=== PATIENT | female | born 1990 | race Caucasian/White ===

== ENCOUNTER 2017-06-15 06:41 | Day surgery (SDC) | payer OTHER ==
[2017-05-31 12:50] VITALS: BMI 36.0
--- NOTE | 2017-06-07 10:47 | HISTORY & PHYSICAL EXAMINATION ---
DATE OF ADMISSION: 06/15/2017 PREOPERATIVE HISTORY AND PHYSICAL SUBJECTIVE CHIEF COMPLAINT: Right knee pain. HISTORY OF PRESENT ILLNESS: The patient is a 26-year-old female who presented with right knee pain. She states that she had pain and instability in her right knee. She states that the symptoms have occurred in a chronic and traumatic nature. She says that her kneecap has fallen out of place several times. She describes the pain as aching and throbbing, and she rates her pain a 3/10. PAST MEDICAL HISTORY: The patient denies any type of past medical history. PAST SURGICAL HISTORY: Two C-sections and appendectomy. SOCIAL HISTORY: She denies alcohol use. She denies smoking or tobacco use. She denies IV or illegal drug use. She is currently unemployed. FAMILY HISTORY: Noncontributory. ALLERGIES: No known drug allergies. MEDICATIONS: She denies taking any over the counter supplements, herbals or prescribed medications. REVIEW OF SYSTEMS: She denies headaches, fevers, chills, double vision, blurry vision, sore throat, cough, chest pain, nausea, vomiting, diarrhea, constipation, numbness, tingling, tired urinary difficulties, thoughts to harm herself or harm others or depression. She is positive for some joint pain of her right knee. OBJECTIVE: GENERAL APPEARANCE: The patient is a 26-year-old female sitting in no acute distress. She is well-dressed, well-nourished. VITAL SIGNS: She is 5 feet tall, weight 180 pounds, blood pressure 106/70. HEENT: Normocephalic, atraumatic. Extraocular movements are intact. Mucosa was moist. No septal deviation. NECK: Supple with no lymphadenopathy, no JVD, no thyromegaly. HEART: Regular rate and rhythm. No murmurs or gallops. LUNGS: Clear to auscultation. No wheezing or rhonchi. ABDOMEN: Soft, nontender, nondistended. Normal bowel sounds, no hepatosplenomegaly. EXTREMITIES: Paying particular attention to the right knee, she does have some laxity with medial and lateral movement of her patella. She does have good strength of her quads and hamstrings. Does have some medial joint line tenderness. Ligaments are intact. NEUROLOGIC: Cranial nerves II-XII were intact. Pulses were compared bilaterally and were equal. IMAGING: MRI of her right knee demonstrated an MPFL tear. IMPRESSION: Right knee Medial patellofemoral ligament tear. PLAN: The patient is scheduled for a right knee MPFL reconstruction with hamstring autograft. Risks and benefits to surgery were discussed with the patient and included but not limited to blood loss, nerve damage, failure to relieve her pain, failure to relieve her symptoms, DVT, loss range of motion and anesthesia risks and were all discussed with her. She understands this risks and she wishes to proceed. All questions were answered to her satisfaction. No DVT prophylaxis is needed and she will be going home with outpatient physical therapy. LAN
[~2017-06-15] VITALS: Ht 152.4 cm; Wt 83.6 kg
[~2017-06-15 06:41] MED LIST: ACET-1256 PO; BUPIVACAINE 0.25% 30 ML VIAL ONE; BUPIVACAINE 0.5 % 5 MG/1 ML PF 10ML VIAL ONE; DEXAMETHASONE SOD INJ 4 MG/ML VIAL ONE; EpINEphrine INJ 1MG/ML AMP 1 MG/ML AMP ONE; IBUP-1050 PO; LACTATED RINGER'S 1000ML 1,000 ML IV SCH; ONDA8TAB6 PO
--- NOTE | 2017-06-15 07:03 | History & Physical Bridge Note ---
H&P Re-Evaluation Bridge Note: I have examined the patient, reviewed the History & Physical and in the interval since the performance of the History & Physical I have noted the following changes of clinical significance: No changes noted
[2017-06-15 07:25] VITALS: BP 120/82; PULSE 85; TEMP 36.5; O2SAT 97; Ht 152.4 cm; Wt 83.6 kg
[2017-06-15] MEDS ORDERED: FENTANYL CITRATE INJ 50 MCG/1 ML 2 ML VIAL ONE ×5 (07:31→11:17)
[2017-06-15] MEDS ORDERED: MIDAZOLAM HCL 1 MG/ML 2ML VIAL ONE (07:31)
[2017-06-15] MEDS ORDERED: BUPIVACAINE 0.5 % 5 MG/1 ML MPF 30ML VIAL ONE (07:46)
[2017-06-15] MEDS ORDERED: LIDOCAINE/EPINEPHRINE 1% 20 ML VIAL ONE (07:46)
[2017-06-15] MEDS ORDERED: EpINEphrine HCL INJ 1 MG/ML 1ML SYRINGE ONE (07:46)
[2017-06-15] MEDS ORDERED: CEFAZOLIN SOD 1 GM VIAL IV ONE (09:09)
[2017-06-15] MEDS ORDERED: ONDANSETRON INJ 2 MG/ML 2 ML VIAL ONE (09:42)
[2017-06-15] MEDS ORDERED: PROPOFOL IV EMULSION 10 MG/ML 20 ML VIAL IV ONE (09:42)
[2017-06-15] MEDS ORDERED: LIDOCAINE HCL 2% 2 ML VIAL (20MG/ML) ONE (09:42)
[2017-06-15] MEDS ORDERED: MoRPHine SULFATE 2 MG/ML CARP ONE ×2 (10:18→10:28)
--- NOTE | 2017-06-15 10:34 | [facility] Operative Report ---
Operative Report Operative Date Jun 15, 2017. Pre-Operative Diagnosis Right Knee Medial Patellofemoral Ligament Tear Post-Operative Diagnosis Right Knee Medial Patellofemoral Ligament Tear Procedure(s) Performed Right knee medial patellofemoral ligament reconstruction with autograft hamstring tendon Surgeon Laboratory Development Technician Surgeon(s) BYRON Amaya Estimated Blood Loss 10 Specimens None per surgeon Drains None Anesthesia Type General Regional Complication(s) none Disposition Recovery Room / PACU Indications The patient is a 26-year-old female with long-standing instability of the patella. She has failed conservative measures including physiotherapy and bracing. She wishes to proceed with medial patellofemoral ligament reconstruction. Description of Procedure The patient has failed conservative measures including anti-inflammatories, physical therapy and bracing. After failing conservative measures they wished to proceed with MPFL reconstruction. Risk, benefits and alternatives to surgery including, but not limited to, infection, DVT, pain, stiffness, need for revision surgery, failure to relieve all symptoms, recurrence of instability , damage to blood vessels, damage to nerves, risk of anesthesia were discussed with the patient and they wished to proceed. The patient was identified. Laterality was confirmed and marked. A preoperative antibiotic as well as an abductor canal block was given. The patient was transferred to the operating room and placed in a supine position and induced into general endotracheal anesthesia per anesthesia staff. A well- padded tourniquet was placed on the thigh and the limb was prepped and draped in the usual standard manner with ChloraPrep. The harvested the graft first. I made a longitudinal incision centered over the pes tendons. I sharply incised through the skin utilizing Bovie electrocautery to achieve hemostasis. I made an L-shaped incision through the sartorius fascia. I identified the gracilis tendon. The gracilis was rather small sore elected to harvest the semitendinosus tendon. I elevated this with a 90 hemostat. I whip stitched it with ultra braid and then harvested it with a tendon stripper. The graft was prepared on the back table with a #2 ultra braid on the contralateral side. I then made a standard anterolateral viewing portal made through a stab incision and bluntly entered the suprapatellar pouch. Then under spinal needle localization I establish an anteromedial portal. There was grade 0 cartilage of the patella. There was grade 0 cartilage of the trochlea. There was grade 0 cartilage of the medial femoral condyle. There was grade 0 cartilage of the medial tibial plateau. The medial meniscus was normal. The ACL and PCL were probed and were normal. There was grade 0 cartilage of the lateral femoral condyle. There was grade 0 cartilage of the lateral tibial plateau. I made a longitudinal incision on the medial aspect of the patella sharply incising through the skin, utilizing Bovie electrocautery to achieve hemostasis. I dissected through the first 2 layers on the medial side leaving the deep third layer intact. I developed this plane along the medial femoral condyle. And under fluoroscopic guidance I placed 2 guide pins, one in the superior pole and one in the midpole of the patella. Once I was satisfied with my positioning, I overreamed with the Endobutton reamer to a depth of about 25 mm. Both tunnels were then tapped. I then utilize fluoroscopic guidance to find appropriate positioning for my femoral tunnel utilizing the posterior cortex and Blumensaat line to find appropriate positioning. Once I was satisfied with the pin placement I then overreamed with a 6 mm reamer. I then passed a passing suture through the femur as well as another to the deep tissue of the medial retinaculum. I then utilized a Beath needle drilling through and through to the patella utilizing the eyelet to dock the sutures for the graft into both the superior tunnel as well as the mid pole tunnel. I then fixated the graft to the patella with two 4.75 mm HEALICOIL REGENESORB suture anchors. I then utilized and ULTRABRAID looped around the graft. This was then shuttled between layers 2 and 3 and then again shuttled and docked in the tunnel. The knee was held in about 30 of flexion. Tension was applied to the graft and then the graft was fixated in the femur with a 6 x 25 mm BOYD composite interference screw. We had good tensioning to the graft, good stability to the knee. The wounds were thoroughly irrigated. The upper mattaponi MPFL was imbricated utilizing the ultra braid sutures that were on the HEALICOIL and then the more superficial layer was closed with Vicryl. The sartorius fascia was closed with interrupted #1-0 Vicryl suture. The subcutaneous tissues were closed with interrupted 2-0 Vicryl suture and the skin with running 4-0 Monocryl. The portal sites were closed with nylon. A sterile dressing was applied and a brace was placed. All needle and sponge counts were correct at the end of the procedure. The patient was transferred to the PACU in stable condition without apparent complication. The PA-C was necessary for assistance with procedure for assistance in positioning, prepping, draping, retraction and closure. I attest to the content of the Intraoperative Record and any orders documented therein. Any exceptions are noted below.
[2017-06-15] MEDS ORDERED: SODIUM CHLORIDE 0.9% 1000ML 1,000 ML IV SCH (10:58)
[2017-06-15] MEDS ORDERED: ONDANSETRON INJ 2 MG/ML 2 ML VIAL IV PRN ×2 (11:00→11:15)
[2017-06-15] MEDS ORDERED: OXYCODONE/ACETAMINOPHEN 5-325 TAB PO PRN ×2 (11:00)
[2017-06-15] MEDS ORDERED: OXYC-57 PO (11:01)
--- NOTE | 2017-06-15 11:06 | Discharge Instructions ---
Discharge Instructions Date of Service Jun 15, 2017. Admission Reason for Admission: Other Instability Of Right Knee Discharge Discharge Diagnosis / Problem: S/P MPFL reconstruction with hamstring autograft Discharge Goals Goal(s): Decrease discomfort, Improve function Activity Recommendations Activity Limitations: per Instructions/Follow-up section . Instructions / Follow-Up Instructions / Follow-Up ACTIVITY RECOMMENDATIONS: * Begin physical therapy 2-3 days after surgery with MPFL protocol. If Physical therapy does not have this protocol, [place] [facility] [place]. * Non-weightbearing with right lower extremity. Keep the brace locked at 0 degrees at all times. Crutches will be provided for you at the hospital. SPECIAL CARE INSTRUCTIONS: * Apply ice to knee for 72 hours after surgery. * Knee immobilizer in extension at 0 degrees at all times. * You may remove the DIONICIO wrap 48 hours after the surgery and use dry dressing changes every 24 hours after the surgery. * Call office at if there are any problems such as excessive wound drainage or increased temperature above 100 degrees F. FOLLOW UP VISIT: If appointment is not already scheduled: Please call [facility] to make a follow-up appointment for 10 -14 days after your surgery at . Current Hospital Diet Patient's current hospital diet: Discharge Diet Recommended Diet: Regular Diet Procedures Procedures Performed: Right knee medial patellofemoral ligament reconstruction with autograft hamstring tendon Pending Studies Studies pending at discharge: no Medical Emergencies . Who to Call and When: Medical Emergencies: If at any time you feel your situation is an emergency, please call [phone] immediately. . Non-Emergent Contact Non-Emergency issues call your: Surgeon Call Non-Emergent contact if: temperature is above 101.5, your pain is worsening, wound has increased drainage, wound has increased redness . "Provider Documentation" section prepared by Felipe Ballard. . VTE Core Measure Inpt VTE Proph given/why not?: Treatment not indicated [place] Drug Monitoring Program Search Results: patient reviewed within database, no issues identified
[2017-06-15] MEDS ORDERED: FENTANYL CITRATE INJ 50 MCG/1 ML 2 ML VIAL IV PRN (11:15)
[2017-06-15] MEDS ORDERED: EpHEDrine SULFATE INJ 50 MG/ML AMP IV PRN (11:15)
[2017-06-15] MEDS ORDERED: ATROPINE SULFATE 0.1 MG/ML 5ML SYR IV PRN (11:15)
[2017-06-15] MEDS ORDERED: PROMETHAZINE HCL INJ 6.25 MG in SODIUM CHLORIDE 0.9% 50ML 50 ML IV PRN (11:15)
[2017-06-15] MEDS ORDERED: KETOROLAC TROMETHAMINE 30 MG/ML VIAL ONE (11:43)
[2017-06-15] MEDS ORDERED: KETOROLAC TROMETHAMINE 30 MG/ML VIAL IV STA (11:46)
[2017-06-15 12:00] VITALS: BP 132/71; PULSE 95; TEMP 36.7; O2SAT 95
--- NOTE | 2017-06-15 12:10 | Anesthesiology Progress Note ---
Anesthesia Post Op Note Date & Time Jun 15, 2017 at 12:10 Vital Signs Pain Intensity: 6 Vital Signs Past 12 Hours Date Time Temp Pulse Resp B/P (MAP) Pulse Ox O2 Delivery O2 Flow Rate FiO2 06/15/17 11:45 36.6 95 25 143/82 97 Room Air 06/15/17 11:35 94 12 130/86 93 Room Air 06/15/17 11:25 97 15 119/88 98 Oxymask 4 06/15/17 11:15 84 14 125/74 100 Oxymask 10 06/15/17 11:05 89 17 112/75 100 Oxymask 10 06/15/17 10:58 36.1 99 18 119/75 100 Oxymask 10 06/15/17 07:25 36.5 85 16 120/82 (95) 97 Room Air Notes Mental Status: alert / awake / arousable, participated in evaluation Pt Amnestic to Procedure: Yes Nausea / Vomiting: adequately controlled Pain: adequately controlled Airway Patency, RR, SpO2: stable & adequate BP & HR: stable & adequate Hydration State: stable & adequate Anesthetic Complications: no major complications apparent Block working well in pacu. Pt has some moderate posterior knee pain not covered by block but well controlled with supplemental medicines.
[2017-06-15 12:35] VITALS: BP 125/75; PULSE 91; O2SAT 98
[2017-06-15 13:05] VITALS: BP 117/63; PULSE 90; TEMP 36.5; O2SAT 97
== END 2017-06-15 13:25 | disposition home or self-care (01) ==
LOC: C.ACU 06:41
PROVIDERS: ATTEND Orthopaedic Surgery
DX: S83.8X1A Sprain of other specified parts of right knee, initial encounter (principal); X58.XXXA Exposure to other specified factors, initial encounter

== ENCOUNTER 2017-12-06 23:42 | Emergency (ER) | payer OTHER ==
[~2017-12-06 23:42] MED LIST changes: -BUPIVACAINE 0.25% 30 ML VIAL ONE; -BUPIVACAINE 0.5 % 5 MG/1 ML PF 10ML VIAL ONE; -DEXAMETHASONE SOD INJ 4 MG/ML VIAL ONE; -EpINEphrine INJ 1MG/ML AMP 1 MG/ML AMP ONE; -LACTATED RINGER'S 1000ML 1,000 ML IV SCH; +ONDA-170 PO; -ONDA8TAB6 PO; +OXYC-57 PO
[2017-12-06 23:49] VITALS: TEMP 36.6; Ht 152.4 cm
[2017-12-07] MEDS ORDERED: KETOROLAC TROMETHAMINE 30 MG/ML VIAL IV STA
[2017-12-07] MEDS ORDERED: SODIUM CHLORIDE 0.9% 1000ML 1,000 ML IV ONE
[2017-12-07] MEDS ORDERED: ONDANSETRON INJ 2 MG/ML 2 ML VIAL IV STA
[2017-12-07] MEDS ORDERED: ACETAMINOPHEN IV 1,000 MG in EMPTY BAG 0 ML IV ONE
[2017-12-07 00:31] LABS: BASO % 0.5 %; BASO ABS # 0.05 K/uL (0-0.2); EOS % 1.6 %; EOS ABS # 0.15 K/uL (0-0.5); HEMATOCRIT 39.6 % (37-47); HEMOGLOBIN 13.9 g/dL (12.0-16.0); IG# 0.02 K/uL (0.00-0.02); LYMPH % 20.1 %; LYMPH ABS # 1.92 K/uL (1.2-3.4); MEAN CELL VOLUME 81.8 fL (80-100); MEAN CORPUSCULAR HEMOGLOBIN 28.7 pg (25-34); MEAN CORPUSCULAR HGB CONC 35.1 g/dl (32-36); MEAN PLATELET VOLUME 10.6 fL (7.4-10.4); MONO ABS # 0.86 K/uL (0.11-0.59); NEUT % 68.6 %; NEUT ABS # 6.57 K/uL (1.4-6.5); PLATELET COUNT 393 K/uL (130-400); RED CELL DISTRIBUTION WIDTH CV 12.4 % (11.5-14.5); RED CELL DISTRIBUTION WIDTH SD 36.9 fL (36.4-46.3); WHITE BLOOD COUNT 9.57 K/uL (4.8-10.8)
[2017-12-07 00:59] LABS: ALBUMIN 4.4 gm/dl (3.4-5.0); ALKALINE PHOSPHATASE 83 U/L (45-117); ALT/SGPT 20 U/L (12-78); AST/SGOT 9 U/L (15-37); BLOOD UREA NITROGEN 14 mg/dl (7-18); CALCIUM 8.7 mg/dl (8.5-10.1); CARBON DIOXIDE 22 mmol/L (21-32); CREATININE 0.88 mg/dl (0.60-1.20); GLUCOSE 89 mg/dl (70-99); LIPASE 92 U/L (73-393); POTASSIUM 3.8 mmol/L (3.5-5.1); SODIUM 139 mmol/L (136-145)
[2017-12-07] MEDS ORDERED: PHEN-876 PO (02:10)
[2017-12-07] MEDS ORDERED: SULF800T23 PO (02:10)
[2017-12-07] MEDS ORDERED: SEPTRA DS HOME PACK 1 EA VIAL PO ONE (02:15)
[2017-12-07] MEDS ORDERED: PHENAZOPYRIDINE HOME PACK 200 MG VIAL PO ONE (02:15)
[2017-12-07 02:29] VITALS: BP 117/62; PULSE 77; O2SAT 98
--- NOTE | 2017-12-07 06:32 | EMERGENCY ROOM VISIT NOTE ---
History First contact with patient: 23:52 Chief Complaint: ABDOMINAL PAIN Stated Complaint: BACK, ABDOMINAL PAIN, NAUSEA, VOMITING Nursing Triage Summary: Patient reports lower back pain, abdominal pain, nausea, and vomiting that began approx 2030 this evening. History of Present Illness The patient is a 27 year old female who presents to the Emergency Room with complaints of lower abdominal pain that goes into her back. Patient states that she is also having some nausea with 2 episodes of emesis. Her symptoms began worsening about ago, but she states that she has had intermittent symptoms like this over the past 2 weeks. The patient has not taken anything [id number] for her symptoms. She rates her current discomfort a 6/10. Review of Systems More than 10 systems were reviewed and otherwise negative with the exception of history of present illness. Past Medical/Surgical History Medical Problems: (1) premature rupture of membranes (PPROM) with unknown onset of labor (2) uterine contractions in third trimester, antepartum Surgical Problems: (1) H/O section (2) History of appendectomy (3) Hx of section Family History Diabetes mellitus Social History Smoking Status: Never Smoker Alcohol Use: none Drug Use: none Marital Status: in relationship Housing Status: lives with family Occupation Status: employed Current/Historical Medications Scheduled Phenazopyridine HCl (Pyridium), 200 MG PO TID Sulfamethoxazole-Trimethoprim (Bactrim Ds 800MG/160MG), 1 TAB PO BID Scheduled PRN Acetaminophen (Tylenol), 1,000 MG PO BID PRN for Pain Physical Exam Vital Signs Date Time Temp Pulse Resp B/P (MAP) Pulse Ox O2 Delivery O2 Flow Rate FiO2 12/07/17 02:29 77 18 117/62 98 12/07/17 00:49 83 18 117/72 98 Room Air 12/06/17 23:49 36.6 95 18 132/74 98 Room Air Physical Exam VITALS: Vitals are noted on the nurse's note and reviewed by myself. Vital signs stable. GENERAL: Well-developed, well-nourished, white female, who is in no acute distress and resting comfortably. Patient is cooperative with the examination. HEAD: Normocephalic atraumatic. HEART: Regular rate and rhythm without murmurs gallops or rubs. LUNGS: Clear to auscultation bilaterally without wheezes, rales or rhonchi. No retractions or accessory muscle use. ABDOMEN: Positive normal bowel sounds x 4. Soft with mild suprapubic tenderness on palpation. No rebound or guarding MUSCULOSKELETAL: No muscle atrophy, erythema, or edema noted. Full range of motion in all extremities. Medical Decision & Procedures ER Provider Diagnostic Interpretation: Preliminary Findings Only See Final Report For Complete Findings CT ABDOMEN & PELVIS Without Contrast: COMPARISON: 05/30/15 FINDINGS: The lung bases are clear. The liver and spleen are normal in size and free of mass lesions. The gallbladder, bile ducts and pancreas are normal. The adrenal gland are unremarkable. The kidneys are normal in size and contour. No stones, lesions or hydronephrosis. The appendix is surgically absent. The colon is unremarkable. Small bowel is within normal limits. No inflammatory changes are demonstrated in the abdomen or pelvis. Aorta is normal caliber. No adenopathy or extraluminal air. The osseous structures are normal. Previously identified rectus collection on the prior study is no longer present IMPRESSION: Unremarkable CT abdomen and pelvis. Laboratory Results 12/07/17 00:15 Red Blood Count 4.84, Mean Corpuscular Volume 81.8, Mean Corpuscular Hemoglobin 28.7, Mean Corpuscular Hemoglobin Concent 35.1, Mean Platelet Volume 10.6, Neutrophils (%) (Auto) 68.6, Lymphocytes (%) (Auto) 20.1, Monocytes (%) (Auto) 9.0, Eosinophils (%) (Auto) 1.6, Basophils (%) (Auto) 0.5, Neutrophils # (Auto) 6.57, Lymphocytes # (Auto) 1.92, Monocytes # (Auto) 0.86, Eosinophils # (Auto) 0.15, Basophils # (Auto) 0.05 12/07/17 00:15 Test 12/07/17 00:10 12/07/17 00:15 Urine Color YELLOW Urine Appearance CLEAR (CLEAR) Urine pH 7.0 (4.5-7.5) Urine Specific [place] 1.014 (1.000-1.030) Urine Protein NEG (NEG) Urine Glucose (UA) NEG (NEG) Urine Ketones NEG (NEG) Urine Occult Blood NEG (NEG) Urine Nitrite NEG (NEG) Urine Bilirubin NEG (NEG) Urine Urobilinogen NEG (NEG) Urine Leukocyte Esterase NEG (NEG) Urine Test NEG (NEG) White Blood Count 9.57 K/uL (4.8-10.8) Red Blood Count 4.84 M/uL (4.2-5.4) Hemoglobin 13.9 g/dL (12.0-16.0) Hematocrit 39.6 % (37-47) Mean Corpuscular Volume 81.8 fL (80-100) Mean Corpuscular Hemoglobin 28.7 pg (25-34) Mean Corpuscular Hemoglobin Concent 35.1 g/dl (32-36) Platelet Count 393 K/uL (130-400) Mean Platelet Volume 10.6 fL (7.4-10.4) Neutrophils (%) (Auto) 68.6 % Lymphocytes (%) (Auto) 20.1 % Monocytes (%) (Auto) 9.0 % Eosinophils (%) (Auto) 1.6 % Basophils (%) (Auto) 0.5 % Neutrophils # (Auto) 6.57 K/uL (1.4-6.5) Lymphocytes # (Auto) 1.92 K/uL (1.2-3.4) Monocytes # (Auto) 0.86 K/uL (0.11-0.59) Eosinophils # (Auto) 0.15 K/uL (0-0.5) Basophils # (Auto) 0.05 K/uL (0-0.2) RDW Standard Deviation 36.9 fL (36.4-46.3) RDW Coefficient of Variation 12.4 % (11.5-14.5) Immature Granulocyte % (Auto) 0.2 % Immature Granulocyte # (Auto) 0.02 K/uL (0.00-0.02) Anion Gap 10.0 mmol/L (3-11) Estimated GFR () 102.9 Estimated GFR (Non- 88.8 BUN/Creatinine Ratio 16.4 (10-20) Calcium Level 8.7 mg/dl (8.5-10.1) Magnesium Level 2.1 mg/dl (1.8-2.4) Total Bilirubin 0.3 mg/dl (0.2-1) Aspartate Amino Transf (AST/SGOT) 9 U/L (15-37) Alanine Aminotransferase (ALT/SGPT) 20 U/L (12-78) Alkaline Phosphatase 83 U/L (45-117) Total Protein 8.0 gm/dl (6.4-8.2) Albumin 4.4 gm/dl (3.4-5.0) Globulin 3.6 gm/dl (2.5-4.0) Albumin/Globulin Ratio 1.2 (0.9-2) Lipase 92 U/L (73-393) Thyroid Stimulating Hormone (TSH) 5.250 uIu/ml (0.300-4.500) Medications Administered Medications (Trade) Dose Ordered Sig/Nirav Route Start Time Stop Time Status Last Admin Dose Admin Sodium Chloride 1,000 ml @ 999 mls/hr Q1H1M ONCE IV 12/07/17 00:00 12/07/17 01:00 DC 12/07/17 00:47 999 MLS/HR Ketorolac Tromethamine (Toradol Inj) 30 mg NOW STAT IV 12/07/17 00:00 12/07/17 00:01 DC 12/07/17 00:47 30 MG Ondansetron HCl (Zofran Inj) 4 mg NOW STAT IV 12/07/17 00:00 12/07/17 00:01 DC 12/07/17 00:46 4 MG Acetaminophen 1000 mg/Empty Bag 100 ml @ 400 mls/hr NOW ONCE IV 12/07/17 00:00 12/07/17 00:14 DC 12/07/17 00:48 400 MLS/HR ED Course Physical exam and history were performed. Nursing notes, EMR, and Medication List were personally reviewed. Patient appears to have vague abdominal discomfort is reportedly more in the right flank and lower abdomen. Patient does not appear toxic on examination. She does have some reproducible tenderness in the suprapubic area. IV access was established and labs were obtained. The patient was hydrated and medicated as above. Because of her symptoms I did elect to perform a CT scan of her abdomen. The patient's blood work is as above and was reviewed. She does not have a significantly elevated white blood cell count, gross anemia, bandemia, or significant electrolyte imbalance. Transaminases are nondiagnostic. The patient's urine is without evidence of , however is suggestive of infection. Patient CT scan is as above and does not appear to show obvious acute findings. On repeat examination the patient continues with some suprapubic tenderness. She does not appear to have an acute surgical abdomen. I discussed options of care with the patient who is comfortable with discharge home. I suspect her symptoms are related to the UTI. She will be given a course of Bactrim and Pyridium. The patient is to follow with her primary care physician in the next few days for recheck. She was otherwise invited back to the ER with any new, worsening, or concerning symptoms. The chart was completed utilizing [facility] Speech Voice Recognition Software. Grammatical errors, random word insertions, pronoun errors, and incomplete sentences are an occasional consequence of this system due to software limitations, ambient noise, and hardware issues. Any formal questions or concerns about the content, text, or information contained within the body of this dictation should be directly addressed to the provider for clarification. . Medical Decision Differential diagnosis: Etiologies such as appendicitis, diverticulitis, PUD, biliary pathology, UTI, pancreatitis, obstruction, mesenteric ischemia, aortic pathology, infections, inflammatory bowel disease, renal colic, as well as others were entertained. Impression Primary Impression: UTI (urinary tract infection) Departure Information Dispostion Home / Self-Care Condition GOOD Prescriptions Phenazopyridine HCl (Pyridium) 200 Mg Tab 200 MG PO TID for 3 Days, #9 TAB Prov: Fransisco Childress PA-C 12/07/17 Sulfamethoxazole-Trimethoprim (Bactrim Ds 800MG/160MG) 1 Tab Tab 1 TAB PO BID for 9 Days, #18 TAB Prov: Fransisco Childress PA-C 12/07/17 Forms HOME CARE DOCUMENTATION FORM, IMPORTANT VISIT INFORMATION Patient Instructions My [facility] Additional Instructions You were seen and evaluated today on an emergency basis only. This is not a substitute for, or an effort to provide, complete comprehensive medical care. It is not possible to recognize and treat all injuries or illnesses in a single emergency department visit. For this reason it is recommended that you followup with your primary care physician next week with any ongoing or persisting symptoms. Trimethoprim-Sulfamethoxazole(Bactrim DS): Take one pill twice daily for 10 days for your urine infection. All antibiotics can cause diarrhea. If this occurs and you feel worse or it does not resolve in 1-2 days follow up with your doctor or return to the Emergency Department as this could be signs of serious underlying problems. Any medication can cause an allergic reaction, stop the pills immediately and return to the ER for rash, hives, breathing difficulties, or swelling. Take Pyridium 3 times daily. This medication will change your urine orange. You are welcome to return to the emergency department anytime with new, worsening, or concerning symptoms.
--- NOTE | 2017-12-07 07:11 | DIAGNOSTIC IMAGING REPORT ---
ABDOMEN AND PELVIS CT WITHOUT CONTRAST CT DOSE: 705.56 mGy.cm HISTORY: Right flank pain. Low abd pain. No appdx. TECHNIQUE: Multiaxial CT images of the abdomen and pelvis were performed without contrast. A dose lowering technique was utilized adhering to the principles of ALARA. COMPARISON STUDY: Abdomen and pelvis CT 05/30/2015. FINDINGS: The lung bases are clear. The unenhanced liver, spleen, gallbladder, pancreas, kidneys, and adrenal glands are within normal limits. No bowel wall thickening or obstruction. The pelvic organs are unremarkable. No suspicious lytic or blastic osseous lesions. The appendix is surgically absent. IMPRESSION: No significant abnormality identified within the abdomen or pelvis. Electronically signed by: Дмитрий Carr M.D. 12/07/2017 7:10 AM Dictated Date/Time: 12/07/2017 7:05 AM
== END 2017-12-07 02:25 | disposition home or self-care (01) ==
LOC: C.EDB 23:43
DX: N39.0 Urinary tract infection, site not specified (principal); R11.2 Nausea with vomiting, unspecified

== ENCOUNTER 2018-09-12 19:38 | Observation (INO) ==
[2018-09-12] MEDS ORDERED: LACTATED RINGER'S 1,000 ML IV SCH (20:00)
[2018-09-12 20:28] LABS: Appearance Urine Clear (Clear); Bacteria Urine Automated 2+ (Negative); Blood Urine Negative (Negative); Color Urine Dark Yellow; Epithelial Cell Urine Auto >30 /lpf (0-5); Glucose Urine UA Negative (Negative); Leukocyte Esterase Urine Negative (Negative); Nitrite Urine Negative (Negative); Protein Urine 1+ (Negative); Specific Gravity Urine 1.042 (1.000-1.030); Urobilinogen Urine Negative (Negative)
[2018-09-12] MEDS ORDERED: ONDANSETRON INJ 2 MG/ML 2 ML VIAL ONE (20:35)
[2018-09-12 21:01] LABS: Bilirubin Urine Negative (Negative); Ictotest Urine Negative (Negative)
[2018-09-12 21:02] LABS: Ketones Urine 3+ (Negative)
[2018-09-12 21:04] LABS: Cast Urine Automated 0 /lpf (0-5)
[2018-09-12 21:05] LABS: Mucus Urine Present (None Prsent)
[2018-09-12] MEDS ORDERED: LACTATED RINGER'S 1,000 ML IV ONE (21:08)
[2018-09-12] MEDS: AMPICILLIN 2,000 MG in SODIUM CHLOR 0.9% AD-VAN 100 ML IV SCH (21:53)
[2018-09-12] MEDS ORDERED: PROMETHAZINE HCL 12.5 MG in SODIUM CHLORIDE 0.9% 50 ML IV STA (21:59)
[2018-09-12] MEDS: LACTATED RINGER'S 1,000 ML IV SCH (23:00)
[2018-09-12] MEDS ORDERED: METOCLOPRAMIDE HCL INJ 5 MG/ML 2 ML VIAL IV STA (23:09)
--- NOTE | 2018-09-12 23:09 | Obstetrical Progress Note ---
Date of Service September 12, 2018 Subjective Outpatient Note 27 F [id number] at 29.6 weeeks seen in L&D [facility] with several week history of nausea and vomiting and abdominal pain. She is not having any contractions or vaginal bleeding. she has not been able to keep food down for most of her . On admission to L&D she has continued vomiting with dry heaves. Cervical exam reveals cervix to be closed and thick/-3. FHT Cat 1. Hard impacted sttol noted. Will get UA and start IV bolus with ant-emetics. Results & Data Vital Signs (Past 12 Hours) Vital Signs Temp Pulse Resp BP 09/12/18 19:49 120 H 115/75 09/12/18 19:44 36.5 C 120 H 18 115/75 Laboratory Results Laboratory Results - last 24 hr 09/12/18 19:45 Urine Color Dark Yellow Urine Appearance Clear Urine pH 6.0 Ur Specific [place] 1.042 H Urine Protein 1+ H Urine Glucose (UA) Negative Urine Ketones 3+ H Urine Blood Negative Urine Nitrite Negative Urine Bilirubin Negative Urine Urobilinogen Negative Ur Leukocyte Esterase Negative Urine WBC (Auto) 5-10 H Urine RBC (Auto) 5-10 H U Hyaline Cast (Auto) 0 U Epithel Cells (Auto) >30 H Urine Bacteria (Auto) 2+ H Ur Renal Epithelial Cell Not Reportable Urine Crystals Calcium Oxalate A Urine Mucus Present A
[2018-09-13] MEDS ORDERED: Nursing to Pharmacy Communication ONE
[2018-09-13] MEDS: ONDANSETRON INJ 2 MG/ML 2 ML VIAL IV PRN ×2 (02:54→07:24)
[2018-09-13 03:00] VITALS: TEMP 97.7
[2018-09-13] MEDS: AMPICILLIN 2,000 MG in SODIUM CHLOR 0.9% AD-VAN 100 ML IV SCH ×2 (04:05→09:07)
[2018-09-13] MEDS: LACTATED RINGER'S 1,000 ML IV SCH (08:31)
[2018-09-13 08:32] VITALS: BP 107/58; PULSE 110
--- NOTE | 2018-09-13 09:00 | Obstetrical Progress Note ---
Date of Service September 13, 2018 Physical Exam Constitutional: WD/WN, vitals as above + well hydrated and comfortable no further nausea or vomiting will discharge home follow up in office next week Results & Data Vital Signs (Past 12 Hours) Vital Signs Temp Pulse Resp BP 09/13/18 08:31 110 H 20 107/58 L 09/13/18 07:05 92 H 106/64 09/13/18 06:12 83 97/54 L 09/13/18 02:24 36.5 C 95 H 16 99/50 L 09/12/18 23:46 36.4 C L 85 18 103/54 L
--- NOTE | 2018-09-21 11:55 | Discharge Summary ---
HOSPITAL COURSE AND CLINICAL HISTORY: The patient is a 27-year-old female with para 3-0-0-3 at 29 weeks and 6 days, seen in Labor and Delivery with several weeks history of nausea, vomiting, abdominal pain. No contractions or bleeding. Her exam was benign. Her cervix was closed. Category 1 heart tones noted on strip. The patient was given several liters of IV fluids with probably 3 liters doses. She was then subsequently stable after antiemetics and IV fluids. She was discharged home on 09/13/2018 in stable condition. Home going instructions were given. Condition on discharge is stable. The diet on discharge is regular as tolerated. Follow up will be in the office. DIAGNOSIS: Dehydration on .
== END 2018-09-13 10:00 | disposition home or self-care (01) ==
LOC: OPB 19:38 → 4S1 19:38

== ENCOUNTER 2018-11-06 22:02 | Inpatient (IN) ==
[2018-11-06] MEDS ORDERED: LACTATED RINGER'S 1,000 ML IV SCH ×2 (23:00→23:58)
[2018-11-06 23:25] LABS: Basophils # (auto) 0.01 K/uL (0-0.2); Basophils % (auto) 0.1 %; Eosinophils # (auto) 0.07 K/uL (0-0.5); Eosinophils % (auto) 0.8 %; Hematocrit (blood only) 34.4 % (37-47); Hemoglobin 11.5 g/dL (12.0-16.0); Immature Granulocytes # (auto) 0.02 K/uL (0.00-0.02); Immature Granulocytes % (auto) 0.2 %; Lymphocytes % (auto) 16.5 %; Mean Corpuscular Volume 80.4 fL (80-100); Mean Platelet Volume 11.1 fL (7.4-10.4); Monocytes # (auto) 0.53 K/uL (0.11-0.59); Monocytes % (auto) 6.3 %; Neutrophils # (auto) 6.43 K/uL (1.4-6.5); Neutrophils % (auto) 76.1 %; Platelet Count 262 K/uL (130-400); RDW Coefficient of Variation 13.6 % (11.5-14.5); RDW Standard Deviation 39.5 fL (36.4-46.3); Red Blood Count 4.28 M/uL (4.2-5.4); White Blood Count 8.46 K/uL (4.8-10.8)
[2018-11-06 23:36] LABS: Mean Corpuscular Hgb Conc 33.4 g/dL (32-36)
--- NOTE | 2018-11-06 23:42 | Anesthesiology Consultation ---
Date of Service November 06, 2018 @ 37.5 Neurofibromatosis Type 1 Obesity Assessment & Plan (1) Encounter for pre-operative examination: Chart Review Chart Review: Acceptable Risk for Surgery and Patient NOT seen in Pre Admission Testing Consults Requested none ASA [id number] Proposed Anesthesia Anesthesia Type: Spinal Risk / Benefits Reviewed With: PT / POA / Parent / Guardian, Accepts Plan and Informed Consent Obtained History Surgery Operation Date: 11/06/18 23:30 Proposed Procedures p Section in LD - Sharan Neal MD Height/Weight Height: 5 ft Weight: 92.6 kg Allergies Allergy/AdvReac Type Severity Reaction Status Date / Time bee venom protein (honey bee) Allergy Intermediate Headache, Verified 04/30/18 18:51 faint lactose Allergy Intermediate Gastrointestinal Verified 04/30/18 18:51 Upset Medications Home Medications Medication Instructions Recorded Confirmed Last Taken buspirone 10 mg PO QAM 11/06/18 11/06/18 11/06/18 buspirone 15 mg PO QPM 11/06/18 11/06/18 11/05/18 promethazine 25 mg PO Q6H PRN 11/06/18 11/06/18 Unknown sertraline [Zoloft] 25 mg PO QAM 11/06/18 11/06/18 11/06/18 Active Medications Generic Name Dose Route Start Last Admin Trade Name Freq PRN Reason Stop Dose Admin Lactated Ringer's 1,000 mls @ 999 mls/hr 11/06/18 23:00 11/06/18 23:31 Lr IV 11/07/18 00:00 999 mls/hr .Q1H1M KRISSY Administration NPO Date Last Intake of Fluids: 11/06/18 Time Last Intake of Fluids: 21:00 Date Last Intake of Solids: 11/06/18 Time Last Intake of Solids: 18:00 Past Medical History Medical History (Acute) Anxiety with depression Cystic fibrosis carrier Fibroid uterus History of abnormal cervical Pap smear 2012; had colposcopy and all wnl since Mitral valve prolapse diagnosed as a child Neurofibromatosis, 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 No history of diabetes mellitus 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 [place] teeth removed 2008 Exercise / Class Metabolic Activity II 4-5 Yardwork/Stairs/Walk up hill Past Family History Family History Other No significant family history Past Surgical History Surgical History History of appendectomy (Resolved) H/O section (Resolved) S/P reconstruction of ligament of knee right knee 2018 Past Anesthesia History No Hx of Anesthesia Complications and No Family Hx of Anesthesia Complications History of PONV No Hx of PONV and No Hx of Motion Sickness Social History Smoking Status: Never smoker Hx Alcohol Use: No Hx Substance Use: No substance use type: does not use Physical Exam Vital Signs Last Vital Signs Temp 36.6 C 11/06/18 22:28 Pulse 94 H 11/06/18 22:14 Resp 20 11/06/18 23:00 BP 121/80 11/06/18 22:14 ENMT Mouth: no dentition abnormality Thyromental Distance: > or= 3.5 Finger Breadths Mallampati Class: II Neck normal visual inspection Respiratory normal respiratory effort Auscultation: lungs clear to auscultation bilaterally Cardiovascular Rate/Rhythm: regular rate and regular rhythm Psychiatric Orientation: alert Testing Laboratory Results 11/06/18 23:06
[2018-11-06] MEDS ORDERED: cefOXitin 2,000 MG in DEXTROSE 5% 50 ML IV ONE (23:45)
[2018-11-06] MEDS ORDERED: CITRIC ACID/SODIUM CITRATE 15 ML UDC PO ONE (23:45)
[2018-11-06] MEDS ORDERED: ONDANSETRON INJ 2 MG/ML 2 ML VIAL ONE (23:51)
[2018-11-06] MEDS ORDERED: fentaNYL citrate 100 MCG/2 ML VIAL ONE (23:51)
[2018-11-06] MEDS ORDERED: MoRPHine SULFATE PF 1 MG/ML 10 ML AMP/VIAL ONE (23:51)
--- NOTE | 2018-11-06 23:54 | History and Physical Report ---
DATE OF ADMISSION: 11/06/2018 CHIEF COMPLAINT: Desire for permanent sterilization, two previous sections, active labor. HISTORY OF PRESENT ILLNESS: The patient is a 28-year-old 3, para 3. She had 1 set of twins at her first . This has been uncomplicated except for symptoms of hyperemesis early in her . Her due date 11/22/2018. Her obstetrical history is as follows: In 2011, she had a twin delivery at [facility] at 32 weeks, identical boys, one 4 pounds 2 ounces, the other 4 pounds 9 ounces via . Second in 2014 at 6 pounds 5 ounce girl at 36 weeks, went into active labor, repeat . The patient states she has been having contractions since 5:00 p.m. They have been getting progressively worse. When she arrived at [facility], she was checked and found to be 2+ cm dilated, cervix was about 80-90% effaced, she had a regular labor contractions, feeling her contractions, was diagnosed as being in active labor. She also requests permanent sterilization. She has been informed of the nature of the procedure of tubal ligation including the fact it is intended to result in permanent and irreversible sterility and that there can be a failure rate, and the patient can get despite having had her tubes tied, presently being scheduled for an urgent section with bilateral tubal ligation. PAST MEDICAL HISTORY: Three children in good health. ALLERGIES: No known drug allergies. PAST SURGICAL HISTORY: She had 2 C-sections. She has an appendectomy. She had wisdom teeth removed and she had right knee surgery. MEDICAL HISTORY: She is on medications for anxiety BuSpar 10 mg in the morning and 15 mg at night and Zoloft 25 mg in the morning. SOCIAL HISTORY: No smoking. 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 FAMILY HISTORY: Mom is 55, diabetic. Father 56, in good health. Two sisters in good health. REVIEW OF SYSTEMS: HEAD: No symptoms of frequent or severe headaches. EYES: No symptoms of blurred vision, double vision. EARS: No symptoms of frequent ear infections, difficulty hearing. NOSE: No symptoms of frequent nosebleeds, difficulty breathing through her nose. THROAT: No symptoms of frequent or severe sore throats, difficulty swallowing. RESPIRATORY SYSTEM: No history of asthma, chest pain, shortness of breath. PHYSICAL EXAMINATION: GENERAL: Well-developed, well-nourished 28-year-old white female, alert, oriented x3 and cooperative in no acute distress, appear her stated age, was in intermittent periods of distress due to contractions. HEART: Had regular rhythm. S1 and S2 are normal. LUNGS: Clear to auscultation and percussion. BREASTS: Normal. ABDOMEN: Consistent with a 37-week 5-day fetus. There was a well-healed Pfannenstiel scar. There was no CVA tenderness. MUSCULOSKELETAL: No calf tenderness. PELVIC: Reveals cervix to be 2 cm, 100% effaced, vertex presentation. IMPRESSIONS OF THIS CASE: Desire for permanent sterilization, history of 2 previous sections, history of identical twins and intrauterine 37 weeks 5 days, active labor.
[2018-11-07] MEDS ORDERED: OXYTOCIN 10 UNITS/ML VIAL ONE (00:56)
[2018-11-07] MEDS ORDERED: LIDOCAINE/EPINEPHRINE 2% 1:200,000 20 ML SDV ONE (00:56)
[2018-11-07] MEDS ORDERED: KETOROLAC 30 MG/ML VIAL ONE (00:56)
[2018-11-07] MEDS ORDERED: LIDOCAINE/EPINEPHRINE 2% 1:200,000 20 ML SDV INFIL SCH (01:30)
[2018-11-07] MEDS ORDERED: SUPERCREAM 0.870% 15 GM JAR EXT PRN (01:37)
[2018-11-07] MEDS ORDERED: HYDROCORTISONE ACETATE 25 MG SUPP PR PRN (01:37)
[2018-11-07] MEDS ORDERED: DIPHTHERIA/TETANUS/PERTUSSIS 0.5 ML SYR/VIAL IM ONE (01:37)
[2018-11-07] MEDS ORDERED: BENZOCAINE 20% AER SPR 82.5 GM CAN EXT PRN (01:37)
[2018-11-07] MEDS ORDERED: MAGNESIUM HYDROXIDE SUSP 30 ML UDC PO PRN (01:37)
[2018-11-07] MEDS ORDERED: LACTATED RINGER'S 1,000 ML IV SCH (01:45)
--- NOTE | 2018-11-07 01:47 | Post Operative Brief Note ---
Immediate Post Op Note v1 Date of Surgery November 07, 2018 Pre & Post Diagnosis Operation Date: 11/06/18 23:30 Pre-Op Diagnosis: Active labor, two previous cesearan sections, desire for permanent sterilization Post-Op Diagnosis: Normal tubes and ovaries Procedure Operation Date: 11/06/18 23:30 Actual Procedures p Section in LD - Sharan Neal MD bilateral tubal ligation Surgeon Sharan Neal MD [place] Man nurse Estimated Blood Loss 400 Findings Consistent with Post-Op Diagnosis Fluids 1200 ml Specimens placenta portion of both tubes Drains Medina Catheter Anesthesia Type MAC Spinal Regional Complications none Disposition Accompanied Patient To Recovery: No Disposition: Recovery Room
--- NOTE | 2018-11-07 01:48 | Post Operative Brief Note ---
Immediate Post Op Note v1 Date of Surgery November 07, 2018 Pre & Post Diagnosis Operation Date: 11/06/18 23:30 Pre-Op Diagnosis: Active labor, two previous cesearan sections, desire for permanent sterilization Post-Op Diagnosis: Normal tubes and ovaries Procedure Operation Date: 11/06/18 23:30 Actual Procedures p Section in LD - Sharan Neal MD Surgeon Sharan Neal MD Mailroom Coordinator nurse Estimated Blood Loss 400 Findings Consistent with Post-Op Diagnosis Specimens placenta portion of both tubes Drains Medina Catheter Anesthesia Type MAC Spinal Regional
[2018-11-07] MEDS ORDERED: NALOXONE HCL 1 MG in SODIUM CHLORIDE 0.9% 1000ML 1,000 ML IV PRN ×2 (02:00→02:05)
[2018-11-07] MEDS ORDERED: NALOXONE HCL 0.4 MG/1 ML VIAL/CARP IV PRN ×2 (02:00→02:05)
[2018-11-07] MEDS ORDERED: NALBUPHINE HCL INJ 10 MG/ML AMP IV PRN ×2 (02:00→02:05)
[2018-11-07] MEDS ORDERED: ONDANSETRON INJ 2 MG/ML 2 ML VIAL IV PRN ×3 (02:00→20:00)
[2018-11-07] MEDS ORDERED: DiphenhydrAMINE HCL 50 MG/ML VIAL IV PRN ×4 (02:00→20:00)
[2018-11-07] MEDS ORDERED: fentaNYL 2MCG/ML ROPIV 1.25MG/ML 100 ML BAG EPI PRN (02:00)
[2018-11-07] MEDS ORDERED: PROMETHAZINE HCL 6.25 MG in SODIUM CHLORIDE 0.9% 50 ML IV PRN ×2 (02:00→02:05)
[2018-11-07] MEDS ORDERED: ePHEDrine sulfate 50 MG/ML AMP IV PRN ×2 (02:00→02:05)
[2018-11-07] MEDS ORDERED: LACTATED RINGER'S 500 ML IV PRN (02:05)
[2018-11-07] MEDS ORDERED: HYDROmorphone INJ 0.5 MG/0.5 ML SYR IV PRN (02:05)
[2018-11-07] MEDS ORDERED: NALOXONE HCL 0.08 MG in SYRINGE 1.8 ML IV PRN (02:05)
[2018-11-07] MEDS ORDERED: MEPERIDINE HCL 25 MG/ML CARP IV PRN (02:05)
[2018-11-07] MEDS ORDERED: MoRPHine SULFATE PF 1 MG/ML 10 ML AMP/VIAL INT SPINAL ONE (02:05)
--- NOTE | 2018-11-07 02:12 | Operative Report ---
DATE OF OPERATION: 11/07/2018 PROCEDURE: Repeat low segment section, bilateral tubal ligation. INDICATIONS FOR SURGERY: Two previous sections, active labor, intrauterine 37 weeks 5 days, desire for permanent sterilization. POSTOPERATIVE DIAGNOSES: Two previous sections, active labor, intrauterine 37 weeks 5 days, desire for permanent sterilization, delivered live female infant. SURGEON: Sam Neal MD ESTIMATED BLOOD LOSS: 400 mL. ANESTHESIA: Spinal. OPERATIVE FINDINGS AND PROCEDURE: The patient was brought to the OR table, correctly identified by armband and conversation. Spinal anesthesia was administered. Compression stockings were placed. A Medina catheter was inserted aseptically in the bladder, connected to gravity drainage. Lower abdomen was painted with an alcohol based sterilizing solution, draped in the usual sterile fashion. Level of the anesthesia was tested and found to be adequate and a Pfannenstiel incision was made through a previous scar. Incision was carried down to the anterior fascia by sharp dissection. Hemostasis was secured by electrocauterization. Fascia was incised transversely from an underlying muscle by blunt and sharp dissection. The abdomen was entered between the 2 rectus muscles and then it was carried down to the dome of the bladder. Lower uterine segment was exposed. Incision was made above the vesicouterine fold. The bladder was undermined bluntly and pushed out of the operative field. Lower uterine segment was very thin, was entered with the scissors. Fluid was clear, extended laterally. Vectis retractor was applied to the head and then with fundal pressure, the infant was delivered. Infant was suctioned through the mouth and the nose. Body was delivered without difficulty. High Man was scrubbed and present at time of delivery. Cord was clamped and cut. Cord blood was taken. The placenta was removed manually. Uterus, tubes, and ovaries were brought out through the abdominal incision. Uterine cavity was wiped clean with a clean sponge. Ten units of Pitocin was injected right into the myometrium. The myometrium was then approximated with a continuous interlocking suture of heavy chromic, then a layer of heavy Vicryl was placed over this and a second layer of fascial tissue was covered the myometrial approximation. We then used about 4 interrupted [id number] sutures of Vicryl to complete hemostasis and prevent the edges of the defect from bleeding. Once hemostasis was achieved, the peritoneum was reapproximated with a running 3-0 chromic and this restored the integrity of the vesicouterine fold. Attention was turned to closing the tip of the tubes. Each tube was grasped with a [place] and ligated proximally and distally with a plain tie between the 2 ligations and was infiltrated with local with epinephrine. This was done for both the right and left side. Then, the 2 leaves of the broad ligament were . Tube was brought out through that cut and then the broad ligament was approximated front to back exteriorizing the distal portion of the tube and burying the proximal portion of the tube. Following this, hemostasis was excellent. The pelvis was cleansed of all blood clots and debris. Uterus, tubes, and ovaries were reinserted into the abdomen. Careful anatomical approximation of the anterior abdominal wall was performed. Peritoneum was closed with a mattress suture of chromic catgut. Recti muscles were approximated with interrupted [id number] suture of chromic catgut. The fascia was closed in a continuous interlocking suture of Vicryl on each side. Subcutaneous was approximated with a running plain. The skin edges were approximated with staple clips. I attest to the content of the Intraoperative Record and any orders documented therein. Any exception s are noted below.
[2018-11-07] MEDS ORDERED: DC INTRASPINAL MORPHINE SCH (02:15)
[2018-11-07] MEDS ORDERED: NO NARCOTICS OR SEDATIVES SCH (02:15)
[2018-11-07] MEDS ORDERED: SODIUM CHLORIDE 0.9% 1000ML 1,000 ML IV SCH (02:15)
[2018-11-07] MEDS ORDERED: OXYTOCIN 10 UNITS/ML VIAL IM ONE (02:23)
--- NOTE | 2018-11-07 02:41 | Anesthesiology Progress Note ---
Date of Service November 07, 2018 Anesthesia Post Procedure Vital Signs Vital Signs: Temp Pulse Resp BP Pulse Ox 11/07/18 02:37 73 100 11/07/18 02:36 73 117/74 11/07/18 02:32 75 100 11/07/18 02:27 70 100 11/07/18 02:26 68 16 129/77 11/07/18 02:22 69 100 11/07/18 02:17 74 99 11/07/18 02:16 73 16 124/71 11/07/18 02:12 72 100 11/07/18 02:07 78 100 11/07/18 02:06 71 18 117/62 11/07/18 02:02 71 100 11/07/18 01:58 73 90 11/07/18 01:57 73 93 11/07/18 01:56 36.8 C 76 18 115/62 11/07/18 01:52 81 100 11/07/18 01:47 82 100 11/07/18 01:46 85 106/58 L 11/06/18 23:00 20 11/06/18 22:30 20 11/06/18 22:28 36.6 C 20 11/06/18 22:14 94 H 121/80 11/06/18 22:08 36.6 C 20 Transfer of Care Handoff Completed per policy Notes Mental Status: alert / awake / arousable Patient Amnestic to Procedure: Yes Nausea / Vomiting: adequately controlled Pain: adequately controlled Airway Patency, RR, SpO2: stable & adequate BP & HR: stable & adequate Hydration State: stable & adequate Neuraxial Anesthesia: was administered and sensory block is resolving Anesthetic Complications: no major complications apparent and Pt Satisfied with anesthetic care
[2018-11-07] MEDS: OXYTOCIN 20 UNITS in LACTATED RINGER'S 1,000 ML IV SCH ×2 (03:57→12:10)
[2018-11-07] MEDS ORDERED: CITRIC ACID/SODIUM CITRATE 15 ML UDC PO SCH (06:00)
[2018-11-07] MEDS: KETOROLAC 30 MG/ML VIAL IV PRN ×2 (08:10→16:45)
[2018-11-07] MEDS: DOCUSATE SODIUM 100 MG CAP PO SCH ×2 (08:11→20:44)
[2018-11-07] MEDS: PRENATAL VITAMIN 1 TAB PO SCH (08:11)
[2018-11-07] MEDS: FERROUS SULFATE 325 MG TAB PO SCH (08:11)
[2018-11-07] MEDS: SIMETHICONE 80 MG CHEW PO SCH ×4 (08:11→20:44)
[2018-11-07] MEDS: MoRPHine SULFATE 2 MG/ML CARP IV PRN ×2 (12:11→14:04)
[2018-11-07] MEDS ORDERED: MoRPHine SULFATE 4 MG/ML 1 ML CARP\\VIAL ONE (17:54)
[2018-11-07] MEDS ORDERED: KETOROLAC 30 MG/ML VIAL IV PRN (20:00)
[2018-11-07] MEDS ORDERED: MEPERIDINE HCL 50 MG/ML CARP IV PRN (20:00)
[2018-11-07] MEDS ORDERED: PROMETHAZINE HCL 25 MG in SODIUM CHLORIDE 0.9% 50 ML IV PRN (20:00)
[2018-11-07] MEDS: OXYCODONE/ACETAMINOPHEN 5mg/325mg TAB PO PRN (23:37)
[2018-11-07] MEDS: IBUPROFEN 600 MG TAB PO PRN (23:37)
[2018-11-08] MEDS: IBUPROFEN 600 MG TAB PO PRN ×5 (03:41→21:39)
[2018-11-08] MEDS: OXYCODONE/ACETAMINOPHEN 5mg/325mg TAB PO PRN ×5 (03:42→21:40)
--- NOTE | 2018-11-08 07:18 | Anesthesiology Progress Note ---
Date of Service November 08, 2018 Anesthesia Post Procedure Vital Signs Vital Signs: Temp Pulse Resp BP Pulse Ox Pulse Ox 11/08/18 00:25 36.7 C 86 20 103/63 98 11/07/18 20:20 36.8 C 81 18 112/63 98 11/07/18 20:07 18 100 11/07/18 19:34 18 100 11/07/18 18:30 18 100 11/07/18 17:32 18 100 11/07/18 16:30 37.0 C 83 18 113/64 100 11/07/18 15:15 18 99 11/07/18 14:00 18 99 11/07/18 13:00 18 98 11/07/18 12:30 36.9 C 86 20 109/68 99 11/07/18 12:00 20 98 11/07/18 11:00 18 97 11/07/18 10:00 18 96 11/07/18 09:00 20 98 11/07/18 07:50 36.8 C 81 20 119/72 100 100 Pain Intensity Bilateral Lower Abdomen: Pain Intensity: 7 Transfer of Care Handoff Completed per policy Notes Mental Status: alert / awake / arousable Patient Amnestic to Procedure: Yes Nausea / Vomiting: adequately controlled Pain: adequately controlled Airway Patency, RR, SpO2: stable & adequate BP & HR: stable & adequate Hydration State: stable & adequate Neuraxial Anesthesia: was administered and sensory block resolved Anesthetic Complications: no major complications apparent and Pt Satisfied with anesthetic care
[2018-11-08 07:41] LABS: Basophils # (auto) 0.01 K/uL (0-0.2); Basophils % (auto) 0.2 %; Eosinophils % (auto) 1.6 %; Hemoglobin 10.3 g/dL (12.0-16.0); Lymphocytes % (auto) 15.9 %; Mean Corpuscular Hgb Conc 33.2 g/dL (32-36); Mean Corpuscular Volume 80.9 fL (80-100); Mean Platelet Volume 10.7 fL (7.4-10.4); Monocytes # (auto) 0.38 K/uL (0.11-0.59); Neutrophils % (auto) 76.3 %; Platelet Count 203 K/uL (130-400); RDW Coefficient of Variation 13.7 % (11.5-14.5); RDW Standard Deviation 40.1 fL (36.4-46.3); Red Blood Count 3.83 M/uL (4.2-5.4); White Blood Count 6.29 K/uL (4.8-10.8)
[2018-11-08] MEDS: SIMETHICONE 80 MG CHEW PO SCH ×3 (08:58→19:45)
[2018-11-08] MEDS: FERROUS SULFATE 325 MG TAB PO SCH (08:58)
[2018-11-08] MEDS: DOCUSATE SODIUM 100 MG CAP PO SCH ×2 (08:58→19:45)
[2018-11-08] MEDS: PRENATAL VITAMIN 1 TAB PO SCH (08:58)
--- NOTE | 2018-11-08 10:39 | Obstetrical Progress Note ---
Date of Service November 08, 2018 Assessment & Plan (1) delivery delivered: C/sec day #1 pt doing well c/o worsening abdominal pain with bending over Pain controlled with medication continue day #1 care Subjective Ambulation: ambulating normally Voiding: no voiding problems Passing Gas:: Yes Diet Tolerance:: clear liquids Lochia:: Small Feeding Type:: breast feeding Review of Systems All systems reviewed & are unremarkable except as noted in HPI & below Physical Exam Constitutional WD/WN, vitals as above well developed and well nourished Eyes PERRL, conjunctivae normal, anicteric sclerae ENMT external ear and nose normal, oropharynx normal Neck trachea midline, no thyromegaly Respiratory normal respiratory effort, lungs clear to auscultation Auscultation: no crackles, no rales and no wheezes Cardiovascular RRR, no murmur, no edema Chest (Breasts) normal inspection/palpation of breasts Gastrointestinal (Abdomen) normal bowel sounds, soft, nontender, no hepatosplenomegaly Uterus is below umbilicus Musculoskeletal no cyanosis or clubbing, extremities motor strength 5/5 Skin no rashes, warm and dry + incision (Clean,dry and intact) Neurologic patellar DTR's 2+ bilat, sensation intact Psychiatric A+Ox3, euthymic affect Genitourinary normal external appearance Lymphatic no cervical or axillary lymphadenopathy Results & Data Vital Signs (Past 12 Hours) Vital Signs Temp Pulse Resp BP Pulse Ox Pulse Ox 11/08/18 09:00 36.6 C 87 20 107/66 99 99 11/08/18 00:25 36.7 C 86 20 103/63 98
[2018-11-08] MEDS ORDERED: Nursing to Pharmacy Communication ONE (17:55)
[2018-11-08] MEDS ORDERED: BISACODYL 5 MG TABEC PO SCH (20:00)
[2018-11-09] MEDS ORDERED: BISACODYL 10 MG SUPP PR PRN (01:37)
[2018-11-09] MEDS: OXYCODONE/ACETAMINOPHEN 5mg/325mg TAB PO PRN ×3 (02:58→12:35)
[2018-11-09] MEDS: IBUPROFEN 600 MG TAB PO PRN ×3 (02:59→12:35)
[2018-11-09 06:31] LABS: Hematocrit (blood only) 28.6 % (37-47); Hemoglobin 9.5 g/dL (12.0-16.0)
[2018-11-09] MEDS: SIMETHICONE 80 MG CHEW PO SCH ×2 (08:21→12:35)
[2018-11-09] MEDS: FERROUS SULFATE 325 MG TAB PO SCH (08:21)
[2018-11-09] MEDS: DOCUSATE SODIUM 100 MG CAP PO SCH (08:22)
[2018-11-09] MEDS: PRENATAL VITAMIN 1 TAB PO SCH (08:22)
--- NOTE | 2018-11-09 09:40 | Surgery Progress Note ---
Date of Service November 09, 2018 Subjective doing well passing gas tolerating diet planning to go home Physical Exam Constitutional: WD/WN, vitals as above comfortable abdomen soft and non- tender incision clean dry and intact no edema neg Afsaneh's for discharge follow up in office in 1 week for incision check Results & Data Vital Signs (Past 12 Hours) Vital Signs Temp Pulse Resp BP Pulse Ox 11/08/18 23:00 36.6 C 80 16 124/68 98
--- NOTE | 2018-11-15 15:01 | Discharge Summary ---
CHIEF COMPLAINT AND HOSPITAL COURSE: The patient is a 28-year-old 3, para 3. She had a set of twins in her first . Her obstetrical history is as follows: In 2011, she delivered twins at [facility] in 32 weeks, identical boys via . Second in 2014, repeat , infant weighed 6 pounds 5 ounce girl at 36 weeks, went into early labor, required a repeat . The day of admission, she was having regular contractions throughout the day. They were getting progressively worse. She was told to come into maternity for monitoring. She was found to have regular labor pattern. She was feeling the contractions. Her cervix was at this time 100% effaced, about 3 cm dilated. She was diagnosed as being in active labor and should be noted that she requests permanent sterilization. She underwent repeat low segment section with a bilateral tubal ligation. Postoperatively, the patient did well. She remained afebrile. Her bowel sounds returned promptly. Her preoperative hemoglobin was 13.9. Postoperatively, hemoglobin stabilized at about 9.5. At the time of discharge, she was ambulating well, eating well, given usual medicines for pain control and told to return to the office for removal of nataliya.
== END 2018-11-09 13:15 | disposition home or self-care (01) | DRG 785 ==
LOC: OPB 22:02 → 4S1 22:03 → 4S2 11-07 04:35
PROC: M.PPTLD (2018-11-06 23:30)

== ENCOUNTER 2020-05-13 15:50 | Inpatient (IN) ==
[2020-05-13 15:57] VITALS: O2SAT 98
--- NOTE | 2020-05-13 16:06 | Emergency Department Note ---
Impression & Plan Depression with suicidal ideation ED Provider Note NAME: ANANYA ANDRES AGE: 29 SEX: F : 1990 ARRIVES VIA: Walk-In INFORMANT: Patient, ED PROVIDER(S): Emanuel Randall MD Chief Complaint: Anxiety and depression HPI: Patient does present with the above complaints that been ongoing for the last several days. The patient states that she has had decreased sleep and appetite. The patient has had low feelings of self-worth. Patient states that she has been compliant with her medications which she takes on a regular basis with no recent changes or missed doses. The patient only received therapy from her primary care physician and does have follow-up on Sunday with a therapist. The patient denies HI or AVH but has had thoughts of self-harm with plan to either walk into traffic or drive into traffic. Patient has no prior attempts of suicide. Patient denies any alcohol, tobacco or drug use. The patient does care for 4 children and has a good home situation. The patient feels safe at home and does not have any acute complaints about her current relationship with her or family. Patient denies fevers chills, chest pains, shortness of breath, nausea or vomiting. ROS: See HPI for pertinent positives and negatives. A total of 10 systems were reviewed and otherwise negative. Past medical history: See below Surgical history: See below Social history: See below Physical Exam: GENERAL: Tearful and anxious. NAD, non-toxic. EYE EXAM: Normal conjunctiva. PERRL, no anisocoria and EOM's grossly intact w/o pain. NECK: Supple, no nuchal rigidity, no adenopathy, non-tender. No signs of meningismus. LUNGS: Clear to auscultation. Normal chest wall mechanics. HEART: NSR, no MRG. ABDOMEN: Abdomen soft, non-tender, normo-active bowel sounds, no masses, no rebound or guarding. BACK: No CVA TTP. SKIN: No rashes and no bruising. UPPER EXTREMITIES: Upper extremities are grossly normal. LOWER EXTREMITIES: Grossly normal, no edema. NEURO EXAM: A&O x3, cranial nerves II-XII grossly intact, normal speech, moves all 4 extremities on command w/o issue. Psych: Positive SI with plan, negative HI or AVH. Differential diagnoses: Mood disorder, infection, hypoglycemia, electrolyte abnormalities, cardiac sources, intracerebral event, toxicologic, trauma, neurologic, as well as other pathologies. Course: Patient was seen and evaluated the bedside. Full history physical exam was performed. MDM: Patient was seen due to concern for SI with plan. The patient was requesting inpatient treatment. Blood work was obtained and the patient was deemed medically cleared. The patient was seen and evaluated by psych vocational case manager. A referral was made to [facility] Patient was accepted for voluntary 201 treatment to [facility]. 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 Surgical History H/O section History of appendectomy S/P reconstruction of ligament of knee right knee 2018 Jackson teeth removed 2008 Family History Other No significant family history Social History Smoking Status: Never smoker Hx Alcohol Use: No Hx Substance Use: No Preferred Language: Georgian Communication Ability: Effective Jump Roll Operator Required: No Beliefs That Will Affect Care: None marital status: Current Living Situation: Spouse Current Living Situation Comment: lives with and children Feels Safe at Home: Yes Assistive Devices: None Allergies Allergies Allergy/AdvReac Type Severity Reaction Status Date / Time bee venom protein (honey bee) Allergy Intermediate Headache, Verified 05/13/20 16:11 faint lactose Allergy Intermediate Gastrointestinal Verified 05/13/20 16:11 Upset Home Meds Home Medications Medication Instructions Recorded Confirmed buspirone 15 mg PO QID 11/06/18 05/13/20 hydroxyzine HCl 25 mg PO QID 05/01/19 05/13/20 fluoxetine 40 mg PO DAILY 11/15/19 05/13/20 melatonin 5 mg PO HS PRN 05/13/20 05/13/20 Results & Data (ED) Vital Signs Vital Signs - 24 hr 05/13/20 15:52 05/13/20 17:55 Temperature 37.2 C Temperature Source Skin Pulse Rate 112 H Pulse Rate [Left Finger] 88 Respiratory Rate 19 20 Blood Pressure 149/97 H Blood Pressure [Left Arm] 127/77 Blood Pressure Mean 114 Blood Pressure Mean [Left Arm] 93 Blood Pressure Position [Left Arm] Lying Pulse Oximetry 98 98 Sepsis Recent Fever Within 48 Hours No Sepsis New/Unexplained Change in Mental Status N/A Sepsis Action Taken by Nursing No Action Required Home Medications Current Medication List: was personally reviewed by me Laboratory Data Attestation: I reviewed the patient's lab results. Result diagrams: 05/13/20 17:19 05/13/20 17:19 Lab Results 05/13/20 05/13/20 05/13/20 Range/Units 16:05 16:05 16:05 WBC (4.8-10.8) K/uL RBC (4.2-5.4) M/uL Hgb (12.0-16.0) g/dL Hct (37-47) % MCV (80-100) fL MCH (25-34) pg MCHC (32-36) g/dL RDW Std Deviation (36.4-46.3) fL RDW Coeff of Corrie (11.5-14.5) % Plt Count (130-400) K/uL MPV (7.4-10.4) fL Immature Gran % (Auto) % Neut % (Auto) % Lymph % (Auto) % Kerr % (Auto) % Eos % (Auto) % Baso % (Auto) % Neut # (Auto) (1.4-6.5) K/uL Lymph # (Auto) (1.2-3.4) K/uL Kerr # (Auto) (0.11-0.59) K/uL Eos # (Auto) (0-0.5) K/uL Baso # (Auto) (0-0.2) K/uL Immature Gran # (Auto) (0.00-0.02) K/uL Sodium (136-145) mmol/L Potassium (3.5-5.1) mmol/L Chloride (98-107) mmol/L Carbon Dioxide (21-32) mmol/L Anion Gap (3-11) BUN (7-18) mg/dl Creatinine (0.6-1.2) mg/dl Est Cr Clr Drug Dosing ml/min Est GFR ( Amer) Est GFR (Non-Af Amer) BUN/Creatinine Ratio (10-20) Glucose (70-99) mg/dl Calcium (8.5-10.1) mg/dl Total Bilirubin (0.2-1) mg/dl AST (15-37) U/L ALT (12-78) U/L Alkaline Phosphatase (45-117) U/L Total Protein (6.4-8.2) gm/dl Albumin (3.4-5.0) gm/dl Globulin (2.5-4.0) gm/dl Albumin/Globulin Ratio (0.9-2) TSH (0.300-4.500) uIu/ml Urine Color Yellow Urine Appearance Clear (Clear) Urine pH 6.5 (4.5-7.5) Ur Specific [place] 1.014 (1.000-1.030) Urine Protein Negative (Negative) Urine Glucose (UA) Negative (Negative) Urine Ketones Trace H (Negative) Urine Blood Negative (Negative) Urine Nitrite Negative (Negative) Urine Bilirubin Negative (Negative) Urine Urobilinogen Negative (Negative) Ur Leukocyte Esterase Negative (Negative) Urine Test Negative (Negative) Salicylates (2.8-20) mg/dl Urine Opiates Screen Neg (Neg) Ur Methadone, Qual Neg (Neg) Acetaminophen (10-30) ug/ml Urine Barbiturates Neg (Neg) Ur Phencyclidine (PCP) Neg (Neg) U Amphetamin/Meth Scrn Neg (Neg) MDMA (Ecstasy) Screen Neg (Neg) U Benzodiazepines Scrn Neg (Neg) Ur Cocaine Metabolite Neg (Neg) U Marijuana (THC) Screen Neg (Neg) Ethyl Alcohol mg/dL (0-3) mg/dl 05/13/20 05/13/20 05/13/20 Range/Units 17:19 17:19 17:19 WBC 9.48 (4.8-10.8) K/uL RBC 5.21 (4.2-5.4) M/uL Hgb 14.1 (12.0-16.0) g/dL Hct 40.8 (37-47) % MCV 78.3 L (80-100) fL MCH 27.1 (25-34) pg MCHC 34.6 (32-36) g/dL RDW Std Deviation 38.3 (36.4-46.3) fL RDW Coeff of Corrie 13.5 (11.5-14.5) % Plt Count 396 (130-400) K/uL MPV 9.9 (7.4-10.4) fL Immature Gran % (Auto) 0.1 % Neut % (Auto) 73.4 % Lymph % (Auto) 19.1 % Kerr % (Auto) 6.0 % Eos % (Auto) 1.1 % Baso % (Auto) 0.3 % Neut # (Auto) 6.96 H (1.4-6.5) K/uL Lymph # (Auto) 1.81 (1.2-3.4) K/uL Kerr # (Auto) 0.57 (0.11-0.59) K/uL Eos # (Auto) 0.10 (0-0.5) K/uL Baso # (Auto) 0.03 (0-0.2) K/uL Immature Gran # (Auto) 0.01 (0.00-0.02) K/uL Sodium 136 (136-145) mmol/L Potassium 3.6 (3.5-5.1) mmol/L Chloride 104 (98-107) mmol/L Carbon Dioxide 23 (21-32) mmol/L Anion Gap 8.0 (3-11) BUN 15 (7-18) mg/dl Creatinine 0.73 (0.6-1.2) mg/dl Est Cr Clr Drug Dosing 119.9 ml/min Est GFR ( Amer) 127.2 Est GFR (Non-Af Amer) 109.7 BUN/Creatinine Ratio 20.6 H (10-20) Glucose 73 (70-99) mg/dl Calcium 9.6 (8.5-10.1) mg/dl Total Bilirubin 0.7 (0.2-1) mg/dl AST 11 L (15-37) U/L ALT 33 (12-78) U/L Alkaline Phosphatase 97 (45-117) U/L Total Protein 8.4 H (6.4-8.2) gm/dl Albumin 4.6 (3.4-5.0) gm/dl Globulin 3.8 (2.5-4.0) gm/dl Albumin/Globulin Ratio 1.2 (0.9-2) TSH 2.460 (0.300-4.500) uIu/ml Urine Color Urine Appearance (Clear) Urine pH (4.5-7.5) Ur Specific [place] (1.000-1.030) Urine Protein (Negative) Urine Glucose (UA) (Negative) Urine Ketones (Negative) Urine Blood (Negative) Urine Nitrite (Negative) Urine Bilirubin (Negative) Urine Urobilinogen (Negative) Ur Leukocyte Esterase (Negative) Urine Test (Negative) Salicylates 1.8 L (2.8-20) mg/dl Urine Opiates Screen (Neg) Ur Methadone, Qual (Neg) Acetaminophen < 2 L (10-30) ug/ml Urine Barbiturates (Neg) Ur Phencyclidine (PCP) (Neg) U Amphetamin/Meth Scrn (Neg) MDMA (Ecstasy) Screen (Neg) U Benzodiazepines Scrn (Neg) Ur Cocaine Metabolite (Neg) U Marijuana (THC) Screen (Neg) Ethyl Alcohol mg/dL (0-3) mg/dl 05/13/20 Range/Units 17:19 WBC (4.8-10.8) K/uL RBC (4.2-5.4) M/uL Hgb (12.0-16.0) g/dL Hct (37-47) % MCV (80-100) fL MCH (25-34) pg MCHC (32-36) g/dL RDW Std Deviation (36.4-46.3) fL RDW Coeff of Corrie (11.5-14.5) % Plt Count (130-400) K/uL MPV (7.4-10.4) fL Immature Gran % (Auto) % Neut % (Auto) % Lymph % (Auto) % Kerr % (Auto) % Eos % (Auto) % Baso % (Auto) % Neut # (Auto) (1.4-6.5) K/uL Lymph # (Auto) (1.2-3.4) K/uL Kerr # (Auto) (0.11-0.59) K/uL Eos # (Auto) (0-0.5) K/uL Baso # (Auto) (0-0.2) K/uL Immature Gran # (Auto) (0.00-0.02) K/uL Sodium (136-145) mmol/L Potassium (3.5-5.1) mmol/L Chloride (98-107) mmol/L Carbon Dioxide (21-32) mmol/L Anion Gap (3-11) BUN (7-18) mg/dl Creatinine (0.6-1.2) mg/dl Est Cr Clr Drug Dosing ml/min Est GFR ( Amer) Est GFR (Non-Af Amer) BUN/Creatinine Ratio (10-20) Glucose (70-99) mg/dl Calcium (8.5-10.1) mg/dl Total Bilirubin (0.2-1) mg/dl AST (15-37) U/L ALT (12-78) U/L Alkaline Phosphatase (45-117) U/L Total Protein (6.4-8.2) gm/dl Albumin (3.4-5.0) gm/dl Globulin (2.5-4.0) gm/dl Albumin/Globulin Ratio (0.9-2) TSH (0.300-4.500) uIu/ml Urine Color Urine Appearance (Clear) Urine pH (4.5-7.5) Ur Specific [place] (1.000-1.030) Urine Protein (Negative) Urine Glucose (UA) (Negative) Urine Ketones (Negative) Urine Blood (Negative) Urine Nitrite (Negative) Urine Bilirubin (Negative) Urine Urobilinogen (Negative) Ur Leukocyte Esterase (Negative) Urine Test (Negative) Salicylates (2.8-20) mg/dl Urine Opiates Screen (Neg) Ur Methadone, Qual (Neg) Acetaminophen (10-30) ug/ml Urine Barbiturates (Neg) Ur Phencyclidine (PCP) (Neg) U Amphetamin/Meth Scrn (Neg) MDMA (Ecstasy) Screen (Neg) U Benzodiazepines Scrn (Neg) Ur Cocaine Metabolite (Neg) U Marijuana (THC) Screen (Neg) Ethyl Alcohol mg/dL < 3.0 (0-3) mg/dl Administered Medications Discontinued Medications Lorazepam (Lorazepam 1 Mg Tab) 1 mg PO NOW STA Stop: 05/13/20 16:31 Last Admin: 05/13/20 16:35 Dose: 1 mg Documented by: [id number] Discharge Plan Visit Data Chief Complaint: Mental Health Evaluation Stated Complaint: mental health ED Provider: Emanuel Randall Discharge Problem: Depression with suicidal ideation
[2020-05-13 16:20] LABS: Appearance Urine Clear (Clear); Bilirubin Urine Negative (Negative); Blood Urine Negative (Negative); Color Urine Yellow; Glucose Urine UA Negative (Negative); Ketones Urine Trace (Negative); Leukocyte Esterase Urine Negative (Negative); Nitrite Urine Negative (Negative); Protein Urine Negative (Negative); Specific Gravity Urine 1.014 (1.000-1.030); Urobilinogen Urine Negative (Negative); pH Urine 6.5 (4.5-7.5)
[2020-05-13 16:22] LABS: Pregnancy Test, Urine Negative (Negative)
[2020-05-13] MEDS ORDERED: LORazepam 1 MG TAB PO STA (16:30)
[2020-05-13 16:39] LABS: Amphetamines+Metham, Urine Neg (Neg); Barbiturates, Urine Neg (Neg); Benzodiazepine, Urine Neg (Neg); Cocaine, Urine Neg (Neg); MDMA (Ecstacy), Urine Neg (Neg); Methadone, Urine Neg (Neg); Opiate, Urine Neg (Neg); Phencyclidine, Urine Neg (Neg)
[2020-05-13 17:36] LABS: Basophils # (auto) 0.03 K/uL (0-0.2); Basophils % (auto) 0.3 %; Eosinophils % (auto) 1.1 %; Hematocrit (blood only) 40.8 % (37-47); Hemoglobin 14.1 g/dL (12.0-16.0); Immature Granulocytes # (auto) 0.01 K/uL (0.00-0.02); Immature Granulocytes % (auto) 0.1 %; Lymphocytes # (auto) 1.81 K/uL (1.2-3.4); Lymphocytes % (auto) 19.1 %; Mean Corpuscular Hemoglobin 27.1 pg (25-34); Mean Corpuscular Hgb Conc 34.6 g/dL (32-36); Mean Corpuscular Volume 78.3 fL (80-100); Mean Platelet Volume 9.9 fL (7.4-10.4); Monocytes # (auto) 0.57 K/uL (0.11-0.59); Neutrophils # (auto) 6.96 K/uL (1.4-6.5); Neutrophils % (auto) 73.4 %; Platelet Count 396 K/uL (130-400); RDW Coefficient of Variation 13.5 % (11.5-14.5); RDW Standard Deviation 38.3 fL (36.4-46.3); Red Blood Count 5.21 M/uL (4.2-5.4); White Blood Count 9.48 K/uL (4.8-10.8)
[2020-05-13 17:52] LABS: Albumin Level 4.6 gm/dl (3.4-5.0); BUN Creatinine Ratio 20.6 (10-20); Calcium 9.6 mg/dl (8.5-10.1); Creatinine Clr Calc Pharmacy 119.9 ml/min; Est GFR (African American) 127.2; Est GFR (Non-African American) 109.7; Potassium 3.6 mmol/L (3.5-5.1)
[2020-05-13 18:03] LABS: Albumin Globulin Ratio 1.2 (0.9-2); Bilirubin,Total 0.7 mg/dl (0.2-1); Globulin 3.8 gm/dl (2.5-4.0); Thyroid Stimulating Hormone 2.46 uIu/ml (0.300-4.500); Total Protein 8.4 gm/dl (6.4-8.2)
[2020-05-13 18:06] LABS: Acetaminophen < 2 ug/ml (10-30)
[2020-05-13 18:07] LABS: Salicylate 1.8 mg/dl (2.8-20)
[2020-05-13] MEDS ORDERED: ALUMINUM/MAGNESIUM SUSP 30 ML UDC PO PRN (19:01)
[2020-05-13] MEDS ORDERED: MAGNESIUM HYDROXIDE SUSP 30 ML UDC PO PRN (19:01)
[2020-05-13] MEDS ORDERED: hydrOXYzine HCl 25 MG TAB PO PRN (19:01)
[2020-05-13] MEDS ORDERED: BISMUTH SUBSALICYLATE LIQD 236 ML PO PRN (19:01)
[2020-05-13] MEDS ORDERED: SODIUM CHLORIDE 0.65% NA SOLN 45 ML (OCEAN) PRN (19:01)
[2020-05-13] MEDS ORDERED: ACETAMINOPHEN 325 MG TAB PO PRN (19:01)
[2020-05-13] MEDS ORDERED: busPIRone 7.5 MG TAB PO SCH (21:00)
[2020-05-14] MEDS ORDERED: hydrOXYzine HCl 25 MG TAB PO PRN (09:35)
[2020-05-14] MEDS ORDERED: busPIRone 15 MG TAB PO SCH (09:45)
[2020-05-14] MEDS ORDERED: FLUoxetine HCL 20 MG CAP PO SCH (09:45)
[2020-05-14] MEDS ORDERED: MELATONIN 3 MG TAB PO PRN (09:45)
[2020-05-14] MEDS ORDERED: ARIPiprazole 5 MG TAB PO STA (11:35)
--- NOTE | 2020-05-14 12:01 | History & Physical ---
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 Total Protein Albumin Globulin Albumin/Globulin Ratio TSH Urine Color Urine Appearance Urine pH Ur Specific [place] Urine Protein Urine Glucose (UA) Urine Ketones Urine Blood Urine Nitrite Urine Bilirubin Urine Urobilinogen Ur Leukocyte Esterase Urine Test Salicylates Urine Opiates Screen Ur Methadone, Qual Acetaminophen Urine Barbiturates Ur Phencyclidine (PCP) U Amphetamin/Meth Scrn MDMA (Ecstasy) Screen U Benzodiazepines Scrn Ur Cocaine Metabolite U Marijuana (THC) Screen Ethyl Alcohol mg/dL < 3.0 SARS-CoV-2 Ag (Rapid) Negative Current Inpatient Medications Current Inpatient Medications: Current Inpatient Medications Acetaminophen (Acetaminophen 325 Mg Tab) 650 mg PO Q4H PRN PRN Reason: Headache or Minor Fever Stop: 06/12/20 19:00 Al Hydrox/Mg Hydrox/Simethicone (Aluminum/Magnesium Susp 30 Ml Udc) 30 ml PO Q4H PRN PRN Reason: GI Upset Stop: 06/12/20 19:00 Aripiprazole (Aripiprazole 5 Mg Tab) 5 mg PO QAM KRISSY Stop: 06/14/20 08:59 Aripiprazole (Aripiprazole 5 Mg Tab) 5 mg PO NOW STA Stop: 05/14/20 11:36 Bismuth Subsalicylate (Bismuth Subsalicylate Liqd 236 Ml) 15 ml PO PRN PRN PRN Reason: Loose Stool Stop: 06/12/20 19:00 Buspirone HCl (Buspirone 7.5 Mg Tab) 15 mg PO BID KRISSY Stop: 06/13/20 20:59 Fluoxetine HCl (Fluoxetine Hcl 20 Mg/5 Ml Udp) 60 mg PO QAM KRISSY Stop: 06/14/20 08:59 Hydroxyzine HCl (Hydroxyzine Hcl 25 Mg Tab) 50 mg PO HSZ PRN PRN Reason: Insomnia Stop: 06/12/20 19:00 Last Admin: 05/13/20 21:45 Dose: 50 mg Documented by: Hydroxyzine HCl (Hydroxyzine Hcl 25 Mg Tab) 25 mg PO Q4H PRN PRN Reason: Anxiety Stop: 06/12/20 19:00 Hydroxyzine HCl (Hydroxyzine Hcl 25 Mg Tab) 50 mg PO BID KRISSY Stop: 06/13/20 10:29 Magnesium Hydroxide (Magnesium Hydroxide Susp 30 Ml Udc) 30 ml PO DAILY PRN PRN Reason: Constipation Stop: 06/12/20 19:00 Melatonin (Melatonin 3 Mg Tab) 6 mg PO HSZ PRN; Protocol PRN Reason: Sleep Stop: 06/13/20 09:44 Sodium Chloride (Sodium Chloride 0.65% Na Soln 45 Ml ([place])) 1 - 2 sprays NA PRN PRN PRN Reason: Nasal Dryness/Congestion Stop: 06/12/20 19:00 Zolpidem Tartrate (Zolpidem Tartrate 10 Mg Tab) 10 mg PO HS PRN PRN Reason: Sleep Stop: 06/13/20 11:34
[2020-05-14] MEDS: hydrOXYzine HCl 25 MG TAB PO SCH ×2 (12:03→21:01)
[2020-05-14] MEDS: busPIRone 15 MG TAB PO SCH (21:01)
[2020-05-14] MEDS: ZOLPIDEM TARTRATE 10 MG TAB PO PRN (21:04)
--- NOTE | 2020-05-15 06:29 | Psychiatric Progress Note ---
Date of Service May 15, 2020 Impression / Recommendations Impression This 29-year-old woman was admitted to the inpatient behavioral health unit after she presented to the emergency room and reported chronic depression with worsening symptoms, progressive thoughts of suicide with a plan to either crash her car into a tree, run into traffic, or exsanguinate by self cutting. She has been diagnosed with depression and anxiety, fluoxetine increased and tapering off buspirone, Katt and Patty added. She is improving and has a family meeting with her today, and she has not yet worked a safety plan, but is now thinking about asking to leave as her daughter had a seizure this morning (has a seizure disorder) and thinks she might need to be hospitalized. (1) Depression with suicidal ideation: 05/14/20 -The patient has been admitted to the locked behavioral health unit at [facility]. She has been referred for individual, group, recreational, and family interventions. She is also being closely monitored on suicide precautions. The patient is able to reliably contract for safety on the unit. -The plan is to increase the patient's dose of fluoxetine from 40 mg a day to a dose of 60 mg a day to treat both anxiety and depression. We will also begin a trial of aripiprazole 5 mg daily as an adjunct for her fluoxetine and, also, as a possible antianxiety agent. An option may be to switch to olanzapine as required. 05/15 -Mood and SI improving, family meeting with today. Encourage patient to work on safety plan. (2) Anxiety disorder: 05/14/20 -The patient reports anxious distress that occurs even when she is not particularly depressed. There is also a history of infrequent panic episodes. She notes that she has not responded favorably buspirone at a dose of 30 mg twice a day, and given the patient's report that she feels fairly strongly that buspirone has never been helpful to her we will again tapering as tolerated, towards discontinuation. -Anxiolytics such as one of the benzodiazepines reportedly has never been tried in this case. Because of the risks associated with benzodiazepines we will hold off for now on prescribing them. However, this may become necessary, the patient does seem to indicate that the dose of lorazepam received last night in the emergency room may have been of some help to her in terms of managing her acute anxiety. -For now, the treatment emphasis will be on teaching the patient improved individual coping strategies, relaxation techniques, and increasing her dose of Prozac to a level that may be more likely to reduce her level of anxious distress, while improving her depression. We have also added aripiprazole 5 mg a day as an adjunct. Olanzapine may be an option if aripiprazole is not effective or is not tolerated. 05/15 - Anxiety improved but continues to feel on edge, worried. Discussed possibility of benzo, will avoid if possible due to also being started on Ambien, although may continue hydroxyzine prn. (3) Insomnia: 05/14/20 -The patient reports that past medications used for sleep of been ineffective, with the possible exception of melatonin which may be very partially effective. Past medication trials have included trazodone at doses of up to close to 300 mg at bedtime, mirtazapine ("higher doses," specifics unknown), hydroxyzine, diph enhydramine, and gabapentin have also all reportedly been ineffective or have resulted in worsened insomnia. -Patient has a positive impression of zolpidem ("Ambien") based on the response of one of her friends. She notes that she has never tried Ambien, and after reviewing material risks and anticipated benefits of Ambien with the patient she agreed to a trial of Ambien 10 mg at bedtime as needed for sleep. -It may be that once the patient began sleeping better her anxiety and depression (and anergia) may also improve. 05/15 - Again reviewed risks with Ambien, Inventory Assets Strengths: Motivated to treatment and recovery. Supportive family. Positive work history in the past. Other oriented. Needs: Improved individual coping strategies. Resolution of active suicidal thoughts. Reduction in anxiety and depression. Risk Factors Assessment Male: No : Yes Do You Have Access To A Gun?: No Health Problems: No Mental Health Diagnoses: Yes Substance Use Disorders: No Previous Attempt: No Family History of Suicide: No Previous Psychiatric Hospitalization: No Hopelessness: Yes Smoker: No Protective Factors Assessment Nondenominational Beliefs: Yes (The patient says that she remains a member of the [employer]) : No Responsible for Young Children: Yes Employed: No (Not outside the home. [id number] Mom, 4 children, one with special needs) Stable Relationships: Yes Supportive Family: Yes Good Rapport with Provider: Yes Absence of Any Risk Factors Above: No Interval History Chief Complaint "The anxiety's still there, but better". Review of Systems Sleep Information Total Hours of Sleep: 7.5 Sleep Comments: pt on q-15 minute checks Meal Information Percent Meal Consumed - Breakfast: 100 Percent Meal Consumed - Dinner: 100 Subjective Subjective Patient was seen & assessed and interval progress reviewed with nursing and social work. Staff report she is participating in treatment and reported good sleep with Ambien last night. On my assessment, she reports the Ambien helped as she slept through the night, and mood is much better. She reports mood is "much better, like a new person," and denies SI. She has a family meeting with her today and hopes to help him understand what anxiety and depression are like and how they're impacting her. She is working on her safety plan, identifying red flags that her symptoms are worsening, as she often doesn't notice them. She identifies poor self care as a red flag, notes she hasn't been brushing her teeth, showering or brushing her hair. She states she is doing ADLs here and appetite is "back to normal." She thinks she improved so quickly due to "having some time to myself" as she was "so burned out" with her responsibilities at home, "I hadn't taken time to myself for 8 years." Notes she felt "like a whole new person" even before her medications were changed, which she thinks was due to "having some calm, a little bit of time to myself." She would like to find a way to incorporate this into her schedule at home, noting she spends all day taking care of her kids, who have multiple weeknight activities/classes as well. She says she wants to "sign myself out, because I signed myself in," as her daughter had epilepsy and had a seizure this morning, and may have to be hospitalized. She isn't sure if she wants to leave or not, but worries about "being in here if she's in the hospital." Physical Exam Psychiatric Orientation: alert and cooperative Apperance: appropriately dressed and appeared stated age Obese, casual dress, glasses Eye Contact: good eye contact Motor Behavior: steady gait and station and no abnormal motor movements Slightly rapid Affect: euthymic affect, + anxious affect and mood congruent with affect Mood: + anxious mood but improved from admission Thought Process: goal directed thought process Thought Content: reality based without delusions Suicidal Thoughts: denies suicidal thoughts Homicidal Thoughts: denies homicidal thoughts Hallucinations: no auditory hallucinations Cognition: recent memory grossly intact, attention grossly intact and language grossly intact Estimated Intelligence: consistent with education level Insight: + fair insight Judgement: + fair judgement Vital Signs (Past 24 Hours) Last Vital Signs Temp 36.7 C 05/15/20 06:22 Pulse 105 H 05/15/20 06:22 Resp 17 05/15/20 06:22 BP 135/85 05/15/20 06:22 Pulse Ox 98 05/13/20 17:55 Results & Data ([facility]) Current Inpatient Medications Current Inpatient Medications: Current Inpatient Medications Acetaminophen (Acetaminophen 325 Mg Tab) 650 mg PO Q4H PRN PRN Reason: Headache or Minor Fever Stop: 06/12/20 19:00 Al Hydrox/Mg Hydrox/Simethicone (Aluminum/Magnesium Susp 30 Ml Udc) 30 ml PO Q4H PRN PRN Reason: GI Upset Stop: 06/12/20 19:00 Aripiprazole (Aripiprazole 5 Mg Tab) 5 mg PO QAM [facility] Stop: 06/14/20 08:59 Bismuth Subsalicylate (Bismuth Subsalicylate Liqd 236 Ml) 15 ml PO PRN PRN PRN Reason: Loose Stool Stop: 06/12/20 19:00 Buspirone HCl (Buspirone 15 Mg Tab) 15 mg PO BID [facility] Stop: 06/13/20 20:59 Last Admin: 05/14/20 21:01 Dose: 15 mg Documented by: Fluoxetine HCl (Fluoxetine Hcl 20 Mg Cap) 60 mg PO QAM [facility] Stop: 06/14/20 08:59 Hydroxyzine HCl (Hydroxyzine Hcl 25 Mg Tab) 50 mg PO HSZ PRN PRN Reason: Insomnia Stop: 06/12/20 19:00 Last Admin: 05/13/20 21:45 Dose: 50 mg Documented by: Hydroxyzine HCl (Hydroxyzine Hcl 25 Mg Tab) 25 mg PO Q4H PRN PRN Reason: Anxiety Stop: 06/12/20 19:00 Hydroxyzine HCl (Hydroxyzine Hcl 25 Mg Tab) 50 mg PO BID [facility] Stop: 06/13/20 10:29 Last Admin: 05/14/20 21:01 Dose: 50 mg Documented by: Magnesium Hydroxide (Magnesium Hydroxide Susp 30 Ml Udc) 30 ml PO DAILY PRN PRN Reason: Constipation Stop: 06/12/20 19:00 Melatonin (Melatonin 3 Mg Tab) 6 mg PO HSZ PRN; Protocol PRN Reason: Sleep Stop: 06/13/20 09:44 Sodium Chloride (Sodium Chloride 0.65% Na Soln 45 Ml ([place])) 1 - 2 sprays NA PRN PRN PRN Reason: Nasal Dryness/Congestion Stop: 06/12/20 19:00 Zolpidem Tartrate (Zolpidem Tartrate 10 Mg Tab) 10 mg PO HS PRN PRN Reason: Sleep Stop: 06/13/20 11:34 Last Admin: 05/14/20 21:04 Dose: 10 mg Documented by: Mental Health & Subst Abuse Tx Therapist Name of Therapist: [facility] Therapist's Date of Therapist Appointment: 05/20/20 Time of Therapist Appointment: 9:30 a.m. Therapy Appointment Comment: [address] [place] [id number] Post Discharge Appointments Primary Care Physician Name Of Family Doctor: Breann Del Rio Primary Care Provider Appointment Comment: [address] [place] [address] Contact Information Discharge Discharge Address: [address] [place] [id number]
[2020-05-15] MEDS: busPIRone 15 MG TAB PO SCH ×2 (09:03→20:32)
[2020-05-15] MEDS: ARIPiprazole 5 MG TAB PO SCH (09:03)
[2020-05-15] MEDS: hydrOXYzine HCl 25 MG TAB PO SCH ×2 (09:03→20:32)
[2020-05-15] MEDS: FLUoxetine HCL 20 MG CAP PO SCH (09:03)
[2020-05-15] MEDS: hydrOXYzine HCl 25 MG TAB PO PRN (14:53)
[2020-05-15] MEDS: ZOLPIDEM TARTRATE 10 MG TAB PO PRN (20:33)
[2020-05-16] MEDS: ARIPiprazole 5 MG TAB PO SCH (08:04)
[2020-05-16] MEDS: busPIRone 15 MG TAB PO SCH (08:05)
[2020-05-16] MEDS: FLUoxetine HCL 20 MG CAP PO SCH (08:06)
[2020-05-16] MEDS: hydrOXYzine HCl 25 MG TAB PO SCH ×2 (08:07→20:46)
--- NOTE | 2020-05-16 08:08 | Psychiatric Progress Note ---
Date of Service May 16, 2020 Impression / Recommendations Impression This 29-year-old woman was admitted to the inpatient behavioral health unit after she presented to the emergency room and reported chronic depression with worsening symptoms, progressive thoughts of suicide with a plan to either crash her car into a tree, run into traffic, or exsanguinate by self cutting. She has been diagnosed with depression and anxiety, fluoxetine increased and tapering off buspirone, Katt and Patty added. We are still adjusting medications, but in light of continued improvement, we are considering discharge as early as tomorrow, as the patient is anxious to return home. (1) Depression with suicidal ideation: 05/14/20 -The patient has been admitted to the locked behavioral health unit at [facility]. She has been referred for individual, group, recreational, and family interventions. She is also being closely monitored on suicide precautions. The patient is able to reliably contract for safety on the unit. -The plan is to increase the patient's dose of fluoxetine from 40 mg a day to a dose of 60 mg a day to treat both anxiety and depression. We will also begin a trial of aripiprazole 5 mg daily as an adjunct for her fluoxetine and, also, as a possible antianxiety agent. An option may be to switch to olanzapine as required. 05/15 -Mood and SI improving, family meeting with today. Encourage patient to work on safety plan. (2) Anxiety disorder: 05/14/20 -The patient reports anxious distress that occurs even when she is not particularly depressed. There is also a history of infrequent panic episodes. She notes that she has not responded favorably buspirone at a dose of 30 mg twice a day, and given the patient's report that she feels fairly strongly that buspirone has never been helpful to her we will again tapering as tolerated, towards discontinuation. -Anxiolytics such as one of the benzodiazepines reportedly has never been tried in this case. Because of the risks associated with benzodiazepines we will hold off for now on prescribing them. However, this may become necessary, the patient does seem to indicate that the dose of lorazepam received last night in the emergency room may have been of some help to her in terms of managing her acute anxiety. -For now, the treatment emphasis will be on teaching the patient improved individual coping strategies, relaxation techniques, and increasing her dose of Prozac to a level that may be more likely to reduce her level of anxious distress, while improving her depression. We have also added aripiprazole 5 mg a day as an adjunct. Olanzapine may be an option if aripiprazole is not effective or is not tolerated. 05/15 - Anxiety improved but continues to feel on edge, worried. Discussed possibility of benzo, will avoid if possible due to also being started on Ambien, although may continue hydroxyzine prn. 05/16 -Reduce buspirone to 7.5 mg twice daily, and continue taper off this medication. (3) Insomnia: 05/14/20 -The patient reports that past medications used for sleep of been ineffective, with the possible exception of melatonin which may be very partially effective. Past medication trials have included trazodone at doses of up to close to 300 mg at bedtime, mirtazapine ("higher doses," specifics unknown), hydroxyzine, diphenhydramine, and gabapentin have also all reportedly been ineffective or have resulted in worsened insomnia. -Patient has a positive impression of zolpidem ("Ambien") based on the response of one of her friends. She notes that she has never tried Ambien, and after reviewing material risks and anticipated benefits of Ambien with the patient she agreed to a trial of Ambien 10 mg at bedtime as needed for sleep. -It may be that once the patient began sleeping better her anxiety and depression (and anergia) may also improve. 05/15 - Again reviewed risks with Ambien, including cognitive impairment, tolerance, addiction, sleep behaviors, INTERIOR DESIGN DIRECTOR depression when mixed with other sedatives, and the risk of car accidents. She expressed understanding. Reviewed recommendations to take only for short-term treatment. Inventory Assets Strengths: Motivated to treatment and recovery. Supportive family. Positive work history in the past. Other oriented. Needs: Improved individual coping strategies. Resolution of active suicidal thoughts. Reduction in anxiety and depression. Risk Factors Assessment Male: No : Yes Do You Have Access To A Gun?: No Health Problems: No Mental Health Diagnoses: Yes Substance Use Disorders: No Previous Attempt: No Family History of Suicide: No Previous Psychiatric Hospitalization: No Hopelessness: Yes Smoker: No Protective Factors Assessment Religion Beliefs: Yes (The patient says that she remains a member of the [employer]) : No Responsible for Young Children: Yes Employed: No (Not outside the home. [id number] Mom, 4 children, one with special needs) Stable Relationships: Yes Supportive Family: Yes Good Rapport with Provider: Yes Absence of Any Risk Factors Above: No Interval History Chief Complaint "Pretty good". Review of Systems Sleep Information Total Hours of Sleep: 8 Sleep Comments: pt on q-15 minute checks Meal Information Percent Meal Consumed - Breakfast: 75 Percent Meal Consumed - Lunch: 60 Percent Meal Consumed - Dinner: 100 Subjective Subjective Patient was seen & assessed and interval progress reviewed with nursing and social work. Staff report she attending groups, slept well overnight, and worked on her safety plan. She was highly anxious after hearing that her daughter had a seizure and might need hospitalization, but reassured when she did not. She had a family meeting with her and the social insurance adviser; he was supportive and they reviewed her safety plan. He confirmed no guns in the home, and was willing to assist more with the childcare, which would require her to let go some of her control. She reports mood is "much better," and anxiety is improved but still present and constant. She has found that it is helpful for her to read, and plans to do that more at home. Physical Exam Psychiatric Orientation: alert and cooperative Apperance: appropriately dressed, appropriately groomed and appeared stated age obese Eye Contact: + fair eye contact Motor Behavior: steady gait and station and no abnormal motor movements Speech: normal rate/rhythm/volume of speech Affect: + anxious affect "a lot better" Thought Process: goal directed thought process and linear/logical thought process Thought Content: reality based without delusions Suicidal Thoughts: denies suicidal thoughts Homicidal Thoughts: denies homicidal thoughts Hallucinations: no auditory hallucinations and no visual hallucinations Cognition: recent memory grossly intact, attention grossly intact and language grossly intact Estimated Intelligence: consistent with education level Insight: + fair insight Judgement: + fair judgement Vital Signs (Past 24 Hours) Last Vital Signs Temp 36.7 C 05/16/20 06:38 Pulse 101 H 05/16/20 06:38 Resp 19 05/16/20 06:38 BP 114/81 05/16/20 06:38 Pulse Ox 98 05/13/20 17:55 Results & Data ([facility]) Current Inpatient Medications Current Inpatient Medications: Current Inpatient Medications Acetaminophen (Acetaminophen 325 Mg Tab) 650 mg PO Q4H PRN PRN Reason: Headache or Minor Fever Stop: 02/06/21 19:00 Al Hydrox/Mg Hydrox/Simethicone (Aluminum/Magnesium Susp 30 Ml Udc) 30 ml PO Q4H PRN PRN Reason: GI Upset Stop: 06/12/20 19:00 Aripiprazole (Aripiprazole 5 Mg Tab) [address] [facility] Stop: 06/14/20 08:59 Last Admin: 05/16/20 08:04 Dose: 5 mg Documented by: Bismuth Subsalicylate (Bismuth Subsalicylate Liqd 236 Ml) 15 ml PO PRN PRN PRN Reason: Loose Stool Stop: 06/12/20 19:00 Buspirone HCl (Buspirone 15 Mg Tab) [address] [facility] Stop: 06/13/20 20:59 Last Admin: 05/16/20 08:05 Dose: 15 mg Documented by: Fluoxetine HCl (Fluoxetine Hcl 20 Mg Cap) [address] [facility] Stop: 06/14/20 08:59 Last Admin: 05/16/20 08:06 Dose: 60 mg Documented by: Hydroxyzine HCl (Hydroxyzine Hcl 25 Mg Tab) 50 mg PO HSZ PRN PRN Reason: Insomnia Stop: 06/12/20 19:00 Last Admin: 05/13/20 21:45 Dose: 50 mg Documented by: Hydroxyzine HCl (Hydroxyzine Hcl 25 Mg Tab) 25 mg PO Q4H PRN PRN Reason: Anxiety Stop: 06/12/20 19:00 Last Admin: 05/15/20 14:53 Dose: 25 mg Documented by: Hydroxyzine HCl (Hydroxyzine Hcl 25 Mg Tab) [address] [facility] Stop: 06/13/20 10:29 Last Admin: 05/16/20 08:07 Dose: 50 mg Documented by: Magnesium Hydroxide (Magnesium Hydroxide Susp 30 Ml Udc) 30 ml PO DAILY PRN PRN Reason: Constipation Stop: 06/12/20 19:00 Melatonin (Melatonin 3 Mg Tab) 6 mg PO HSZ PRN; Protocol PRN Reason: Sleep Stop: 06/13/20 09:44 Sodium Chloride (Sodium Chloride 0.65% Na Soln 45 Ml ([place])) 1 - 2 sprays NA PRN PRN PRN Reason: Nasal Dryness/Congestion Stop: 06/12/20 19:00 Zolpidem Tartrate (Zolpidem Tartrate 10 Mg Tab) 10 mg PO HS PRN PRN Reason: Sleep Stop: 06/13/20 11:34 Last Admin: 05/15/20 20:33 Dose: 10 mg Documented by: Mental Health & Subst Abuse Tx Therapist Name of Therapist: [facility] Therapist's Date of Therapist Appointment: 05/20/20 Time of Therapist Appointment: 9:30 a.m. Therapy Appointment Comment: [address] [place] [id number] Post Discharge Appointments Primary Care Physician Name Of Family Doctor: Breann Del Rio Primary Care Provider Appointment Comment: [address] [place] [address] Contact Information Discharge Discharge Address: [address] [place] [id number]
[2020-05-16 08:42] LABS: Glucose Fasting 90 mg/dl (70-99)
[2020-05-16 08:48] LABS: Chol HDL Ratio 4; Cholesterol 158 mg/dl (0-200); HDL Cholesterol 37 mg/dl; LDL Cholesterol Calculated 92 mg/dl; Triglycerides 147 mg/dl (0-150); VLDL Cholesterol 29 mg/dl
[2020-05-16] MEDS: hydrOXYzine HCl 25 MG TAB PO PRN (12:30)
[2020-05-16] MEDS: busPIRone 7.5 MG TAB PO SCH (20:45)
[2020-05-16] MEDS: ZOLPIDEM TARTRATE 10 MG TAB PO PRN (20:46)
[2020-05-17 06:35] VITALS: BP 122/80; TEMP 98.4
[2020-05-17] MEDS: ARIPiprazole 5 MG TAB PO SCH (08:04)
[2020-05-17] MEDS: FLUoxetine HCL 20 MG CAP PO SCH (08:04)
[2020-05-17] MEDS: busPIRone 7.5 MG TAB PO SCH (08:04)
[2020-05-17] MEDS: hydrOXYzine HCl 25 MG TAB PO SCH (08:05)
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
[2020-05-17 10:11] VITALS: PULSE 97
== END 2020-05-17 10:45 | disposition home or self-care (01) | DRG 881 ==
LOC: ED 15:50 → 3S 19:02

== ENCOUNTER 2020-06-17 15:22 | Observation (INO) ==
[2020-06-17] MEDS ORDERED: SODIUM CHLORIDE 0.9% 1000ML 2,000 ML IV ONE (18:44)
--- NOTE | 2020-06-17 18:45 | Emergency Department Note ---
Impression & Plan Syncope, Abnormal EKG, Concussion ED Provider Note NAME: ANANYA ANDRES AGE: 29 SEX: F : 1990 ARRIVES VIA: Walk-In INFORMANT: Patient ED PROVIDER(S): Elpidio Almeida DO CHIEF COMPLAINT: Headache HPI: Patient is a 29-year-old female who presents to the ER for headache and syncope. She had a syncopal episode about 1 week ago and hit her head. At that time she had imaging. She has had a headache since then which has worsened slightly. Its constant sharp and stabbing in the frontal regions of her bilateral head. She denies any change in vision weakness or numbness in the arms or legs. No chest pain or shortness of breath. She admits to dizziness since this incident. She has passed out a total of 2 times and another 2 times almost passed out. She denies any symptoms when these events occur with the exception of feeling weak and dizzy. Symptoms occur with changing position but not always. She has been up walking around when it has occurred. Patient denies diabetes, hypertension, hyperlipidemia, CAD, history of sudden at a young age, and smoking. Patient denies swelling of calves, recent trips, history of immobilization or recent surgery, prior history of DVT, hemoptysis, and history of malignancy. These have been witnessed by the once and there is no seizure activity per her report. ROS: See above HPI for pertinent positives & negatives. A total of 10 systems reviewed and were otherwise negative. PAST MEDICAL HISTORY:See Below PAST SURGICAL HISTORY:See Below FAMILY HISTORY:See Below SOCIAL HISTORY:See Below HOME MEDICATIONS:See Below ALLERGIES:See Below VITALS:See Below PHYSICAL EXAMINATION: GENERAL: alert, sitting up in bed, tearful, mild distress HEAD: normal cephalic, atraumatic EYE EXAM: normal conjunctiva, PERRL and EOM's grossly intact OROPHARYNX: maskin place NECK: supple, no nuchal rigidity, no adenopathy, non-tender CHEST: stable to compression anteriorly and posteriorly LUNGS: clear to auscultation. Normal chest wall mechanics HEART: no murmurs, S1 normal and S2 normal ABDOMEN: abdomen soft, non-tender, normo-active bowel sounds, no masses, no rebound or guarding. PELVIS: stable to compression anteriorly and posteriorly BACK: Back is symmetrical on inspection and there is no deformity, no midline tenderness, no CVA tenderness. UPPER EXTREMITIES: full active and passive range of motion of all joints without tenderness to palpation LOWER EXTREMITIES: full active and passive range of motion of all joints without tenderness to palpation NEURO EXAM: Normal sensorium, cranial nerves II-XII intact, normal speech, no weakness of arms, no weakness of legs. GCS: 15. [id number] intact. Rapid alternating movements of her extremities intact. MEDICAL DECISION MAKING: Patient is a 29-year-old female who presents the ER for recurrent syncope. She initially notes that she has had about 4 episodes of this along with 2 episodes where she almost passed out. IV was established blood work was obtained. Labs show no significant leukocytosis or anemia. BMP with mild hypokalemia. D-dimer was not elevated and will not be pursued any further elevation patient. Bilirubin LFTs and lipase was unremarkable. Troponin was negative. Covid was negative. Patient was given IV fluids. She was given Toradol Benadryl and Zofran as well as Compazine. She had improvement of her headache. CT was negative. EKG showed new T wave inversion in V4-V5 which was new from previous prior to Jun 10. With the recurrent syncope did favor observation she has had multiple episodes with EKG changes. Discussed with the patient. Discussed with Dr. Sheffield for further evaluation. Triage Nursing notes reviewed. Limited review of prior medical records performed Vital Signs: reviewed and remarkable for tachy Differential diagnosis: Differential diagnosis includes etiologies such as vasovagal event, infection, hypoglycemia, electrolyte abnormalities, cardiac sources, intracerebral event, toxicologic, neurologic, as well as others were entertained. ER treatment provided: See below Diagnostics interpreted by me: ECG: Sinus rhythm rate of 69 Normal axis T wave inversion in the inferior leads as well as V3 through V5 QTC 458 T wave inversion new in V4 and V5 in comparison to previous prior to June 11 Cardiac Monitoring: An order was placed for continuous cardiac monitoring. The monitor shows a rate of 70 with sinus rhythm. Laboratory studies: As stated above and show below. Imaging studies: Chest x-ray [address] head shows no acute pathology Consultation(s): Discussed with Dr. 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 Surgical History H/O section History of appendectomy S/P reconstruction of ligament of knee right knee 2018 [place] teeth removed 2008 Family History Other No significant family history Social History Smoking Status: Never smoker Hx Alcohol Use: No Hx Substance Use: No Preferred Language: Mongolian Communication Ability: Effective Triage Licensed Practical Nurse Required: No Beliefs That Will Affect Care: None marital status: Current Living Situation: Spouse Current Living Situation Comment: lives with and children Other Information That Helps Us Care for You: No Feels Safe at Home: Yes Safety Concerns: Feels Safe At This Time Assistive Devices: Glasses Allergies Allergies Allergy/AdvReac Type Severity Reaction Status Date / Time bee venom protein (honey bee) Allergy Intermediate Headache, Verified 06/17/20 22:45 faint lactose Allergy Intermediate Gastrointestinal Verified 06/17/20 22:45 Upset Home Meds Home Medications Medication Instructions Recorded Confirmed aripiprazole 10 mg PO QAM 06/11/20 06/17/20 clonazepam 1 mg PO BID 06/11/20 06/17/20 clonidine HCl 0.1 mg PO BID 06/11/20 06/17/20 fluoxetine 20 mg PO QAM 06/11/20 06/17/20 zolpidem [Ambien] 10 mg PO HS 06/11/20 06/17/20 acetaminophen [Tylenol Extra 1,000 mg PO DIRECTED PRN 06/17/20 06/17/20 Strength] lamotrigine 100 mg PO QAM 06/17/20 06/17/20 Results & Data (ED) Vital Signs Vital Signs - 24 hr 06/17/20 15:27 06/17/20 19:07 06/17/20 19:24 Temperature 36.8 C Temperature Source Temporal Artery Scan Pulse Rate 100 H 100 H 68 Pulse Rate [Right Radial] Pulse Rate from SpO2 Sensor 71 Pulse Rhythm Regular Respiratory Rate 18 18 19 Respiratory Effort / Characteristics Non-Labored Respiratory Depth Normal Blood Pressure 128/84 112/74 Blood Pressure [Right Arm] Blood Pressure Mean 98 86 Blood Pressure Mean [Right Arm] Pulse Oximetry 98 98 100 Oxygen Delivery Method Room Air Sepsis Recent Fever Within 48 Hours No Sepsis New/Unexplained Change in Mental Status No Sepsis Action Taken by Nursing No Action Required 06/17/20 19:30 06/17/20 20:01 06/17/20 20:30 Temperature Temperature Source Pulse Rate 66 74 68 Pulse Rate [Right Radial] Pulse Rate from SpO2 Sensor 67 72 68 Pulse Rhythm Respiratory Rate 25 H 16 23 Respiratory Effort / Characteristics Respiratory Depth Blood Pressure 105/60 94/57 L 104/56 L Blood Pressure [Right Arm] Blood Pressure Mean 75 69 72 Blood Pressure Mean [Right Arm] Pulse Oximetry 100 100 100 Oxygen Delivery Method Sepsis Recent Fever Within 48 Hours Sepsis New/Unexplained Change in Mental Status Sepsis Action Taken by Nursing 06/17/20 21:50 06/17/20 22:00 06/17/20 22:15 Temperature 36.7 C Temperature Source Oral Pulse Rate 72 65 Pulse Rate [Right Radial] 70 Pulse Rate from SpO2 Sensor 78 64 Pulse Rhythm Respiratory Rate 24 25 H 18 Respiratory Effort / Characteristics Respiratory Depth Blood Pressure 116/72 116/79 Blood Pressure [Right Arm] 115/70 Blood Pressure Mean 86 91 Blood Pressure Mean [Right Arm] 85 Pulse Oximetry 100 100 98 Oxygen Delivery Method Sepsis Recent Fever Within 48 Hours Sepsis New/Unexplained Change in Mental Status Sepsis Action Taken by Nursing 06/17/20 22:31 06/17/20 23:00 Temperature Temperature Source Pulse Rate 61 58 L Pulse Rate [Right Radial] Pulse Rate from SpO2 Sensor 58 L Pulse Rhythm Respiratory Rate 24 24 Respiratory Effort / Characteristics Respiratory Depth Blood Pressure 119/66 114/89 Blood Pressure [Right Arm] Blood Pressure Mean 83 97 Blood Pressure Mean [Right Arm] Pulse Oximetry 100 98 Oxygen Delivery Method Sepsis Recent Fever Within 48 Hours Sepsis New/Unexplained Change in Mental Status Sepsis Action Taken by Nursing Laboratory Data Result diagrams: 06/17/20 19:20 06/17/20 19:20 Lab Results 06/17/20 06/17/20 06/17/20 Range/Units 19:20 19:20 19:20 WBC 7.35 (4.8-10.8) K/uL RBC 4.84 (4.2-5.4) M/uL Hgb 13.1 (12.0-16.0) g/dL Hct 38.6 (37-47) % MCV 79.8 L (80-100) fL MCH 27.1 (25-34) pg MCHC 33.9 (32-36) g/dL RDW Std Deviation 38.9 (36.4-46.3) fL RDW Coeff of Corrie 13.4 (11.5-14.5) % Plt Count 408 H (130-400) K/uL MPV 10.4 (7.4-10.4) fL Immature Gran % (Auto) 0.1 % Neut % (Auto) 63.0 % Lymph % (Auto) 26.1 % [place] % (Auto) 6.1 % Eos % (Auto) 3.7 % Baso % (Auto) 1.0 % Neut # (Auto) 4.63 (1.4-6.5) K/uL Lymph # (Auto) 1.92 (1.2-3.4) K/uL [place] # (Auto) 0.45 (0.11-0.59) K/uL Eos # (Auto) 0.27 (0-0.5) K/uL Baso # (Auto) 0.07 (0-0.2) K/uL Immature Gran # (Auto) 0.01 (0.00-0.02) K/uL D-Dimer 480 (0-500) ug/L FEU Sodium 140 (136-145) mmol/L Potassium 3.4 L (3.5-5.1) mmol/L Chloride 107 (98-107) mmol/L Carbon Dioxide 25 (21-32) mmol/L Anion Gap 8.0 (3-11) BUN 15 (7-18) mg/dl Creatinine 0.80 (0.6-1.2) mg/dl Est Cr Clr Drug Dosing 105.1 ml/min Est GFR ( Amer) 113.9 Est GFR (Non-Af Amer) 98.2 BUN/Creatinine Ratio 18.3 (10-20) Glucose 78 (70-99) mg/dl Calcium 9.4 (8.5-10.1) mg/dl Magnesium 2.4 (1.8-2.4) mg/dl Total Bilirubin 0.3 (0.2-1) mg/dl AST 8 L (15-37) U/L ALT 25 (12-78) U/L Alkaline Phosphatase 79 (45-117) U/L Troponin I < 0.015 (0-0.045) ng/ml NT-Pro-B Natriuret Pep 15 (0-450) pg/ml Total Protein 8.3 H (6.4-8.2) gm/dl Albumin 4.9 (3.4-5.0) gm/dl Globulin 3.4 (2.5-4.0) gm/dl Albumin/Globulin Ratio 1.4 (0.9-2) Lipase 79 (73-393) U/L COVID-19 Eval Order SARS-CoV-2, RNA, NAAT (NEGATIVE) 06/17/20 06/17/20 Range/Units 21:57 21:57 WBC (4.8-10.8) K/uL RBC (4.2-5.4) M/uL Hgb (12.0-16.0) g/dL Hct (37-47) % MCV (80-100) fL MCH (25-34) pg MCHC (32-36) g/dL RDW Std Deviation (36.4-46.3) fL RDW Coeff of Corrie (11.5-14.5) % Plt Count (130-400) K/uL MPV (7.4-10.4) fL Immature Gran % (Auto) % Neut % (Auto) % Lymph % (Auto) % [place] % (Auto) % Eos % (Auto) % Baso % (Auto) % Neut # (Auto) (1.4-6.5) K/uL Lymph # (Auto) (1.2-3.4) K/uL [place] # (Auto) (0.11-0.59) K/uL Eos # (Auto) (0-0.5) K/uL Baso # (Auto) (0-0.2) K/uL Immature Gran # (Auto) (0.00-0.02) K/uL D-Dimer (0-500) ug/L FEU Sodium (136-145) mmol/L Potassium (3.5-5.1) mmol/L Chloride (98-107) mmol/L Carbon Dioxide (21-32) mmol/L Anion Gap (3-11) BUN (7-18) mg/dl Creatinine (0.6-1.2) mg/dl Est Cr Clr Drug Dosing ml/min Est GFR ( Amer) Est GFR (Non-Af Amer) BUN/Creatinine Ratio (10-20) Glucose (70-99) mg/dl Calcium (8.5-10.1) mg/dl Magnesium (1.8-2.4) mg/dl Total Bilirubin (0.2-1) mg/dl AST (15-37) U/L ALT (12-78) U/L Alkaline Phosphatase (45-117) U/L Troponin I (0-0.045) ng/ml NT-Pro-B Natriuret Pep (0-450) pg/ml Total Protein (6.4-8.2) gm/dl Albumin (3.4-5.0) gm/dl Globulin (2.5-4.0) gm/dl Albumin/Globulin Ratio (0.9-2) Lipase (73-393) U/L COVID-19 Eval Order Covid19 [facility] SARS-CoV-2, RNA, NAAT NEGATIVE (NEGATIVE) Administered Medications Discontinued Medications Acetaminophen (Acetaminophen 1000 Mg/100 Ml Iv) 1,000 mg IV NOW STA Stop: 06/17/20 20:26 Last Admin: 06/17/20 21:53 Dose: 1,000 mg Documented by: [id number] Dexamethasone (Dexamethasone Sod Inj 10 Mg/Ml Vial) 6 mg IV NOW ONE Stop: 06/17/20 20:25 Last Admin: 06/17/20 21:53 Dose: 6 mg Documented by: [id number] Diphenhydramine HCl (Diphenhydramine 50 Mg/Ml Vial) 50 mg IV NOW STA Stop: 06/17/20 18:49 Last Admin: 06/17/20 19:39 Dose: 50 mg Documented by: [id number] Sodium Chloride (Nss 1000ml) 2,000 mls @ 999 mls/hr IV .Q2H1M ONE Stop: 06/17/20 20:44 Last Infusion: 06/17/20 22:35 Dose: 0 mls/hr Documented by: [id number] Admin: 06/17/20 19:22 Dose: 999 mls/hr Documented by: [id number] Prochlorperazine (Compazine) 1 mls @ 1 mls/min IV ONE ONE Stop: 06/17/20 18:49 Last Admin: 06/17/20 19:39 Dose: 1 mls/min Documented by: [id number] Ketorolac Tromethamine (Ketorolac Tromethamine 15 Mg/Ml Vial) 15 mg IV NOW ONE Stop: 06/17/20 18:49 Last Admin: 06/17/20 19:39 Dose: 15 mg Documented by: [id number] Potassium Chloride (Potassium Chloride Crtab 20 Meq Tabcr) 40 meq PO NOW STA Stop: 06/17/20 21:28 Last Admin: 06/17/20 21:55 Dose: 40 meq Documented by: [id number] Discharge Plan Visit Data Chief Complaint: Headache Stated Complaint: S/P CONCUSSION LAST WEEK - SEVERE HEADACHE,SYNCOPE ED Provider: Elpidio Almeida Discharge Problem: Syncope, Abnormal EKG, Concussion Discharge Instructions Interventions: ED Discharge Assessment Last Done: 06/17/20 23:17 Forms Stand Alone Forms: [facility] Labs Prescriptions Prescriptions: No Action clonidine HCl 0.1 mg tablet 0.1 mg PO BID RF: 0 clonazepam 1 mg tablet 1 mg PO BID RF: 0 fluoxetine 20 mg capsule 20 mg PO QAM RF: 0 aripiprazole 10 mg tablet 10 mg PO QAM RF: 0 zolpidem [Ambien] 10 mg tablet 10 mg PO HS RF: 0 lamotrigine 100 mg tablet 100 mg PO QAM RF: 0 acetaminophen [Tylenol Extra Strength] 500 mg Tablet 1,000 mg PO DIRECTED PRN (Reason: Pain) RF: 0 Referrals Referrals: Yun Del Rio MD [Primary Care Provider] - Discharge Problem: Syncope Qualifiers: Syncope type: unspecified Qualified Code(s): R55 - Syncope and collapse Concussion Qualifiers: Encounter type: subsequent encounter Loss of consciousness presence/duration: with LOC of unspecified duration Qualified Code(s): S06.0X9D - Concussion with loss of consciousness of unspecified duration, subsequent encounter
[2020-06-17] MEDS ORDERED: diphenhydrAMINE 50 MG/ML VIAL IV STA (18:48)
[2020-06-17] MEDS ORDERED: PROCHLORPERAZINE 1 ML IV ONE (18:48)
[2020-06-17] MEDS ORDERED: KETOROLAC TROMETHAMINE 15 MG/ML VIAL IV ONE (18:48)
[2020-06-17 19:51] LABS: Basophils # (auto) 0.07 K/uL (0-0.2); Eosinophils # (auto) 0.27 K/uL (0-0.5); Eosinophils % (auto) 3.7 %; Hematocrit (blood only) 38.6 % (37-47); Hemoglobin 13.1 g/dL (12.0-16.0); Immature Granulocytes # (auto) 0.01 K/uL (0.00-0.02); Immature Granulocytes % (auto) 0.1 %; Lymphocytes # (auto) 1.92 K/uL (1.2-3.4); Lymphocytes % (auto) 26.1 %; Mean Corpuscular Hemoglobin 27.1 pg (25-34); Mean Corpuscular Hgb Conc 33.9 g/dL (32-36); Mean Corpuscular Volume 79.8 fL (80-100); Mean Platelet Volume 10.4 fL (7.4-10.4); Monocytes # (auto) 0.45 K/uL (0.11-0.59); Monocytes % (auto) 6.1 %; Neutrophils # (auto) 4.63 K/uL (1.4-6.5); Platelet Count 408 K/uL (130-400); RDW Coefficient of Variation 13.4 % (11.5-14.5); RDW Standard Deviation 38.9 fL (36.4-46.3); Red Blood Count 4.84 M/uL (4.2-5.4); White Blood Count 7.35 K/uL (4.8-10.8)
[2020-06-17 20:07] LABS: Alanine Aminotransferase 25 U/L (12-78); Albumin Level 4.9 gm/dl (3.4-5.0); Aspartate Aminotransferase 8 U/L (15-37); BUN Creatinine Ratio 18.3 (10-20); Blood Urea Nitrogen 15 mg/dl (7-18); Calcium 9.4 mg/dl (8.5-10.1); Carbon Dioxide 25 mmol/L (21-32); Chloride 107 mmol/L (98-107); Creatinine Clr Calc Pharmacy 105.1 ml/min; Est GFR (African American) 113.9; Est GFR (Non-African American) 98.2; Glucose 78 mg/dl (70-99); Lipase 79 U/L (73-393); Potassium 3.4 mmol/L (3.5-5.1); Sodium 140 mmol/L (136-145)
[2020-06-17 20:11] LABS: Albumin Globulin Ratio 1.4 (0.9-2); Alkaline Phosphatase 79 U/L (45-117); Bilirubin,Total 0.3 mg/dl (0.2-1); Globulin 3.4 gm/dl (2.5-4.0); Total Protein 8.3 gm/dl (6.4-8.2); Troponin I < 0.015 ng/ml (0-0.045)
[2020-06-17 20:15] LABS: D Dimer 480 ug/L FEU (0-500)
[2020-06-17] MEDS ORDERED: DEXAMETHASONE SOD INJ 10 MG/ML VIAL IV ONE (20:24)
[2020-06-17] MEDS ORDERED: ACETAMINOPHEN 1000 MG/100 ML IV IV STA (20:25)
--- NOTE | 2020-06-17 20:50 | CT Scan Report ---
CT SCAN OF THE BRAIN WITHOUT IV CONTRAST CLINICAL HISTORY: Headache. Vomiting. COMPARISON STUDY: CT of the brain dated 06/11/2020. TECHNIQUE: Unenhanced axial CT scan of the brain is performed from the vertex to the skull base. A d ose lowering technique was utilized adhering to the principles of ALARA. CT DOSE: 638.56 mGycm FINDINGS: Brain parenchyma: The brain parenchyma is normal in appearance. There is no hemorrhage, mass effect, or evidence of acute territorial ischemia by CT criteria. Phan-white matter differentiation is preser roro. No extra-axial fluid collection is seen. Ventricles, sulci, cisterns: Normal in configuration. Intracranial vasculature: The visualized intracranial vasculature at the skull base is normal in appe arance. Calvarium: Unremarkable. Sinuses and mastoids: The visualized paranasal sinuses are clear. The mastoid air cells are well pneu matized. Orbits: The bony orbits are grossly intact. IMPRESSION: No acute intracranial abnormality. ACT 112: Negative or not required by law. Electronically signed by: Drake De Jesus M.D. 06/17/2020 8:49 PM
[2020-06-17] MEDS ORDERED: POTASSIUM CHLORIDE CRTAB 20 MEQ TABCR PO STA (21:27)
--- NOTE | 2020-06-17 21:32 | XRay Report ---
SINGLE VIEW CHEST CLINICAL HISTORY: Atypical chest pain. FINDINGS: An AP, portable, upright chest radiograph is compared to study dated 06/11/2020. The cardiome diastinal silhouette is unremarkable. The lungs and pleural spaces are clear. No pneumothorax is seen . The bony thorax is grossly intact. IMPRESSION: No acute cardiopulmonary abnormality. ACT 112: Negative or not required by law. Electronically signed by: Drake De Jesus M.D. 06/17/2020 9:30 PM
--- NOTE | 2020-06-17 21:55 | History & Physical Report ---
Date of Service June 17, 2020 Assessment & Plan (1) Cerebral concussion: Recurrent syncope Differentials include : orthostasis, arrhythmia, obstructive cardiac pathology (hx MVP as per records), seizures Chest pain likely musculoskeletal based on examination, rule out rib fracture hx migraine as per records, persistent postconcussion headache little different from usual migraine attack as per patient anxiety/mood disorder, at baseline Hypokalemia neurofibromatosis type I OBS Medical telemetry Neurochecks Neurology consult Re: Cerebral concussion Syncope work-up : Orthostatic vitals, TTE, EEG Rib series for chest pain Replace potassium, check magnesium from lab blood DVT prophylaxis. Lovenox 40 mg SQ daily Full code Text document was generated using [employer] voice recognition software. It may contain grammatical or spelling errors. Kindly contact undersigned for clarification of any documentation item in question. History of Present Illness Chief Complaint: Recurrent syncope, headache Primary Care Provider: Yun Del Rio MD History obtained from patient and records. Medical history significant fo migraine, anxiety/mood disorder, mitral valve prolapse as per records, PCOS, neurofibromatosis type I. Last confinement last month at the behavioral health unit under Psychiatry service for depression with suicidality. Last week, patient had an unwitnessed syncopal event outside her home resulting in head trauma. Episode preceded by lightheadedness/dizziness. No chest pain, no S OB. No tongue biting, incontinence, witnessed seizures. No prior episodes as per patient. Imaging done at the ER was negative. Persistent achy frontal headache symptoms somewhat different from migraine and recurrent syncopal events almost daily at home, usually while patient is standing up. Achy, transient left-sided and substernal pain noted at home today. Patient denies unusual stress at home or change in home medication regimen. 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 Allergies Allergy/AdvReac Type Severity Reaction Status Date / Time bee venom protein (honey bee) Allergy Intermediate Headache, Verified 06/17/20 22:45 faint lactose Allergy Intermediate Gastrointestinal Verified 06/17/20 22:45 Upset Home Medications Medication Instructions Recorded Confirmed Type aripiprazole 10 mg PO QAM 06/11/20 06/17/20 History clonazepam 1 mg PO BID 06/11/20 06/17/20 History clonidine HCl 0.1 mg PO BID 06/11/20 06/17/20 History fluoxetine 20 mg PO QAM 06/11/20 06/17/20 History zolpidem [Ambien] 10 mg PO HS 06/11/20 06/17/20 History acetaminophen [Tylenol Extra 1,000 mg PO DIRECTED PRN 06/17/20 06/17/20 History Strength] lamotrigine 100 mg PO QAM 06/17/20 06/17/20 History Past Med/Surg History Medical History (Updated 06/18/20 @ 00:05 by Tiffany Schofield) Anxiety with depression Cystic fibrosis carrier Fibroid uterus History of abnormal cervical Pap smear 2012; had colposcopy and all wnl since Mitral valve prolapse diagnosed as a child Neurofibromatosis, 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 No history of diabetes mellitus 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 Surgical History H/O section History of appendectomy S/P reconstruction of ligament of knee right knee 2018 [place] teeth removed 2009 Family History Other No significant family history Social History Smoking Status: Never smoker Hx Alcohol Use: No Hx Substance Use: No Preferred Language: Khmer Communication Ability: Effective Medical Grade Shoemaker Required: No Beliefs That Will Affect Care: None marital status: Current Living Situation: Spouse Current Living Situation Comment: lives with and children Other Information That Helps Us Care for You: No Feels Safe at Home: Yes Safety Concerns: Feels Safe At This Time Assistive Devices: Glasses Review of Systems Review of Systems: As per HPI, all 10 systems reviewed, all other ROS negative Physical Exam Physical Exam: GENERAL: Comfortable, slightly anxious, morbidly obese, no respiratory distress SKIN: Normal color, warm HEENT: Welty palpebral conjunctivae, no ptosis, dry buccal mucosa NECK : Supple, short neck, no tenderness CHEST : CTA, sternal, left-sided chest tenderness HEART : RRR, no obvious murmurs ABDOMEN: Some distention, nontender EXTREMITIES : Minimal LE swelling, no LE tenderness, no other conspicuous deformities noted NEUROLOGIC : Coherent, no facial asymmetry, no other gross focality Results & Data Results & Data ([facility]) Vital Signs (Past 12 Hours) Vital Signs Temp Pulse Resp BP Pulse Ox 06/17/20 19:24 68 19 112/74 100 06/17/20 19:07 100 H 18 98 06/17/20 15:27 36.8 C 100 H 18 128/84 98 Laboratory Results Laboratory Results WBC 7.35 K/uL (4.8-10.8) 06/17/20 19:20 RBC 4.84 M/uL (4.2-5.4) 06/17/20 19:20 Hgb 13.1 g/dL (12.0-16.0) 06/17/20 19:20 Hct 38.6 % (37-47) 06/17/20 19:20 MCV 79.8 fL (80-100) L 06/17/20 19:20 MCH 27.1 pg (25-34) 06/17/20 19:20 MCHC 33.9 g/dL (32-36) 06/17/20 19:20 RDW Std Deviation 38.9 fL (36.4-46.3) 06/17/20 19:20 RDW Coeff of Corrie 13.4 % (11.5-14.5) 06/17/20 19:20 Plt Count 408 K/uL (130-400) H 06/17/20 19:20 MPV 10.4 fL (7.4-10.4) 06/17/20 19:20 Immature Gran % (Auto) 0.1 % 06/17/20 19:20 Neut % (Auto) 63.0 % 06/17/20 19:20 Lymph % (Auto) 26.1 % 06/17/20 19:20 [place] % (Auto) 6.1 % 06/17/20 19:20 Eos % (Auto) 3.7 % 06/17/20 19:20 Baso % (Auto) 1.0 % 06/17/20 19:20 Neut # (Auto) 4.63 K/uL (1.4-6.5) 06/17/20 19:20 Lymph # (Auto) 1.92 K/uL (1.2-3.4) 06/17/20 19:20 [place] # (Auto) 0.45 K/uL (0.11-0.59) 06/17/20 19:20 Eos # (Auto) 0.27 K/uL (0-0.5) 06/17/20 19:20 Baso # (Auto) 0.07 K/uL (0-0.2) 06/17/20 19:20 Immature Gran # (Auto) 0.01 K/uL (0.00-0.02) 06/17/20 19:20 D-Dimer 480 ug/L FEU (0-500) 06/17/20 19:20 Sodium 140 mmol/L (136-145) 06/17/20 19:20 Potassium 3.4 mmol/L (3.5-5.1) L 06/17/20 19:20 Chloride 107 mmol/L (98-107) 06/17/20 19:20 Carbon Dioxide 25 mmol/L (21-32) 06/17/20 19:20 Anion Gap 8.0 (3-11) 06/17/20 19:20 BUN 15 mg/dl (7-18) 06/17/20 19:20 Creatinine 0.80 mg/dl (0.6-1.2) 06/17/20 19:20 Est Cr Clr Drug Dosing 105.1 ml/min 06/17/20 19:20 Est GFR ( Amer) 113.9 06/17/20 19:20 Est GFR (Non-Af Amer) 98.2 06/17/20 19:20 BUN/Creatinine Ratio 18.3 (10-20) 06/17/20 19:20 Glucose 78 mg/dl (70-99) 06/17/20 19:20 Calcium 9.4 mg/dl (8.5-10.1) 06/17/20 19:20 Total Bilirubin 0.3 mg/dl (0.2-1) 06/17/20 19:20 AST 8 U/L (15-37) L 06/17/20 19:20 ALT 25 U/L (12-78) 06/17/20 19:20 Alkaline Phosphatase 79 U/L (45-117) 06/17/20 19:20 Troponin I < 0.015 ng/ml (0-0.045) 06/17/20 19:20 Total Protein 8.3 gm/dl (6.4-8.2) H 06/17/20 19:20 Albumin 4.9 gm/dl (3.4-5.0) 06/17/20 19:20 Globulin 3.4 gm/dl (2.5-4.0) 06/17/20 19:20 Albumin/Globulin Ratio 1.4 (0.9-2) 06/17/20 19:20 Lipase 79 U/L (73-393) 06/17/20 19:[address] head: No acute intracranial abnormality. Chest x-ray : No acute cardiopulmonary abnormality. EKG as per my interpretation : Rate 70, NSR, normal axis, diffuse T wave abnormalities inferior and chest wall leads
[2020-06-17 22:40] LABS: Magnesium 2.4 mg/dl (1.8-2.4); NT Pro B Type Natriuretic Pept 15 pg/ml (0-450)
[2020-06-17] MEDS ORDERED: ACETAMINOPHEN 325 MG TAB PO PRN (23:53)
[2020-06-17] MEDS ORDERED: KETOROLAC TROMETHAMINE 15 MG/ML VIAL IV PRN (23:53)
[2020-06-17] MEDS ORDERED: IBUPROFEN 200 MG TAB PO PRN (23:53)
[2020-06-18] MEDS ORDERED: POTASSIUM CHLORIDE 40 MEQ in SODIUM CHLORIDE 0.9% 1000ML 1,000 ML IV ONE (00:30)
[2020-06-18 02:00] LABS: Pregnancy Test, Urine Negative (Negative)
[2020-06-18 02:01] LABS: Appearance Urine Clear (Clear); Bacteria Urine Automated Negative (Negative); Bilirubin Urine Negative (Negative); Blood Urine 3+ (Negative); Color Urine Yellow; Epithelial Cell Urine Auto >30 /lpf (0-5); Glucose Urine UA Negative (Negative); Ketones Urine Trace (Negative); Leukocyte Esterase Urine Negative (Negative); Nitrite Urine Negative (Negative); Protein Urine Negative (Negative); Specific Gravity Urine 1.021 (1.000-1.030); Urobilinogen Urine Negative (Negative); pH Urine 5.5 (4.5-7.5)
[2020-06-18 02:19] LABS: Amphetamines+Metham, Urine Neg (Neg); Barbiturates, Urine Neg (Neg); Benzodiazepine, Urine Neg (Neg); Cocaine, Urine Neg (Neg); MDMA (Ecstacy), Urine Neg (Neg); Methadone, Urine Neg (Neg); Opiate, Urine Neg (Neg); Phencyclidine, Urine Neg (Neg)
[2020-06-18 02:34] LABS: RBC Urine Automated 0-4 /hpf (0-4)
[2020-06-18 06:55] LABS: Basophils # (auto) 0.01 K/uL (0-0.2); Basophils % (auto) 0.1 %; Eosinophils # (auto) 0.01 K/uL (0-0.5); Eosinophils % (auto) 0.1 %; Hematocrit (blood only) 36.8 % (37-47); Hemoglobin 12.2 g/dL (12.0-16.0); Immature Granulocytes # (auto) 0.01 K/uL (0.00-0.02); Immature Granulocytes % (auto) 0.1 %; Lymphocytes # (auto) 0.87 K/uL (1.2-3.4); Lymphocytes % (auto) 10.9 %; Mean Corpuscular Hemoglobin 26.3 pg (25-34); Mean Corpuscular Hgb Conc 33.2 g/dL (32-36); Mean Corpuscular Volume 79.5 fL (80-100); Mean Platelet Volume 10.4 fL (7.4-10.4); Monocytes # (auto) 0.05 K/uL (0.11-0.59); Monocytes % (auto) 0.6 %; Neutrophils # (auto) 7.03 K/uL (1.4-6.5); Neutrophils % (auto) 88.2 %; Platelet Count 380 K/uL (130-400); RDW Coefficient of Variation 13.3 % (11.5-14.5); RDW Standard Deviation 38.5 fL (36.4-46.3); Red Blood Count 4.63 M/uL (4.2-5.4); White Blood Count 7.98 K/uL (4.8-10.8)
[2020-06-18 07:29] LABS: BUN Creatinine Ratio 19.7 (10-20); Calcium 8.5 mg/dl (8.5-10.1); Creatinine Clr Calc Pharmacy 134.3 ml/min; Est GFR (African American) 138.5; Est GFR (Non-African American) 119.5; Potassium 4.6 mmol/L (3.5-5.1)
--- NOTE | 2020-06-18 07:33 | XRay Report ---
XR ribs LT min 2V CLINICAL HISTORY: L chest pain, hx trauma COMPARISON: Chest radiograph June 11, 2020. Chest radiograph June 17, 2020. FINDINGS: No acute left rib fractures are identified. There is no left pneumothorax. IMPRESSION: No acute left rib fractures identified. ACT 112: Negative or not required by law. Electronically signed by: Jose Miguel Wills M.D. 06/18/2020 7:32 AM
[2020-06-18] MEDS: ENOXAPARIN INJ 40 MG/0.4 ML SYR SQ SCH (10:15)
[2020-06-18] MEDS: PROMETHAZINE HCL 12.5 MG in SODIUM CHLORIDE 0.9% 50 ML IV PRN (10:16)
[2020-06-18] MEDS: oxyCODONE HCL IR 5 MG TAB (IMMEDIATE RELEASE) PO PRN ×3 (10:53→23:56)
--- NOTE | 2020-06-18 12:15 | Electroencephalogram ---
EEG Procedure Note Date of Service June 18, 2020 Home Medication List Medication Instructions Recorded Confirmed Type aripiprazole 10 mg PO QAM 06/11/20 06/17/20 History clonazepam 1 mg PO BID 06/11/20 06/17/20 History clonidine HCl 0.1 mg PO BID 06/11/20 06/17/20 History fluoxetine 20 mg PO QAM 06/11/20 06/17/20 History zolpidem [Ambien] 10 mg PO HS 06/11/20 06/17/20 History acetaminophen [Tylenol Extra 1,000 mg PO DIRECTED PRN 06/17/20 06/17/20 History Strength] lamotrigine 100 mg PO QAM 06/17/20 06/17/20 History Inpatient Medication List Enoxaparin Sodium (Enoxaparin Inj 40 Mg/0.4 Ml Syr) 40 mg SQ QAM [facility] Stop: 07/18/20 08:59 Last Admin: 06/18/20 10:15 Dose: 40 mg Documented by: [id number] Potassium Chloride 40 meq/ (Sodium Chloride) 1,020 mls @ 75 mls/hr IV .[id number] ONE Stop: 06/18/20 14:05 Last Admin: 06/18/20 01:49 Dose: 75 mls/hr Documented by: [id number] Promethazine HCl 12.5 mg/ (Sodium Chloride) 50.5 mls @ 202 mls/hr IV Q6H PRN PRN Reason: Nausea And Vomiting Stop: 07/17/20 23:52 Last Infusion: 06/18/20 10:31 Dose: 0 mls/hr Documented by: [id number] Admin: 06/18/20 10:16 Dose: 202 mls/hr Documented by: [id number] Ketorolac Tromethamine (Ketorolac Tromethamine 15 Mg/Ml Vial) 15 mg IV Q6H PRN PRN Reason: Pain Stop: 06/22/20 23:52 Last Admin: 06/18/20 09:37 Dose: 15 mg Documented by: [id number] Oxycodone HCl (Oxycodone Hcl Ir 5 Mg Tab (Immediate Release)) 5 mg PO Q4H PRN PRN Reason: Pain Stop: 07/01/20 23:52 Last Admin: 06/18/20 10:53 Dose: 5 mg Documented by: [id number] Discontinued Medications Acetaminophen (Acetaminophen 1000 Mg/100 Ml Iv) 1,000 mg IV NOW STA Stop: 06/17/20 20:26 Last Admin: 06/17/20 21:53 Dose: 1,000 mg Documented by: [id number] Dexamethasone (Dexamethasone Sod Inj 10 Mg/Ml Vial) 6 mg IV NOW ONE Stop: 06/17/20 20:25 Last Admin: 06/17/20 21:53 Dose: 6 mg Documented by: [id number] Diphenhydramine HCl (Diphenhydramine 50 Mg/Ml Vial) 50 mg IV NOW STA Stop: 06/17/20 18:49 Last Admin: 06/17/20 19:39 Dose: 50 mg Documented by: [id number] Sodium Chloride (Nss 1000ml) 2,000 mls @ 999 mls/hr IV .Q2H1M ONE Stop: 06/17/20 20:44 Last Infusion: 06/17/20 22:35 Dose: 0 mls/hr Documented by: [id number] Admin: 06/17/20 19:22 Dose: 999 mls/hr Documented by: [id number] Prochlorperazine (Compazine) 1 mls @ 1 mls/min IV ONE ONE Stop: 06/17/20 18:49 Last Admin: 06/17/20 19:39 Dose: 1 mls/min Documented by: [id number] Ketorolac Tromethamine (Ketorolac Tromethamine 15 Mg/Ml Vial) 15 mg IV NOW ONE Stop: 06/17/20 18:49 Last Admin: 06/17/20 19:39 Dose: 15 mg Documented by: [id number] Potassium Chloride (Potassium Chloride Crtab 20 Meq Tabcr) 40 meq PO NOW STA Stop: 06/17/20 21:28 Last Admin: 06/17/20 21:55 Dose: 40 meq Documented by: [id number] Description This is a 21 electrode EEG with a single channel dedicated to limited EKG. The electrodes were placed in accordance with the International 10-20 system. REPORT:
--- NOTE | 2020-06-18 12:40 | Electroencephalogram ---
EEG Procedure Note Date of Service June 18, 2020 Start / End Times Start Time: 06:00 End Time: 06:[address] Ludwig Fong History A 29 year old woman with recurrent syncope. EEG performed for evaluation of epileptiform activity. Home Medication List Medication Instructions Recorded Confirmed Type aripiprazole 10 mg PO QAM 06/11/20 06/17/20 History clonazepam 1 mg PO BID 06/11/20 06/17/20 History clonidine HCl 0.1 mg PO BID 06/11/20 06/17/20 History fluoxetine 20 mg PO QAM 06/11/20 06/17/20 History zolpidem [Ambien] 10 mg PO HS 06/11/20 06/17/20 History acetaminophen [Tylenol Extra 1,000 mg PO DIRECTED PRN 06/17/20 06/17/20 History Strength] lamotrigine 100 mg PO QAM 06/17/20 06/17/20 History Inpatient Medication List Enoxaparin Sodium (Enoxaparin Inj 40 Mg/0.4 Ml Syr) 40 mg SQ QAM [facility] Stop: 07/18/20 08:59 Last Admin: 06/18/20 10:15 Dose: 40 mg Documented by: [id number] Potassium Chloride 40 meq/ (Sodium Chloride) 1,020 mls @ 75 mls/hr IV .[id number] ONE Stop: 06/18/20 14:05 Last Admin: 06/18/20 01:49 Dose: 75 mls/hr Documented by: [id number] Promethazine HCl 12.5 mg/ (Sodium Chloride) 50.5 mls @ 202 mls/hr IV Q6H PRN PRN Reason: Nausea And Vomiting Stop: 07/17/20 23:52 Last Infusion: 06/18/20 10:31 Dose: 0 mls/hr Documented by: [id number] Admin: 06/18/20 10:16 Dose: 202 mls/hr Documented by: [id number] Ketorolac Tromethamine (Ketorolac Tromethamine 15 Mg/Ml Vial) 15 mg IV Q6H PRN PRN Reason: Pain Stop: 06/22/20 23:52 Last Admin: 06/18/20 09:37 Dose: 15 mg Documented by: [id number] Oxycodone HCl (Oxycodone Hcl Ir 5 Mg Tab (Immediate Release)) 5 mg PO Q4H PRN PRN Reason: Pain Stop: 07/01/20 23:52 Last Admin: 06/18/20 10:53 Dose: 5 mg Documented by: [id number] Discontinued Medications Acetaminophen (Acetaminophen 1000 Mg/100 Ml Iv) 1,000 mg IV NOW STA Stop: 06/17/20 20:26 Last Admin: 06/17/20 21:53 Dose: 1,000 mg Documented by: [id number] Dexamethasone (Dexamethasone Sod Inj 10 Mg/Ml Vial) 6 mg IV NOW ONE Stop: 06/17/20 20:25 Last Admin: 06/17/20 21:53 Dose: 6 mg Documented by: [id number] Diphenhydramine HCl (Diphenhydramine 50 Mg/Ml Vial) 50 mg IV NOW STA Stop: 06/17/20 18:49 Last Admin: 06/17/20 19:39 Dose: 50 mg Documented by: [id number] Sodium Chloride (Nss 1000ml) 2,000 mls @ 999 mls/hr IV .Q2H1M ONE Stop: 06/17/20 20:44 Last Infusion: 06/17/20 22:35 Dose: 0 mls/hr Documented by: [id number] Admin: 06/17/20 19:22 Dose: 999 mls/hr Documented by: [id number] Prochlorperazine (Compazine) 1 mls @ 1 mls/min IV ONE ONE Stop: 06/17/20 18:49 Last Admin: 06/17/20 19:39 Dose: 1 mls/min Documented by: [id number] Ketorolac Tromethamine (Ketorolac Tromethamine 15 Mg/Ml Vial) 15 mg IV NOW ONE Stop: 06/17/20 18:49 Last Admin: 06/17/20 19:39 Dose: 15 mg Documented by: [id number] Potassium Chloride (Potassium Chloride Crtab 20 Meq Tabcr) 40 meq PO NOW STA Stop: 06/17/20 21:28 Last Admin: 06/17/20 21:55 Dose: 40 meq Documented by: [id number] Description This is a 21 electrode EEG with a single channel dedicated to limited EKG. The electrodes were placed in accordance with the International 10-20 system. REPORT: At the onset of the EEG, the patient is awake. The background activity consist of 11-12 Hz, persistent, posteriorly dominant, moderate amplitude, symmetric and rhythmic activity that is reactive to eye opening with intermixed 10-20 uV beta activity. Anteriorly, it consist of a mixture of low voltage indeterminate activity and 15-25 Hz, persistent, low amplitude, symmetric and rhythmic activity. Stepwise intermittent photic stimulation does not induce any abnormalities. Drowsiness is characterized by low amplitude mixed frequency activity, roving eye movements, and decreased eye blinking and muscle artifact. IMPRESSION: This is a normal awake and drowsy routine EEG. Excessive beta activity is a normal variant and can be seen as a medication effect, ie benzodiazepines. There is no evidence of epileptiform activity.
--- NOTE | 2020-06-18 14:06 | Neurology Consultation ---
Date of Consultation June 18, 2020 Assessment & Plan (1) Syncope: 1. recent start of Clonidine may be causing hypotensive episodes. 2. orthostatic should be checked q shift 3. consult psychiatry for recommendations Present on Admission?: Yes (2) Concussion: 1. history of migraine headaches - post concussive recurrence 2. start riboflavin 400 mg and mg++ ox 400 mg daily 3. steroid taper may be helpful with headaches 4. complain of concentration issues since concussions can take 6 months to 1 year to resolve- limit screen time, bright lights, good sleep hygiene 5. other options can be discussed at follow up with neurology in 4-6 weeks. Present on Admission?: Yes Supervising Physician Co-Signing Physician Notes I have seen and discussed above patient with Dr Ashely Zazueta, neuroogy. See dicat note. KAMRAN Soto History of Present Illness Reason for Consultation: concussion Requesting Physician: Jigna Thakur MD Attending Physician: Jigna Thakur MD History of Present Illness Delphine is a 29 year old female with a PMH NF 1, polycystic ovary disease recurrent depression, anxiety disorder, P migraine headaches, who presents to the ER for headache and syncope. She had a syncopal episode about 1 week ago and hit her head. She was coming out of the urgent care with her son and she felt ill and didn't make it to the care but feel and woke up on the road with her son yelling for help. She has had a headache since then which has worsened slightly. Its constant sharp and stabbing in the frontal regions of her bilateral head. She denies any change in vision weakness or numbness in the arms or legs. She admits to dizziness since this incident. She has passed out a total of 2 times and another 2 times almost passed out which she is weak and dizzy but didn't hit her head. Symptoms sometime occur with change of position but not always. She gets hot and sweaty with the episodes. The started after clonidine was added. +headache Allergies Allergy/AdvReac Type Severity Reaction Status Date / Time bee venom protein (honey bee) Allergy Intermediate Headache, Verified 06/17/20 22:45 faint lactose Allergy Intermediate Gastrointestinal Verified 06/17/20 22:45 Upset Home Medications Medication Instructions Recorded Confirmed Type aripiprazole 10 mg PO QAM 06/11/20 06/17/20 History clonazepam 1 mg PO BID 06/11/20 06/17/20 History clonidine HCl 0.1 mg PO BID 06/11/20 06/17/20 History fluoxetine 20 mg PO QAM 06/11/20 06/17/20 History zolpidem [Ambien] 10 mg PO HS 06/11/20 06/17/20 History acetaminophen [Tylenol Extra 1,000 mg PO DIRECTED PRN 06/17/20 06/17/20 History Strength] lamotrigine 100 mg PO QAM 06/17/20 06/17/20 History Patient History Medical History (Updated 06/18/20 @ 00:05 by Tiffany Schofield) Anxiety with depression Cystic fibrosis carrier Fibroid uterus History of abnormal cervical Pap smear 2012; had colposcopy and all wnl since Mitral valve prolapse diagnosed as a child Neurofibromatosis, 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 No history of diabetes mellitus 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 Surgical History H/O section History of appendectomy S/P reconstruction of ligament of knee right knee 2018 [place] teeth removed 2008 Family History Other No significant family history Social History Smoking Status: Never smoker Hx Alcohol Use: No Hx Substance Use: No Preferred Language: Burkinan Communication Ability: Effective Public Records Researcher Required: No Beliefs That Will Affect Care: None marital status: Current Living Situation: Spouse Current Living Situation Comment: lives with and children Other Information That Helps Us Care for You: No Feels Safe at Home: Yes Safety Concerns: Feels Safe At This Time Assistive Devices: Glasses Physical Exam Physical Exam: Physical Exam: Constitutional: appearance over nourished Ears, Nose, Mouth and Throat: mucous membranes moist, no injection and skin normal, eyes normal Cardiovascular: normal S-1 and S-2 and regular rate and rhythm Respiratory: clear to auscultation (CTA) and no rales, ronchi or wheeze Musculoskeletal: no peripheral edema and good distal pulses Skin: dark circles under eyes bilaterally Eyes: extraocular muscles intact (EOMI) and pupils equal, round and reactive to light (PERRL),miotic NEUROLOGIC EXAMINATION: Mental status: Alert and interactive Oriented to full date and location Oriented to person Speech fluent with no evidence of aphasia Cranial Nerves smile eye brow raise symmetric Reflexes: Deep tendon reflexes were symmetrical and graded 2/5. Sensory: no sensory deficits, light cool vibration Coordination: finger to nose Gait/Stance: Posture sitting in bed, able to walk from wheelchair to bed with no assistance Motor: Negative for pronator drift of out stretched arms with eyes closed. 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) Vital Signs (Past 12 Hours) Vital Signs Temp Pulse Resp BP BP Pulse Ox 06/18/20 11:08 36.6 C 68 18 116/76 97 06/18/20 07:53 36.4 C L 71 18 113/76 97 06/18/20 03:31 36.6 C 66 18 115/72 96 Laboratory Results Abnormal lab results 06/17/20 06/17/20 06/18/20 Range/Units 19:20 19:20 06:04 Hct 36.8 L (37-47) % MCV 79.8 L 79.5 L (80-100) fL Plt Count 408 H (130-400) K/uL Neut # (Auto) 7.03 H (1.4-6.5) K/uL Lymph # (Auto) 0.87 L (1.2-3.4) K/uL Chambers # (Auto) 0.05 L (0.11-0.59) K/uL Potassium 3.4 L (3.5-5.1) mmol/L Chloride (98-107) mmol/L Glucose (70-99) mg/dl AST 8 L (15-37) U/L Total Protein 8.3 H (6.4-8.2) gm/dl Urine Ketones (Negative) Urine Blood (Negative) U Epithel Cells (Auto) (0-5) /lpf 06/18/20 06/18/20 Range/Units 06:04 Unknown Hct (37-47) % MCV (80-100) fL Plt Count (130-400) K/uL Neut # (Auto) (1.4-6.5) K/uL Lymph # (Auto) (1.2-3.4) K/uL Chambers # (Auto) (0.11-0.59) K/uL Potassium (3.5-5.1) mmol/L Chloride 113 H (98-107) mmol/L Glucose 121 H (70-99) mg/dl AST (15-37) U/L Total Protein (6.4-8.2) gm/dl Urine Ketones Trace H (Negative) Urine Blood 3+ H (Negative) U Epithel Cells (Auto) >30 H (0-5) /lpf Diagnostic Findings This is a normal awake and drowsy routine EEG. Excessive beta activity is a normal variant and can be seen as a medication effect, ie benzodiazepines. There is no evidence of epileptiform activity. CT head-No acute intracranial abnormality. MRI brain- . Equivocal tiny right occipital DVA. Otherwise normal MRI of the brain. (1) Concussion Encounter type: subsequent encounter Loss of consciousness presence/duration: with LOC of unspecified duration Qualified Code(s): S06.0X9D - Concussion with loss of consciousness of unspecified duration, subsequent encounter (2) Syncope Syncope type: unspecified Qualified Code(s): R55 - Syncope and collapse
[2020-06-18] MEDS ORDERED: GADOBUTROL 65ML VIAL IV ONE (14:17)
--- NOTE | 2020-06-18 15:03 | Magnetic Resonance Report ---
MRI OF THE BRAIN WITHOUT AND WITH IV CONTRAST CLINICAL HISTORY: recurrent syncope, query seizure HEAD TRAUMA COMPARISON STUDY: CT scan dated 06/17/2020 TECHNIQUE: MRI of the brain was performed from the vertex to the skull base utilizing various T1 and T2 weighted sequences. Following the IV administration of 9.5 mL of Gadavist contrast, additional enh anced images were obtained. FINDINGS: Sagittal T1, axial diffusion, proton density and T2 weighted axial, coronal FLAIR, and pre and post a xial T1-weighted images were acquired. These were supplemented with post gadolinium coronal T1 weight ed images. No intra or extra-axial mass lesions are visualized. Axial diffusion-weighted images reveal no evidence of acute or subacute infarction. There is no evidence of ventricular dilatation. Proton density T2-weighted and FLAIR images reveal no significant intraparenchymal signal abnormaliti es. The hippocampal formations appear symmetric. There are no abnormal flow voids. There are no pathologically enhancing masses. There is an equivocal tiny right occipital developmenta l venous anomaly. IMPRESSION: 1. Equivocal tiny right occipital DVA. 2. Otherwise normal MRI of the brain. ACT 112: Negative or not required by law. Electronically signed by: Kushal Monteiro M.D. 06/18/2020 3:02 PM
--- NOTE | 2020-06-18 17:23 | Hospitalist Progress Note ---
Date of Service June 18, 2020 Assessment & Plan (1) Syncope: Present on admission with recurrent syncope episodes Possible related to orthostatic hypotension vs vasovagal Hypotension might be related to clonidine CT head showed no acute intracranial abnormality MRI head showed Equivocal tiny right occipital DVA. Otherwise normal MRI of the brain. ECHO showed normal LV wall abnormality. EF 60 to 65 % EEG showed no evidence of epileptiform activity. Neuro on board Recommended to decrease the Clonidine to daily Will do orthostatic Fall precaution Continue monitor (2) Concussion: History of migraine headaches - post concussive recurrence Continue to start on riboflavin 400 mg and mg++ ox 400 mg daily Steroid taper may be helpful with headaches Depression Anxiety Will Clonazepam BID, Fluoxetine, Ambien HS Will decrease clonidine and possible discontinue Will consult psych Neurofiromatosis Will need to follow with specialist in [place] DVT px on [facility] Admission and Anticipated Discharge Date Admission Date: June 17, 2020 Subjective Pt was seen and examined for follow up syncopal episode Sitting at the edge of the bed with no distress Pt said that she feels ok She said she is having more headache lately Pt was at the acute care recently and she passed out in the parking lot She said syncopal episodes can occur anytime Currently denies any chest pain, palpitation, dizziness and SOB Physical Exam Physical Exam: General- No acute distress Head- atraumatic Eyes- PERRL, EOMI, bruises around eyes ENT- oropharynx clear Neck- supple, no JVD Lungs- clear to auscultation Heart- regular rhythm; no murmur Abdomen- normal bowel sounds, soft, nontender Extremities- no calf tenderness Neuro- alert, oriented x 3; PERRL, EOMI; no facial palsy; no dysarthria Skin- warm & dry Results & Data Results & Data ([facility]) Vital Signs (Past 12 Hours) Vital Signs Temp Pulse Resp BP BP Pulse Ox 06/18/20 15:37 36.8 C 75 18 113/78 97 06/18/20 11:08 36.6 C 68 18 116/76 97 06/18/20 07:53 36.4 C L 71 18 113/76 97 (1) Concussion Encounter type: subsequent encounter Loss of consciousness presence/duration: with LOC of unspecified duration Qualified Code(s): S06.0X9D - Concussion with loss of consciousness of unspecified duration, subsequent encounter (2) Syncope Syncope type: unspecified Qualified Code(s): R55 - Syncope and collapse
--- NOTE | 2020-06-18 17:59 | Electrocardiogram Report ---
Test Reason : Blood Pressure : / mmHG Vent. Rate : 069 BPM Atrial Rate : 069 BPM P-R Int : 148 ms QRS Dur : 078 ms QT Int : 428 ms P-R-T Axes : -22 018 -22 degrees QTc Int : 458 ms Normal sinus rhythm Cannot rule out Anterior infarct (cited on or before 11-JUN-2020) Abnormal ECG When compared with ECG of 11-JUN-2020 19:02, No significant change was found Confirmed by Natanael Snow ([id number]) on 06/18/2020 5:58:49 PM Referred By: REFERRED SELF Confirmed By:Natanael Snow
[2020-06-18] MEDS ORDERED: ZOLPIDEM TARTRATE 10 MG TAB PO PRN (19:27)
[2020-06-18] MEDS: clonazePAM 1 MG TAB PO SCH (22:30)
--- NOTE | 2020-06-18 23:08 | Progress Notes ---
DATE: 06/18/2020 Please see Ashely Cortes's note. I have seen the patient in conjunction with Ashely. HISTORY OF PRESENT ILLNESS: This patient has had several episodes of syncope in the last two or so weeks. The patient indicates that she does not always sense that this is coming on, but the episodes have only occurred with standing. The episodes of loss of consciousness by report have been brief and not associated with any seizure activity. A week ago, the patient fell and struck her head on the ground and has had a throbbing headache since. She does have a history of migraines in the past, but they have been relatively infrequent. With many of these episodes, she appears pale, sweaty, and nauseated. There is no post-event confusion. She has no personal history of syncope or seizure. She has neurofibromatosis type 1, which was discovered when her daughter was found to have NF1 and the patient had genetic testing. She has always had [id number] spots. It sounds as if she does not have Lisch nodules. She is to be evaluated in a neurofibromatosis clinic with her daughter at one of the [facility]. Of note, the patient indicates that clonidine was started after discharge from a psychiatric admission in May. This is being used for anxiety and it has been helpful. PHYSICAL EXAMINATION: GENERAL: The patient is awake and alert with normal speech and language. Affect appropriate. NECK: No carotid bruits. HEART: No heart murmurs. Heart is regular rate and rhythm. NEUROLOGIC: Pupils are equal, round, reactive to light. Motility is normal without nystagmus. There is normal facial symmetry. Symmetric strength. Symmetric reflexes. [id number] and [id number] are normal. Provocative head maneuvers are negative. IMPRESSION AND PLAN: 1. Given that this patient has only had these episodes while standing, it speaks of an orthostatic-type hypotension and/or a vasovagal-type response to the same. I would recommend checking orthostatics I agree with decreasing the dose of clonidine to one a day. I have discussed that with Dr. Thakur. I would recommend that psychiatry see her to make further recommendations. 2. Developmental venous anomaly of no significance. 3. Follow up in neurofibromatosis clinic in [place].
[2020-06-19] MEDS: PROMETHAZINE HCL 12.5 MG in SODIUM CHLORIDE 0.9% 50 ML IV PRN (00:16)
[2020-06-19] MEDS ORDERED: DEXAMETHASONE SOD INJ 10 MG/ML VIAL IV ONE (01:32)
[2020-06-19] MEDS ORDERED: KETOROLAC TROMETHAMINE 15 MG/ML VIAL IV ONE (01:32)
[2020-06-19] MEDS ORDERED: diphenhydrAMINE 50 MG/ML VIAL IV STA (01:32)
[2020-06-19] MEDS ORDERED: DEXAMETHASONE SOD PHOSPHATE 10 MG in SYRINGE 0 ML IV ONE (01:45)
[2020-06-19] MEDS: clonazePAM 1 MG TAB PO SCH (08:58)
[2020-06-19] MEDS: ENOXAPARIN INJ 40 MG/0.4 ML SYR SQ SCH (08:58)
[2020-06-19] MEDS ORDERED: cloNIDine HCL 0.1 MG TAB PO SCH (09:00)
[2020-06-19] MEDS ORDERED: lamoTRIgine 100 MG TAB PO SCH (09:00)
[2020-06-19] MEDS ORDERED: ARIPiprazole 10 MG TAB PO SCH (09:00)
[2020-06-19] MEDS ORDERED: FLUoxetine HCL 20 MG CAP PO SCH (09:00)
--- NOTE | 2020-06-19 12:58 | Progress Notes ---
DATE: 06/19/2020 SUBJECTIVE: I am seeing the patient in followup of multiple syncopal episodes. She has generally felt well overnight. She has not had any syncope. Dr. Thakur has decreased her clonidine to once a day with a plan of tapering it and psychiatrist to see the patient. Her headache is better. She received a migraine cocktail yesterday with good results. The headache is returning somewhat today. OBJECTIVE: She is awake and alert, normal speech and language. Affect appropriate. There is normal extraocular motility, facial symmetry. There is symmetric strength. [id number] is normal. IMPRESSION: 1. Postconcussive headaches, consider giving a short course of prednisone 30 mg for three days, 20 mg for three days, 10 mg for three days and then off. The patient indicates she has previously taken and tolerated prednisone. She has never had any mood related issues with its use, but she will monitor for that. Ashely Cortes recommended riboflavin, magnesium and that is not unreasonable. 2. Asymptomatic developmental venous anomaly requiring no followup. 3. Recurrent syncope since being placed on clonidine. Recommend checking orthostatic blood pressure and pulse. I would recommend the patient not drive until she is seen in the office. It is reassuring that these spells only occur with standing making something like cardiac dysrhythmia unlikely. Defer to the hospitalist if she needs any further cardiac testing. She should see us in the office and if these episodes have resolved, we will make a determination about return to driving. Psychiatry should see the patient today. LAN
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
--- NOTE | 2020-06-19 15:18 | Hospitalist Progress Note ---
Date of Service June 19, 2020 Assessment & Plan (1) Syncope: Present on admission with recurrent syncope episodes Possible related to orthostatic hypotension vs vasovagal Hypotension might be related to clonidine CT head showed no acute intracranial abnormality MRI head showed Equivocal tiny right occipital DVA. Otherwise normal MRI of the brain. ECHO showed normal LV wall abnormality. EF 60 to 65 % EEG showed no evidence of epileptiform activity. Neuro on board Recommended to decrease the Clonidine to daily for a few days, then D/C it Pt was advised not to drive or operate any machine for now Fall precaution Continue monitor Follow up with neuro if continues to have syncope (2) Concussion: History of migraine headaches - post concussive recurrence Neuro recommended a short course of prednisone 30mg for three days, 20 mg for three days, 10 mg for three days and then off. Plan to start on riboflavin 400 mg and mg++ ox 400 mg daily Depression Anxiety Pt said that the syncope started after starting on Clonidine Continue Clonazepam BID, Fluoxetine, Ambien HS Continue clonidine to 0.1mg daily then, discontinue Psych consulted case discussed with psych Psych does not plan to start on any new med due to the syncopal episode until clonidine d/c and no further syncope Neurofibromatosis Will need to follow with specialist in [place] DVT px on Lovenox Disposition Follow up with your primary care provider on 06/22 @ 11:45 AM Admission and Anticipated Discharge Date Admission Date: June 17, 2020 Subjective Pt was seen and examined for follow up syncopal episode Sitting in bed with no distress Pt said that she feels much better She said that her headache improves after getting the cocktail She is very anxious to go home She said that that she had an appointment next week with Psych She said that she noticed that she is starting to have episodes of syncope after starting the clonidine Currently denies any chest pain, palpitation, dizziness and SOB Review of Systems Review of Systems: All systems reviewed & are unremarkable except as noted in Subjective Physical Exam Physical Exam: General- No acute distress Head- atraumatic Eyes- PERRL, EOMI, bruises around eyes ENT- oropharynx clear Neck- supple, no JVD Lungs- clear to auscultation Heart- regular rhythm; no murmur Abdomen- normal bowel sounds, soft, nontender Extremities- no calf tenderness Neuro- alert, oriented x 3; PERRL, EOMI; no facial palsy; no dysarthria Skin- warm & dry Results & Data Results & Data ([facility]) Vital Signs (Past 12 Hours) Vital Signs Temp Pulse Pulse Resp BP BP Pulse Ox 06/19/20 14:49 36.8 C 81 20 128/76 98 06/19/20 11:31 36.4 C L 65 18 107/72 97 06/19/20 07:39 36.4 C L 84 18 117/72 95 06/19/20 07:30 62 06/19/20 06:15 61 06/19/20 05:00 36.9 C 80 18 113/75 97 (1) Concussion Encounter type: subsequent encounter Loss of consciousness presence/duration: with LOC of unspecified duration Qualified Code(s): S06.0X9D - Concussion with loss of consciousness of unspecified duration, subsequent encounter (2) Syncope Syncope type: unspecified Qualified Code(s): R55 - Syncope and collapse
--- NOTE | 2020-06-21 09:25 | Discharge Summary ---
Date of Service June 19, 2020 Admission HPI Per Admitting Provider History obtained from patient and records. Medical history significant fo migraine, anxiety/mood disorder, mitral valve prolapse as per records, PCOS, neurofibromatosis type I. Last confinement last month at the behavioral health unit under Psychiatry service for depression with suicidality. Last week, patient had an unwitnessed syncopal event outside her home resulting in head trauma. Episode preceded by lightheadedness/dizziness. No chest pain, no S OB. No tongue biting, incontinence, witnessed seizures. No prior episodes as per patient. Imaging done at the ER was negative. Persistent achy frontal headache symptoms somewhat different from migraine and recurrent syncopal events almost daily at home, usually while patient is standing up. Achy, transient left-sided and substernal pain noted at home today. Patient denies unusual stress at home or change in home medication regimen. 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 Admission Exam Per Admitting Provider GENERAL: Comfortable, slightly anxious, morbidly obese, no respiratory distress SKIN: Normal color, warm HEENT: [place] palpebral conjunctivae, no ptosis, dry buccal mucosa NECK : Supple, short neck, no tenderness CHEST : CTA, sternal, left-sided chest tenderness HEART : RRR, no obvious murmurs ABDOMEN: Some distention, nontender EXTREMITIES : Minimal LE swelling, no LE tenderness, no other conspicuous deformities noted NEUROLOGIC : Coherent, no facial asymmetry, no other gross focality Principal Diagnosis Syncope: Concussion: Depression Anxiety Neurofibromatosis Discharge Exam General- No acute distress Head- atraumatic Eyes- PERRL, EOMI, bruises around eyes ENT- oropharynx clear Neck- supple, no JVD Lungs- clear to auscultation Heart- regular rhythm; no murmur Abdomen- normal bowel sounds, soft, nontender Extremities- no calf tenderness Neuro- alert, oriented x 3; PERRL, EOMI; no facial palsy; no dysarthria Skin- warm & dry Discharge Data Allergies Allergy/AdvReac Type Severity Reaction Status Date / Time bee venom protein (honey bee) Allergy Intermediate Headache, Verified 06/17/20 22:45 faint lactose Allergy Intermediate Gastrointestinal Verified 06/17/20 22:45 Upset Consultations 06/17/20 21:24 ED Decision to Admit Stat 06/17/20 23:53 Consult Neurology Routine 06/19/20 07:43 Consult Psychiatry Routine Ordered Studies 06/17/20 20:08 CT head/brain wo con Stat 06/18/20 08:09 MR brain seizure wo/w con Routine MRI OF THE BRAIN WITHOUT AND WITH IV CONTRAST CLINICAL HISTORY: recurrent syncope, query seizure HEAD TRAUMA COMPARISON STUDY: CT scan dated 06/17/2020 TECHNIQUE: MRI of the brain was performed from the vertex to the skull base utilizing various T1 and T2 weighted sequences. Following the IV administration of 9.5 mL of Gadavist contrast, additional enhanced images were obtained. FINDINGS: Sagittal T1, axial diffusion, proton density and T2 weighted axial, coronal FLAIR, and pre and post axial T1-weighted images were acquired. These were supplemented with post gadolinium coronal T1 weighted images. No intra or extra-axial mass lesions are visualized. Axial diffusion-weighted images reveal no evidence of acute or subacute infarction. There is no evidence of ventricular dilatation. Proton density T2-weighted and FLAIR images reveal no significant intraparenchymal signal abnormalities. The hippocampal formations appear symmetric. There are no abnormal flow voids. There are no pathologically enhancing masses. There is an equivocal tiny right occipital developmental venous anomaly. IMPRESSION: 1. Equivocal tiny right occipital DVA. 2. Otherwise normal MRI of the brain. ACT 112: Negative or not required by law. Electronically signed by: Kushal Monteiro M.D. 06/18/2020 3:02 PM Dictated: 06/18/20 1458Transcribed: 06/18/20 1458 XR ribs LT min 2V CLINICAL HISTORY: L chest pain, hx trauma COMPARISON: Chest radiograph June 11, 2020. Chest radiograph June 17, 2020. FINDINGS: No acute left rib fractures are identified. There is no left pneumothorax. IMPRESSION: No acute left rib fractures identified. ACT 112: Negative or not required by law. Electronically signed by: Jose Miguel Wills M.D. 06/18/2020 7:32 AM Dictated: 06/18/2030Transcribed: 06/18/[address] SCAN OF THE BRAIN WITHOUT IV CONTRAST CLINICAL HISTORY: Headache. Vomiting. COMPARISON STUDY: CT of the brain dated 06/11/2020. TECHNIQUE: Unenhanced axial CT scan of the brain is performed from the vertex to the skull base. A dose lowering technique was utilized adhering to the principles of ALARA. CT DOSE: 638.56 mGycm FINDINGS: Brain parenchyma: The brain parenchyma is normal in appearance. There is no hemorrhage, mass effect, or evidence of acute territorial ischemia by CT criteria. Phan-white matter differentiation is preserved. No extra-axial fluid collection is seen. Ventricles, sulci, cisterns: Normal in configuration. Intracranial vasculature: The visualized intracranial vasculature at the skull base is normal in appearance. Calvarium: Unremarkable. Sinuses and mastoids: The visualized paranasal sinuses are clear. The mastoid air cells are well pneumatized. Orbits: The bony orbits are grossly intact. IMPRESSION: No acute intracranial abnormality. ACT 112: Negative or not required by law. Electronically signed by: Drake De Jesus M.D. 06/17/2020 8:49 PM Dictated: 06/17/202046Transcribed: 06/17/202046 SINGLE VIEW CHEST CLINICAL HISTORY: Atypical chest pain. FINDINGS: An AP, portable, upright chest radiograph is compared to study dated 06/11/2020. The cardiomediastinal silhouette is unremarkable. The lungs and pleural spaces are clear. No pneumothorax is seen. The bony thorax is grossly intact. IMPRESSION: No acute cardiopulmonary abnormality. ACT 112: Negative or not required by law. Electronically signed by: Drake De Jesus M.D. 06/17/2020 9:30 PM Dictated: 06/17/202129Transcribed: 06/17/202129 Hospital Course (1) Syncope: Present on admission with recurrent syncope episodes Possible related to orthostatic hypotension vs vasovagal Hypotension might be related to clonidine CT head showed no acute intracranial abnormality MRI head showed Equivocal tiny right occipital DVA. Otherwise normal MRI of the brain. ECHO showed normal LV wall abnormality. EF 60 to 65 % EEG showed no evidence of epileptiform activity. Neuro on board Recommended to decrease the Clonidine to daily for a few days, then D/C it Pt was advised not to drive or operate any machine for now Fall precaution Continue monitor Follow up with neuro if continues to have syncope (2) Concussion: History of migraine headaches - post concussive recurrence Neuro recommended a short course of prednisone 30mg for three days, 20 mg for three days, 10 mg for three days and then off. Plan to start on riboflavin 400 mg and mg++ ox 400 mg daily Depression Anxiety Pt said that the syncope started after starting on Clonidine Continue Clonazepam BID, Fluoxetine, Ambien HS Continue clonidine to 0.1mg daily then, discontinue Psych consulted case discussed with psych Psych does not plan to start on any new med due to the syncopal episode until clonidine d/c and no further syncope Neurofibromatosis Will need to follow with specialist in [place] DVT px on Lovenox Disposition Follow up with your primary care provider on 06/22 @ 11:45 AM Total Time Total Time Spent Total Time Spent (In Minutes): 35 minutes Total Time Includes: Examination of the Patient, Discharge Planning, Medication Reconciliation, Communication With Other Providers and Other Discharge Plan Discharge Items Patient Disposition: Home - Self-Care Reason For Visit: SYNCOPE, CONCUSSION Discharge Diagnosis: Syncope: Concussion: Depression Anxiety Neurofibromatosis Activity: Resume your previous activity Non-emergency contact: Primary Care Provider, Neurologist and Psychiatrist Call non-emergency contact if: you have any medication questions and your symptoms worsen Follow-up/Referrals: Yun Del Rio MD [Primary Care Provider] - (Date & Time 06/22/2020 12:00 PM Provider Yun Del Rio MD Department Internal Medicine [facility] ) Diet: Regular Addtl Attending Provider Instructions: Follow up with your primary care provider Dr. Del Rio on 06/22/2020 At 12:00 PM Follow up with Psychiatry (Already schedule for next week) Follow up with neurology Dr. Zazueta or Sebastian HILLS if your symptoms continue in 3 to 4 weeks (Please call for the appointment) Do not drive or operate any machine for now until you clear by your provider Clonidine taper and will discontinue (clonidine decreased to 1 tab daily for another 5 days, then every other day 3 days, then stop ) Continue short course of prednisone Riboflavin and Magnesium oxide started for the headache. Fall precaution Pending Studies at Discharge: No Stand-Alone Forms: My Before the Call, Smoking Cessation Medications and DC Order Prescriptions: New riboflavin (vitamin B2) 400 mg tablet 400 mg PO DAILY Qty: 30 RF: 0 magnesium oxide 400 mg magnesium tablet 400 mg PO DAILY Qty: 30 RF: 0 prednisone 10 mg tablet 10 mg PO UD Qty: 18 RF: 0 Continued clonazepam 1 mg tablet 1 mg PO BID RF: 0 fluoxetine 20 mg capsule 20 mg PO QAM RF: 0 aripiprazole 10 mg tablet 10 mg PO QAM RF: 0 zolpidem [Ambien] 10 mg tablet 10 mg PO HS RF: 0 lamotrigine 100 mg tablet 100 mg PO QAM RF: 0 acetaminophen [Tylenol Extra Strength] 500 mg Tablet 1,000 mg PO DIRECTED PRN (Reason: Pain) RF: 0 Discontinued clonidine HCl 0.1 mg tablet 0.1 mg PO BID RF: 0 Discharge Orders: Discharge Order (Routine); Ordered 06/19/20 Ordered By: Jigna Thakur Admission Data Admit Date/Time: 06/17/20 22:45 Attending Provider: Jigna Thakur Admit Provider: Ludwig Fong Primary Care Provider: Yun Del Rio Other Providers: Ludwig Fong ; Ashely Cortes ; Pasquale Paez Kathleen ; Mario Meadows ; Pratima Thayer Other Interventions: Discharge Summary Assessment (RN) Last Done: 06/19/20 16:40
== END 2020-06-19 17:15 | disposition home or self-care (01) ==
LOC: 2W 15:22 → ED 15:22 → 2W 23:17

== ENCOUNTER 2021-11-14 16:07 | Observation (INO) ==
[2021-11-14] MEDS ORDERED: MoRPHine SULFATE 4 MG/ML 1 ML CARP\\VIAL IV STA (16:58)
[2021-11-14] MEDS ORDERED: ONDANSETRON INJ 2 MG/ML 2 ML VIAL IV STA (16:58)
[2021-11-14] MEDS ORDERED: SODIUM CHLORIDE 0.9% 1000ML 1,000 ML IV ONE (16:59)
--- NOTE | 2021-11-14 17:01 | Emergency Department Note ---
Impression & Plan Abdominal pain ADMIT ED Provider Note HPI: The patient is a 31-year-old female who presents emergency department chief complaint of right upper quadrant abdominal pain that has been relatively severe for about the past 15 hours. Patient states she has had some abdominal comfort for about the past week, she was actually evaluated here in the emergency department 4 days ago, told at that time she did have cholelithiasis but no evidence of cholecystitis, she was ultimately discharged home. Patient states that she had some mild baseline abdominal discomfort that became severe around 2:00 in the morning, she has had nausea and vomiting, on arrival here to the ED the patient is tachycardic, mild distress secondary to abdominal pain, blood pressure is stable, she is saturating well on room air, patient is afebrile on arrival ROS: -GI: Right upper quadrant pain *10 point review systems was conducted and is otherwise negative unless stated above *Outpatient medications and allergy history reviewed PE: General: Alert HEENT: Normocephalic, atraumatic Eyes: Extraocular eye movement is intact, no scleral erythema Pulmonary: Clear to auscultation bilaterally, no wheezing Cardio: Regular rate and rhythm GI: Abdomen is soft, there is tenderness in the right upper quadrant to palpation : No suprapubic tenderness MSK: No evidence of trauma or malformation of the extremities, no edema Skin: No evidence of rash Neuro: Alert, no focal deficits 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 Patient returns today with right upper quadrant abdominal pain, she does not have pain in the lower abdomen to palpation. Pain is very well localized to the right upper quadrant on my exam. IV was established, lab work obtained, lab work does not show any evidence of any transaminitis or elevated bilirubin, ultrasound imaging shows evidence of cholelithiasis without acute cholecystitis. CT angiography of the chest was obtained that does not show any evidence of subsegmental pulmonary embolism, troponin is negative, EKG shows sinus tachycardia, CT imaging of the abdomen and pelvis does not show any acute surgical pathology otherwise. Following multiple doses of pain medication here in the ED patient states she still has some right upper quadrant abdominal pain. Given cholelithiasis on ultrasound imaging, general surgery consultation was placed, patient was evaluated at the bedside by midlevel surgical provider, Preet FRIAS, given the patient's complaint of pain will admit to the surgical service for further diagnostic testing and management. Patient was in agreement to this plan and was admitted to the service of Dr. Jose Brewer for further management. Diagnosis: 1. Right upper quadrant abdominal pain, acute, intractable 2. 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 Charles History of appendectomy S/P reconstruction of ligament of knee right knee 2018 [place] teeth removed 2009 Family History Other No significant family history Social History Smoking Status: Never smoker Hx Alcohol Use: No Hx Substance Use: No Preferred Language: Tajik Communication Ability: Effective Medicine Aide Required: No marital status: Current Living Situation: Spouse Current Living Situation Comment: lives with and children Feels Safe at Home: Yes Assistive Devices: Glasses Allergies Allergies Allergy/AdvReac Type Severity Reaction Status Date / Time bee venom protein (honey bee) AdvReac Intermediate Headache, Verified 11/14/21 18:48 faint lactose AdvReac Intermediate Gastrointestinal Verified 11/14/21 18:48 Upset Home Meds Home Medications Medication Instructions Recorded Confirmed aripiprazole 10 mg tablet 10 mg PO QAM 06/11/20 11/14/21 fluoxetine 40 mg capsule 40 mg PO DAILY 02/01/21 11/14/21 lamotrigine 150 mg tablet 150 mg PO DAILY 02/01/21 11/14/21 lithium carbonate 300 mg capsule See Rx Instructions .ROUTE 07/04/21 11/14/21 .COMPLEX cap temazepam 30 mg capsule 30 mg PO HS 07/04/21 11/14/21 cyclobenzaprine 5 mg tablet 10 mg PO DAILY PRN 11/10/21 11/14/21 dextroamphetamine-amphetamine 10 10 mg PO QPM 11/10/21 11/14/21 mg tablet dextroamphetamine-amphetamine ER 20 mg PO QAM 11/10/21 11/14/21 20 mg 24hr capsule,extend release fluoxetine 10 mg capsule 10 mg PO DAILY 11/10/21 11/14/21 prazosin 1 mg capsule 1 mg PO HS 11/10/21 11/14/21 tramadol 50 mg tablet 50 mg PO Q4 PRN 11/10/21 11/14/21 Previous Rx's Medication Instructions Recorded doxycycline hyclate 100 mg tablet 100 mg PO BID 14 Days #28 tab 11/10/21 metronidazole 500 mg tablet 500 mg PO BID 14 Days #28 tab 11/10/21 ondansetron 4 mg disintegrating 4 mg PO Q6H PRN #12 tab 11/10/21 tablet oxycodone 5 mg tablet 5 mg PO Q6H PRN #10 tab 11/10/21 Results & Data (ED) Vital Signs Vital Signs - 24 hr 11/14/21 16:20 11/14/21 20:29 Temperature 37.1 C Temperature Source Temporal Artery Scan Pulse Rate 124 H Pulse Rate [Finger] 102 H Respiratory Rate 16 16 Respiratory Effort / Characteristics Non-Labored Spontaneous Non-Labored Spontaneous Respiratory Depth Normal Normal Respiratory Pattern Regular Regular Blood Pressure 133/87 Blood Pressure [Right Arm] 150/81 H Blood Pressure Mean 102 Blood Pressure Mean [Right Arm] 104 Blood Pressure Position Sitting Blood Pressure Position [Right Arm] Sitting Pulse Oximetry 99 99 Oxygen Delivery Method Room Air Room Air Sepsis Recent Fever Within 48 Hours No Sepsis New/Unexplained Change in Mental Status No Sepsis Action Taken by Nursing No Action Required Laboratory Data Result diagrams: 11/14/21 16:49 11/14/21 16:49 Lab Results 11/14/21 11/14/21 11/14/21 Range/Units 16:49 16:49 16:49 WBC 11.08 H (4.8-10.8) K/ul RBC 4.48 (3.93-5.22) M/uL Hgb 11.7 L (12.0-16.0) g/dl Hct 36.5 (34.1-44.9) % MCV 81.5 (80.0-100.0) fL MCH 26.1 (25.0-34.0) pg MCHC 32.1 (32.0-36.0) g/dL RDW Std Deviation 39.3 (36.4-46.3) fL RDW Coeff of Corrie 13.3 (11.5-14.5) % Plt Count 415 H (130-400) K/uL MPV 9.6 (9.4-12.3) fL Immature Gran % (Auto) 0.4 % Neut % (Auto) 79.8 % Lymph % (Auto) 12.7 % [place] % (Auto) 5.5 % Eos % (Auto) 1.2 % Baso % (Auto) 0.4 % Neut # (Auto) 8.85 H (1.4-6.5) K/uL Lymph # (Auto) 1.41 (1.2-3.4) K/uL [place] # (Auto) 0.61 (0.24-0.82) K/uL Eos # (Auto) 0.13 (0-0.50) K/uL Baso # (Auto) 0.04 (0-0.2) K/uL Immature Gran # (Auto) 0.04 H (0.00-0.02) K/uL Sodium 135 L (136-145) mmol/L Potassium 4.0 (3.5-5.1) mmol/L Chloride 104 (98-107) mmol/L Carbon Dioxide 22 (21-32) mmol/L Anion Gap 9 (3-11) BUN 10 (6-23) mg/dl Creatinine 0.65 (0.6-1.2) mg/dl Est Cr Clr Drug Dosing 131.3 ml/min Est GFR ( Amer) 135.2 ml/min Est GFR (Non-Af Amer) 116.7 ml/min BUN/Creatinine Ratio 15.4 (10-20) Glucose 89 (70-99(Fasting)) mg/dl Calcium 9.6 (8.5-10.1) mg/dl Total Bilirubin 0.6 (0.2-1.0) mg/dl AST 17 (13-39) U/L ALT 27 (7-52) U/L Alkaline Phosphatase 98 (34-104) U/L Troponin I High Sens (0-14) pg/ml Total Protein 7.4 (6.0-8.3) gm/dl Albumin 4.7 (3.4-5.0) gm/dl Globulin 2.7 (2.5-4.0) gm/dl Albumin/Globulin Ratio 1.7 (0.9-2) Lipase 10 L (11-82) U/L HCG, Qual Negative (Negative) Urine Color Urine Appearance (Clear) Urine pH (4.5-7.5) Ur Specific [place] (1.000-1.030) Urine Protein (Negative) Urine Glucose (UA) (Negative) Urine Ketones (Negative) Urine Blood (Negative) Urine Nitrite (Negative) Urine Bilirubin (Negative) Urine Urobilinogen (Negative) Ur Leukocyte Esterase (Negative) POC Ur Test (NEG) 11/14/21 11/14/21 11/14/21 Range/Units 16:55 16:55 19:57 WBC (4.8-10.8) K/ul RBC (3.93-5.22) M/uL Hgb (12.0-16.0) g/dl Hct (34.1-44.9) % MCV (80.0-100.0) fL MCH (25.0-34.0) pg MCHC (32.0-36.0) g/dL RDW Std Deviation (36.4-46.3) fL RDW Coeff of Corrie (11.5-14.5) % Plt Count (130-400) K/uL MPV (9.4-12.3) fL Immature Gran % (Auto) % Neut % (Auto) % Lymph % (Auto) % [place] % (Auto) % Eos % (Auto) % Baso % (Auto) % Neut # (Auto) (1.4-6.5) K/uL Lymph # (Auto) (1.2-3.4) K/uL [place] # (Auto) (0.24-0.82) K/uL Eos # (Auto) (0-0.50) K/uL Baso # (Auto) (0-0.2) K/uL Immature Gran # (Auto) (0.00-0.02) K/uL Sodium (136-145) mmol/L Potassium (3.5-5.1) mmol/L Chloride (98-107) mmol/L Carbon Dioxide (21-32) mmol/L Anion Gap (3-11) BUN (6-23) mg/dl Creatinine (0.6-1.2) mg/dl Est Cr Clr Drug Dosing ml/min Est GFR ( Amer) ml/min Est GFR (Non-Af Amer) ml/min BUN/Creatinine Ratio (10-20) Glucose (70-99(Fasting)) mg/dl Calcium (8.5-10.1) mg/dl Total Bilirubin (0.2-1.0) mg/dl AST (13-39) U/L ALT (7-52) U/L Alkaline Phosphatase (34-104) U/L Troponin I High Sens < 2.3 (0-14) pg/ml Total Protein (6.0-8.3) gm/dl Albumin (3.4-5.0) gm/dl Globulin (2.5-4.0) gm/dl Albumin/Globulin Ratio (0.9-2) Lipase (11-82) U/L HCG, Qual (Negative) Urine Color Yellow Urine Appearance Clear (Clear) Urine pH 7.5 (4.5-7.5) Ur Specific [place] 1.011 (1.000-1.030) Urine Protein Negative (Negative) Urine Glucose (UA) Negative (Negative) Urine Ketones Negative (Negative) Urine Blood Negative (Negative) Urine Nitrite Negative (Negative) Urine Bilirubin Negative (Negative) Urine Urobilinogen Negative (Negative) Ur Leukocyte Esterase Negative (Negative) POC Ur Test NEG (NEG) Administered Medications Metronidazole (Flagyl) 500 mg in 100 mls @ 100 mls/hr IV Q8H KRISSY Stop: 11/24/21 20:59 Last Admin: 11/14/21 23:49 Dose: 100 mls/hr Documented by: [id number] Lactated Ringer's (Lr) 1,000 mls @ 100 mls/hr IV .Q10H KRISSY Stop: 12/14/21 20:44 Last Admin: 11/14/21 21:30 Dose: 100 mls/hr Documented by: [id number] Acetaminophen (Ofirmev) 1,000 mg in 100 mls @ 400 mls/hr IV Q8H PRN PRN Reason: mild pain (1,2,3) Stop: 11/17/21 20:40 Last Infusion: 11/14/21 23:45 Dose: 0 mls/hr Documented by: [id number] Admin: 11/14/21 23:22 Dose: 400 mls/hr Documented by: [id number] [place] Carbonate ([place] Carbonate Slow Rel 300 Mg Tab) 600 mg PO [facility] Stop: 12/14/21 23:12 Last Admin: 11/14/21 23:47 Dose: 600 mg Documented by: [id number] Morphine Sulfate (Morphine Sulfate 4 Mg/Ml 1 Ml Carp\Vial) 3 mg IV Q3H PRN PRN Reason: mod-severe pain(4,5,6,7,8,9,10 Stop: 11/28/21 20:40 Last Admin: 11/14/21 21:30 Dose: 3 mg Documented by: [id number] Ondansetron HCl (Ondansetron Inj 2 Mg/Ml 2 Ml Vial) 4 mg IV Q6H PRN PRN Reason: Nausea And Vomiting Stop: 12/14/21 20:40 Last Admin: 11/14/21 21:29 Dose: 4 mg Documented by: [id number] Prazosin HCl (Prazosin Hcl 1 Mg Cap) 1 mg PO [facility] Stop: 12/14/21 23:12 Last Admin: 11/14/21 23:47 Dose: 1 mg Documented by: [id number] Temazepam (Temazepam 15 Mg Capsule) 30 mg PO [facility] Stop: 12/14/21 23:12 Last Admin: 11/14/21 23:46 Dose: 30 mg Documented by: [id number] Discontinued Medications Sodium Chloride (Nss 1000ml) 1,000 mls @ 999 mls/hr IV .Q1H1M ONE Stop: 11/14/21 17:59 Last Infusion: 11/14/21 19:16 Dose: 0 mls/hr Documented by: [id number] Admin: 11/14/21 17:04 Dose: 999 mls/hr Documented by: [id number] Ioversol (Optiray 320 125ml) 120 ml IV ONCE ONE Stop: 11/14/21 18:50 Last Admin: 11/14/21 18:49 Dose: 120 ml Documented by: [id number] Morphine Sulfate (Morphine Sulfate 4 Mg/Ml 1 Ml Carp\Vial) 4 mg IV NOW STA Stop: 11/14/21 16:59 Last Admin: 11/14/21 17:04 Dose: 4 mg Documented by: [id number] Ondansetron HCl (Ondansetron Inj 2 Mg/Ml 2 Ml Vial) 4 mg IV NOW STA Stop: 11/14/21 16:59 Last Admin: 11/14/21 17:04 Dose: 4 mg Documented by: [id number] Imaging Data Radiologist's Impression: Gallbladder Ultrasound 11/14/21 16:58 ULTRASOUND RIGHT UPPER QUADRANT ABDOMEN CLINICAL HISTORY: Right upper quadrant abdominal pain. COMPARISON STUDY: Abdominal ultrasound and abdominal CT dated 11/10/2021 TECHNIQUE: Real-time, grayscale, and color flow sonography of the right upper quadrant of the abdomen was performed. Images are reviewed in the transverse and longitudinal planes. FINDINGS: Liver: The liver is normal in size and echotexture. There is no intrahepatic biliary ductal dilatation. The main portal vein is patent. Gallbladder: There are shadowing calcified gallstones. The gallbladder is mildly distended but otherwise normal in appearance. There is no gallbladder wall thickening or pericholecystic fluid. A sonographic Rivera's sign is reportedly absent. The common bile duct measures up to 0.5 cm in diameter. Pancreas: Visualized portions of the pancreatic head and body are normal in appearance. The splenic vein is patent. Right kidney: Survey images of the right kidney demonstrate normal size and echotexture. There is no hydronephrosis. Ascites: None. IMPRESSION: Cholelithiasis without sonographic evidence of acute cholecystitis. ACT 112: Negative or not required by law. Electronically signed by: Drake De Jesus M.D. 11/14/2021 6:20 PM Abdomen/Pelvis CT 11/14/21 18:24 CT ANGIOGRAM OF THE CHEST; CT SCAN OF THE ABDOMEN AND PELVIS WITH IV CONTRAST CLINICAL HISTORY: Atypical chest pain. Right-sided abdominal pain. COMPARISON STUDY: Chest CT dated 09/18/2013. Abdominal CT dated 11/10/2021. TECHNIQUE: Following the IV administration of 120 of Optiray 320, CT angiogram of the chest is performed from the upper abdomen to the thoracic inlet utilizing the pulmonary embolus protocol. Images are reviewed in the axial, sagittal, coronal planes. 3-D MIPS images are created and assessed. Subsequently, CT scan of the abdomen and pelvis was performed from the lung bases to the proximal femora. Images are reviewed in the axial, sagittal, and coronal planes. IV contrast was administered without complication. A dose lowering technique was utilized adhering to the principles of ALARA. CT DOSE: 2247.91 mGy.cm FINDINGS: CHEST: Thyroid: Mildly enlarged and heterogeneous. Thoracic aorta: The thoracic aorta is normal in caliber and demonstrates standa rd 3-vessel arch anatomy. No dissection is seen. Pulmonary vasculature: The pulmonary trunk is normal in caliber. There are no filling defects identified in the main, lobar, or segmental pulmonary arteries to indicate pulmonary embolus. Heart: The heart is normal in size and without pericardial effusion. Lungs and pleural spaces: There is a punctate calcified granuloma at the left lung base. The lungs and pleural spaces are otherwise clear. The trachea and central airways are patent. Mediastinum: There is no mediastinal lymphadenopathy. Charito: Clear. Axillae: There is no axillary lymphadenopathy. Bony thorax: No lytic or blastic lesions are identified. ABDOMEN AND PELVIS: Liver: The contrast-enhanced liver is normal in size, contour, and attenuation. There is no intrahepatic or ductal dilatation. The hepatic veins and portal veins are patent. Gallbladder: Mildly distended but otherwise normal in appearance. Spleen: Normal in size and attenuation. Pancreas: Unremarkable. Adrenal glands: Unremarkable. Kidneys: The contrast enhanced kidneys are normal in size and without hydronephrosis. The kidneys enhance symmetrically. Abdominal vasculature: The abdominal aorta is normal in course and caliber. Bowel: There is no bowel obstruction. Mild fecal retention is seen throughout the colon. The appendix is not identified and reported surgically absent. Peritoneum: There is no intraperitoneal free air or abdominal ascites. There is a fat-containing umbilical hernia. Lymphadenopathy: None. Pelvic viscera: The bladder and uterus are normal as visualized. 2 simple cystic lesions in the left adnexa are similar to 11/10/2021 and measures up to 3.2 cm. These likely represent dominant follicles. Skeletal structures: No lytic or blastic lesions are seen. Sclerotic change is noted in the sacroiliac joints. IMPRESSION: 1. There is no evidence of pulmonary embolus in the main, lobar, or segmental pulmonary arteries. 2. The lungs are clear. 3. There are no acute infectious or inflammatory findings in the abdomen or pelvis. 4. Dominant follicles in the left ovary are similar appearance to the 11/10/2021 examination. 5. Additional findings as above. ACT 112: Negative or not required by law. Electronically signed by: Drake De Jesus M.D. 11/14/2021 7:18 PM Chest CTA 11/14/21 18:24 CT ANGIOGRAM OF THE CHEST; CT SCAN OF THE ABDOMEN AND PELVIS WITH IV CONTRAST CLINICAL HISTORY: Atypical chest pain. Right-sided abdominal pain. COMPARISON STUDY: Chest CT dated 09/18/2013. Abdominal CT dated 11/10/2021. TECHNIQUE: Following the IV administration of 120 of Optiray 320, CT angiogram of the chest is performed from the upper abdomen to the thoracic inlet utilizing the pulmonary embolus protocol. Images are reviewed in the axial, sagittal, c oronal planes. 3-D MIPS images are created and assessed. Subsequently, CT scan of the abdomen and pelvis was performed from the lung bases to the proximal femora. Images are reviewed in the axial, sagittal, and coronal planes. IV contrast was administered without complication. A dose lowering technique was utilized adhering to the principles of ALARA. CT DOSE: 2247.91 mGy.cm FINDINGS: CHEST: Thyroid: Mildly enlarged and heterogeneous. Thoracic aorta: The thoracic aorta is normal in caliber and demonstrates standard 3-vessel arch anatomy. No dissection is seen. Pulmonary vasculature: The pulmonary trunk is normal in caliber. There are no filling defects identified in the main, lobar, or segmental pulmonary arteries to indicate pulmonary embolus. Heart: The heart is normal in size and without pericardial effusion. Lungs and pleural spaces: There is a punctate calcified granuloma at the left lung base. The lungs and pleural spaces are otherwise clear. The trachea and central airways are patent. Mediastinum: There is no mediastinal lymphadenopathy. Charito: Clear. Axillae: There is no axillary lymphadenopathy. Bony thorax: No lytic or blastic lesions are identified. ABDOMEN AND PELVIS: Liver: The contrast-enhanced liver is normal in size, contour, and attenuation. There is no intrahepatic or ductal dilatation. The hepatic veins and portal veins are patent. Gallbladder: Mildly distended but otherwise normal in appearance. Spleen: Normal in size and attenuation. Pancreas: Unremarkable. Adrenal glands: Unremarkable. Kidneys: The contrast enhanced kidneys are normal in size and without hydronephrosis. The kidneys enhance symmetrically. Abdominal vasculature: The abdominal aorta is normal in course and caliber. Bowel: There is no bowel obstruction. Mild fecal retention is seen throughout the colon. The appendix is not identified and reported surgically absent. Peritoneum: There is no intraperitoneal free air or abdominal ascites. There is a fat-containing umbilical hernia. Lymphadenopathy: None. Pelvic viscera: The bladder and uterus are normal as visualized. 2 simple cystic lesions in the left adnexa are similar to 11/10/2021 and measures up to 3.2 cm. These likely represent dominant follicles. Skeletal structures: No lytic or blastic lesions are seen. Sclerotic change is noted in the sacroiliac joints. IMPRESSION: 1. There is no evidence of pulmonary embolus in the main, lobar, or segmental pulmonary arteries. 2. The lungs are clear. 3. There are no acute infectious or inflammatory findings in the abdomen or pelvis. 4. Dominant follicles in the left ovary are similar appearance to the 11/10/2021 examination. 5. Additional findings as above. ACT 112: Negative or not required by law. Electronically signed by: Drake De Jesus M.D. 11/14/2021 7:18 PM Discharge Plan Visit Data Chief Complaint: Abdominal Pain Stated Complaint: ABDOMINAL PAIN ED Provider: Yvan Vincent Discharge Problem: Abdominal pain Patient Disposition: Admitted As Inpatient Discharge Instructions Interventions: ED Discharge Assessment Last Done: 11/14/21 22:38 Discharge Problem: Abdominal pain Qualifiers: Abdominal location: right upper quadrant Qualified Code(s): R10.11 - Right upper quadrant pain
[2021-11-14 17:16] LABS: Basophils # (auto) 0.04 K/uL (0-0.2); Basophils % (auto) 0.4 %; Eosinophils # (auto) 0.13 K/uL (0-0.50); Eosinophils % (auto) 1.2 %; Hematocrit (blood only) 36.5 % (34.1-44.9); Hemoglobin 11.7 g/dl (12.0-16.0); Immature Granulocytes # (auto) 0.04 K/uL (0.00-0.02); Immature Granulocytes % (auto) 0.4 %; Lymphocytes # (auto) 1.41 K/uL (1.2-3.4); Lymphocytes % (auto) 12.7 %; Mean Corpuscular Hemoglobin 26.1 pg (25.0-34.0); Mean Corpuscular Hgb Conc 32.1 g/dL (32.0-36.0); Mean Corpuscular Volume 81.5 fL (80.0-100.0); Mean Platelet Volume 9.6 fL (9.4-12.3); Monocytes # (auto) 0.61 K/uL (0.24-0.82); Monocytes % (auto) 5.5 %; Neutrophils # (auto) 8.85 K/uL (1.4-6.5); Neutrophils % (auto) 79.8 %; Platelet Count 415 K/uL (130-400); RDW Coefficient of Variation 13.3 % (11.5-14.5); RDW Standard Deviation 39.3 fL (36.4-46.3); Red Blood Count 4.48 M/uL (3.93-5.22); White Blood Count 11.08 K/ul (4.8-10.8)
[2021-11-14 17:17] LABS: Appearance Urine Clear (Clear); Bilirubin Urine Negative (Negative); Blood Urine Negative (Negative); Color Urine Yellow; Glucose Urine UA Negative (Negative); Ketones Urine Negative (Negative); Leukocyte Esterase Urine Negative (Negative); Nitrite Urine Negative (Negative); Protein Urine Negative (Negative); Specific Gravity Urine 1.011 (1.000-1.030); Urobilinogen Urine Negative (Negative); pH Urine 7.5 (4.5-7.5)
[2021-11-14 17:37] LABS: Pregnancy Test, Serum Negative (Negative)
[2021-11-14 17:43] LABS: Albumin Globulin Ratio 1.7 (0.9-2); Albumin Level 4.7 gm/dl (3.4-5.0); BUN Creatinine Ratio 15.4 (10-20); Bilirubin,Total 0.6 mg/dl (0.2-1.0); Calcium 9.6 mg/dl (8.5-10.1); Creatinine Clr Calc Pharmacy 131.3 ml/min; Est GFR (African American) 135.2 ml/min; Est GFR (Non-African American) 116.7 ml/min; Globulin 2.7 gm/dl (2.5-4.0); Total Protein 7.4 gm/dl (6.0-8.3)
--- NOTE | 2021-11-14 18:22 | Ultrasound Report ---
ULTRASOUND RIGHT UPPER QUADRANT ABDOMEN CLINICAL HISTORY: Right upper quadrant abdominal pain. COMPARISON STUDY: Abdominal ultrasound and abdominal CT dated 11/10/2021 TECHNIQUE: Real-time, grayscale, and color flow sonography of the right upper quadrant of the abdomen was performed. Images are reviewed in the transverse and longitudinal planes. FINDINGS: Liver: The liver is normal in size and echotexture. There is no intrahepatic biliary ductal dilatatio n. The main portal vein is patent. Gallbladder: There are shadowing calcified gallstones. The gallbladder is mildly distended but otherw ise normal in appearance. There is no gallbladder wall thickening or pericholecystic fluid. A sonogra phic Rivera's sign is reportedly absent. The common bile duct measures up to 0.5 cm in diameter. Pancreas: Visualized portions of the pancreatic head and body are normal in appearance. The splenic v ein is patent. Right kidney: Survey images of the right kidney demonstrate normal size and echotexture. There is no hydronephrosis. Ascites: None. IMPRESSION: Cholelithiasis without sonographic evidence of acute cholecystitis. ACT 112: Negative or not required by law. Electronically signed by: Drake De Jesus M.D. 11/14/2021 6:20 PM
[2021-11-14] MEDS ORDERED: OPTIRAY 320 125ml IV ONE (18:49)
--- NOTE | 2021-11-14 19:21 | CT Scan Report ---
CT ANGIOGRAM OF THE CHEST; CT SCAN OF THE ABDOMEN AND PELVIS WITH IV CONTRAST CLINICAL HISTORY: Atypical chest pain. Right-sided abdominal pain. COMPARISON STUDY: Chest CT dated 09/18/2013. Abdominal CT dated 11/10/2021. TECHNIQUE: Following the IV administration of 120 of Optiray 320, CT angiogram of the chest is perfor med from the upper abdomen to the thoracic inlet utilizing the pulmonary embolus protocol. Images are reviewed in the axial, sagittal, coronal planes. 3-D MIPS images are created and assessed. Subsequen tly, CT scan of the abdomen and pelvis was performed from the lung bases to the proximal femora. Imag es are reviewed in the axial, sagittal, and coronal planes. IV contrast was administered without comp lication. A dose lowering technique was utilized adhering to the principles of ALARA. CT DOSE: 2247.91 mGy.cm FINDINGS: CHEST: Thyroid: Mildly enlarged and heterogeneous. Thoracic aorta: The thoracic aorta is normal in caliber and demonstrates standard 3-vessel arch anato my. No dissection is seen. Pulmonary vasculature: The pulmonary trunk is normal in caliber. There are no filling defects identif ied in the main, lobar, or segmental pulmonary arteries to indicate pulmonary embolus. Heart: The heart is normal in size and without pericardial effusion. Lungs and pleural spaces: There is a punctate calcified granuloma at the left lung base. The lungs an d pleural spaces are otherwise clear. The trachea and central airways are patent. Mediastinum: There is no mediastinal lymphadenopathy. Charito: Clear. Axillae: There is no axillary lymphadenopathy. Bony thorax: No lytic or blastic lesions are identified. ABDOMEN AND PELVIS: Liver: The contrast-enhanced liver is normal in size, contour, and attenuation. There is no intrahepa tic or ductal dilatation. The hepatic veins and portal veins are patent. Gallbladder: Mildly distended but otherwise normal in appearance. Spleen: Normal in size and attenuation. Pancreas: Unremarkable. Adrenal glands: Unremarkable. Kidneys: The contrast enhanced kidneys are normal in size and without hydronephrosis. The kidneys enh ance symmetrically. Abdominal vasculature: The abdominal aorta is normal in course and caliber. Bowel: There is no bowel obstruction. Mild fecal retention is seen throughout the colon. The appendix is not identified and reported surgically absent. Peritoneum: There is no intraperitoneal free air or abdominal ascites. There is a fat-containing umbi lical hernia. Lymphadenopathy: None. Pelvic viscera: The bladder and uterus are normal as visualized. 2 simple cystic lesions in the left adnexa are similar to 11/10/2021 and measures up to 3.2 cm. These likely represent dominant follicles. Skeletal structures: No lytic or blastic lesions are seen. Sclerotic change is noted in the sacroilia c joints. IMPRESSION: 1. There is no evidence of pulmonary embolus in the main, lobar, or segmental pulmonary arteries. 2. The lungs are clear. 3. There are no acute infectious or inflammatory findings in the abdomen or pelvis. 4. Dominant follicles in the left ovary are similar appearance to the 11/10/2021 examination. 5. Additional findings as above. ACT 112: Negative or not required by law. Electronically signed by: Drake De Jesus M.D. 11/14/2021 7:18 PM
--- NOTE | 2021-11-14 20:34 | History & Physical Report ---
Date of Service November 14, 2021 Assessment & Plan (1) Cholelithiasis: Plan: Although it is unclear if patient's gallstones are the etiology of her abdominal pain, due to her clinical presentation we will place her in the hospital for observation proceeding as follows: Analgesics we provided Antiemetics be provided We will hydrate her with IV fluids We will follow serial labs We will allow clear liquids this evening but make n.p.o. after midnight in the event that cholecystectomy needs to be performed tomorrow We will place her on antibiotics. As the patient was being treated empirically for PID we will place her on Rocephin and Flagyl. I discussed with the patient that she may potentially undergo cholecystectomy tomorrow by Dr. Brewer. We will reassess her symptoms and laboratories tomorrow. Tomorrow we may consider performing a HIDA scan if there is any uncertainty of whether or not her gallbladder is the etiology of her pain. Patient expressed her understanding with the above plan and is in agreement. Will use SCDs for DVT prevention, no chemical means in the event that any surgery is planned for tomorrow To be a level 1 full code History of Present Illness Chief Complaint: Abdominal pain Primary Care Provider: Yun Del Rio MD This is a 31-year-old female who presents to [facility] emergency department secondary to abdominal pain. The patient presented to [facility] on 11/10/2021 secondary abdominal pain. At that time the patient reported nausea and vomiting as well as abdominal abdominal pain across the lower portion of her abdomen. During this visit she had a CBC where her white blood cell count was 13.0. Her hemoglobin and hematocrit were noted to be normal and her platelet count was 408,000. Chemistry profile at that time showed a normal potassium with a sodium of 135. Her BUN and creatinine were noted to be normal. She did not have any elevation of her LFTs or lipase. A test was performed and was negative. Urinalysis did not reveal evidence of urinary tract infection. Imaging at this visit showed she had a gallbladder ultrasound that revealed gallstones with no evidence of cholecystitis. She also had a pelvic ultrasound that showed a 3.6 cm complex/hemorrhagic cyst in the left ovary. The patient was seen in consultation by CAR AUDIO INSTALLER. The patient was noted to have some cervical motion tenderness on pelvic exam and the patient was treated empirically for PID. She received Rocephin in the emergency department and it is noteworthy mention that she was discharged home on doxycycline as well as metronidazole. Gynecologic cultures from this visit were reviewed and a trichomonas preparation did not reveal any evidence of trichomonas. He also had a cervical culture that showed many gram-positive bacilli, but no clue cells, no white blood cells, and many epithelial cells. Light normal kya was noted. Patient presented back to [facility] this evening as she had abdominal pain that woke her up at approximately 2:30 AM this morning. She said she had a stabbing pain that was located predominantly in the right upper quadrant of her abdomen. She denies any fevers but did report nausea and vomiting along with diarrhea. The patient does report that she has been having postprandial pain usually about 15 minutes after eating for "years." She does not report any palliative or provocative factors to her pain other than the fact that she notes that the pain seems to get much worse after she eats. She notes that the pain does not really radiate. She does report previous surgeries on her abdomen as she has had 3 C-sections as well as an appendectomy. Today in the emergency department the patient had labs and imaging which I independently reviewed. She did have a CT scan of the chest and abdomen and pelvis. This did not show any evidence of pulmonary emboli. There are no infectious or inflammatory findings noted in the abdomen or pelvis. The gallbladder was mildly distended on this CAT scan. A gallbladder ultrasound was performed that showed cholelithiasis but no evidence of cholecystitis was noted. There is no biliary ductal dilatation. Labs today include a CBC her white blood cell count was 11.0. Her hemoglobin is 11.7. Hematocrit is noted to be normal and platelet count is 4-15,000. Chemistry profile shows a sodium of 135 with a normal potassium, BUN, and creatinine. There is no elevation of patient's bilirubin, transaminases, or alkaline phosphatase. Lipase is not elevated. test is negative. Urinalysis is not indicative of infection. The patient does report leading an active lifestyle she has 4 children that keep her quite busy. With her activities of daily living she denies any chest pain or shortness of breath. At the time of my interview she was resting comfortably in bed and she was in no distress. Allergies Allergy/AdvReac Type Severity Reaction Status Date / Time bee venom protein (honey bee) AdvReac Intermediate Headache, Verified 11/14/21 18:48 faint lactose AdvReac Intermediate Gastrointestinal Verified 11/14/21 18:48 Upset Home Medications Medication Instructions Recorded Confirmed Type aripiprazole 10 mg tablet 10 mg PO QAM 06/11/20 11/14/21 History fluoxetine 40 mg capsule 40 mg PO DAILY 02/01/21 11/14/21 History lamotrigine 150 mg tablet 150 mg PO DAILY 02/01/21 11/14/21 History lithium carbonate 300 mg capsule See Rx Instructions .ROUTE 07/04/21 11/14/21 History .COMPLEX cap temazepam 30 mg capsule 30 mg PO HS 07/04/21 11/14/21 History cyclobenzaprine 5 mg tablet 10 mg PO DAILY PRN 11/10/21 11/14/21 History dextroamphetamine-amphetamine 10 10 mg PO QPM 11/10/21 11/14/21 History mg tablet dextroamphetamine-amphetamine ER 20 mg PO QAM 11/10/21 11/14/21 History 20 mg 24hr capsule,extend release doxycycline hyclate 100 mg tablet 100 mg PO BID 14 Days #28 tab 11/10/21 11/14/21 Rx fluoxetine 10 mg capsule 10 mg PO DAILY 11/10/21 11/14/21 History metronidazole 500 mg tablet 500 mg PO BID 14 Days #28 tab 11/10/21 11/14/21 Rx ondansetron 4 mg disintegrating 4 mg PO Q6H PRN #12 tab 11/10/21 11/14/21 Rx tablet oxycodone 5 mg tablet 5 mg PO Q6H PRN #10 tab 11/10/21 11/14/21 Rx prazosin 1 mg capsule 1 mg PO HS 11/10/21 11/14/21 History tramadol 50 mg tablet 50 mg PO Q4 PRN 11/10/21 11/14/21 History Past Med/Surg History Medical History Abnormal EKG Anxiety with depression Concussion Cystic fibrosis carrier Fibroid uterus History of abnormal cervical Pap smear 2012; had colposcopy and all wnl since Mitral valve prolapse diagnosed as a child Neurofibromatosis, 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 Charles History of appendectomy S/P reconstruction of ligament of knee right knee 2018 [place] teeth removed 2009 Family History Other No significant family history Social History Smoking Status: Never smoker Hx Alcohol Use: No Hx Substance Use: No Preferred Language: Yoruba Communication Ability: Effective Sound Effects Manager Required: No Beliefs That Will Affect Care: None marital status: Current Living Situation: Spouse Current Living Situation Comment: lives with and children Feels Safe at Home: Yes Safety Concerns: Feels Safe At This Time Assistive Devices: Glasses Review of Systems Constitutional: no fever and no chills Eyes: no eye pain Ear, Nose, Mouth, Throat: no ear pain Respiratory: no cough and no dyspnea Cardiovascular: no chest pain Gastrointestinal: as per Subjective / HPI, + abdominal pain, + nausea and + vomiting Genitourinary: no dysuria Musculoskeletal: no back pain Integumentary: no rash Neurologic: no localized weakness Physical Exam Constitutional: well developed, well nourished and + obese; no acute distress Eyes: + anicteric sclerae ENMT: Ears: no hearing impairment and no external ear abnormality Sublingual jaundice is absent. Neck: trachea midline Respiratory: normal respiratory effort; no respiratory distress and no labored breathing Slight decrease of breath sounds noted at bases Gastrointestinal (Abdomen): Abdomen is rotund but soft, nonrigid, and nondistended. There is no rebound tenderness or guarding. There is pain noted with palpation in the right upper quadrant with a positive Rivera sign. There is also pain to a lesser degree in the right lower quadrant. Musculoskeletal: No calf tenderness Skin: no rashes Neurologic: moves all extremities Psychiatric: Orientation: alert and oriented x 3 Affect: + anxious affect Results & Data Results & Data ([facility]) Vital Signs (Past 12 Hours) Vital Signs Temp Pulse Pulse Resp BP BP Pulse Ox 11/14/21 20:29 102 H 16 150/81 H 99 11/14/21 16:20 37.1 C 124 H 16 133/87 99 Supervising Physician Co-Signing Physician Notes I personally saw and evaluated the patient with Mario Salmeron PA-C and agree with the assessment and plan. 31-year-old female with biliary colic versus acute cholecystitis CT and ultrasound images and results personally viewed by me, no convincing signs of acute cholecystitis on imaging or laboratory studies Will admit the patient overnight, repeat labs in the morning Will obtain HIDA scan in the morning to rule out acute cholecystitis If HIDA is positive we will plan on laparoscopic cholecystectomy, if negative will feed the patient and see how she tolerates PG Care Time/CCT Total # of Minutes Spent Total Time Spent with Patient: Total time spent is greater than 50% in coordination of care (as documented) at patient's floor/unit and/or counseling patient: Coding Level of Care Code INT OBSERVATION CARE 70M LVL 3 Diagnoses Cholelithiasis K80.20
[2021-11-14] MEDS ORDERED: ONDANSETRON INJ 2 MG/ML 2 ML VIAL IV PRN (20:41)
[2021-11-14] MEDS ORDERED: ACETAMINOPHEN 1,000 MG/100 ML VIAL IV PRN (20:41)
[2021-11-14] MEDS: MoRPHine SULFATE 4 MG/ML 1 ML CARP\\VIAL IV PRN (21:30)
[2021-11-14] MEDS: LACTATED RINGER'S 1,000 ML IV SCH (21:30)
[2021-11-14] MEDS ORDERED: cefTRIAXone SODIUM 2,000 MG in DEXTROSE 5% 50 ML IV SCH (22:00)
[2021-11-14] MEDS ORDERED: CYCLOBENZAPRINE HCL 10 MG TAB PO PRN (23:13)
[2021-11-14] MEDS ORDERED: PRAZOSIN HCL 1 MG CAP PO SCH (23:13)
[2021-11-14] MEDS ORDERED: TEMAZEPAM 15 MG CAPSULE PO SCH (23:13)
[2021-11-14] MEDS ORDERED: LITHIUM CARBONATE SLOW REL 300 MG TAB PO SCH (23:13)
[2021-11-14] MEDS: metroNIDAZOLE 500 MG/100 ML BAG IV SCH (23:49)
[2021-11-15] MEDS: MoRPHine SULFATE 4 MG/ML 1 ML CARP\\VIAL IV PRN ×3 (00:40→10:41)
[2021-11-15] MEDS: metroNIDAZOLE 500 MG/100 ML BAG IV SCH (05:45)
[2021-11-15] MEDS: LACTATED RINGER'S 1,000 ML IV SCH (06:25)
[2021-11-15 06:51] LABS: Albumin Globulin Ratio 1.7 (0.9-2); Albumin Level 3.8 gm/dl (3.4-5.0); BUN Creatinine Ratio 16.4 (10-20); Bilirubin,Total 0.5 mg/dl (0.2-1.0); Calcium 8.5 mg/dl (8.5-10.1); Creatinine Clr Calc Pharmacy 144.3 ml/min; Est GFR (African American) 138.1 ml/min; Est GFR (Non-African American) 119.1 ml/min; Globulin 2.2 gm/dl (2.5-4.0)
[2021-11-15 07:00] LABS: Basophils # (auto) 0.04 K/uL (0-0.2); Basophils % (auto) 0.6 %; Eosinophils # (auto) 0.21 K/uL (0-0.50); Eosinophils % (auto) 3.4 %; Hematocrit (blood only) 32.2 % (34.1-44.9); Hemoglobin 10.2 g/dl (12.0-16.0); Immature Granulocytes # (auto) 0.03 K/uL (0.00-0.02); Immature Granulocytes % (auto) 0.5 %; Lymphocytes # (auto) 1.19 K/uL (1.2-3.4); Lymphocytes % (auto) 19.2 %; Mean Corpuscular Hemoglobin 26.2 pg (25.0-34.0); Mean Corpuscular Hgb Conc 31.7 g/dL (32.0-36.0); Mean Corpuscular Volume 82.6 fL (80.0-100.0); Mean Platelet Volume 9.5 fL (9.4-12.3); Monocytes # (auto) 0.47 K/uL (0.24-0.82); Monocytes % (auto) 7.6 %; Neutrophils # (auto) 4.25 K/uL (1.4-6.5); Neutrophils % (auto) 68.7 %; Platelet Count 306 K/uL (130-400); RDW Coefficient of Variation 13.2 % (11.5-14.5); RDW Standard Deviation 39.8 fL (36.4-46.3); White Blood Count 6.19 K/ul (4.8-10.8)
--- NOTE | 2021-11-15 08:40 | Surgery Progress Note ---
Date of Service November 15, 2021 Assessment & Plan (1) Cholelithiasis: Plan: HIDA today, will f/u after scan Admission and Anticipated Discharge Date Admission Date: November 14, 2021 Supervising Physician Co-Signing Physician Notes I personally saw and evaluated the patient with Roberto Moore PA-C and agree with the assessment and plan. 31-year-old female with biliary colic versus acute cholecystitis Labs this a.m. reviewed, no leukocytosis or elevated LFTs Will obtain HIDA scan today to rule out acute cholecystitis If HIDA is positive we will plan on laparoscopic cholecystectomy, if negative will feed the patient and see how she tolerates Subjective still having some RUQ pain Physical Exam Gastrointestinal (Abdomen): Inspection/Auscultation: abdomen not distended Percussion/Palpation: + abdomen tender (RUQ) and abdomen soft Results & Data ([facility]) Vital Signs (Past 12 Hours) Vital Signs Temp Pulse Resp BP Pulse Ox 11/15/21 07:17 36.9 C 95 H 20 142/72 H 92 11/14/21 23:15 36.7 C 104 H 18 118/80 97 11/14/21 22:48 94 H 18 131/83 99 PG Care Time/CCT Total # of Minutes Spent Total Time Spent with Patient: Total time spent is greater than 50% in coordination of care (as documented) at patient's floor/unit and/or counseling patient: Coding Level of Care Code 87073 Subseq Hosp Care Lvl 1 Diagnoses Cholelithiasis K80.20
[2021-11-15] MEDS ORDERED: LITHIUM CARBONATE SLOW REL 300 MG TAB PO SCH (09:00)
[2021-11-15] MEDS ORDERED: NON-FORMULARY MEDICATION (Lamotrigine 150 mg tablet) PO SCH (09:00)
[2021-11-15] MEDS ORDERED: FLUoxetine HCL 10 MG CAP PO SCH (09:00)
[2021-11-15] MEDS ORDERED: lamoTRIgine 25 MG TAB PO SCH (09:00)
[2021-11-15] MEDS ORDERED: lamoTRIgine 100 MG TAB PO SCH (09:00)
[2021-11-15] MEDS ORDERED: ARIPiprazole 10 MG TAB PO SCH (09:00)
[2021-11-15] MEDS ORDERED: FLUoxetine HCL 20 MG CAP PO SCH (09:00)
[2021-11-15] MEDS ORDERED: AMPHETAMINE ASP/SULF/DEXTRAMPH ER 20 MG CAP PO SCH (09:00)
--- NOTE | 2021-11-15 09:57 | Nuclear Medicine Report ---
NUCLEAR HEPATOBILIARY SCAN CLINICAL HISTORY: Right upper quadrant abdominal pain. COMPARISON STUDY: Abdominal ultrasound and CT dated 11/14/2021. TECHNIQUE: Dynamic images of the liver and anterior abdomen were obtained every 5 minutes for a total of 40 minutes following the IV administration of 5.3 mCi of technetium 99m Mebrofenin FINDINGS: The hepatobiliary scan shows prompt and homogeneous hepatic uptake. There is visualized act ivity within the intra and extrahepatic biliary tree at 10 minutes, and within the gallbladder at 15 minutes. There is normal biliary to bowel transit, with small bowel visualized by 20 minutes. IMPRESSION: Normal nuclear hepatobiliary scan . ACT 112: Negative or not required by law. Electronically signed by: Drake De Jesus M.D. 11/15/2021 9:56 AM
--- NOTE | 2021-11-15 12:05 | Electrocardiogram Report ---
Test Reason : Blood Pressure : / mmHG Vent. Rate : 104 BPM Atrial Rate : 104 BPM P-R Int : 164 ms QRS Dur : 080 ms QT Int : 360 ms P-R-T Axes : 023 023 009 degrees QTc Int : 473 ms Sinus tachycardia Poor R wave progression, consider anterior VT vs. lead placement vs. LVH Abnormal ECG When compared with ECG of 19-OCT-2020 15:14, No significant change was found Confirmed by Elie Moreira ([id number]) on 11/15/2021 12:04:24 PM Referred By: REFERRED SELF Confirmed By:Marvin Moreira
[2021-11-15] MEDS ORDERED: AMPHETAMINE ASP/SULF/DEXTRAMPH 10 MG TAB PO SCH (16:30)
== END 2021-11-15 11:30 | disposition home or self-care (01) ==
LOC: ED 16:07 → 3N 16:07

== ENCOUNTER 2022-11-16 21:34 | Inpatient (IN) ==
[2022-11-16] MEDS ORDERED: SODIUM CHLORIDE 0.9% 1000ML 1,000 ML IV SCH (22:30)
--- NOTE | 2022-11-16 23:36 | Emergency Department Note ---
Impression & Plan Dyspnea, Hypoxia, Multifocal pneumonia ED Provider Note ED Provider Note NAME: ANANYA TINEO AGE:32 SEX: Female : 1990 ARRIVES VIA: Private vehicle INFORMANT: Patient ED PROVIDER(s): Amy Horowitz DO CHIEF COMPLAINT: Shortness of breath HPI: This is a 32-year-old female presents emergency department due to worsening shortness of breath. Patient states she noted that she was mildly more short of breath compared to normal with going up and down steps last 2 days however today she felt markedly more short of breath even at rest. She states she has some slightly central left-sided chest discomfort with it, no overt pain. This discomfort is otherwise nonradiating. She denies fevers, chills, or URI symptoms. Patient states 1 week ago she had surgery to her left foot. She states no history of asthma, COPD, or tobacco abuse. No history of heart problems. No accompanying palpitations. Patient states she checked her pulse ox at home and found anywhere from 77-88. She does not wear home oxygen. PAST MEDICAL HISTORY:See Below PAST SURGICAL HISTORY:See Below FAMILY HISTORY:See Below SOCIAL HISTORY:See Below HOME MEDICATIONS:See Below ALLERGIES:See Below VITALS:See Below PHYSICAL EXAMINATION: GENERAL: alert, uncomfortable appearing, well nourished, no distress, non-toxic EYE EXAM: normal conjunctiva, PERRL and EOM's grossly intact OROPHARYNX: no exudate, no erythema, lips, buccal mucosa, and tongue normal and mucous membranes are moist NECK: supple, no nuchal rigidity, no adenopathy, non-tender LUNGS: Clear but decreased to auscultation. Normal chest wall mechanics, no w/r/r, tachypnea noted HEART: no murmurs, S1 normal and S2 normal ABDOMEN: abdomen soft, non-tender, normo-active bowel sounds, no masses, no rebound or guarding. BACK: Back is symmetrical on inspection and there is no deformity, no midline tenderness, no CVA tenderness. SKIN: no rashes, petechiae, orbruising UPPER EXTREMITIES: upper extremities are grossly normal. FROM, nml pulses b/l. LOWER EXTREMITIES: No pitting edema. FROM RLE, nml pulses b/l. LLE immobilized from recent surgery, nml cap refill NEURO EXAM: Normal sensorium, cranial nerves II-XII grossly intact, normal speech, no facial droop,nogross weakness of arms, no gross weakness of legs. Gross sensation intact. No ataxia. Vital Signs: reviewed and remarkable Differential Diagnosis: pneumonia, bronchitis, COPD/Asthma exacerbation, pneumothorax, pulmonary embolism, congestive heart failure, acute coronary syndrome, pleural effusion, pericardial effusion, pericarditis/myocarditis, as well as others were MEDICAL DECISION MAKING: This is a 32 yo female who presents with increased SOB and hypoxia noted at home. Patient with recent surgery. She was afebrile but noted to be tachypneic with increased WOB and hypoxia. She was place on NC with improvement of oxygenation however still c/o SOB. Labs drawn and sent, IV established, EKG and CXR performed and interpreted at bedside, and patient placed on telemetry. After discussion at bedside, my concern for CXR and recent surgery, and delay in labs for unknown reason per staff who alexis them at bedside, patient sent for urgent CTA. No PE noted, however multifocal PNA seen. Cultures and procal added and patient started on cefepime. She and family were updated on bedside on the results and plan. Case discussed with the hospitalist. Consultation(s): [] ER Treatment Provided: See below Diagnostics Interpreted By Me: -ECG: NSR at 70, nml axis, nml intervals, no acute ST/T wave changes, low voltage -Cardiac Monitoring: An order was placed for continuous cardiac monitoring. The monitor shows a rate of 78 with normal sinus rhythm. -Laboratory studies: As stated above and show below. -Imaging studies: cxr: poor insp effort, appearance of pulm edema b/l, no CM, no wide mediastinum Triage Nursing Note Reviewed Prior/Outside Records Reviewed Procedures: [] Critical Care: [] Past Med/Surg History Medical History ADHD Anxiety with depression Bipolar disorder Chronic anemia Fluctuating hgbs with baseline 11-13 range per chart review Concussion ~ 6 concussions total over the last 30 years Last concussion 06/2021 r/t wooden shelf fell from above patient's bed Cystic fibrosis carrier History of COVID-19 Fall 2019 > loss of taste and smell, cough fever, muscle pain and fatigue, wheezing, SOB Residual altered taste/smell Hyponatremia Mitral valve prolapse Dx as child Normal MV with trace MR, no MV stenosis per 06/2020 echo Morbid obesity Neurofibromatosis, type 1 Diagnosed 2019 found after daughter was having medical issues that led to patient having genetic testing which resulted in the diagnosis, "no issues" per patient PCOS (polycystic ovarian syndrome) Surgical History H/O section 2011, 2014, 2019 History of ankle surgery Left 09/[address] Charles History of ankle surgery left ankle ligament reconstruction and left ankle fusion at [facility] (08/2021) History of appendectomy History of bilateral tubal ligation with History of esophagogastroduodenoscopy (EGD) at age 6 (dxd of lactose intolerance) Hx laparoscopic cholecystectomy Laparoscopic Cholecystectomy (11/22/21): Grade 1 view, Thomas#2, ETT 7.0 at [facility] S/P reconstruction of ligament of knee right knee 2018 [place] teeth removed 2009 Family History Mother Diabetes Other No family history of adverse response to anesthesia No significant family history Social History Smoking Status: Never smoker Second Hand Exposure: No; Do You Dip or Chew Tobacco: No; Tobacco Cessation Education Requested by Patient: No Hx Alcohol Use: No Hx Substance Use: No Preferred Language: Turkish Communication Ability: Effective Visual Impairment: No Limitations Hearing Ability: Normal Cloth Edge Singer Required: No Beliefs That Will Affect Care: None marital status: Current Living Situation: Spouse and Family Current Living Situation Comment: Lives with and x4 children current occupational status: unemployed How many Children do You have: 4 Other Information That Helps Us Care for You: No Feels Safe at Home: Yes Safety Concerns: Feels Safe At This Time during the past year weight has: remained stable Assistive Devices: None Allergies Allergies Allergy/AdvReac Type Severity Reaction Status Date / Time cortisone Allergy Hives over Verified 11/16/22 23:57 whole body, and swelling at injection site nicotine AdvReac Severe nasal Verified 11/16/22 23:57 congestion, sob, coughing bee venom protein (honey bee) AdvReac Intermediate Headache, Verified 11/16/22 23:57 faint lactose AdvReac Intermediate Gastrointestinal Verified 11/16/22 23:57 Upset Home Meds Home Medications Medication Instructions Recorded Confirmed aripiprazole 10 mg tablet 10 mg PO QAM 06/11/20 11/16/22 lamotrigine 150 mg tablet 150 mg PO QAM 02/01/21 11/17/22 lithium carbonate 300 mg capsule 300 - 600 mg PO UD 07/04/21 11/17/22 dextroamphetamine-amphetamine 10 10 mg PO QPM 11/10/21 11/16/22 mg tablet dextroamphetamine-amphetamine ER 20 mg PO QAM 11/10/21 11/16/22 20 mg 24hr capsule,extend release prazosin 1 mg capsule 1 mg PO HS 11/30/21 11/17/22 clonazepam 1 mg tablet 1 mg PO TID PRN Anxiety 05/15/22 11/16/22 fluoxetine 40 mg capsule 80 mg PO QAM 05/15/22 11/16/22 temazepam 30 mg capsule 30 mg PO HS 05/15/22 11/17/22 Previous Rx's Medication Instructions Recorded oxycodone 5 mg tablet 5 - 10 mg PO Q6H PRN pain #5 tabs 09/14/22 Results & Data (ED) Vital Signs Vital Signs - 24 hr 11/16/22 21:38 11/16/22 21:38 11/16/22 21:38 Temperature 37.6 C H Temperature Source Oral Pulse Rate 63 Respiratory Rate 35 H Respiratory Effort / Characteristics Labored Short of Breath Respiratory Depth Deep Deep Blood Pressure 146/88 H Blood Pressure Mean 107 Pulse Oximetry 90 Oxygen Delivery Method Nasal Cannula Nasal Cannula Nasal Cannula Oxygen Flow Rate 4 4 4 Sepsis Recent Fever Within 48 Hours No Sepsis New/Unexplained Change in Mental Status No Sepsis Action Taken by Nursing No Action Required 11/16/22 21:55 Temperature Temperature Source Pulse Rate 66 Respiratory Rate Respiratory Effort / Characteristics Respiratory Depth Blood Pressure Blood Pressure Mean Pulse Oximetry Oxygen Delivery Method Oxygen Flow Rate Sepsis Recent Fever Within 48 Hours Sepsis New/Unexplained Change in Mental Status Sepsis Action Taken by Nursing Laboratory Data 11/18/22 10:07 11/18/22 10:07 Lab Results 11/16/22 11/16/22 11/16/22 Range/Units 23:48 23:48 23:48 WBC 11.78 H (4.8-10.8) K/ul RBC 4.24 (4.20-5.40) M/uL Hgb 10.9 L (12.0-16.0) g/dl POC Hgb (12.0-16.0) g/dl Hct 35.6 L (37.0-47.0) % POC Hct (37-47) % MCV 84.0 (80.0-100.0) fL MCH 25.7 (25.0-34.0) pg MCHC 30.6 L (32.0-36.0) g/dL RDW Std Deviation 48.1 H (36.4-46.3) fL RDW Coeff of Corrie 16.2 H (11.5-14.5) % Plt Count 555 H (130-400) K/uL MPV 9.4 (9.4-12.4) fL Immature Gran % (Auto) 0.8 % Neut % (Auto) 61.7 % Lymph % (Auto) 15.4 % [place] % (Auto) 5.3 % Eos % (Auto) 15.7 % Baso % (Auto) 1.1 % Neut # (Auto) 7.27 H (1.40-6.50) K/uL Lymph # (Auto) 1.81 (1.2-3.4) K/uL [place] # (Auto) 0.62 H (0.11-0.59) K/uL Eos # (Auto) 1.85 H (0-0.50) K/uL Baso # (Auto) 0.13 (0-0.2) K/uL Immature Gran # (Auto) 0.10 (0.01-0.20) K/uL D-Dimer 1150 H* (0-500) ug/L FEU POC Sodium (135-144) mmol/L Sodium 136 (136-145) mmol/L POC Potassium (3.3-5.0) mmol/L Potassium 5.0 (3.5-5.1) mmol/L POC Chloride (101-112) mmol/L Chloride 107 (98-107) mmol/L Carbon Dioxide 21 (21-32) mmol/L POC Total CO2 (24-31) mmol/L Anion Gap 8 (3-11) POC Anion Gap (16-25) mmol/L POC BUN (7-18) mg/dl BUN 11 (6-23) mg/dl Creatinine 0.79 (0.6-1.2) mg/dl POC Creatinine (0.6-1.3) mg/dl Est Cr Clr Drug Dosing 115.5 ml/min Est GFR ( Amer) 113.2 ml/min Est GFR (Non-Af Amer) 97.7 ml/min BUN/Creatinine Ratio 13.9 (10-20) Glucose 93 (70-99(Fasting)) mg/dl POC Glucose (other) (70-99) mg/dl Calcium 9.4 (8.6-10.3) mg/dl POC Ioniz Calcium Sarah (1.12-1.32) mmol/l Magnesium 2.1 (1.7-2.4) mg/dl Total Bilirubin 1.5 H (0.2-1.0) mg/dl AST 160 H (13-39) U/L ALT 201 H (7-52) U/L Alkaline Phosphatase 119 H (34-104) U/L Troponin I High Sens 3.4 (0-14) pg/ml Total Protein 7.5 (6.0-8.3) gm/dl Albumin 4.2 (3.4-5.0) gm/dl Globulin 3.3 (2.5-4.0) gm/dl Albumin/Globulin Ratio 1.3 (0.9-2) Procalcitonin (0-0.5) ng/ml TSH (0.300-4.500) uIu/ml Free T4 (0.61-1.60) ng/dl HCG, Qual (Negative) Adenovirus (PCR) (NotDetected) B. pertussis DNA (PCR) (NotDetected) B.parapertussis DNA PCR (NotDetected) C. pneumoniae DNA (PCR) (NotDetected) Coronavirus OC43 (PCR) (NotDetected) Coronavirus HKU1 (PCR) (NotDetected) Coronavirus 229E (PCR) (NotDetected) SARS-CoV-2 (PCR) (NotDetected) Coronavirus NL63 (PCR) (NotDetected) Human Metapneumovir PCR (NotDetected) Influenza Type A (PCR) (NotDetected) Influenza Type B (PCR) (NotDetected) M. pneumoniae (PCR) (NotDetected) Parainfluenza 1 (PCR) (NotDetected) Parainfluenza 2 (PCR) (NotDetected) Parainfluenza 3 (PCR) (NotDetected) Parainfluenza 4 (PCR) (NotDetected) RSV (PCR) (NotDetected) Entero/Rhino (PCR) (NotDetected) 11/16/22 11/16/22 11/16/22 Range/Units 23:48 23:48 23:48 WBC (4.8-10.8) K/ul RBC (4.20-5.40) M/uL Hgb (12.0-16.0) g/dl POC Hgb (12.0-16.0) g/dl Hct (37.0-47.0) % POC Hct (37-47) % MCV (80.0-100.0) fL MCH (25.0-34.0) pg MCHC (32.0-36.0) g/dL RDW Std Deviation (36.4-46.3) fL RDW Coeff of Corrie (11.5-14.5) % Plt Count (130-400) K/uL MPV (9.4-12.4) fL Immature Gran % (Auto) % Neut % (Auto) % Lymph % (Auto) % [place] % (Auto) % Eos % (Auto) % Baso % (Auto) % Neut # (Auto) (1.40-6.50) K/uL Lymph # (Auto) (1.2-3.4) K/uL [place] # (Auto) (0.11-0.59) K/uL Eos # (Auto) (0-0.50) K/uL Baso # (Auto) (0-0.2) K/uL Immature Gran # (Auto) (0.01-0.20) K/uL D-Dimer (0-500) ug/L FEU POC Sodium (135-144) mmol/L Sodium (136-145) mmol/L POC Potassium (3.3-5.0) mmol/L Potassium (3.5-5.1) mmol/L POC Chloride (101-112) mmol/L Chloride (98-107) mmol/L Carbon Dioxide (21-32) mmol/L POC Total CO2 (24-31) mmol/L Anion Gap (3-11) POC Anion Gap (16-25) mmol/L POC BUN (7-18) mg/dl BUN (6-23) mg/dl Creatinine (0.6-1.2) mg/dl POC Creatinine (0.6-1.3) mg/dl Est Cr Clr Drug Dosing ml/min Est GFR ( Amer) ml/min Est GFR (Non-Af Amer) ml/min BUN/Creatinine Ratio (10-20) Glucose (70-99(Fasting)) mg/dl POC Glucose (other) (70-99) mg/dl Calcium (8.6-10.3) mg/dl POC Ioniz Calcium Sarah (1.12-1.32) mmol/l Magnesium (1.7-2.4) mg/dl Total Bilirubin (0.2-1.0) mg/dl AST (13-39) U/L ALT (7-52) U/L Alkaline Phosphatase (34-104) U/L Troponin I High Sens (0-14) pg/ml Total Protein (6.0-8.3) gm/dl Albumin (3.4-5.0) gm/dl Globulin (2.5-4.0) gm/dl Albumin/Globulin Ratio (0.9-2) Procalcitonin 0.15 (0-0.5) ng/ml TSH 14.513 H (0.300-4.500) uIu/ml Free T4 1.02 (0.61-1.60) ng/dl HCG, Qual Negative (Negative) Adenovirus (PCR) (NotDetected) B. pertussis DNA (PCR) (NotDetected) B.parapertussis DNA PCR (NotDetected) C. pneumoniae DNA (PCR) (NotDetected) Coronavirus OC43 (PCR) (NotDetected) Coronavirus HKU1 (PCR) (NotDetected) Coronavirus 229E (PCR) (NotDetected) SARS-CoV-2 (PCR) (NotDetected) Coronavirus NL63 (PCR) (NotDetected) Human Metapneumovir PCR (NotDetected) Influenza Type A (PCR) (NotDetected) Influenza Type B (PCR) (NotDetected) M. pneumoniae (PCR) (NotDetected) Parainfluenza 1 (PCR) (NotDetected) Parainfluenza 2 (PCR) (NotDetected) Parainfluenza 3 (PCR) (NotDetected) Parainfluenza 4 (PCR) (NotDetected) RSV (PCR) (NotDetected) Entero/Rhino (PCR) (NotDetected) 11/16/22 11/17/22 Range/Units 23:52 00:50 WBC (4.8-10.8) K/ul RBC (4.20-5.40) M/uL Hgb (12.0-16.0) g/dl POC Hgb 12.2 (12.0-16.0) g/dl Hct (37.0-47.0) % POC Hct 36 L (37-47) % MCV (80.0-100.0) fL MCH (25.0-34.0) pg MCHC (32.0-36.0) g/dL RDW Std Deviation (36.4-46.3) fL RDW Coeff of Corrie (11.5-14.5) % Plt Count (130-400) K/uL MPV (9.4-12.4) fL Immature Gran % (Auto) % Neut % (Auto) % Lymph % (Auto) % [place] % (Auto) % Eos % (Auto) % Baso % (Auto) % Neut # (Auto) (1.40-6.50) K/uL Lymph # (Auto) (1.2-3.4) K/uL [place] # (Auto) (0.11-0.59) K/uL Eos # (Auto) (0-0.50) K/uL Baso # (Auto) (0-0.2) K/uL Immature Gran # (Auto) (0.01-0.20) K/uL D-Dimer (0-500) ug/L FEU POC Sodium 137 (135-144) mmol/L Sodium (136-145) mmol/L POC Potassium 5.0 (3.3-5.0) mmol/L Potassium (3.5-5.1) mmol/L POC Chloride 108 (101-112) mmol/L Chloride (98-107) mmol/L Carbon Dioxide (21-32) mmol/L POC Total CO2 22 L (24-31) mmol/L Anion Gap (3-11) POC Anion Gap 14.0 L (16-25) mmol/L POC BUN 10 (7-18) mg/dl BUN (6-23) mg/dl Creatinine (0.6-1.2) mg/dl POC Creatinine 0.7 (0.6-1.3) mg/dl Est Cr Clr Drug Dosing ml/min Est GFR ( Amer) ml/min Est GFR (Non-Af Amer) ml/min BUN/Creatinine Ratio (10-20) Glucose (70-99(Fasting)) mg/dl POC Glucose (other) 96 (70-99) mg/dl Calcium (8.6-10.3) mg/dl POC Ioniz Calcium Sarah 1.15 (1.12-1.32) mmol/l Magnesium (1.7-2.4) mg/dl Total Bilirubin (0.2-1.0) mg/dl AST (13-39) U/L ALT (7-52) U/L Alkaline Phosphatase (34-104) U/L Troponin I High Sens (0-14) pg/ml Total Protein (6.0-8.3) gm/dl Albumin (3.4-5.0) gm/dl Globulin (2.5-4.0) gm/dl Albumin/Globulin Ratio (0.9-2) Procalcitonin (0-0.5) ng/ml TSH (0.300-4.500) uIu/ml Free T4 (0.61-1.60) ng/dl HCG, Qual (Negative) Adenovirus (PCR) Not Detected (NotDetected) B. pertussis DNA (PCR) Not Detected (NotDetected) B.parapertussis DNA PCR Not Detected (NotDetected) C. pneumoniae DNA (PCR) Not Detected (NotDetected) Coronavirus OC43 (PCR) Not Detected (NotDetected) Coronavirus HKU1 (PCR) Not Detected (NotDetected) Coronavirus 229E (PCR) Not Detected (NotDetected) SARS-CoV-2 (PCR) Not Detected (NotDetected) Coronavirus NL63 (PCR) Not Detected (NotDetected) Human Metapneumovir PCR Not Detected (NotDetected) Influenza Type A (PCR) Not Detected (NotDetected) Influenza Type B (PCR) Not Detected (NotDetected) M. pneumoniae (PCR) Not Detected (NotDetected) Parainfluenza 1 (PCR) Not Detected (NotDetected) Parainfluenza 2 (PCR) Not Detected (NotDetected) Parainfluenza 3 (PCR) Not Detected (NotDetected) Parainfluenza 4 (PCR) Not Detected (NotDetected) RSV (PCR) Not Detected (NotDetected) Entero/Rhino (PCR) Not Detected (NotDetected) Administered Medications Acetaminophen (Acetaminophen 500 Mg Tab) 1,000 mg PO Q8H PRN PRN Reason: Pain or Fever Stop: 12/17/22 12:58 Last Admin: 11/17/22 20:18 Dose: 1,000 mg Documented By: SILAS Amphetamine/Dextroamphetamine (Amphetamine Asp/Sulf/Dextramph 10 Mg Tab) 10 mg PO DAILY@1400 [facility] Stop: 12/01/22 13:59 Last Admin: 11/18/22 13:35 Dose: 10 mg Documented By: [facility] Admin: 11/17/22 13:26 Dose: 10 mg Documented By: ANGELA Amphetamine/Dextroamphetamine (Amphetamine Asp/Sulf/Dextramph Er 20 Mg Cap) [facility] Stop: 12/01/22 08:59 Last Admin: 11/18/22 08:24 Dose: 20 mg Documented By: Admin: 11/17/22 09:00 Dose: 20 mg Documented By: ANGELA Aripiprazole (Aripiprazole 10 Mg Tab) 10 mg PO [facility] Stop: 12/17/22 08:59 Last Admin: 11/18/22 08:24 Dose: 10 mg Documented By: [facility] Admin: 11/17/22 08:54 Dose: 10 mg Documented By: ANGELA Clonazepam (Clonazepam 1 Mg Tab) 1 mg PO TID PRN PRN Reason: Anxiety Stop: 12/17/22 04:21 Last Admin: 11/18/22 08:24 Dose: 1 mg Documented By: Admin: 11/17/22 20:18 Dose: 1 mg Documented By: Admin: 11/17/22 12:19 Dose: 1 mg Documented By: ANGELA Doxycycline Hyclate (Doxycycline Hyclate 100 Mg Cap) 100 mg PO BID [facility] Stop: 11/24/22 20:59 Last Admin: 11/18/22 08:25 Dose: 100 mg Documented By: [facility] Admin: 11/17/22 20:09 Dose: 100 mg Documented By: SILAS Enoxaparin Sodium (Enoxaparin Inj 40 Mg/0.4 Ml Syr) 40 [facility] Stop: 12/17/22 08:59 Last Admin: 11/18/22 08:25 Dose: 40 mg Documented By: [facility] Admin: 11/17/22 08:53 Dose: 40 mg Documented By: [facility] Fluoxetine HCl (Fluoxetine Hcl 20 Mg Cap) 80 mg PO [facility] Stop: 12/17/22 08:59 Last Admin: 11/18/22 08:24 Dose: 80 mg Documented By: [facility] Admin: 11/17/22 08:54 Dose: 80 mg Documented By: [facility] Ketorolac Tromethamine (Ketorolac Tromethamine 15 Mg/Ml Vial) 15 mg IV Q6H PRN PRN Reason: moderate pain Stop: 11/22/22 12:59 Last Admin: 11/18/22 02:27 Dose: 15 mg Documented By: Admin: 11/17/22 13:25 Dose: 15 mg Documented By: [facility] Lamotrigine (Lamotrigine 100 Mg Tab) 100 mg PO [facility] Stop: 12/17/22 08:59 Last Admin: 11/18/22 08:24 Dose: 100 mg Documented By: [facility] Admin: 11/17/22 08:55 Dose: 100 mg Documented By: [facility] Lamotrigine (Lamotrigine 25 Mg Tab) 50 mg PO [facility] Stop: 12/17/22 08:59 Last Admin: 11/18/22 08:24 Dose: 50 mg Documented By: [facility] Admin: 11/17/22 08:54 Dose: 50 mg Documented By: [facility] Levothyroxine Sodium (Levothyroxine Sodium 50 Mcg Tablet) 50 mcg PO DAILYBB [facility] Stop: 12/17/22 06:29 Last Admin: 11/18/22 04:48 Dose: 50 mcg Documented By: Admin: 11/17/22 05:47 Dose: 50 mcg Documented By: Oxycodone HCl (Oxycodone Hcl Ir 5 Mg Tab (Immediate Release)) 5 - 10 mg PO QID PRN PRN Reason: Severe Pain (Scale 7, 8, 9,10) Stop: 12/01/22 01:56 Last Admin: 11/18/22 12:06 Dose: 5 mg Documented By: Admin: 11/18/22 04:47 Dose: 10 mg Documented By: Admin: 11/17/22 22:44 Dose: 10 mg Documented By: Admin: 11/17/22 16:41 Dose: 10 mg Documented By: ANGELA Prazosin HCl (Prazosin Hcl 1 Mg Cap) 1 mg PO HS KRISSY Stop: 12/17/22 20:59 Last Admin: 11/17/22 20:09 Dose: 1 mg Documented By: SILAS Temazepam (Temazepam 15 Mg Capsule) 30 mg PO [facility] Stop: 12/17/22 20:59 Last Admin: 11/17/22 20:18 Dose: 30 mg Documented By: SILAS Discontinued Medications Albuterol (Albut/Ipratrop 3mg/0.5mg Neb 3 Ml Vial) 3 ml NEB NOW STA; Protocol Stop: 11/17/22 03:24 Last Admin: 11/17/22 07:22 Dose: Not Given Documented By: ISHAAN Furosemide (Furosemide Inj 20 Mg/2 Ml Vial) 20 mg IV ONE ONE Stop: 11/17/22 03:22 Last Admin: 11/17/22 05:38 Dose: 20 mg Documented By: ISHAAN Sodium Chloride (Nss 1000ml) 1,000 mls @ 125 mls/hr IV .Q8H KRISSY Stop: 12/16/22 22:29 Last Infusion: 11/17/22 02:59 Dose: 0 mls/hr Documented By: Infusion: 11/17/22 02:27 Dose: 0 mls/hr Documented By: Admin: 11/17/22 00:16 Dose: 125 mls/hr Documented By: SANDEE Cefepime HCl (Maxipime) 2,000 mg in 20 mls @ 5 mls/min IV NOW STA; Protocol Stop: 11/17/22 00:45 Last Admin: 11/17/22 00:51 Dose: 5 mls/min Documented By: SANDEE Doxycycline Hyclate 100 mg/ (Dextrose) 110 mls @ 50 mls/hr IV NOW STA Stop: 11/17/22 04:01 Last Infusion: 11/17/22 05:49 Dose: 0 mls/hr Documented By: Admin: 11/17/22 02:29 Dose: 50 mls/hr Documented By: SANDEE Sodium Chloride (Nss 1000ml) 1,000 mls @ 100 mls/hr IV .Q10H ONE Stop: 11/17/22 11:56 Last Infusion: 11/17/22 04:38 Dose: 0 mls/hr Documented By: Admin: 11/17/22 02:27 Dose: 100 mls/hr Documented By: SANDEE Ioversol (Optiray 320 125ml) 125 ml IV ONCE ONE Stop: 11/17/22 00:08 Last Admin: 11/17/22 00:07 Dose: 117 ml Documented By: GISELE Lidocaine (Lidocaine 5% 1 Patch) 1 patch TD NOW STA Stop: 11/17/22 13:05 Last Admin: 11/17/22 14:13 Dose: 1 patch Documented By: ANGELA Calvary Carbonate (Calvary Carbonate 300 Mg Tab) 300 mg PO NOW STA Stop: 11/17/22 22:01 Last Admin: 11/17/22 22:44 Dose: 300 mg Documented By: SILAS Miscellaneous (Remove Lidoderm Patch) 1 each N/A DAILY@2100 KRISSY Stop: 11/18/22 02:01 Last Admin: 11/18/22 02:29 Dose: 1 each Documented By: SILAS Oxycodone HCl (Oxycodone Hcl Ir 5 Mg Tab (Immediate Release)) 5 mg PO NOW STA Stop: 11/17/22 01:52 Last Admin: 11/17/22 02:20 Dose: 5 mg Documented By: SANDEE Oxycodone HCl (Oxycodone Hcl Ir 5 Mg Tab (Immediate Release)) 5 - 10 mg PO QID PRN PRN Reason: Pain Stop: 12/01/22 01:56 Last Admin: 11/17/22 08:51 Dose: 10 mg Documented By: ANGELA Discharge Plan Visit Data Chief Complaint: Shortness of Breath/Dyspnea Stated Complaint: SHORTNESS OF BREATH ED Provider: Amy Horowitz Discharge Problem: Dyspnea, Hypoxia, Multifocal pneumonia Patient Disposition: Admitted As Inpatient Discharge Instructions Interventions: ED Discharge Assessment Last Done: 11/17/22 03:50
[2022-11-16 23:59] LABS: Basophils # (auto) 0.13 K/uL (0-0.2); Basophils % (auto) 1.1 %; Eosinophils # (auto) 1.85 K/uL (0-0.50); Eosinophils % (auto) 15.7 %; Hematocrit (blood only) 35.6 % (37.0-47.0); Hemoglobin 10.9 g/dl (12.0-16.0); Immature Granulocytes % (auto) 0.8 %; Lymphocytes # (auto) 1.81 K/uL (1.2-3.4); Lymphocytes % (auto) 15.4 %; Mean Corpuscular Hemoglobin 25.7 pg (25.0-34.0); Mean Corpuscular Hgb Conc 30.6 g/dL (32.0-36.0); Mean Platelet Volume 9.4 fL (9.4-12.4); Monocytes # (auto) 0.62 K/uL (0.11-0.59); Monocytes % (auto) 5.3 %; Neutrophils # (auto) 7.27 K/uL (1.40-6.50); Neutrophils % (auto) 61.7 %; Platelet Count 555 K/uL (130-400); RDW Coefficient of Variation 16.2 % (11.5-14.5); RDW Standard Deviation 48.1 fL (36.4-46.3); Red Blood Count 4.24 M/uL (4.20-5.40); White Blood Count 11.78 K/ul (4.8-10.8)
[2022-11-17] MEDS ORDERED: OPTIRAY 320 125ml IV ONE (00:07)
[2022-11-17 00:08] LABS: iSTAT Creatinine 0.7 mg/dl (0.6-1.3); iSTAT Hemoglobin 12.2 g/dl (12.0-16.0); iSTAT Ionized Calcium 1.15 mmol/l (1.12-1.32)
[2022-11-17 00:15] LABS: Albumin Globulin Ratio 1.3 (0.9-2); Albumin Level 4.2 gm/dl (3.4-5.0); BUN Creatinine Ratio 13.9 (10-20); Bilirubin,Total 1.5 mg/dl (0.2-1.0); Calcium 9.4 mg/dl (8.6-10.3); Creatinine Clr Calc Pharmacy 115.5 ml/min; Est GFR (African American) 113.2 ml/min; Est GFR (Non-African American) 97.7 ml/min; Globulin 3.3 gm/dl (2.5-4.0); Magnesium 2.1 mg/dl (1.7-2.4); Total Protein 7.5 gm/dl (6.0-8.3)
[2022-11-17 00:18] LABS: Pregnancy Test, Serum Negative (Negative)
[2022-11-17 00:22] LABS: Troponin I High Sensitivity 3.4 pg/ml (0-14)
--- NOTE | 2022-11-17 00:41 | CT Scan Report ---
Exam(s): CTA CHEST IV Amt: 117 ML OPTIRAY 320 EXAM: CT Angiography Chest With Intravenous Contrast CLINICAL HISTORY: Reason for exam: PE. TECHNIQUE: Axial computed tomographic angiography images of the chest with intravenous contrast. CTDI is 28.14 mGy and DLP is 800.88 mGy-cm. Automated exposure control was utilized for the study. A dose lowering technique was utilized adhering to the principles of ALARA. MIP reconstructed images were created and reviewed. COMPARISON: No relevant prior studies available. FINDINGS: Pulmonary arteries: Unremarkable. No acute pulmonary embolism. Aorta: No acute findings. No thoracic aortic aneurysm. Lungs: Patchy bilateral airspace consolidations, concerning for multifocal pneumonia. Small bilateral pleural effusions. Pleural space: See above. Heart: Mild cardiomegaly. No significant pericardial effusion. No evidence of RV dysfunction. Bones/joints: No acute fracture. No dislocation. Soft tissues: Unremarkable. Lymph nodes: Unremarkable. No enlarged lymph nodes. Gallbladder and bile ducts: Cholecystectomy clips. IMPRESSION: 1. No acute pulmonary embolism. 2. Patchy bilateral airspace consolidations, concerning for multifocal pneumonia. Small bilateral pleural effusions. Electronically signed by: Otis Casillas MD 11/17/22 00:40 AM
[2022-11-17] MEDS ORDERED: CEFEPIME 2,000 MG/20 ML VIAL IV STA (00:42)
[2022-11-17 00:47] LABS: D Dimer 1150 ug/L FEU (0-500); Thyroid Stimulating Hormone 14.513 uIu/ml (0.300-4.500)
[2022-11-17 01:24] LABS: T4 Free Thyroxine 1.02 ng/dl (0.61-1.60)
[2022-11-17] MEDS ORDERED: DOXYCYCLINE HYCLATE 100 MG in DEXTROSE 5% 100 ML IV STA (01:50)
[2022-11-17] MEDS ORDERED: oxyCODONE HCL IR 5 MG TAB (IMMEDIATE RELEASE) PO STA (01:51)
--- NOTE | 2022-11-17 01:52 | History & Physical Report ---
Date of Service November 17, 2022 Assessment & Plan (1) Acute respiratory failure with hypoxia: Plan: Multifactorial Secondary to atypical pneumonia given absence/lack of prominent cough symptoms Possible pulmonary congestion given abnormal BNP rule out CHF history of mitral valve prolapse as per records Transaminitis ? Possibly from passive congestion patient without abdominal pain complaints Anemia possible new baseline Noted on preop hemoglobin ago. Supratherapeutic lithium levels Subclinical hypothyroidism possibly secondary to lithium Rx, mild TSH elevations noted on review of past outpatient blood work Recent left ankle surgery ADD/anxiety/mood disorder, at baseline neurofibromatosis type I Medical telemetry Supplemental O2 baseline ABG CS, Doxycycline Lasix 1 dose TTE Re: Possible CHF Further management pending work-up results Initiate levothyroxine and recheck TSH next month Appropriate to hold lithium Rx for now given supratherapeutic level, resume Rx once level within normal limits Follow LFTs, liver ultrasound if with progression DVT prophylaxis. Lovenox 40 mg SQ daily Full code Total critical care time was 40 minutes. Text document was generated using [employer] voice recognition software. It may contain grammatical or spelling errors. Kindly contact undersigned for clarification of any documentation item in question. History of Present Illness Chief Complaint: Low oxygen, shortness of breath Primary Care Provider: Yun Del Rio MD History obtained from patient and records. Medical history significant fo migraine, ADD/anxiety/mood disorder, mitral valve prolapse as per records, PCOS, neurofibromatosis type I. Last confinement June 2020 for syncope/concussion. Patient underwent left ankle surgery by local cold work operator at same-day surgery last week. No postop issues as per patient. 2 days ago, patient noted increased shortness of breath on exertion. Dry cough symptoms but not a lot. Denies aspiration. Not sure about sick COVID-19 contacts. Patient has received COVID-19 vaccination. Pleuritic chest pain, patient unsure about weight gain. O2 sats 70s to 80s on pulse ox at home. Cefepime administered at the ER for sepsis. 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 Allergies Allergy/AdvReac Type Severity Reaction Status Date / Time cortisone Allergy Hives over Verified 11/16/22 23:57 whole body, and swelling at injection site nicotine AdvReac Severe nasal Verified 11/16/22 23:57 congestion, sob, coughing bee venom protein (honey bee) AdvReac Intermediate Headache, Verified 11/16/22 23:57 faint lactose AdvReac Intermediate Gastrointestinal Verified 11/16/22 23:57 Upset Home Medications Medication Instructions Recorded Confirmed Type aripiprazole 10 mg tablet 10 mg PO QAM 06/11/20 11/16/22 History lamotrigine 150 mg tablet 150 mg PO QAM 02/01/21 11/17/22 History lithium carbonate 300 mg capsule 300 - 600 mg PO UD 07/04/21 11/17/22 History dextroamphetamine-amphetamine 10 10 mg PO QPM 11/10/21 11/16/22 History mg tablet dextroamphetamine-amphetamine ER 20 mg PO QAM 11/10/21 11/16/22 History 20 mg 24hr capsule,extend release prazosin 1 mg capsule 1 mg PO HS 11/30/21 11/17/22 History clonazepam 1 mg tablet 1 mg PO TID PRN Anxiety 05/15/22 11/16/22 History fluoxetine 40 mg capsule 80 mg PO QAM 05/15/22 11/16/22 History temazepam 30 mg capsule 30 mg PO HS 05/15/22 11/17/22 History oxycodone 5 mg tablet 5 - 10 mg PO Q6H PRN pain #5 tabs 09/14/22 11/17/22 Rx Past Med/Surg History Medical History ADHD Anxiety with depression Bipolar disorder Chronic anemia Fluctuating hgbs with baseline 11-13 range per chart review Concussion ~ 6 concussions total over the last 30 years Last concussion 06/2021 r/t wooden shelf fell from above patient's bed Cystic fibrosis carrier History of COVID-19 Fall 2019 > loss of taste and smell, cough fever, muscle pain and fatigue, wheezing, SOB Residual altered taste/smell Hyponatremia Mitral valve prolapse Dx as child Normal MV with trace MR, no MV stenosis per 06/2020 echo Morbid obesity Neurofibromatosis, type 1 Diagnosed 2019 found after daughter was having medical issues that led to patient having genetic testing which resulted in the diagnosis, "no issues" per patient PCOS (polycystic ovarian syndrome) Surgical History H/O section 2011, 2014, 2019 History of ankle surgery Left 09/[address] Cahrles History of ankle surgery left ankle ligament reconstruction and left ankle fusion at [facility] [place] (08/2021) History of appendectomy History of bilateral tubal ligation with History of esophagogastroduodenoscopy (EGD) at age 6 (dxd of lactose intolerance) Hx laparoscopic cholecystectomy Laparoscopic Cholecystectomy (11/22/21): Grade 1 view, Thomas#2, ETT 7.0 at [facility] S/P reconstruction of ligament of knee right knee 2018 [place] teeth removed 2009 Family History Mother Diabetes Other No family history of adverse response to anesthesia No significant family history Social History Smoking Status: Never smoker Second Hand Exposure: No; Do You Dip or Chew Tobacco: No; Hx Alcohol Use: No Hx Substance Use: No Preferred Language: Kinyarwanda Communication Ability: Effective Visual Impairment: No Limitations Hearing Ability: Normal Echo Technologist Required: No Beliefs That Will Affect Care: None marital status: Current Living Situation: Spouse and Family Current Living Situation Comment: lives with and children current occupational status: unemployed How many Children do You have: 4 Feels Safe at Home: Yes during the past year weight has: remained stable Assistive Devices: Crutches, Glasses and Walker Review of Systems Review of Systems: As per HPI, all other systems reviewed and negative Physical Exam Physical Exam: GENERAL: uncomfortable, slightly anxious, morbidly obese, minimal respiratory distress SKIN: Pallor, warm HEENT: Bespectacled, pale palpebral conjunctivae, no ptosis, dry buccal mucosa, nasal cannula in place NECK : Supple, short neck, no tenderness CHEST : Decreased breath sounds, minimal chest wall tenderness HEART : Bradycardic, no obvious murmurs ABDOMEN: Some distention, nontender EXTREMITIES : Minimal RLE swelling, no RLE tenderness, LLE prosthetic in place, no other conspicuous deformities noted NEUROLOGIC : Coherent, no facial asymmetry, no other gross focality Results & Data Results & Data Vital Signs (Past 12 Hours) Vital Signs Temp Pulse Resp BP Pulse Ox O2 Del Method O2 Flow Rate 11/17/22 00:10 53 L 21 144/86 H 94 Nasal Cannula 4 11/16/22 23:35 71 26 H 93 Nasal Cannula 4 11/16/22 23:00 55 L 28 H 92 Nasal Cannula 4 11/16/22 22:30 57 L 22 94 Nasal Cannula 4 11/16/22 22:00 63 27 H 94 Nasal Cannula 4 11/16/22 21:44 67 39 H 90 11/16/22 21:55 66 11/16/22 21:38 Nasal Cannula 4 11/16/22 21:38 37.6 C H 63 35 H 146/88 H 90 Nasal Cannula 4 11/16/22 21:38 Nasal Cannula 4 Laboratory Results Laboratory Results WBC 11.78 K/ul (4.8-10.8) H 11/16/22 23:48 RBC 4.24 M/uL (4.20-5.40) 11/16/22 23:48 Hgb 10.9 g/dl (12.0-16.0) L 11/16/22 23:48 POC Hgb 12.2 g/dl (12.0-16.0) 11/16/22 23:52 Hct 35.6 % (37.0-47.0) L 11/16/22 23:48 POC Hct 36 % (37-47) L 11/16/22 23:52 MCV 84.0 fL (80.0-100.0) 11/16/22 23:48 MCH 25.7 pg (25.0-34.0) 11/16/22 23:48 MCHC 30.6 g/dL (32.0-36.0) L 11/16/22 23:48 RDW Std Deviation 48.1 fL (36.4-46.3) H 11/16/22 23:48 RDW Coeff of Corrie 16.2 % (11.5-14.5) H 11/16/22 23:48 Plt Count 555 K/uL (130-400) H 11/16/22 23:48 MPV 9.4 fL (9.4-12.4) 11/16/22 23:48 Immature Gran % (Auto) 0.8 % 11/16/22 23:48 Neut % (Auto) 61.7 % 11/16/22 23:48 Lymph % (Auto) 15.4 % 11/16/22 23:48 [place] % (Auto) 5.3 % 11/16/22 23:48 Eos % (Auto) 15.7 % 11/16/22 23:48 Baso % (Auto) 1.1 % 11/16/22 23:48 Neut # (Auto) 7.27 K/uL (1.40-6.50) H 11/16/22 23:48 Lymph # (Auto) 1.81 K/uL (1.2-3.4) 11/16/22 23:48 [place] # (Auto) 0.62 K/uL (0.11-0.59) H 11/16/22 23:48 Eos # (Auto) 1.85 K/uL (0-0.50) H 11/16/22 23:48 Baso # (Auto) 0.13 K/uL (0-0.2) 11/16/22 23:48 Immature Gran # (Auto) 0.10 K/uL (0.01-0.20) 11/16/22 23:48 D-Dimer 1150 ug/L FEU (0-500) H* 11/16/22 23:48 POC Sodium 137 mmol/L (135-144) 11/16/22 23:52 Sodium 136 mmol/L (136-145) 11/16/22 23:48 POC Potassium 5.0 mmol/L (3.3-5.0) 11/16/22 23:52 Potassium 5.0 mmol/L (3.5-5.1) 11/16/22 23:48 POC Chloride 108 mmol/L (101-112) 11/16/22 23:52 Chloride 107 mmol/L (98-107) 11/16/22 23:48 Carbon Dioxide 21 mmol/L (21-32) 11/16/22 23:48 POC Total CO2 22 mmol/L (24-31) L 11/16/22 23:52 Anion Gap 8 (3-11) 11/16/22 23:48 POC Anion Gap 14.0 mmol/L (16-25) L 11/16/22 23:52 POC BUN 10 mg/dl (7-18) 11/16/22 23:52 BUN 11 mg/dl (6-23) 11/16/22 23:48 Creatinine 0.79 mg/dl (0.6-1.2) 11/16/22 23:48 POC Creatinine 0.7 mg/dl (0.6-1.3) 11/16/22 23:52 Est Cr Clr Drug Dosing 115.5 ml/min 11/16/22 23:48 Est GFR ( Amer) 113.2 ml/min 11/16/22 23:48 Est GFR (Non-Af Amer) 97.7 ml/min 11/16/22 23:48 BUN/Creatinine Ratio 13.9 (10-20) 11/16/22 23:48 Glucose 93 mg/dl (70-99(Fasting)) 11/16/22 23:48 POC Glucose (other) 96 mg/dl (70-99) 11/16/22 23:52 Calcium 9.4 mg/dl (8.6-10.3) 11/16/22 23:48 POC Ioniz Calcium Sarah 1.15 mmol/l (1.12-1.32) 11/16/22 23:52 Magnesium 2.1 mg/dl (1.7-2.4) 11/16/22 23:48 Total Bilirubin 1.5 mg/dl (0.2-1.0) H 11/16/22 23:48 AST 160 U/L (13-39) H 11/16/22 23:48 ALT 201 U/L (7-52) H 11/16/22 23:48 Alkaline Phosphatase 119 U/L (34-104) H 11/16/22 23:48 Troponin I High Sens 3.4 pg/ml (0-14) 11/16/22 23:48 Total Protein 7.5 gm/dl (6.0-8.3) 11/16/22 23:48 Albumin 4.2 gm/dl (3.4-5.0) 11/16/22 23:48 Globulin 3.3 gm/dl (2.5-4.0) 11/16/22 23:48 Albumin/Globulin Ratio 1.3 (0.9-2) 11/16/22 23:48 Procalcitonin 0.15 ng/ml (0-0.5) 11/16/22 23:48 TSH 14.513 uIu/ml (0.300-4.500) H 11/16/22 23:48 Free T4 1.02 ng/dl (0.61-1.60) 11/16/22 23:48 HCG, Qual Negative (Negative) 11/16/22 23:48 Impressions Chest CTA 11/16/22 23:42 Exam(s): CTA CHEST IV Amt: 117 ML OPTIRAY 320 EXAM: CT Angiography Chest With Intravenous Contrast CLINICAL HISTORY: Reason for exam: PE. TECHNIQUE: Axial computed tomographic angiography images of the chest with intravenous contrast. CTDI is 28.14 mGy and DLP is 800.88 mGy-cm. Automated exposure control was utilized for the study. A dose lowering technique was utilized adhering to the principles of ALARA. MIP reconstructed images were created and reviewed. COMPARISON: No relevant prior studies available. FINDINGS: Pulmonary arteries: Unremarkable. No acute pulmonary embolism. Aorta: No acute findings. No thoracic aortic aneurysm. Lungs: Patchy bilateral airspace consolidations, concerning for multifocal pneumonia. Small bilateral pleural effusions. Pleural space: See above. Heart: Mild cardiomegaly. No significant pericardial effusion. No evidence of RV dysfunction. Bones/joints: No acute fracture. No dislocation. Soft tissues: Unremarkable. Lymph nodes: Unremarkable. No enlarged lymph nodes. Gallbladder and bile ducts: Cholecystectomy clips. IMPRESSION: 1. No acute pulmonary embolism. 2. Patchy bilateral airspace consolidations, concerning for multifocal pneumonia. Small bilateral pleural effusions. Electronically signed by: Otis Casillas MD 11/17/22 00:40 AM Diagnostic Findings Chest x-ray as per my interpretation: Congestion, atelectasis EKG as per my interpretation : Rate 70, NSR, normal axis, T wave abnormalities inferior and septal leads
[2022-11-17 01:57] LABS: Adenovirus PCR Not Detected (NotDetected); Bordetella parapertussis PCR Not Detected (NotDetected); Bordetella pertussis PCR Not Detected (NotDetected); Chlamydia pneumoniae PCR Not Detected (NotDetected); Coronavirus 229E PCR Not Detected (NotDetected); Coronavirus CoV-2 (COVID19)PCR Not Detected (NotDetected); Coronavirus HKU1 PCR Not Detected (NotDetected); Coronavirus NL63 PCR Not Detected (NotDetected); Coronavirus OC43PCR Not Detected (NotDetected); Human Metapneumovirus PCR Not Detected (NotDetected); Influenza A PCR Not Detected (NotDetected); Influenza B PCR Not Detected (NotDetected); Mycoplasma pneumoniae PCR Not Detected (NotDetected); Parainfluenza Virus 1 PCR Not Detected (NotDetected); Parainfluenza Virus 2 PCR Not Detected (NotDetected); Parainfluenza Virus 3 PCR Not Detected (NotDetected); Parainfluenza Virus 4 PCR Not Detected (NotDetected); Respiratory Syncytial VirusPCR Not Detected (NotDetected); Rhinovirus/Enterovirus PCR Not Detected (NotDetected)
[2022-11-17] MEDS ORDERED: oxyCODONE HCL IR 5 MG TAB (IMMEDIATE RELEASE) PO PRN (01:57)
[2022-11-17] MEDS ORDERED: ACETAMINOPHEN 325 MG TAB PO PRN (01:57)
[2022-11-17] MEDS ORDERED: PROMETHAZINE HCL 12.5 MG in SODIUM CHLORIDE 0.9% 50 ML IV PRN (01:57)
[2022-11-17] MEDS ORDERED: SODIUM CHLORIDE 0.9% 1000ML 1,000 ML IV ONE (01:58)
[2022-11-17 02:21] LABS: Base Excess ABG -3.4 mEq/L (-9-1.8); HCO3 ABG 20 mmol/L (19-24); Oxygen Saturation ABG 94.9 % (90-95); PCO2 ABG 32 mmHg (35-46); PO2 ABG 66 mmHg (80-95); pH ABG 7.41 (7.35-7.45)
[2022-11-17 02:28] LABS: Allen Test Pos (Pos)
[2022-11-17] MEDS ORDERED: FUROSEMIDE INJ 20 MG/2 ML VIAL IV ONE (03:21)
[2022-11-17] MEDS ORDERED: ALBUT/IPRATROP 3MG/0.5MG NEB 3 ML VIAL NEB STA (03:23)
[2022-11-17] MEDS: LEVOTHYROXINE SODIUM 50 MCG TABLET PO SCH (05:47)
[2022-11-17 07:30] LABS: Basophils # (auto) 0.12 K/uL (0-0.2); Basophils % (auto) 0.9 %; Eosinophils # (auto) 1.91 K/uL (0-0.50); Hematocrit (blood only) 33.7 % (37.0-47.0); Hemoglobin 10.3 g/dl (12.0-16.0); Immature Granulocytes % (auto) 0.7 %; Lymphocytes % (auto) 11.7 %; Mean Corpuscular Hemoglobin 25.6 pg (25.0-34.0); Mean Corpuscular Hgb Conc 30.6 g/dL (32.0-36.0); Mean Corpuscular Volume 83.6 fL (80.0-100.0); Mean Platelet Volume 9.4 fL (9.4-12.4); Monocytes # (auto) 0.92 K/uL (0.11-0.59); Monocytes % (auto) 6.8 %; Neutrophils # (auto) 8.97 K/uL (1.40-6.50); Neutrophils % (auto) 65.9 %; Platelet Count 558 K/uL (130-400); RDW Coefficient of Variation 16.1 % (11.5-14.5); RDW Standard Deviation 48.1 fL (36.4-46.3); Red Blood Count 4.03 M/uL (4.20-5.40); White Blood Count 13.62 K/ul (4.8-10.8)
[2022-11-17 07:47] LABS: Albumin Globulin Ratio 1.3 (0.9-2); Albumin Level 4.2 gm/dl (3.4-5.0); BUN Creatinine Ratio 13.2 (10-20); Bilirubin,Total 1.7 mg/dl (0.2-1.0); Calcium 9.8 mg/dl (8.6-10.3); Creatinine Clr Calc Pharmacy 117.9 ml/min; Est GFR (African American) 118.6 ml/min; Est GFR (Non-African American) 102.3 ml/min; Globulin 3.3 gm/dl (2.5-4.0); Potassium 4.7 mmol/L (3.5-5.1); Total Protein 7.5 gm/dl (6.0-8.3)
--- NOTE | 2022-11-17 07:48 | Communication Note ---
Date of Service: November 17, 2022 Seen this AM, was complaining of chest pain, 8/10. RRR on exam, chest wall tender to palpation. Stat EKG unremarkable, stat troponin not elevated. Echo previously ordered with no concerning changes. Pain control optimized- tylenol 1000mg q8h for mild pain, IV toradol 15mg q6h for mod-severe pain, oxycodone for severe pain. Of note pt also has ordered home meds of temazepam, klonipin and adderall. Will monitor for sedation/polypharmacy with obtaining optimal pain control.
--- NOTE | 2022-11-17 08:10 | XRay Report ---
XR chest 1V portable HISTORY: Shortness of breath. COMPARISON: Chest 11/10/2021. FINDINGS: There are low lung volumes with elevation the right hemidiaphragm. The heart is mildly enla rged. There are trace bilateral pleural effusions. No pneumothorax. Perihilar interstitial/vascular t hickening consistent with pulmonary edema. There are hazy bilateral airspace opacities. This is likel y due to the pulmonary edema. A superimposed pneumonia could also have a similar appearance. IMPRESSION: 1. Moderate pulmonary edema with small bilateral pleural effusions. 2. Bilateral hazy airspace opacities are nonspecific but likely due to the pulmonary edema. A superim posed pneumonia could also have a similar appearance. 3. Low lung volume with elevation of the right hemidiaphragm. ACT 112: Negative or not required by law. Electronically signed by: Дмитрий Carr M.D. 11/17/2022 8:08 AM
[2022-11-17] MEDS: ENOXAPARIN INJ 40 MG/0.4 ML SYR SQ SCH (08:53)
[2022-11-17] MEDS: lamoTRIgine 25 MG TAB PO SCH (08:54)
[2022-11-17] MEDS: ARIPiprazole 10 MG TAB PO SCH (08:54)
[2022-11-17] MEDS: FLUoxetine HCL 20 MG CAP PO SCH (08:54)
[2022-11-17] MEDS: lamoTRIgine 100 MG TAB PO SCH (08:55)
[2022-11-17] MEDS: AMPHETAMINE ASP/SULF/DEXTRAMPH ER 20 MG CAP PO SCH (09:00)
--- NOTE | 2022-11-17 12:12 | Electrocardiogram Report ---
Test Reason : Blood Pressure : / mmHG Vent. Rate : 070 BPM Atrial Rate : 070 BPM P-R Int : 162 ms QRS Dur : 072 ms QT Int : 404 ms P-R-T Axes : 050 056 032 degrees QTc Int : 436 ms Normal sinus rhythm Low voltage QRS Borderline ECG When compared with ECG of 03-NOV-2022 10:37, Sinus rhythm has replaced Ectopic atrial rhythm Nonspecific T wave abnormality no longer evident in Lateral leads Confirmed by Elie Moreira ([id number]) on 11/17/2022 12:11:53 PM Referred By: REFERRED SELF Confirmed By:Marvin Moreira
[2022-11-17] MEDS: clonazePAM 1 MG TAB PO PRN ×2 (12:19→20:18)
[2022-11-17] MEDS ORDERED: KETOROLAC TROMETHAMINE 15 MG/ML VIAL IV PRN (13:00)
[2022-11-17] MEDS ORDERED: LIDOCAINE 5% 1 PATCH TD STA (13:04)
[2022-11-17] MEDS: KETOROLAC TROMETHAMINE 15 MG/ML VIAL IV PRN (13:25)
[2022-11-17] MEDS: AMPHETAMINE ASP/SULF/DEXTRAMPH 10 MG TAB PO SCH (13:26)
[2022-11-17] MEDS: oxyCODONE HCL IR 5 MG TAB (IMMEDIATE RELEASE) PO PRN ×2 (16:41→22:44)
--- NOTE | 2022-11-17 17:48 | Electrocardiogram Report ---
Test Reason : Blood Pressure : / mmHG Vent. Rate : 071 BPM Atrial Rate : 071 BPM P-R Int : 166 ms QRS Dur : 076 ms QT Int : 450 ms P-R-T Axes : 011 066 028 degrees QTc Int : 489 ms Normal sinus rhythm Prolonged QT Nonspecific ST abnormality Abnormal ECG When compared with ECG of 16-NOV-2022 21:40, (unconfirmed) QT has lengthened Confirmed by Elie Moreira ([id number]) on 11/17/2022 5:47:33 PM Referred By: REFERRED SELF Confirmed By:Marvin Moreira
[2022-11-17] MEDS: DOXYCYCLINE HYCLATE 100 MG CAP PO SCH (20:09)
[2022-11-17] MEDS: PRAZOSIN HCL 1 MG CAP PO SCH (20:09)
[2022-11-17] MEDS: ACETAMINOPHEN 500 MG TAB PO PRN (20:18)
[2022-11-17] MEDS: TEMAZEPAM 15 MG CAPSULE PO SCH (20:18)
[2022-11-17] MEDS ORDERED: LITHIUM CARBONATE 300 MG TAB PO STA (22:00)
[2022-11-18] MEDS: KETOROLAC TROMETHAMINE 15 MG/ML VIAL IV PRN ×3 (02:27→23:07)
[2022-11-18] MEDS: oxyCODONE HCL IR 5 MG TAB (IMMEDIATE RELEASE) PO PRN ×3 (04:47→20:10)
[2022-11-18] MEDS: LEVOTHYROXINE SODIUM 50 MCG TABLET PO SCH (04:48)
[2022-11-18] MEDS: AMPHETAMINE ASP/SULF/DEXTRAMPH ER 20 MG CAP PO SCH (08:24)
[2022-11-18] MEDS: lamoTRIgine 25 MG TAB PO SCH (08:24)
[2022-11-18] MEDS: FLUoxetine HCL 20 MG CAP PO SCH (08:24)
[2022-11-18] MEDS: clonazePAM 1 MG TAB PO PRN ×2 (08:24→20:10)
[2022-11-18] MEDS: ARIPiprazole 10 MG TAB PO SCH (08:24)
[2022-11-18] MEDS: lamoTRIgine 100 MG TAB PO SCH (08:24)
[2022-11-18] MEDS: DOXYCYCLINE HYCLATE 100 MG CAP PO SCH ×2 (08:25→20:09)
[2022-11-18] MEDS: ENOXAPARIN INJ 40 MG/0.4 ML SYR SQ SCH (08:25)
[2022-11-18 10:26] LABS: Basophils # (auto) 0.06 K/uL (0-0.2); Basophils % (auto) 0.9 %; Eosinophils # (auto) 1.44 K/uL (0-0.50); Eosinophils % (auto) 20.7 %; Hematocrit (blood only) 30.9 % (37.0-47.0); Hemoglobin 9.5 g/dl (12.0-16.0); Immature Granulocytes # (auto) 0.04 K/uL (0.01-0.20); Immature Granulocytes % (auto) 0.6 %; Lymphocytes # (auto) 1.36 K/uL (1.2-3.4); Lymphocytes % (auto) 19.6 %; Mean Corpuscular Hemoglobin 25.8 pg (25.0-34.0); Mean Corpuscular Hgb Conc 30.7 g/dL (32.0-36.0); Mean Platelet Volume 9.2 fL (9.4-12.4); Monocytes # (auto) 0.57 K/uL (0.11-0.59); Monocytes % (auto) 8.2 %; Neutrophils # (auto) 3.48 K/uL (1.40-6.50); Platelet Count 365 K/uL (130-400); RDW Coefficient of Variation 15.6 % (11.5-14.5); RDW Standard Deviation 47.2 fL (36.4-46.3); Red Blood Count 3.68 M/uL (4.20-5.40); White Blood Count 6.95 K/ul (4.8-10.8)
[2022-11-18 10:40] LABS: Albumin Globulin Ratio 1.4 (0.9-2); Albumin Level 3.9 gm/dl (3.4-5.0); BUN Creatinine Ratio 19.2 (10-20); Bilirubin,Total 1.8 mg/dl (0.2-1.0); Calcium 9.2 mg/dl (8.6-10.3); Creatinine Clr Calc Pharmacy 121.1 ml/min; Est GFR (African American) 124.5 ml/min; Est GFR (Non-African American) 107.5 ml/min; Globulin 2.8 gm/dl (2.5-4.0); Total Protein 6.7 gm/dl (6.0-8.3)
[2022-11-18] MEDS: AMPHETAMINE ASP/SULF/DEXTRAMPH 10 MG TAB PO SCH (13:35)
--- NOTE | 2022-11-18 13:35 | XRay Report ---
XR chest 1V portable HISTORY: Shortness of breath. Tachycardia. COMPARISON: Chest CTA 11/16/2022. FINDINGS: Interval improvement in the mild interstitial pulmonary edema and small bilateral pleural e ffusions. The heart remains mildly enlarged. Bibasilar linear densities have also improved. There is persistent elevation the right hemidiaphragm. IMPRESSION: 1. Interval improvement in the pulmonary edema, small bilateral pleural effusions, and bibasilar dens ities. 2. Elevated right hemidiaphragm, unchanged. ACT 112: Negative or not required by law. Electronically signed by: Дмитрий Carr M.D. 11/18/2022 1:34 PM
[2022-11-18] MEDS ORDERED: OPTIRAY 320 100ml IV ONE (15:03)
--- NOTE | 2022-11-18 16:57 | Hospitalist Progress Note ---
Date of Service November 18, 2022 Assessment & Plan (1) Acute respiratory failure with hypoxia: Plan: Multifactorial Secondary to atypical pneumonia given absence/lack of prominent cough symptoms Possible pulmonary congestion given abnormal BNP rule out CHF history of mitral valve prolapse as per records Transaminitis ? Possibly from passive congestion patient without abdominal pain complaints Anemia possible new baseline Noted on preop hemoglobin ago. Supratherapeutic lithium levels Subclinical hypothyroidism possibly secondary to lithium Rx, mild TSH elevations noted on review of past outpatient blood work Recent left ankle surgery ADD/anxiety/mood disorder, at baseline neurofibromatosis type I Medical telemetry Supplemental O2 baseline ABG CS, Doxycycline Lasix 1 dose TTE Re: Possible CHF Further management pending work-up results Initiate levothyroxine and recheck TSH next month Appropriate to hold lithium Rx for now given supratherapeutic level, resume Rx once level within normal limits Follow LFTs, liver ultrasound if with progression DVT prophylaxis. Lovenox 40 mg SQ daily Full code Plan Pt is a 32yoF admitted with a pneumonia and persistent chest pain. Acute Respiratory failure/Pneumonia/Chest pain Pt with persistent chest pain radiating to her back Troponin wnl, repeat EKGs stable Chest xray, CTA chest-noted pleural effusions currently improving. Multifocal pneumonia noted. Was on doxycycline only, given persistence of chest pain added Zosyn Pain control with ordered daily docusate and prn miralax for noted stool burden on ct abd/pelvis. Transaminitis CT abd/pelvis with no apparent cause Did note constipation As above, ordered daily docusate and prn miralax for noted stool burden Continue to trend Mood Continue home medications Full code DVT prophylaxis: on Lovenox SQ Diet: Dispo: Med Surg tele Admission and Anticipated Discharge Date Admission Date: November 17, 2022 Subjective Seen this AM. States still having the chest pain. Getting dizzy when moving and going to the bathroom. Review of Systems Review of Systems: All systems reviewed & are unremarkable except as noted in Subjective Physical Exam Physical Exam: General: Alert, oriented. No acute distress Skin: No noted rashes or bruises Psych: Appropriate mood and affect Neuro: No gross deficits HEENT: NC/AT CV: RRR, Normal s1, s2. No murmurs appreciated Resp: Breath sounds decreased bilaterally, no increased effort of breathing. Abdomen: Soft, nontender, nondistended. No guarding. No organomegaly appreciated. Extremities: No edema in lower extremities bilaterally. Results & Data Results & Data Vital Signs (Past 12 Hours) Vital Signs Temp Pulse Pulse Resp BP BP Pulse Ox 11/18/22 16:17 36.7 C 84 18 126/72 96 11/18/22 07:15 67 11/18/22 11:20 36.7 C 101 H 18 139/77 96 11/18/22 07:36 11/18/22 07:33 36.5 C 72 18 128/74 95 O2 Del Method O2 Flow Rate 11/18/22 16:17 Nasal Cannula 1 11/18/22 07:15 11/18/22 11:20 Nasal Cannula 3 11/18/22 07:36 Nasal Cannula 4 11/18/22 07:33 Nasal Cannula 4
[2022-11-18] MEDS: PRAZOSIN HCL 1 MG CAP PO SCH (20:09)
[2022-11-18] MEDS: TEMAZEPAM 15 MG CAPSULE PO SCH (20:10)
--- NOTE | 2022-11-18 21:25 | CT Scan Report ---
ABDOMEN AND PELVIS CT WITH IV CONTRAST CT DOSE: 1556.80 mGy.cm HISTORY: cp rad to back, epigastric pain, transaminitis TECHNIQUE: Multiaxial CT images of the abdomen and pelvis were performed following the use of intrave nous contrast. A dose lowering technique was utilized adhering to the principles of ALARA. COMPARISON STUDY: Chest CTA 11/16/2012. Abdomen and pelvis CT 01/30/2022. FINDINGS: Trace bilateral pleural effusions are again noted. Consolidative densities within the base the right lower lobe persist. There is elevation the right hemidiaphragm, unchanged. Patchy groundgla ss densities within the lung bases most pronounced on the left are again noted. No pneumoperitoneum. No pneumatosis. No acute fractures identified. The tiny fat-containing umbilical hernia. Small foci o f subcutaneous gas within the right lower quadrant abdominal wall is likely due to prior medication i njection. Cholecystectomy. The unenhanced liver, pancreas, spleen, adrenal glands, and kidneys are un remarkable. No hydronephrosis. No retroperitoneal lymphadenopathy. Normal caliber abdominal aorta. No pelvic free fluid or pelvic lymphadenopathy. The bladder, uterus, bilateral adnexa are unremarkable. No bowel wall thickening or obstruction. Prior appendectomy. Moderate fecal retention. IMPRESSION: 1. No bowel wall thickening or obstruction. 2. No hydronephrosis. 3. Cholecystectomy and appendectomy. 4. Bilateral airspace opacities and trace bilateral pleural effusions persist. This favors a multifoc al pneumonia. ACT 112: Negative or not required by law. Electronically signed by: Дмитрий Carr M.D. 11/18/2022 9:23 PM
[2022-11-18] MEDS ORDERED: POLYETHYLENE (MIRALAX) 17 GM PACK PO PRN (21:38)
[2022-11-18] MEDS ORDERED: DOCUSATE SODIUM 100 MG CAP PO STA (21:48)
[2022-11-18] MEDS ORDERED: PIPERACILLIN/TAZOBACTAM 4.5 GM in DEXTROSE 5% 100 ML IV ONE (22:00)
[2022-11-19] MEDS: oxyCODONE HCL IR 5 MG TAB (IMMEDIATE RELEASE) PO PRN ×4 (03:25→21:51)
[2022-11-19] MEDS: LEVOTHYROXINE SODIUM 50 MCG TABLET PO SCH (03:26)
[2022-11-19] MEDS: PIPERACILLIN/TAZOBACTAM 4.5 GM in DEXTROSE 5% 100 ML IV SCH ×3 (03:27→19:54)
[2022-11-19] MEDS: KETOROLAC TROMETHAMINE 15 MG/ML VIAL IV PRN ×3 (05:21→18:22)
[2022-11-19 07:52] LABS: Basophils # (auto) 0.11 K/uL (0-0.2); Basophils % (auto) 1.5 %; Eosinophils # (auto) 1.52 K/uL (0-0.50); Eosinophils % (auto) 20.4 %; Hematocrit (blood only) 33.2 % (37.0-47.0); Hemoglobin 10.2 g/dl (12.0-16.0); Immature Granulocytes # (auto) 0.03 K/uL (0.01-0.20); Immature Granulocytes % (auto) 0.4 %; Lymphocytes # (auto) 1.46 K/uL (1.2-3.4); Lymphocytes % (auto) 19.6 %; Mean Corpuscular Hemoglobin 25.7 pg (25.0-34.0); Mean Corpuscular Hgb Conc 30.7 g/dL (32.0-36.0); Mean Corpuscular Volume 83.6 fL (80.0-100.0); Mean Platelet Volume 9.3 fL (9.4-12.4); Monocytes # (auto) 0.71 K/uL (0.11-0.59); Monocytes % (auto) 9.5 %; Neutrophils # (auto) 3.62 K/uL (1.40-6.50); Neutrophils % (auto) 48.6 %; Platelet Count 432 K/uL (130-400); RDW Coefficient of Variation 15.5 % (11.5-14.5); RDW Standard Deviation 47.1 fL (36.4-46.3); Red Blood Count 3.97 M/uL (4.20-5.40); White Blood Count 7.45 K/ul (4.8-10.8)
[2022-11-19] MEDS: ARIPiprazole 10 MG TAB PO SCH (07:56)
[2022-11-19] MEDS: FLUoxetine HCL 20 MG CAP PO SCH (07:56)
[2022-11-19] MEDS: lamoTRIgine 25 MG TAB PO SCH (07:56)
[2022-11-19] MEDS: AMPHETAMINE ASP/SULF/DEXTRAMPH ER 20 MG CAP PO SCH (07:56)
[2022-11-19] MEDS: DOXYCYCLINE HYCLATE 100 MG CAP PO SCH ×2 (07:56→19:54)
[2022-11-19] MEDS: lamoTRIgine 100 MG TAB PO SCH (07:56)
[2022-11-19] MEDS: ENOXAPARIN INJ 40 MG/0.4 ML SYR SQ SCH (07:56)
[2022-11-19] MEDS: DOCUSATE SODIUM 100 MG CAP PO SCH ×2 (07:56→19:54)
[2022-11-19 08:02] LABS: Albumin Globulin Ratio 1.5 (0.9-2); Albumin Level 4.2 gm/dl (3.4-5.0); BUN Creatinine Ratio 20.3 (10-20); Calcium 9.5 mg/dl (8.6-10.3); Creatinine Clr Calc Pharmacy 136.8 ml/min; Est GFR (African American) 134.9 ml/min; Est GFR (Non-African American) 116.4 ml/min; Globulin 2.8 gm/dl (2.5-4.0); Potassium 4.1 mmol/L (3.5-5.1)
--- NOTE | 2022-11-19 08:56 | Hospitalist Progress Note ---
Date of Service November 19, 2022 Assessment & Plan (1) Acute respiratory failure with hypoxia: Plan Pt is a 32yoF admitted with a pneumonia and persistent chest pain. Acute Respiratory failure/Pneumonia/Chest pain Pt with persistent chest pain radiating to her back Troponin wnl, repeat EKGs stable Chest xray, CTA chest-noted pleural effusions currently improving. Multifocal pneumonia noted. Was on doxycycline only, given persistence of chest pain added Zosyn Pain control with ordered daily docusate and prn miralax for noted stool burden on ct abd/pelvis. Added GI cocktail Transaminitis CT abd/pelvis with no apparent cause, pending US Continue to trend liver enzymes Constipation CT noted moderate stool burden On daily docusate with prn miralax Mood Continue home medications Full code DVT prophylaxis: on Lovenox SQ Diet: HH Dispo: Med Surg tele Admission and Anticipated Discharge Date Admission Date: November 17, 2022 Subjective Seen this AM Still noting chest pain today. Otherwise no acute concerns. Review of Systems Review of Systems: All systems reviewed & are unremarkable except as noted in Subjective Physical Exam Physical Exam: General: Alert, oriented. No acute distress Skin: No noted rashes or bruises Psych: Appropriate mood and affect Neuro: No gross deficits HEENT: NC/AT CV: RRR, Normal s1, s2. No murmurs appreciated Resp: Breath sounds decreased bilaterally, no increased effort of breathing. Abdomen: Soft, nontender, nondistended. No guarding. No organomegaly appreciated. Extremities: Boot on LLE Results & Data Results & Data Vital Signs (Past 12 Hours) Vital Signs Temp Pulse Pulse Resp BP Pulse Ox O2 Del Method 11/19/22 07:36 36.7 C 110 H 18 110/68 95 Room Air 11/19/22 03:59 92 Room Air 11/19/22 03:07 36.8 C 107 H 18 121/82 97 Nasal Cannula 11/18/22 22:00 91 H 11/18/22 23:00 36.4 C L 113 H 18 127/71 97 Nasal Cannula O2 Flow Rate 11/19/22 07:36 11/19/22 03:59 11/19/22 03:07 1 11/18/22 22:00 11/18/22 23:00 1
--- NOTE | 2022-11-19 11:46 | Electrocardiogram Report ---
Test Reason : Blood Pressure : / mmHG Vent. Rate : 082 BPM Atrial Rate : 082 BPM P-R Int : 166 ms QRS Dur : 078 ms QT Int : 408 ms P-R-T Axes : 010 065 014 degrees QTc Int : 476 ms Normal sinus rhythm Low voltage QRS Borderline ECG When compared with ECG of 17-NOV-2022 08:42, No significant change was found Confirmed by Natanael Snow ([id number]) on 11/19/2022 11:46:23 AM Referred By: REFERRED SELF Confirmed By:Natanael Snow
[2022-11-19] MEDS: AMPHETAMINE ASP/SULF/DEXTRAMPH 10 MG TAB PO SCH (14:15)
[2022-11-19] MEDS: ACETAMINOPHEN 500 MG TAB PO PRN (17:31)
[2022-11-19] MEDS: clonazePAM 1 MG TAB PO PRN (19:54)
[2022-11-19] MEDS: PRAZOSIN HCL 1 MG CAP PO SCH (19:54)
[2022-11-19] MEDS: TEMAZEPAM 15 MG CAPSULE PO SCH (20:00)
[2022-11-19] MEDS ORDERED: ALUMINUM/MAGNESIUM SUSP 30 ML UDC PO PRN (21:11)
--- NOTE | 2022-11-19 23:01 | Ultrasound Report ---
US abdomen limited CLINICAL HISTORY: transaminitis TECHNIQUE: Multiple real-time sonographic images of the right upper quadrant were obtained. Comparison: Comparison is made to CT abdomen pelvis 11/18/2022 FINDINGS: The liver is diffusely echogenic in appearance with poor ultrasound penetration, with normal contour, which is consistent with fatty infiltration. No focal mass lesions are seen. No intrahepatic duct al dilatation is seen. Patient is status post cholecystectomy. The common duct measures 0.4 cm in di ameter at the level of the hepatic artery. The visualized portions of the pancreas appear normal. The right kidney shows normal echogenicity, cortical thickness and renal contour. The right kidney sh ows no evidence of hydronephrosis or mass. No ascites or free fluid is seen in Thopmson's pouch. IMPRESSION: Hepatic steatosis. Otherwise no acute abnormality. ACT 112: Negative or not required by law. Electronically signed by: Dean Christopher M.D. 11/19/2022 11:00 PM
[2022-11-20] MEDS: PIPERACILLIN/TAZOBACTAM 4.5 GM in DEXTROSE 5% 100 ML IV SCH ×2 (05:04→13:21)
[2022-11-20] MEDS: LEVOTHYROXINE SODIUM 50 MCG TABLET PO SCH (05:04)
[2022-11-20 07:01] LABS: Basophils % (auto) 1.4 %; Eosinophils # (auto) 1.77 K/uL (0-0.50); Eosinophils % (auto) 25.1 %; Hematocrit (blood only) 35.2 % (37.0-47.0); Hemoglobin 10.7 g/dl (12.0-16.0); Immature Granulocytes # (auto) 0.03 K/uL (0.01-0.20); Immature Granulocytes % (auto) 0.4 %; Lymphocytes # (auto) 1.55 K/uL (1.2-3.4); Mean Corpuscular Hemoglobin 25.5 pg (25.0-34.0); Mean Corpuscular Hgb Conc 30.4 g/dL (32.0-36.0); Mean Platelet Volume 9.4 fL (9.4-12.4); Monocytes # (auto) 0.68 K/uL (0.11-0.59); Monocytes % (auto) 9.7 %; Neutrophils # (auto) 2.91 K/uL (1.40-6.50); Neutrophils % (auto) 41.4 %; Platelet Count 412 K/uL (130-400); RDW Coefficient of Variation 15.6 % (11.5-14.5); RDW Standard Deviation 46.8 fL (36.4-46.3); Red Blood Count 4.19 M/uL (4.20-5.40); White Blood Count 7.04 K/ul (4.8-10.8)
[2022-11-20 07:18] LABS: Albumin Globulin Ratio 1.5 (0.9-2); Albumin Level 4.5 gm/dl (3.4-5.0); Bilirubin,Total 2.1 mg/dl (0.2-1.0); Calcium 9.8 mg/dl (8.6-10.3); Creatinine Clr Calc Pharmacy 116.8 ml/min; Est GFR (African American) 120.5 ml/min; Potassium 4.2 mmol/L (3.5-5.1); Total Protein 7.5 gm/dl (6.0-8.3)
[2022-11-20] MEDS: oxyCODONE HCL IR 5 MG TAB (IMMEDIATE RELEASE) PO PRN ×3 (07:44→20:56)
[2022-11-20] MEDS: DOXYCYCLINE HYCLATE 100 MG CAP PO SCH ×2 (07:46→19:31)
[2022-11-20] MEDS: lamoTRIgine 100 MG TAB PO SCH (07:46)
[2022-11-20] MEDS: ENOXAPARIN INJ 40 MG/0.4 ML SYR SQ SCH (07:46)
[2022-11-20] MEDS: DOCUSATE SODIUM 100 MG CAP PO SCH ×2 (07:46→19:30)
[2022-11-20] MEDS: FLUoxetine HCL 20 MG CAP PO SCH (07:46)
[2022-11-20] MEDS: lamoTRIgine 25 MG TAB PO SCH (07:47)
[2022-11-20] MEDS: ARIPiprazole 10 MG TAB PO SCH (07:47)
[2022-11-20] MEDS: AMPHETAMINE ASP/SULF/DEXTRAMPH ER 20 MG CAP PO SCH (07:53)
[2022-11-20] MEDS: KETOROLAC TROMETHAMINE 15 MG/ML VIAL IV PRN (09:40)
[2022-11-20] MEDS: ACETAMINOPHEN 500 MG TAB PO PRN (11:25)
[2022-11-20] MEDS ORDERED: IBUPROFEN 800 MG TAB PO STA (15:14)
--- NOTE | 2022-11-20 15:16 | Hospitalist Progress Note ---
Date of Service November 20, 2022 Assessment & Plan (1) Acute respiratory failure with hypoxia: (2) Multifocal pneumonia: (3) Anxiety with depression: (4) Bipolar disorder: (5) Morbid obesity: Plan Pt is a 32yoF admitted with a pneumonia and persistent chest pain. Acute Respiratory failure/Pneumonia/Chest pain Pt with persistent chest pain radiating to her back likely 2/2 pleurisy. Consider reimaging to ensure no complications of pneumonia but will consult pulmonology to guide further workup at this point. No PE on chest CTA, echo WNL, troponin NL and no evidence of ACS. 11/17 given cefepime/doxy, then 11/18 started zosyn which she has been on last two days Cont Motrin 800mg PO TID scheduled, hold toradol Cont oxycodone PRN doesn't seem to be GI related given she is eating without issue. Appreciate pulm recommendations. Transaminitis elevated but not rising. She is acutely ill with hepatic steatosis on us which may be the cause no evidence of biliary obstruction medications/abx may also be contributing, trend in am, appears to be trending down. Mood tearful and frustrated from not feeling improved and having pain. Cont current medical therapy but will stop amphetamine which she is in agreement with. Morbid Obesity: wt loss recommended. Full code DVT prophylaxis: on Lovenox SQ Dispo: to home when pain and oxygen needs have improved. Nhung Rodriguez DO [facility] Hospitalist Admission and Anticipated Discharge Date Admission Date: November 17, 2022 Subjective 32 yo F presents with acute shortness of breath and severe substernal chest pain that is worse with deep inspiration pleurisy present and is the same without improvement on abx she denies fevers or chills taking toradol and oxycodon 10mg 27/11 with minimal improvement in the pain. reports cough and breathing are better now. ok with stopping adderall--we discussed possible withdrawal side effects. added huidity to her oxygen supplementation today she has been up and walking but requires the oxygen still. Only with pneumonia one other time in her life. Tearful and wants to go home/feel better Review of Systems Review of Systems: All systems reviewed negative except as indicated above Physical Exam Physical Exam: CONSTITUTIONAL: obese, vitals as above, generally well-appearing, NAD EYES: normal conjunctivae, no scleral icterus ENT: external ear and nose normal, MMM NECK: trachea midline RESPIRATORY: clear to auscultation bilaterally, no crackles, rales or wheezes, normal respiratory effort but painful inspiration limiting her diaphragmatic excursion CARDIOVASCULAR: regular rate and rhythm, S1 and 2 heard without murmurs, gallops or rubs, no JVD, no peripheral edema CHEST: inspection of chest was normal GASTROINTESTINAL: soft, nontender,ND, no guarding MUSCULOSKELETAL: strength 5/5 throughout, head is normocephalic and atraumatic, some chest wall TTP anteriorly SKIN: warm and dry NEUROLOGIC: CN 2-12 grossly intact, no sensory deficit, normal cognition, normal speech, no tremor PSYCHIATRIC: alert cooperative and oriented to person, place and time. Euthymic mood, makes good eye contact, language grossly intact, recent and remote memory grossly intact. Results & Data Results & Data Vital Signs (Past 12 Hours) Vital Signs Temp Pulse Pulse Resp BP Pulse Ox O2 Del Method 11/20/22 11:04 36.4 C L 106 H 18 103/68 96 Nasal Cannula 11/20/22 09:00 Nasal Cannula 11/20/22 07:36 36.5 C 106 H 18 102/48 L 97 Nasal Cannula 11/20/22 07:00 106 H 11/20/22 03:28 36.6 C 108 H 16 109/72 96 Room Air O2 Flow Rate 11/20/22 11:04 2 11/20/22 09:00 4 11/20/22 07:36 2 11/20/22 07:00 11/20/22 03:28 Laboratory Results Short CBC 11/20/22 Range/Units 06:25 WBC 7.04 (4.8-10.8) K/ul Hgb 10.7 L (12.0-16.0) g/dl Hct 35.2 L (37.0-47.0) % Plt Count 412 H (130-400) K/uL BMP 11/20/22 06:25 Sodium 137 Potassium 4.2 Chloride 104 Carbon Dioxide 23 BUN 9 Creatinine 0.75 Glucose 102 H Calcium 9.8 Liver Function 11/20/22 Range/Units 06:25 Total Bilirubin 2.1 H (0.2-1.0) mg/dl AST 147 H (13-39) U/L ALT 183 H (7-52) U/L Alkaline Phosphatase 108 H (34-104) U/L Albumin 4.5 (3.4-5.0) gm/dl Medications Administered Current Inpatient Medications Acetaminophen (Acetaminophen 500 Mg Tab) 1,000 mg PO Q8H PRN PRN Reason: Pain or Fever Stop: 12/17/22 12:58 Last Admin: 11/20/22 11:25 Dose: 1,000 mg Al Hydrox/Mg Hydrox/Simethicone (Aluminum/Magnesium Susp 30 Ml Udc) 15 ml PO Q6H PRN PRN Reason: Chest Pain Stop: 12/19/22 21:10 Amphetamine/Dextroamphetamine (Amphetamine Asp/Sulf/Dextramph 10 Mg Tab) 10 mg PO DAILY@1400 [facility] Stop: 12/01/22 13:59 Last Admin: 11/19/22 14:15 Dose: 10 mg Amphetamine/Dextroamphetamine (Amphetamine Asp/Sulf/Dextramph Er 20 Mg Cap) 20 mg PO QAM [facility] Stop: 12/01/22 08:59 Last Admin: 11/20/22 07:53 Dose: 20 mg Aripiprazole (A[facility]ip[facility]ole 10 Mg Tab) [facility] Stop: 12/17/22 08:59 Last Admin: 11/20/22 07:47 Dose: 10 mg Clonazepam (Clonazepam 1 Mg Tab) 1 mg PO TID PRN PRN Reason: Anxiety Stop: 12/17/22 04:21 Last Admin: 11/19/22 19:54 Dose: 1 mg Docusate Sodium (Docusate Sodium 100 Mg Cap) 100 mg PO BID [facility] Stop: 12/19/22 08:59 Last Admin: 11/20/22 07:46 Dose: 100 mg Doxycycline Hyclate (Doxycycline Hyclate 100 Mg Cap) 100 mg PO BID [facility] Stop: 11/24/22 20:59 Last Admin: 11/20/22 07:46 Dose: 100 mg Enoxaparin Sodium (Enoxaparin Inj 40 Mg/0.4 Ml Syr) 40 mg SQ QAM [facility] Stop: 12/17/22 08:59 Last Admin: 11/20/22 07:46 Dose: 40 mg Fluoxetine HCl (Fluoxetine Hcl 20 Mg Cap) 80 mg PO QAM [facility] Stop: 12/17/22 08:59 Last Admin: 11/20/22 07:46 Dose: 80 mg Promethazine HCl 12.5 mg/ (Sodium Chloride) 50.5 mls @ 202 mls/hr IV Q6H PRN PRN Reason: Nausea And Vomiting Stop: 12/17/22 01:56 Piperacillin Sod/Tazobactam (Sod 4.5 gm/ Dextrose) 120 mls @ 30 mls/hr IV Q8H [facility]; Protocol Stop: 11/26/22 03:59 Last Admin: 11/20/22 13:21 Dose: 30 mls/hr Ibuprofen (Ibuprofen 800 Mg Tab) 800 mg PO NOW STA Stop: 11/20/22 15:15 Ibuprofen (Ibuprofen 800 Mg Tab) 800 mg PO TID [facility] Stop: 12/20/22 20:59 Lamotrigine (Lamotrigine 100 Mg Tab) 100 mg PO QAM [facility] Stop: 12/17/22 08:59 Last Admin: 11/20/22 07:46 Dose: 100 mg Lamotrigine (Lamotrigine 25 Mg Tab) 50 mg PO QAM [facility] Stop: 12/17/22 08:59 Last Admin: 11/20/22 07:47 Dose: 50 mg Levothyroxine Sodium (Levothyroxine Sodium 50 Mcg Tablet) 50 mcg PO DAILYBB [facility] Stop: 12/17/22 06:29 Last Admin: 11/20/22 05:04 Dose: 50 mcg Oxycodone HCl (Oxycodone Hcl Ir 5 Mg Tab (Immediate Release)) 5 - 10 mg PO QID PRN PRN Reason: Severe Pain (Scale 7, 8, 9,10) Stop: 12/01/22 01:56 Last Admin: 11/20/22 14:06 Dose: 10 mg Polyethylene Glycol (Polyethylene (Miralax) 17 Gm Pack) 17 gm PO DAILY PRN PRN Reason: Constipation Stop: 12/18/22 21:37 Prazosin HCl (Prazosin Hcl 1 Mg Cap) 1 mg PO HS [facility] Stop: 12/17/22 20:59 Last Admin: 11/19/22 19:54 Dose: 1 mg Temazepam (Temazepam 15 Mg Capsule) 30 mg PO HS [facility] Stop: 12/17/22 20:59 Last Admin: 11/19/22 20:00 Dose: 30 mg
--- NOTE | 2022-11-20 16:55 | Pulmonary Consultation ---
Date of Consultation November 20, 2022 Assessment & Plan (1) Acute respiratory failure with hypoxia: (2) Dyspnea: (3) Chest pain: (4) Diaphragm paralysis: Plan Impression: 32-year-old female with multiple medical comorbidities but no prior pulmonary history presents for evaluation of shortness of breath which is subacute in onset. Her CT scan showed no evidence of PE but did show some patchy parenchymal infiltrates with bilateral pleural effusions. Echocardiogram was unrevealing. She does have elevation of diaphragm dysfunction with what appears to be an elevated right hemidiaphragm which was new compared to x-rays from 2021. She has been treated with antibiotics without significant improvement. I am not suspicious of an infectious etiology. Recommendations: 1. Elevation hemidiaphragm: Recommend the patient undergo sniff test. If abnormal, this would confirm the diagnosis of diaphragmatic dysfunction. Typically unilateral diaphragm dysfunction is well-tolerated and does not require any intervention. Outpatient polysomnography to see whether the patient would require CPAP may be appropriate. 2. Shortness of breath: Suspect related to #1. Body habitus could also be contributing. Outpatient PFTs recommended. 3. Hypoxemia: Patient did have some mild pulmonary infiltrates on presentation which have resolved. I do not see an indication for broad-spectrum antipseudomonal antibiotics at this point in time so would recommend de- escalating down to doxycycline or azithromycin and completing a 5-day course. No indication for steroids or additional interventions. 4. Incentive spirometry and out of bed to chair as much as tolerated recommended. 5. Chest discomfort: Unclear etiology. Do not see a pulmonary correlate for this. Additional evaluation per the primary service. We will follow-up with the sniff study in the morning. If the patient's oxygen requirement remains resolved, she can likely be dismissed from the hospital. History of Present Illness Attending Physician: Nhung Rodriguez, History of Present Illness Asked by hospitalist to assist in evaluation management this patient admitted with chest pain shortness of breath and hypoxemic respiratory failure. History is obtained from discussion with the patient as well as review the electronic medical record. The patient is a 32-year-old female lifelong non-smoker without significant pulmonary disease. She presented to the hospital 11/17/2022 with complaints of shortness of breath. EMS reported that her oxygen saturations were quite low. The patient is recovering from an ankle fusion performed last week. She has had a dry nonproductive cough. She is a lifelong non-smoker and has not had any significant inhalational exposures. She does have some substernal chest discomfort as well. She was admitted to the hospital with a presumptive diagnosis of multifocal pneumonia despite the fact that her procalcitonin was normal. She has been on broad-spectrum antibiotics which have been expanded to Zosyn and doxycycline despite the fact that she has not had fevers or elevation in her white blood cell count. Pulmonary was consulted for additional management. The patient relates no prior history of asthma. She does not use inhalers at home. She is never been prescribed supplemental oxygen. She is never undergone PFTs. She is unaware of a diagnosis of diaphragmatic paralysis. She does not use CPAP. She is never had a sleep study performed. Allergies Allergy/AdvReac Type Severity Reaction Status Date / Time cortisone Allergy Hives over Verified 11/16/22 23:57 whole body, and swelling at injection site nicotine AdvReac Severe nasal Verified 11/16/22 23:57 congestion, sob, coughing bee venom protein (honey bee) AdvReac Intermediate Headache, Verified 11/16/22 23:57 faint lactose AdvReac Intermediate Gastrointestinal Verified 11/16/22 23:57 Upset Home Medications Medication Instructions Recorded Confirmed Type aripiprazole 10 mg tablet 10 mg PO QAM 06/11/20 11/16/22 History lamotrigine 150 mg tablet 150 mg PO QAM 02/01/21 11/17/22 History lithium carbonate 300 mg capsule 300 - 600 mg PO UD 07/04/21 11/17/22 History dextroamphetamine-amphetamine 10 10 mg PO QPM 11/10/21 11/16/22 History mg tablet dextroamphetamine-amphetamine ER 20 mg PO QAM 11/10/21 11/16/22 History 20 mg 24hr capsule,extend release prazosin 1 mg capsule 1 mg PO HS 11/30/21 11/17/22 History clonazepam 1 mg tablet 1 mg PO TID PRN Anxiety 05/15/22 11/16/22 History fluoxetine 40 mg capsule 80 mg PO QAM 05/15/22 11/16/22 History temazepam 30 mg capsule 30 mg PO HS 05/15/22 11/17/22 History oxycodone 5 mg tablet 5 - 10 mg PO Q6H PRN pain #5 tabs 09/14/22 11/17/22 Rx Patient History Medical History ADHD Anxiety with depression Bipolar disorder Chronic anemia Fluctuating hgbs with baseline 11-13 range per chart review Concussion ~ 6 concussions total over the last 30 years Last concussion 06/2021 r/t wooden shelf fell from above patient's bed Cystic fibrosis carrier History of COVID-19 Fall 2019 > loss of taste and smell, cough fever, muscle pain and fatigue, wheezing, SOB Residual altered taste/smell Hyponatremia Mitral valve prolapse Dx as child Normal MV with trace MR, no MV stenosis per 06/2020 echo Morbid obesity Neurofibromatosis, type 1 Diagnosed 2018 found after daughter was having medical issues that led to patient having genetic testing which resulted in the diagnosis, "no issues" per patient PCOS (polycystic ovarian syndrome) Surgical History H/O section 2011, 2014, 2018 History of ankle surgery Left 09/[address] Charles History of ankle surgery left ankle ligament reconstruction and left ankle fusion at [facility] (08/2021) History of appendectomy History of bilateral tubal ligation with History of esophagogastroduodenoscopy (EGD) at age 6 (dxd of lactose intolerance) Hx laparoscopic cholecystectomy Laparoscopic Cholecystectomy (11/22/21): Grade 1 view, Thomas#2, ETT 7.0 at [facility] S/P reconstruction of ligament of knee right knee 2018 [place] teeth removed 2008 Family History Mother Diabetes Other No family history of adverse response to anesthesia No significant family history Social History Smoking Status: Never smoker Second Hand Exposure: No; Do You Dip or Chew Tobacco: No; Tobacco Cessation Education Requested by Patient: No Hx Alcohol Use: No Hx Substance Use: No Preferred Language: Malay Communication Ability: Effective Visual Impairment: No Limitations Hearing Ability: Normal [employer] Required: No Beliefs That Will Affect Care: None marital status: Current Living Situation: Spouse and Family Current Living Situation Comment: Lives with and x4 children current occupational status: unemployed How many Children do You have: 4 Other Information That Helps Us Care for You: No Feels Safe at Home: Yes Safety Concerns: Feels Safe At This Time during the past year weight has: remained stable Assistive Devices: None Review of Systems Review of Systems: Please refer to hospitalist notes. No additions or deletions Physical Exam Constitutional: WD/WN, vitals as above Neck: trachea midline, no thyromegaly Respiratory: no respiratory distress, no labored breathing, no cough and not tachypneic Auscultation: + diminished lung sounds Decreased breath sounds with dullness to percussion the right lung base Cardiovascular: RRR, no murmur, no edema Gastrointestinal (Abdomen): normal bowel sounds, soft, nontender, no hepatosplenomegaly Musculoskeletal: Extremities: extremities normal to inspection Skin: no rashes, warm and dry Neurologic: Nonfocal exam Lymphatic: no cervical lymphadenopathy Results & Data Results & Data Vital Signs (Past 12 Hours) Vital Signs Temp Pulse Pulse Resp BP Pulse Ox O2 Del Method 11/20/22 15:00 94 H 11/20/22 15:22 36.4 C L 92 H 18 120/82 96 Room Air 11/20/22 11:04 36.4 C L 106 H 18 103/68 96 Nasal Cannula 11/20/22 09:00 Nasal Cannula 11/20/22 07:36 36.5 C 106 H 18 102/48 L 97 Nasal Cannula 11/20/22 07:00 106 H O2 Flow Rate 11/20/22 15:00 11/20/22 15:22 11/20/22 11:04 2 11/20/22 09:00 4 11/20/22 07:36 2 11/20/22 07:00 Critical Care Results & Data Vital Signs (Past 12 Hours) Vital Signs Temp Pulse Pulse Resp BP Pulse Ox O2 Del Method 11/20/22 15:00 94 H 11/20/22 15:22 36.4 C L 92 H 18 120/82 96 Room Air 11/20/22 11:04 36.4 C L 106 H 18 103/68 96 Nasal Cannula 11/20/22 09:00 Nasal Cannula 11/20/22 07:36 36.5 C 106 H 18 102/48 L 97 Nasal Cannula 11/20/22 07:00 106 H O2 Flow Rate 11/20/22 15:00 11/20/22 15:22 11/20/22 11:04 2 11/20/22 09:00 4 11/20/22 07:36 2 11/20/22 07:00 Lab & Micro Results (Past 24 Hours) RBC 4.19 M/uL (4.20-5.40) L 11/20/22 WBC 7.04 K/ul (4.8-10.8) 11/20/22 Hgb 10.7 g/dl (12.0-16.0) L 11/20/22 Hct 35.2 % (37.0-47.0) L 11/20/22 MCV 84.0 fL (80.0-100.0) 11/20/22 MCH 25.5 pg (25.0-34.0) 11/20/22 MCHC 30.4 g/dL (32.0-36.0) L 11/20/22 RDW Standard Deviation 46.8 fL (36.4-46.3) H 11/20/22 RDW Coefficient of Variation 15.6 % (11.5-14.5) H 11/20/22 Plt Count 412 K/uL (130-400) H 11/20/22 MPV 9.4 fL (9.4-12.4) 11/20/22 Neutrophils (%) (Auto) 41.4 % 11/20/22 Lymphocytes (%) (Auto) 22.0 % 11/20/22 Monocytes # (Auto) 0.68 K/uL (0.11-0.59) H 11/20/22 Eosinophils # (Auto) 1.77 K/uL (0-0.50) H 11/20/22 Immature Granulocyte % (Auto) 0.4 % 11/20/22 Neutrophils # (Auto) 2.91 K/uL (1.40-6.50) 11/20/22 Lymphocytes # (Auto) 1.55 K/uL (1.2-3.4) 11/20/22 Monocytes # (Auto) 0.68 K/uL (0.11-0.59) H 11/20/22 Eosinophils # (Auto) 1.77 K/uL (0-0.50) H 11/20/22 Basophils # (Auto) 0.10 K/uL (0-0.2) 11/20/22 Immature Granulocyte # (Auto) 0.03 K/uL (0.01-0.20) 3 Na 137 mmol/L (136-145) 11/20/22 K 4.2 mmol/L (3.5-5.1) 11/20/22 Cl 104 mmol/L (98-107) 11/20/22 CO2 23 mmol/L (21-32) 11/20/22 Anion Gap 10 (3-11) 11/20/22 BUN 9 mg/dl (6-23) 11/20/22 Creatinine 0.75 mg/dl (0.6-1.2) 11/20/22 Estimated GFR ( Amer) 120.5 ml/min 11/20/22 Estimated GFR (Non-Af Amer) 104.0 ml/min 11/20/22 BUN/Creatinine Ratio 12.0 (10-20) 11/20/22 Glu 102 mg/dl (70-99(Fasting)) H 11/20/22 Ca 9.8 mg/dl (8.6-10.3) 11/20/22 Total Bilirubin 2.1 mg/dl (0.2-1.0) H 11/20/22 AST 147 U/L (13-39) H 11/20/22 ALT 183 U/L (7-52) H 11/20/22 Alkaline Phosphatase 108 U/L (34-104) H 11/20/22 TP 7.5 gm/dl (6.0-8.3) 11/20/22 Albumin 4.5 gm/dl (3.4-5.0) 11/20/22 Globulin 3.0 gm/dl (2.5-4.0) 11/20/22 Albumin/Globulin Ratio 1.5 (0.9-2) 11/20/22 Calcium Level 9.8 mg/dl (8.6-10.3) 11/20/22 06:25 Diagnostic Findings (Past 24 Hours) Abdomen Ultrasound 11/19/22 14:22 US abdomen limited CLINICAL HISTORY: transaminitis TECHNIQUE: Multiple real-time sonographic images of the right upper quadrant were obtained. Comparison: Comparison is made to CT abdomen pelvis 11/18/2022 FINDINGS: The liver is diffusely echogenic in appearance with poor ultrasound penetration, with normal contour, which is consistent with fatty infiltration. No focal mass lesions are seen. No intrahepatic ductal dilatation is seen. Patient is status post cholecystectomy. The common duct measures 0.4 cm in diameter at the level of the hepatic artery. The visualized portions of the pancreas appear normal. The right kidney shows normal echogenicity, cortical thickness and renal contour. The right kidney shows no evidence of hydronephrosis or mass. No ascites or free fluid is seen in Thompson's pouch. IMPRESSION: Hepatic steatosis. Otherwise no acute abnormality. ACT 112: Negative or not required by law. Electronically signed by: Dean Christopher M.D. 11/19/2022 11:00 PM I & O Totals 24 Hours 11/19/22 11/20/22 11/21/22 06:59 06:59 06:59 Intake Total 860 / 860 1350 / 1350 600 / 600 Balance 860 / 860 1350 / 1350 600 / 600 Cumulative 11/16/22 21:23 thru 11/20/22 14:00 Intake Total 4228.333 Balance 4228.333 RT Ventilator Mngmt (Last Documented) Ventilator Ordered Settings Respiratory Rate 18 11/20/22 15:22 Ventilator - PT Measurements Respiratory Rate 18 PG Care Time/CCT Total # of Minutes Spent Total Time Spent with Patient: Total time spent is greater than 50% in coordination of care (as documented) at patient's floor/unit and/or counseling patient: Coding Level of Care Code 31908 IN/OBS CONSULT LVL 4,60M Diagnoses Acute respiratory failure with hypoxia J96.01 Dyspnea R06.00 Chest pain R07.9 Diaphragm paralysis J98.6
--- NOTE | 2022-11-20 17:19 | XRay Report ---
XR chest 1V portable HISTORY: Atypical chest pain COMPARISON: Chest 11/18/2022. FINDINGS: There are low lung volumes with chronic elevation of the right hemidiaphragm. No pneumothor ax. Trace bilateral pleural effusions have improved. The cardiac silhouette remains mildly enlarged. The pulmonary vascular congestion has improved/resolved. Right basilar linear densities persist. This favors subsegmental atelectasis. No new focal lung consolidations identified. No acute fractures. IMPRESSION: 1. No change in the elevated right hemidiaphragm and right basilar linear densities. 2. Interval improvement/resolution of the pulmonary vascular congestion and trace pleural effusions. ACT 112: Negative or not required by law. Electronically signed by: Дмитрий Carr M.D. 11/20/2022 5:17 PM
[2022-11-20] MEDS: IBUPROFEN 800 MG TAB PO SCH (19:29)
[2022-11-20] MEDS: PRAZOSIN HCL 1 MG CAP PO SCH (19:31)
[2022-11-20] MEDS: clonazePAM 1 MG TAB PO PRN (19:34)
[2022-11-20] MEDS: TEMAZEPAM 15 MG CAPSULE PO SCH (19:35)
[2022-11-21] MEDS: LEVOTHYROXINE SODIUM 50 MCG TABLET PO SCH (05:32)
[2022-11-21] MEDS: oxyCODONE HCL IR 5 MG TAB (IMMEDIATE RELEASE) PO PRN ×3 (07:51→23:12)
[2022-11-21] MEDS: clonazePAM 1 MG TAB PO PRN ×2 (07:51→20:55)
[2022-11-21] MEDS: DOXYCYCLINE HYCLATE 100 MG CAP PO SCH ×2 (07:52→20:54)
[2022-11-21] MEDS: DOCUSATE SODIUM 100 MG CAP PO SCH ×2 (07:52→20:53)
[2022-11-21] MEDS: ARIPiprazole 10 MG TAB PO SCH (07:52)
[2022-11-21] MEDS: ENOXAPARIN INJ 40 MG/0.4 ML SYR SQ SCH (07:52)
[2022-11-21] MEDS: lamoTRIgine 100 MG TAB PO SCH (07:53)
[2022-11-21] MEDS: FLUoxetine HCL 20 MG CAP PO SCH (07:53)
[2022-11-21] MEDS: lamoTRIgine 25 MG TAB PO SCH (07:53)
[2022-11-21] MEDS: IBUPROFEN 800 MG TAB PO SCH ×3 (07:53→20:53)
[2022-11-21 08:05] LABS: Basophils # (auto) 0.09 K/uL (0-0.2); Basophils % (auto) 1.5 %; Eosinophils % (auto) 26.4 %; Hematocrit (blood only) 35.1 % (37.0-47.0); Hemoglobin 10.7 g/dl (12.0-16.0); Immature Granulocytes # (auto) 0.02 K/uL (0.01-0.20); Immature Granulocytes % (auto) 0.3 %; Lymphocytes # (auto) 1.39 K/uL (1.2-3.4); Mean Corpuscular Hemoglobin 25.9 pg (25.0-34.0); Mean Corpuscular Hgb Conc 30.5 g/dL (32.0-36.0); Mean Platelet Volume 9.4 fL (9.4-12.4); Monocytes # (auto) 0.55 K/uL (0.11-0.59); Monocytes % (auto) 9.1 %; Neutrophils % (auto) 39.7 %; Platelet Count 383 K/uL (130-400); RDW Coefficient of Variation 15.4 % (11.5-14.5); RDW Standard Deviation 46.6 fL (36.4-46.3); Red Blood Count 4.13 M/uL (4.20-5.40); White Blood Count 6.05 K/ul (4.8-10.8)
[2022-11-21 08:23] LABS: Albumin Globulin Ratio 1.5 (0.9-2); Albumin Level 4.2 gm/dl (3.4-5.0); BUN Creatinine Ratio 13.8 (10-20); Bilirubin,Total 1.8 mg/dl (0.2-1.0); Calcium 9.5 mg/dl (8.6-10.3); Creatinine Clr Calc Pharmacy 149.9 ml/min; Est GFR (African American) 139.4 ml/min; Est GFR (Non-African American) 120.3 ml/min; Globulin 2.8 gm/dl (2.5-4.0); Potassium 3.8 mmol/L (3.5-5.1)
--- NOTE | 2022-11-21 09:04 | Pulmonology Progress Note ---
Date of Service November 21, 2022 Assessment & Plan (1) Acute respiratory failure with hypoxia: (2) Dyspnea: (3) Chest pain: (4) Diaphragm paralysis: Plan Impression: 32-year-old female with multiple medical comorbidities but no prior pulmonary history presents for evaluation of shortness of breath which is subacute in onset. Her CT scan showed no evidence of PE but did show some patchy parenchymal infiltrates with bilateral pleural effusions. Echocardiogram was unrevealing. She does have elevation of diaphragm dysfunction with what appears to be an elevated right hemidiaphragm which was new compared to x-rays from 2021. She has been treated with antibiotics without significant improvement. I am not suspicious of an infectious etiology. Recommendations: 1. Elevation hemidiaphragm: We will follow-up on the sniff test which is scheduled to be performed later this morning. We will follow-up on that study. 2. Shortness of breath: Suspect related to #1. Body habitus could also be contributing. Pain in the LEFT lower extremity after surgical intervention is also likely contributing per my conversation with the patient. Outpatient PFTs recommended. 3. Hypoxemia: Patient did have some mild pulmonary infiltrates on presentation which have resolved. Continue completion of Doxycycline. No indication for steroids or additional interventions. 4. Incentive spirometry and out of bed to chair as much as tolerated recommended. 5. Chest discomfort: Unclear etiology. Do not see a pulmonary correlate for this. Additional evaluation per the primary service. 6. Daytime drowsiness: Patient complains of waking in the night with gasping occasionally. She has excessive daytime drowsiness. She reports that she does not drive as she has nearly fell asleep at the wheel. Patient warrants outpatient polysomnography. I did discuss this with her and she understands the utility of this study. Thank you for allowing us to participate in the care of this patient. Admission and Anticipated Discharge Date Admission Date: November 17, 2022 Subjective Patient was seen and evaluated bedside. She reports some persistent pain to the LEFT leg from prior surgery. She states that her breathing is seem to improve overall. She has not been out of bed to this point. She has a sniff test pending for later today. Review of Systems Review of Systems: Unchanged from prior Physical Exam Physical Exam: VITAL SIGNS - Vital signs and nursing notes were reviewed. GENERAL - 32-year-old female appearing her stated age who is in no acute distress. Communicates well with provider and answers questions appropriately. LUNGS - Auscultation reveals clear breath sounds without wheezes, rales, or rhonchi. CARDIAC - RRR with S1/S2. No murmur, rubs, or gallops appreciated. EXTREMITIES - Casting/dressing in place to the LEFT lower extremity. No pretibial edema present. PSYCH - A&Ox3 and cooperates fully with examiner. Pt is very pleasant and interacts well with examiner. Results & Data Results & Data Vital Signs (Past 12 Hours) Vital Signs Temp Pulse Pulse Resp BP Pulse Ox O2 Del Method 11/21/22 08:03 36.6 C 103 H 18 126/80 96 Room Air 11/21/22 07:34 93 H 11/21/22 03:06 36.6 C 89 18 123/65 97 Nasal Cannula 11/20/22 22:11 81 11/20/22 23:07 36.6 C 79 18 112/74 97 Room Air O2 Flow Rate 11/21/22 08:03 11/21/22 07:34 11/21/22 03:06 2 11/20/22 22:11 11/20/22 23:07 PG Care Time/CCT Total # of Minutes Spent Total Time Spent with Patient: Total time spent is greater than 50% in coordination of care (as documented) at patient's floor/unit and/or counseling patient: Coding Level of Care Code 44190 SUB INP/OBS CARE 2/35MIN Diagnoses Acute respiratory failure with hypoxia J96.01 Dyspnea R06.00 Chest pain R07.9 Diaphragm paralysis J98.6
--- NOTE | 2022-11-21 11:44 | Fluoroscopy Report ---
[place] sniff test CLINICAL HISTORY: Questionable right diaphragm paralysis COMPARISON STUDY: Chest CT November 16, 2022. FLUOROSCOPY TIME: 26 seconds Ka,r: 3.57 mGy FINDINGS: Moderate elevation of the right hemidiaphragm is noted. There is normal excursion of the le ft hemidiaphragm. There is diminished motion of the right hemidiaphragm with suspected paradoxical mo tion. 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 IMPRESSION: Elevated right hemidiaphragm with suspected paradoxical motion. 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 ACT 112: Negative or not required by law. Electronically signed by: Jose Miguel Wills M.D. 11/21/2022 11:43 AM
[2022-11-21] MEDS: HYDROmorphone INJ 0.5 MG/0.5 ML SYR IV PRN ×2 (12:18→20:56)
--- NOTE | 2022-11-21 12:43 | Hospitalist Progress Note ---
Date of Service November 21, 2022 Assessment & Plan (1) Acute respiratory failure with hypoxia: (2) Multifocal pneumonia: (3) Anxiety with depression: (4) Bipolar disorder: (5) Morbid obesity: Plan Pt is a 32yoF admitted with a pneumonia and persistent chest pain. Acute Respiratory failure/Pneumonia/Chest pain Pt with persistent chest pain radiating to her back likely 2/2 pleurisy. Consider reimaging to ensure no complications of pneumonia, but will hold off for now with some improvement today and no persistent respiratory symptoms or fever. No PE on chest CTA, echo WNL, troponin NL and no evidence of ACS. 11/17 given cefepime/doxy, then 11/18 started zosyn, de-escalated to doxycycline on 11/20 Sniff test positive indicating possible injury to phrenic nerve. Pulm following results with patient who is two weeks post op. Cont Motrin. oxycodone, dilaudid IV Pain management consult. Would need a 2 step prior to discharge home, possibly tomorrow if she is feeling better with respect to pain. Transaminitis Declining. She is acutely ill with hepatic steatosis on us which may be the cause no evidence of biliary obstruction medications/abx may also be contributing, Repeat hepatic panel as outpatient in 2-4 weeks to ensure complete resolution. Mood chronic, stable. Adderall stopped this admission and would discontinue at discharge. Morbid Obesity: wt loss recommended. Full code DVT prophylaxis: on Lovenox SQ Dispo: to home when pain and oxygen needs have improved. Nhung Rodriguez DO [facility] Hospitalist Admission and Anticipated Discharge Date Admission Date: November 17, 2022 Subjective 32 yo F presents with acute shortness of breath and severe substernal chest pain that is worse with deep inspiration pleurisy present and is the same with some improvement she is requiring dilaudid IV to get some relief but was able to sleep and appears better. SNIFF test this am with paralyzed right hemidiaphragm she is two weeks postop Adderall has been stopped. Review of Systems Review of Systems: All systems reviewed negative except as indicated above Physical Exam Physical Exam: CONSTITUTIONAL: obese, vitals as above, generally well-appearing, NAD EYES: normal conjunctivae, no scleral icterus ENT: external ear and nose normal, MMM NECK: trachea midline RESPIRATORY: clear to auscultation bilaterally, no crackles, rales or wheezes, normal respiratory effort but painful inspiration limiting her diaphragmatic excursion-this is improved today CARDIOVASCULAR: regular rate and rhythm, S1 and 2 heard without murmurs, gallops or rubs, no JVD, no peripheral edema CHEST: inspection of chest was normal GASTROINTESTINAL: soft, nontender,ND, no guarding MUSCULOSKELETAL: strength 5/5 throughout, head is normocephalic and atraumatic, some chest wall TTP anteriorly SKIN: warm and dry NEUROLOGIC: CN 2-12 grossly intact, no sensory deficit, normal cognition, normal speech, no tremor PSYCHIATRIC: alert cooperative and oriented to person, place and time. Euthymic mood, makes good eye contact, language grossly intact, recent and remote memory grossly intact. Results & Data Results & Data Vital Signs (Past 12 Hours) Vital Signs Temp Pulse Pulse Resp BP Pulse Ox O2 Del Method 11/21/22 11:28 36.7 C 121 H 18 135/84 97 Nasal Cannula 11/21/22 08:00 Nasal Cannula 11/21/22 08:03 36.6 C 103 H 18 126/80 96 Room Air 11/21/22 07:34 93 H 11/21/22 03:06 36.6 C 89 18 123/65 97 Nasal Cannula O2 Flow Rate 11/21/22 11:28 2 11/21/22 08:00 2 11/21/22 08:03 11/21/22 07:34 11/21/22 03:06 2 Laboratory Results Short CBC 11/21/22 Range/Units 07:29 WBC 6.05 (4.8-10.8) K/ul Hgb 10.7 L (12.0-16.0) g/dl Hct 35.1 L (37.0-47.0) % Plt Count 383 (130-400) K/uL BMP 11/21/22 07:29 Sodium 137 Potassium 3.8 Chloride 106 Carbon Dioxide 20 L BUN 8 Creatinine 0.58 L Glucose 111 H Calcium 9.5 Liver Function 11/21/22 Range/Units 07:29 Total Bilirubin 1.8 H (0.2-1.0) mg/dl AST 95 H (13-39) U/L ALT 139 H (7-52) U/L Alkaline Phosphatase 94 (34-104) U/L Albumin 4.2 (3.4-5.0) gm/dl Diagnostic Findings Chest Fluoroscopy 11/21/22 11:00 [place] sniff test CLINICAL HISTORY: Questionable right diaphragm paralysis COMPARISON STUDY: Chest CT November 16, 2022. FLUOROSCOPY TIME: 26 seconds Ka,r: 3.57 mGy FINDINGS: Moderate elevation of the right hemidiaphragm is noted. There is normal excursion of the left hemidiaphragm. There is diminished motion of the right hemidiaphragm with suspected paradoxical motion. 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 IMPRESSION: Elevated right hemidiaphragm with suspected paradoxical motion. 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 ACT 112: Negative or not required by law. Electronically signed by: Jose Miguel Wills M.D. 11/21/2022 11:43 AM Medications Administered Current Inpatient Medications Acetaminophen (Acetaminophen 500 Mg Tab) 1,000 mg PO Q8H PRN PRN Reason: Pain or Fever Stop: 12/17/22 12:58 Last Admin: 11/20/22 11:25 Dose: 1,000 mg Al Hydrox/Mg Hydrox/Simethicone (Aluminum/Magnesium Susp 30 Ml Udc) 15 ml PO Q6H PRN PRN Reason: Chest Pain Stop: 12/19/22 21:10 Aripiprazole (Aripiprazole 10 Mg Tab) 10 mg PO QAM [facility] Stop: 12/17/22 08:59 Last Admin: 11/21/22 07:52 Dose: 10 mg Clonazepam (Clonazepam 1 Mg Tab) 1 mg PO TID PRN PRN Reason: Anxiety Stop: 12/17/22 04:21 Last Admin: 11/21/22 07:51 Dose: 1 mg Docusate Sodium (Docusate Sodium 100 Mg Cap) 100 mg PO BID [facility]IS[facility] Stop: 12/19/22 08:59 Last Admin: 11/21/22 07:52 Dose: 100 mg Doxycycline Hyclate (Doxycycline Hyclate 100 Mg Cap) 100 mg PO BID [facility] Stop: 11/24/22 20:59 Last Admin: 11/21/22 07:52 Dose: 100 mg Enoxaparin Sodium (Enoxaparin Inj 40 Mg/0.4 Ml Syr) 40 mg SQ QAM [facility]ISSY Stop: 12/17/22 08:59 Last Admin: 11/21/22 07:52 Dose: 40 mg Fluoxetine HCl (Fluoxetine Hcl 20 Mg Cap) 80 mg PO QAM [facility] Stop: 12/17/22 08:59 Last Admin: 11/21/22 07:53 Dose: 80 mg Hydromorphone HCl (Hydromorphone Inj 0.5 Mg/0.5 Ml Syr) 0.5 mg IV Q6H PRN PRN Reason: Pain Stop: 12/05/22 11:56 Last Admin: 11/21/22 12:18 Dose: 0.5 mg Promethazine HCl 12.5 mg/ (Sodium Chloride) 50.5 mls @ 202 mls/hr IV Q6H PRN PRN Reason: Nausea And Vomiting Stop: 12/17/22 01:56 Ibuprofen (Ibuprofen 800 Mg Tab) 800 mg PO TID [facility] Stop: 12/20/22 20:59 Last Admin: 11/21/22 07:53 Dose: 800 mg [facility]otrigine (Lamotrigine 100 Mg Tab) [facility] Stop: 12/17/22 08:59 Last Admin: 11/21/22 07:53 Dose: 100 mg Lamotrigine (Lamotrigine 25 Mg Tab) 50 mg PO [facility] Stop: 12/17/22 08:59 Last Admin: 11/21/22 07:53 Dose: 50 mg Levothyroxine Sodium (Levothyroxine Sodium 50 Mcg Tablet) [facility] Stop: 12/17/22 06:29 Last Admin: 11/21/22 05:32 Dose: 50 mcg Oxycodone HCl (Oxycodone Hcl Ir 5 Mg Tab (Immediate Release)) 5 - 10 mg PO QID PRN PRN Reason: Severe Pain (Scale 7, 8, 9,10) Stop: 12/01/22 01:56 Last Admin: 11/21/22 07:51 Dose: 10 mg Polyethylene Glycol (Polyethylene (Miralax) 17 Gm Pack) 17 gm PO DAILY PRN PRN Reason: Constipation Stop: 12/18/22 21:37 Prazosin HCl (Prazosin Hcl 1 Mg Cap) 1 mg PO [facility] Stop: 12/17/22 20:59 Last Admin: 11/20/22 19:31 Dose: 1 mg Temazepam (Temazepam 15 Mg Capsule) 30 mg PO [facility] Stop: 12/17/22 20:59 Last Admin: 11/20/22 19:35 Dose: 30 mg
[2022-11-21] MEDS: PRAZOSIN HCL 1 MG CAP PO SCH (20:55)
[2022-11-21] MEDS ORDERED: LITHIUM CARBONATE 300 MG TAB PO SCH (21:00)
[2022-11-21] MEDS: TEMAZEPAM 15 MG CAPSULE PO SCH (21:03)
[2022-11-21] MEDS ORDERED: NITROGLYCERIN SL 0.4 MG/TAB TAB SL STA (22:48)
[2022-11-21] MEDS ORDERED: NITROGLYCERIN SL 0.4 MG/TAB TAB ONE (22:54)
[2022-11-21 23:57] LABS: Partial Thromboplastin Time 28.8 Seconds (21.0-31.0)
[2022-11-22] MEDS: LEVOTHYROXINE SODIUM 50 MCG TABLET PO SCH (05:32)
[2022-11-22] MEDS: lamoTRIgine 100 MG TAB PO SCH (08:34)
[2022-11-22] MEDS: lamoTRIgine 25 MG TAB PO SCH (08:34)
[2022-11-22] MEDS: FLUoxetine HCL 20 MG CAP PO SCH (08:34)
[2022-11-22] MEDS: ARIPiprazole 10 MG TAB PO SCH (08:34)
[2022-11-22] MEDS: DOCUSATE SODIUM 100 MG CAP PO SCH (08:35)
[2022-11-22] MEDS: oxyCODONE HCL IR 5 MG TAB (IMMEDIATE RELEASE) PO PRN (08:35)
[2022-11-22] MEDS: IBUPROFEN 800 MG TAB PO SCH (08:35)
[2022-11-22] MEDS: DOXYCYCLINE HYCLATE 100 MG CAP PO SCH (08:35)
[2022-11-22] MEDS: clonazePAM 1 MG TAB PO PRN (08:39)
[2022-11-22] MEDS: ENOXAPARIN INJ 40 MG/0.4 ML SYR SQ SCH (08:39)
[2022-11-22] MEDS ORDERED: LITHIUM CARBONATE 300 MG TAB PO SCH (09:00)
--- NOTE | 2022-11-22 09:04 | Pain Management Consultation ---
Date of Consultation November 22, 2022 Assessment & Plan (1) Morbid obesity: (2) Chest pain: Plan 1. Recommend the following for patient's diffuse chest wall pain: * Order CT scan of the chest to rule out rib fractures that could have occurred during transfers for the patient's surgery, especially considering patient's body habitus, which could contribute to difficulty during transfers. * Continue oxycodone IR 5 mg Q4-6H PRN pain * Patient stated that she was taking 100 mg of gabapentin once daily, so would increase this to a prescription for 300 mg TID * Consider inhaled corticosteroid breathing treatment vs. oral steroid taper * Consider switching ibuprofen to diclofenac 75 mg delayed release BID * Continue incentive spirometry as outpatient Thank you for this consultation. Pain management service will sign off at this time. History of Present Illness Reason for Consultation: chest pain Attending Physician: Nelda Cha MD History of Present Illness Patient is a 32-year-old female who presented to the [facility] emergency department on 11/16/2022 due to worsening shortness of breath. At that time, she was approximately 7 days status post left ankle surgery for removal of hardware and arthrodesis. Patient stated she noted that she was mildly more short of breath compared to normal with going up and down steps for the couple of days prior to presenting to the ED. However, on the day of her going to the hospital, she felt markedly more short of breath, even at rest. She stated she had some slightly central left-sided chest discomfort with it, but no overt pain. This discomfort was/is otherwise nonradiating. Patient denied history of asthma, COPD, and tobacco abuse. No history of heart problems.Patient states she checked her pulse ox at home and found anywhere from 77-88. She does not wear home supplemental oxygen. Case discussed with Dr. Dorene Vazquez. Allergies Allergy/AdvReac Type Severity Reaction Status Date / Time cortisone Allergy Hives over Verified 11/16/22 23:57 whole body, and swelling at injection site nicotine AdvReac Severe nasal Verified 11/16/22 23:57 congestion, sob, coughing bee venom protein (honey bee) AdvReac Intermediate Headache, Verified 11/16/22 23:57 faint lactose AdvReac Intermediate Gastrointestinal Verified 11/16/22 23:57 Upset Home Medications Medication Instructions Recorded Confirmed Type aripiprazole 10 mg tablet 10 mg PO QAM 06/11/20 11/16/22 History lamotrigine 150 mg tablet 150 mg PO QAM 02/01/21 11/17/22 History lithium carbonate 300 mg capsule 300 - 600 mg PO UD 07/04/21 11/17/22 History prazosin 1 mg capsule 1 mg PO HS 11/30/21 11/17/22 History clonazepam 1 mg tablet 1 mg PO TID PRN Anxiety 05/15/22 11/16/22 History fluoxetine 40 mg capsule 80 mg PO QAM 05/15/22 11/16/22 History temazepam 30 mg capsule 30 mg PO HS 05/15/22 11/17/22 History diclofenac sodium 75 mg 75 mg PO BID #60 tabs 11/22/22 Rx tablet,delayed release gabapentin 300 mg capsule 300 mg PO TID #90 caps 11/22/22 Rx levothyroxine 50 mcg tablet 50 mcg PO DAILYBB #30 tabs 11/22/22 Rx (Synthroid) Pain History Previous Imaging and Results Imaging: Chest X-Ray 11/16/22 22:25 XR chest 1V portable HISTORY: Shortness of breath. COMPARISON: Chest 11/10/2021. FINDINGS: There are low lung volumes with elevation the right hemidiaphragm. The heart is mildly enlarged. There are trace bilateral pleural effusions. No pneumothorax. Perihilar interstitial/vascular thickening consistent with pulmonary edema. There are hazy bilateral airspace opacities. This is likely due to the pulmonary edema. A superimposed pneumonia could also have a similar appearance. IMPRESSION: 1. Moderate pulmonary edema with small bilateral pleural effusions. 2. Bilateral hazy airspace opacities are nonspecific but likely due to the pulmonary edema. A superimposed pneumonia could also have a similar appearance. 3. Low lung volume with elevation of the right hemidiaphragm. ACT 112: Negative or not required by law. Electronically signed by: Дмитрий Carr M.D. 11/17/2022 8:08 AM Chest CTA 11/16/22 23:42 Exam(s): CTA CHEST IV Amt: 117 ML OPTIRAY 320 EXAM: CT Angiography Chest With Intravenous Contrast CLINICAL HISTORY: Reason for exam: PE. TECHNIQUE: Axial computed tomographic angiography images of the chest with intravenous contrast. CTDI is 28.14 mGy and DLP is 800.88 mGy-cm. Automated exposure control was utilized for the study. A dose lowering technique was utilized adhering to the principles of ALARA. MIP reconstructed images were created and reviewed. COMPARISON: No relevant prior studies available. FINDINGS: Pulmonary arteries: Unremarkable. No acute pulmonary embolism. Aorta: No acute findings. No thoracic aortic aneurysm. Lungs: Patchy bilateral airspace consolidations, concerning for multifocal pneumonia. Small bilateral pleural effusions. Pleural space: See above. Heart: Mild cardiomegaly. No significant pericardial effusion. No evidence of RV dysfunction. Bones/joints: No acute fracture. No dislocation. Soft tissues: Unremarkable. Lymph nodes: Unremarkable. No enlarged lymph nodes. Gallbladder and bile ducts: Cholecystectomy clips. IMPRESSION: 1. No acute pulmonary embolism. 2. Patchy bilateral airspace consolidations, concerning for multifocal pneumonia. Small bilateral pleural effusions. Electronically signed by: Otis Casillas MD 11/17/22 00:40 AM Chest X-Ray 11/18/22 13:03 XR chest 1V portable HISTORY: Shortness of breath. Tachycardia. COMPARISON: Chest CTA 11/16/2022. FINDINGS: Interval improvement in the mild interstitial pulmonary edema and small bilateral pleural effusions. The heart remains mildly enlarged. Bibasilar linear densities have also improved. There is persistent elevation the right hemidiaphragm. IMPRESSION: 1. Interval improvement in the pulmonary edema, small bilateral pleural effusions, and bibasilar densities. 2. Elevated right hemidiaphragm, unchanged. ACT 112: Negative or not required by law. Electronically signed by: Дмитрий Carr M.D. 11/18/2022 1:34 PM Abdomen/Pelvis CT 11/18/22 14:[address] WITH IV CONTRAST CT DOSE: 1556.80 mGy.cm HISTORY: cp rad to back, epigastric pain, transaminitis TECHNIQUE: Multiaxial CT images of the abdomen and pelvis were performed following the use of intravenous contrast. A dose lowering technique was utilized adhering to the principles of ALARA. COMPARISON STUDY: Chest CTA 11/16/2012. Abdomen and pelvis CT 01/30/2022. FINDINGS: Trace bilateral pleural effusions are again noted. Consolidative densities within the base the right lower lobe persist. There is elevation the right hemidiaphragm, unchanged. Patchy groundglass densities within the lung bases most pronounced on the left are again noted. No pneumoperitoneum. No pneumatosis. No acute fractures identified. The tiny fat-containing umbilical hernia. Small foci of subcutaneous gas within the right lower quadrant abdominal wall is likely due to prior medication injection. Cholecystectomy. The unenhanced liver, pancreas, spleen, adrenal glands, and kidneys are unremarkable. No hydronephrosis. No retroperitoneal lymphadenopathy. Normal caliber abdominal aorta. No pelvic free fluid or pelvic lymphadenopathy. The bladder, uterus, bilateral adnexa are unremarkable. No bowel wall thickening or obstruction. Prior appendectomy. Moderate fecal retention. IMPRESSION: 1. No bowel wall thickening or obstruction. 2. No hydronephrosis. 3. Cholecystectomy and appendectomy. 4. Bilateral airspace opacities and trace bilateral pleural effusions persist. This favors a multifocal pneumonia. ACT 112: Negative or not required by law. Electronically signed by: Дмитрий Carr M.D. 11/18/2022 9:23 PM Abdomen Ultrasound 11/19/22 14:22 US abdomen limited CLINICAL HISTORY: transaminitis TECHNIQUE: Multiple real-time sonographic images of the right upper quadrant were obtained. Comparison: Comparison is made to CT abdomen pelvis 11/18/2022 FINDINGS: The liver is diffusely echogenic in appearance with poor ultrasound penetration, with normal contour, which is consistent with fatty infiltration. No focal mass lesions are seen. No intrahepatic ductal dilatation is seen. Patient is status post cholecystectomy. The common duct measures 0.4 cm in diameter at the level of the hepatic artery. The visualized portions of the pancreas appear normal. The right kidney shows normal echogenicity, cortical thickness and renal contour. The right kidney shows no evidence of hydronephrosis or mass. No ascites or free fluid is seen in Thompson's pouch. IMPRESSION: Hepatic steatosis. Otherwise no acute abnormality. ACT 112: Negative or not required by law. Electronically signed by: Dean Christopher M.D. 11/19/2022 11:00 PM Chest X-Ray 11/20/22 15:30 XR chest 1V portable HISTORY: Atypical chest pain COMPARISON: Chest 11/18/2022. FINDINGS: There are low lung volumes with chronic elevation of the right hemidiaphragm. No pneumothorax. Trace bilateral pleural effusions have improved. The cardiac silhouette remains mildly enlarged. The pulmonary vascular congestion has improved/resolved. Right basilar linear densities persist. This favors subsegmental atelectasis. No new focal lung consolidations identified. No acute fractures. IMPRESSION: 1. No change in the elevated right hemidiaphragm and right basilar linear densities. 2. Interval improvement/resolution of the pulmonary vascular congestion and trace pleural effusions. ACT 112: Negative or not required by law. Electronically signed by: Дмитрий Carr M.D. 11/20/2022 5:17 PM Chest Fluoroscopy 11/21/22 11:00 [place] sniff test CLINICAL HISTORY: Questionable right diaphragm paralysis COMPARISON STUDY: Chest CT November 16, 2022. FLUOROSCOPY TIME: 26 seconds Ka,r: 3.57 mGy FINDINGS: Moderate elevation of the right hemidiaphragm is noted. There is normal excursion of the left hemidiaphragm. There is diminished motion of the right hemidiaphragm with suspected paradoxical motion. 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 IMPRESSION: Elevated right hemidiaphragm with suspected paradoxical motion. 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 ACT 112: Negative or not required by law. Electronically signed by: Jose Miguel Wills M.D. 11/21/2022 11:43 AM Patient History Medical History (Updated 11/20/22 @ 16:57 by Nhung Rodriguez DO) ADHD Anxiety with depression Bipolar disorder Chronic anemia Fluctuating hgbs with baseline 11-13 range per chart review Concussion ~ 6 concussions total over the last 30 years Last concussion 06/2021 r/t wooden shelf fell from above patient's bed Cystic fibrosis carrier History of COVID-19 Fall 2019 > loss of taste and smell, cough fever, muscle pain and fatigue, wheezing, SOB Residual altered taste/smell Hyponatremia Mitral valve prolapse Dx as child Normal MV with trace MR, no MV stenosis per 06/2020 echo Morbid obesity Neurofibromatosis, type 1 Diagnosed 2019 found after daughter was having medical issues that led to patient having genetic testing which resulted in the diagnosis, "no issues" per patient PCOS (polycystic ovarian syndrome) Surgical History H/O section 2011, 2015, 2019 History of ankle surgery Left 09/[address] Charles History of ankle surgery left ankle ligament reconstruction and left ankle fusion at [facility] (08/2021) History of appendectomy History of bilateral tubal ligation with History of esophagogastroduodenoscopy (EGD) at age 6 (dxd of lactose intolerance) Hx laparoscopic cholecystectomy Laparoscopic Cholecystectomy (11/22/21): Grade 1 view, Thomas#2, ETT 7.0 at [facility] S/P reconstruction of ligament of knee right knee 2018 [place] teeth removed 2008 Family History Mother Diabetes Other No family history of adverse response to anesthesia No significant family history Social History Smoking Status: Never smoker Second Hand Exposure: No; Do You Dip or Chew Tobacco: No; Hx Alcohol Use: No Hx Substance Use: No Preferred Language: Algerian Communication Ability: Effective Visual Impairment: No Limitations Hearing Ability: Normal Spouting Installer Required: No Beliefs That Will Affect Care: None marital status: Current Living Situation: Spouse and Family Current Living Situation Comment: Lives with and x4 children current occupational status: unemployed How many Children do You have: 4 Feels Safe at Home: Yes during the past year weight has: remained stable Assistive Devices: None Physical Exam Physical Exam: GENERAL: WN, obese, AA&Ox3, NAD. HEAD/FACE: Normocephalic and atraumatic. EYES: No drainage or conjunctival injection. ENT: Nose without bleeding or discharge. Oral mucosa moist. NECK: No swelling or masses noted. No JVD. RESPIRATORY: Patient with unlabored breathing. No signs of respiratory distress. CHEST/AXILLA: + tender diffusely, worst at left approx. 2nd-3rd intercostal space, midclavicular line. + tender posterior chest wall. CARDIOVASCULAR: Patients heart rate is regular. No edema noted. BACK: Moves without difficulty. [No evidence of erythema, drainage, or infection to the injection site]. SKIN: [place], warm and dry. No rash noted. MS/EXTREMITY: No swelling, no deformities. Moving extremities appropriately. NEURO: Alert and appears oriented. Speech is fluent. Cranial Nerves are grossly intact. PSYCH: Alert, pleasant, affect is calm.
--- NOTE | 2022-11-22 10:17 | Pulmonology Progress Note ---
Date of Service November 22, 2022 Assessment & Plan (1) Acute respiratory failure with hypoxia: (2) Dyspnea: (3) Chest pain: (4) Diaphragm paralysis: Plan Impression: 32-year-old female with multiple medical comorbidities but no prior pulmonary history presents for evaluation of shortness of breath which is subacute in onset. Her CT scan showed no evidence of PE but did show some patchy parenchymal infiltrates with bilateral pleural effusions. She does demonstrate diaphragm weakness/paralysis on the right of unclear etiology. Recommendations: 1. Paretic hemidiaphragm: Unclear etiology. No significant mediastinal adenopathy or thoracic pathology along the course of the phrenic nerve. Etiologies would include idiopathic, postviral, or related to neuropathy. Typically unilateral diaphragm paralysis is well-tolerated and does not require additional intervention. She was advised that weight loss and maintenance of an optimal weight will likely improve diaphragmatic function. 2. Shortness of breath: Suspect related to #1. Body habitus could also be contributing. Outpatient PFTs recommended. Suspect she will be restricted based on body habitus and her diaphragmatic dysfunction 3. Hypoxemia: Resolved. 4. Consider outpatient follow-up CT scan in 6 to 8 weeks to document resolution of the multifocal airspace opacities. Query aspiration. Would complete 5-day course of doxycycline. 5. Chest discomfort: Per primary service. This does not appear to be pulmonary in etiology 6. Daytime drowsiness: Outpatient sleep study recommended Patient appears significantly improved at this point in time. Her hypoxemia is resolved. No additional inpatient pulmonary evaluation or work-up is required. Pulmonary will sign off. Feel free to contact us with questions or concerns Admission and Anticipated Discharge Date Admission Date: November 17, 2022 Subjective Patient seen and examined. EMR reviewed. The patient is now weaned off oxygen. She is doing somewhat better clinically. She is coughing but not really expectorating phlegm. Her pain continues to be problematic but this is a chronic issue for her. She denied any fevers chills or night sweats. She did complete her sniff test demonstrating paradoxical motion of the right hemidiaphragm consistent with diaphragmatic weakness/paralysis Review of Systems Review of Systems: All systems reviewed & are unremarkable except as noted in Subjective Physical Exam Constitutional: WD/WN, vitals as above Neck: trachea midline, no thyromegaly Respiratory: no respiratory distress, no labored breathing, no cough and not tachypneic Auscultation: + diminished lung sounds Cardiovascular: RRR, no murmur, no edema Gastrointestinal (Abdomen): normal bowel sounds, soft, nontender, no hepatosplenomegaly Musculoskeletal: Extremities: extremities normal to inspection Skin: no rashes, warm and dry Lymphatic: no cervical lymphadenopathy Results & Data Results & Data Vital Signs (Past 12 Hours) Vital Signs Temp Pulse Pulse Pulse Pulse Resp Resp 11/22/22 09:46 11/22/22 09:30 36.8 C 102 H 18 11/22/22 07:35 145 H 141 H 117 H 22 11/22/22 07:28 36.8 C 102 H 18 11/22/22 03:26 36.6 C 86 18 11/21/22 23:02 11/21/22 22:28 79 18 11/21/22 23:20 Resp Resp BP BP Pulse Ox Pulse Ox Pulse Ox 11/22/22 09:46 11/22/22 09:30 127/85 117/58 L 97 11/22/22 07:35 20 16 98 99 11/22/22 07:28 127/85 97 11/22/22 03:26 117/58 L 98 11/21/22 23:02 104/68 11/21/22 22:28 119/75 97 11/21/22 23:20 Pulse Ox O2 Del Method O2 Flow Rate 11/22/22 09:46 Room Air 11/22/22 09:30 11/22/22 07:35 96 11/22/22 07:28 Nasal Cannula 2 11/22/22 03:26 Nasal Cannula 2 11/21/22 23:02 11/21/22 22:28 Nasal Cannula 2 11/21/22 23:20 Nasal Cannula 2 PG Care Time/CCT Total # of Minutes Spent Total Time Spent with Patient: Total time spent is greater than 50% in coordination of care (as documented) at patient's floor/unit and/or counseling patient: Coding Level of Care Code 84138 SUB INP/OBS CARE 2/35MIN Diagnoses Acute respiratory failure with hypoxia J96.01 Dyspnea R06.00 Chest pain R07.9 Diaphragm paralysis J98.6
--- NOTE | 2022-11-22 11:07 | Discharge Summary ---
Date of Service November 22, 2022 Admission HPI Per Admitting Provider History obtained from patient and records. Medical history significant fo migraine, ADD/anxiety/mood disorder, mitral valve prolapse as per records, PCOS, neurofibromatosis type I. Last confinement June 2020 for syncope/concussion. Patient underwent left ankle surgery by local chief operator hydroformer at same-day surgery last week. No postop issues as per patient. 2 days ago, patient noted increased shortness of breath on exertion. Dry cough symptoms but not a lot. Denies aspiration. Not sure about sick COVID-19 contacts. Patient has received COVID-19 vaccination. Pleuritic chest pain, patient unsure about weight gain. O2 sats 70s to 80s on pulse ox at home. Cefepime administered at the ER for sepsis. 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 Admission Exam Per Admitting Provider GENERAL: uncomfortable, slightly anxious, morbidly obese, minimal respiratory distress SKIN: Pallor, warm HEENT: Bespectacled, pale palpebral conjunctivae, no ptosis, dry buccal mucosa, nasal cannula in place NECK : Supple, short neck, no tenderness CHEST : Decreased breath sounds, minimal chest wall tenderness HEART : Bradycardic, no obvious murmurs ABDOMEN: Some distention, nontender EXTREMITIES : Minimal RLE swelling, no RLE tenderness, LLE prosthetic in place, no other conspicuous deformities noted NEUROLOGIC : Coherent, no facial asymmetry, no other gross focality Principal Diagnosis Pneumonia Discharge Exam General: Alert, oriented. No acute distress Skin: No noted rashes or bruises Psych: Appropriate mood and affect Neuro: No gross deficits HEENT: NC/AT CV: RRR, Normal s1, s2. No murmurs appreciated Resp: Breath sounds decreased bilaterally, no increased effort of breathing. Abdomen: Soft, nontender, nondistended. No guarding. No organomegaly appreciated. Extremities: Boot on LLE Discharge Data Allergies Allergy/AdvReac Type Severity Reaction Status Date / Time cortisone Allergy Hives over Verified 11/16/22 23:57 whole body, and swelling at injection site nicotine AdvReac Severe nasal Verified 07/13/23 23:57 congestion, sob, coughing bee venom protein (honey bee) AdvReac Intermediate Headache, Verified 11/16/22 23:57 faint lactose AdvReac Intermediate Gastrointestinal Verified 11/16/22 23:57 Upset Consultations 11/17/22 01:12 ED Decision to Admit Stat 11/20/22 15:14 Consult Pulmonology Routine 11/21/22 11:58 Consult Pain Management Routine Ordered Studies 11/16/22 23:42 CT angio chest PE protocol Stat 11/18/22 14:16 CT abd pelvis IV con only Urgent 11/19/22 14:22 US abdomen limited Routine 11/21/22 11:00 FL sniff test Routine Hospital Course (1) Acute respiratory failure with hypoxia: (2) Multifocal pneumonia: (3) Anxiety with depression: (4) Bipolar disorder: (5) Morbid obesity: Plan Pt is a 32yoF admitted with persistent chest pain and SOB in the setting of a paretic hemidiaphragm and multifocal pneumonia. Acute Respiratory failure/Pneumonia Chest CTA :"Patchy bilateral airspace consolidations, concerning for multifocal pneumonia. Small bilateral pleural effusions." No PE noted. 11/17 given cefepime/doxy, then 11/18 started zosyn, de-escalated to doxycycline on 11/20. Completed 5 days of doxycycline treatment. No oxygen on 2 step, but noted that pt's HR increased with ambulation. Expected as pt had recent lower extremity sugery with boot in place and states it is p ainful with ambulation. CTA chest in 6-8 weeks recommended for continued monitoring/documenting resolution of multifocal pneumonia- to be ordered by pcp. Persistent Chest pain Pt with persistent chest pain radiating to her back likely to combination of factor EKGs unremarkable, No PE on chest CTA, echo WNL, troponin NL and no evidence of ACS. Cont Motrin. oxycodone, dilaudid IV Pain Medicine was consulted, recommended continuing with narcotic, increasing gabapentin to 300mg TID along with diclofenac 75mg extended release BID. PCP follow up. Paretic hemidiaphragm Chest XRAY noted: low lung volumes with chronic elevation of the right hemidiaphragm Sniff test positive indicating possible injury to phrenic nerve. Pulmonology consulted and recommended the following: weight loss and maintenance of an optimal weight will likely improve diaphragmatic function. Outpatient PFTs recommended. Transaminitis Declining. Hepatic steatosis on US which may be the cause no evidence of biliary obstruction medications/abx may also be contributing, Repeat hepatic panel as outpatient in 2-4 weeks to ensure complete resolution. S/P ankle surgery Pt with anesthesia a week before presentation, possibly aspiration contributing to pneumonia. Podiatry followup for LLE as scheduled Mood chronic, stable. Adderall stopped this admission and discontinued at discharge. [place] re-started after supratherapeutic lithium levels. PCP follow up. Morbid Obesity: wt loss recommended. Total Time Total Time Spent Total Time Spent (In Minutes): >30 minutes Discharge Plan Discharge Items Patient Disposition: Home - Self-Care Reason For Visit: SEPSIS, RESP FAILURE Discharge Diagnosis: Pneumonia Activity: Per Instructions section Non-emergency contact: Primary Care Provider Call non-emergency contact if: your symptoms worsen Follow-up/Referrals: Yun Del Rio MD [Primary Care Provider] - (Date & Time 11/28/2022 11:00 AM Provider Yun Del Rio MD Department [facility] ) Diet: Regular Addtl Attending Provider Instructions: You were admitted with shortness of breath that we believe has many factors contributing. You appeared to have a pneumonia and you were also noted to have a diaphragm that was "paralyzed". We treated you with a five day course of the antibiotic doxycycline and we are recommending a CT scan in 6-8 weeks to follow up on your pneumonia. This can be done by your primary care provider. The vessel operator is also recommending that weight loss and maintenance of an optimal weight will likely improve your diaphragmatic function.. You had persistent chest pain that we determine was not related to your heart but seemed to be associated with your muscles there. Your heart rate seemed to increase when you were up and moving likely due to the pain you felt with ambulation and the associated shortness of breath we discussed above. We noted that you were recently prescribed hydrocodone on 11/15. Continue to take that as needed at home for severe pain. We also discharged you with the increased dose of gabapentin 300mg three times a day and diclofenac 75mg twice a day. We ask that you keep close follow up with your primary care provider about all of these symptoms, especially if they seem to be worsening or not getting better. Also, contact your primary care provider for any refills of your medications. Concerning your mood, we restarted your home lithium and discontinued the Adderall as previously discussed. Please follow up with your psychiatrist. We also started you on thyroid medication and are recommending that you follow up with your primary care provider for continued monitoring and dose changes as needed. Pending Studies at Discharge: No Stand-Alone Forms: My [facility], Smoking Cessation Medications and DC Order Prescriptions: New levothyroxine [Synthroid] 50 mcg Tablet 50 mcg PO DAILYBB Qty: 30 0RF gabapentin 300 mg capsule 300 mg PO TID Qty: 90 0RF diclofenac sodium 75 mg tablet,delayed release (DR/EC) 75 mg PO BID Qty: 60 0RF Continued lithium carbonate 300 mg capsule 300 - 600 mg PO UD Rx Instructions: take 1 cap in the morning, 1 capsule in the afternoon and 2 capules at bedtime aripiprazole 10 mg tablet 10 mg PO QAM lamotrigine 150 mg tablet 150 mg PO QAM prazosin 1 mg capsule 1 mg PO HS clonazepam 1 mg tablet 1 mg PO TID PRN (Reason: Anxiety) temazepam 30 mg capsule 30 mg PO HS fluoxetine 40 mg capsule 80 mg PO QAM Discontinued dextroamphetamine-amphetamine 10 mg tablet 10 mg PO QPM Rx Instructions: TAKE IN THE AFTERNOON dextroamphetamine-amphetamine 20 mg capsule,extended release 24hr 20 mg PO QAM oxycodone 5 mg tablet 5 - 10 mg PO Q6H PRN (Reason: pain) Qty: 5 0RF Rx Instructions: INITIAL THERAPY Discharge Orders: Discharge Order (Routine); Ordered 11/22/22 Ordered By: Nelda Cha Admission Data Admit Date/Time: 11/17/22 01:56 Attending Provider: Nelda Cha Admit Provider: Ludwig Fong Primary Care Provider: Yun Del Rio Other Providers: Ludwig Fong ; Oleksandr Aiken Jennifer L ; Nhung Rodriguez Other Interventions: Discharge Summary Assessment (RN) Last Done: 11/22/22 09:30
--- NOTE | 2022-11-22 14:55 | Electrocardiogram Report ---
Test Reason : Blood Pressure : / mmHG Vent. Rate : 080 BPM Atrial Rate : 080 BPM P-R Int : 168 ms QRS Dur : 076 ms QT Int : 348 ms P-R-T Axes : 026 011 002 degrees QTc Int : 401 ms Normal sinus rhythm Poor R wave progression, consider anterior NM vs. lead placement vs. LVH Nonspecific T wave abnormality Abnormal ECG When compared with ECG of 18-NOV-2022 13:39, Nonspecific T wave abnormality now evident in Anterolateral leads QT has shortened Confirmed by Natanael Snow ([id number]) on 11/22/2022 2:54:41 PM Referred By: REFERRED SELF Confirmed By:Natanael Snow
== END 2022-11-22 11:55 | disposition home or self-care (01) | DRG 193 ==
LOC: ED 21:34 → 2N 11-17 01:56 → SUATTDRO 11-17 01:56 → 2N 11-17 03:50

== ENCOUNTER 2023-04-22 00:02 | Inpatient (IN) ==
[2023-04-22] MEDS ORDERED: SODIUM CHLORIDE 0.9% 1,000 ML IV ONE ×2 (00:19→02:24)
[2023-04-22] MEDS ORDERED: ACETAMINOPHEN 1,000 MG/100 ML VIAL IV STA ×2 (00:19→20:04)
[2023-04-22] MEDS ORDERED: FAMOTIDINE 20MG IV PUSH 20 MG/5 ML SYR IV STA (00:19)
[2023-04-22] MEDS: fentaNYL citrate PF 100 MCG/2 ML VIAL IV PRN ×5 (00:38→11:41)
--- NOTE | 2023-04-22 01:17 | Emergency Department Note ---
Impression & Plan Abdominal pain, Nausea & vomiting, Diarrhea ED Provider Note ED Provider Note NAME: ANANYA ANDRES AGE:32 SEX: Female : 1990 ARRIVES VIA: Private vehicle INFORMANT: Patient ED PROVIDER(s): Amy Horowitz DO CHIEF COMPLAINT: Abdominal pain, nausea and vomiting HPI: This is a 32-year-old female presents emergency department due to concern for 1 week of abdominal pain, nausea, vomiting, and diarrhea. Patient states symptoms first began last weekend and she thought perhaps she had a "stomach flu". She states she had chills, abdominal pain, and had nausea vomiting. She states she did have mild intermittent diarrhea. She denies any blood in the emesis or stools over the course of this past week. She states her symptoms have persisted and she has had difficulty staying hydrated or eating anything. She states she did go to the [place] emergency room on evening and had blood work drawn and was given Phenergan for her nausea. No imaging or other testing was performed. She states her symptoms have persisted and so she presented here for evaluation. Patient has had prior cholecystectomy, appendectomy, and C-sections x 3. No other history of GI or intestinal problems in her or immediate family members. No recent travel, no known sick contacts, no other recent change in diet or medications. PAST MEDICAL HISTORY:See Below PAST SURGICAL HISTORY:See Below FAMILY HISTORY:See Below SOCIAL HISTORY:See Below HOME MEDICATIONS:See Below ALLERGIES:See Below VITALS:See Below PHYSICAL EXAMINATION: GENERAL: alert, unwell appearing, well nourished, mild distress, non-toxic, BMI 44 EYE EXAM: normal conjunctiva, PERRL and EOM's grossly intact OROPHARYNX: no exudate, no erythema, lips, buccal mucosa, and tongue normal and mucous membranes are moist NECK: supple, no nuchal rigidity, no adenopathy, non-tender LUNGS: Clear to auscultation. Normal chest wall mechanics, no w/r/r HEART: no murmurs, S1 normal and S2 normal ABDOMEN: abdomen soft, diffuse tenderness with palpation, normo-active bowel sounds, no masses, no rebound or guarding. Dull to percussion, however pain noted with percussive testing BACK: Back is symmetrical on inspection and there is no deformity, no midline tenderness, no CVA tenderness. SKIN: no rashes, petechiae, orbruising UPPER EXTREMITIES: upper extremities are grossly normal. FROM, nml pulses b/l. LOWER EXTREMITIES: No pitting edema. FROM, nml pulses b/l. NEURO EXAM: Normal sensorium, cranial nerves II-XII grossly intact, normal speech, no facial droop,nogross weakness of arms, no gross weakness of legs. Gross sensation intact. No ataxia. Vital Signs: reviewed and remarkable Differential Diagnosis: viral syndrome, bowel obstruction, colitis, diverticulitis, foodborne illness, medication ADR, gastroparesis, IBS, IBD, mesenteric ischemia, dissection, as well as others were considered MEDICAL DECISION MAKING: This is a 32-year-old female who presents due to concern for 1 week of persistent and worsening abdominal pain, vomiting, and diarrhea. Labs drawn and sent, IV established, EKG performed at bedside interpreted by me and patient monitored on telemetry. She was started on IV fluids and given IV Tylenol and IV fentanyl. After several doses of IV fentanyl she was transitioned to IV morphine. Patient also given IV Zofran for nausea. Patient sent for CT of the abdomen and pelvis. There was significant delay in the overnight outside radiology group providing results. Ultimately CT read by in-house radiology in the director new product. CT did not reveal any acute pathology. Patient continued require intermittent doses of morphine and was continued on IV fluids. No obvious pathology looking at her labs and imaging. This was all discussed with the patient at bedside. Additional IV Toradol and oral Bentyl was tried to see if she could be transitioned to oral medications and be able to go home. This was unsuccessful and she had worsening pain and recurrent vomiting. In light of this we discussed additional inpatient evaluation and management and she was in agreement. [facility] for [facility] and management. We did attempt to obtain outside records from her visit to [place] on , we do not have any success with this. Consultation(s): 809: Discussed with Dr. Saenz, [facility], for additional evaluation and mgmt. ER Treatment Provided: See below Diagnostics Interpreted By Me: -ECG: Normal sinus at 60, normal axis, normal intervals, inverted T waves noted in leads III and aVF, no other acute ischemic changes; no significant changes compared to November 30, 2022 -Cardiac Monitoring: An order was placed for continuous cardiac monitoring. The monitor shows a rate of 72 with normal sinus rhythm. -Laboratory studies: As stated above and show below. -Imaging studies: [] Triage Nursing Note Reviewed Prior/Outside Records Reviewed Past Med/Surg History Medical History Hyponatremia Chronic anemia Fluctuating hgbs with baseline 11-13 range per chart review Bipolar disorder Morbid obesity ADHD History of COVID-19 Fall 2019 > loss of taste and smell, cough fever, muscle pain and fatigue, wheezing, SOB Residual altered taste/smell PCOS (polycystic ovarian syndrome) Concussion ~ 6 concussions total over the last 30 years Last concussion 06/2021 r/t wooden shelf fell from above patient's bed Mitral valve prolapse Dx as child Normal MV with trace MR, no MV stenosis per 06/2020 echo Anxiety with depression Neurofibromatosis, type 1 Diagnosed 2018 found after daughter was having medical issues that led to patient having genetic testing which resulted in the diagnosis, "no issues" per patient Cystic fibrosis carrier Surgical History Hx laparoscopic cholecystectomy Laparoscopic Cholecystectomy (11/22/21): Grade 1 view, Thomas#2, ETT 7.0 at [facility] History of esophagogastroduodenoscopy (EGD) at age 6 (dxd of lactose intolerance) History of bilateral tubal ligation with History of ankle surgery left ankle ligament reconstruction and left ankle fusion at [facility] (08/2021) History of ankle surgery Left 09/[address] Charles S/P reconstruction of ligament of knee right knee 2018 [place] teeth removed 2008 H/O section 2011, 2014, 2019 History of appendectomy Family History Mother Diabetes Other No family history of adverse response to anesthesia No significant family history Social History Smoking Status: Never smoker Second Hand Exposure: No; Do You Dip or Chew Tobacco: No; Tobacco Cessation Education Requested by Patient: No Hx Alcohol Use: No Hx Substance Use: No Preferred Language: Kiswahili Communication Ability: Effective Visual Impairment: No Limitations Hearing Ability: Normal Chief Of Planning Required: No Beliefs That Will Affect Care: None marital status: Current Living Situation: Spouse and Family Current Living Situation Comment: Lives with and x4 children current occupational status: unemployed How many Children do You have: 4 Other Information That Helps Us Care for You: No Feels Safe at Home: Yes Safety Concerns: Feels Safe At This Time during the past year weight has: remained stable Assistive Devices: Glasses Allergies Allergies Allergy/AdvReac Type Severity Reaction Status Date / Time cortisone Allergy Hives over Verified 04/22/23 01:12 whole body, and swelling at injection site nicotine AdvReac Severe nasal Verified 04/22/23 01:12 congestion, sob, coughing bee venom protein (honey bee) AdvReac Intermediate Headache, Verified 04/22/23 01:12 faint lactose AdvReac Intermediate Gastrointestinal Verified 04/22/23 01:12 Upset Home Meds Home Medications Medication Instructions Recorded Confirmed aripiprazole 10 mg tablet 10 mg PO QAM 06/11/20 04/22/23 lamotrigine 150 mg tablet 150 mg PO QAM 02/01/21 04/22/23 lithium carbonate 300 mg capsule 300 - 600 mg PO UD 07/04/21 04/22/23 prazosin 1 mg capsule 1 mg PO HS 11/30/21 04/22/23 clonazepam 1 mg tablet 1 mg PO TID PRN Anxiety 05/15/22 04/22/23 fluoxetine 40 mg capsule 80 mg PO QAM 05/15/22 04/22/23 temazepam 30 mg capsule 30 mg PO HS 05/15/22 04/22/23 tizanidine 2 mg tablet 4 mg PO Q8H PRN Muscle Spasm 11/30/22 04/22/23 acetaminophen 500 mg tablet 1,000 mg PO Q4 PRN Pain 04/22/23 04/22/23 (Tylenol Extra Strength) ibuprofen 200 mg tablet (Motrin IB) 800 mg PO TID PRN Pain 04/22/23 04/22/23 promethazine 25 mg tablet 25 mg PO DIRECTED PRN Nausea 04/22/23 04/22/23 Previous Rx's Medication Instructions Recorded levothyroxine 50 mcg tablet 50 mcg PO DAILYBB #30 tabs 11/22/22 (Synthroid) Results & Data (ED) Vital Signs Vital Signs - 24 hr 04/22/23 03:10 04/22/23 03:20 04/22/23 03:30 Pulse Rate 71 68 Pulse Rate [Finger] Pulse Rate from SpO2 Sensor 69 69 Respiratory Rate 21 23 Respiratory Effort / Characteristics Respiratory Depth Blood Pressure 114/58 L Blood Pressure [Left Arm] Blood Pressure Mean 83 Blood Pressure Mean [Left Arm] Pulse Oximetry 96 97 Oxygen Delivery Method 04/22/23 03:30 04/22/23 03:40 04/22/23 03:50 Pulse Rate 80 66 78 Pulse Rate [Finger] Pulse Rate from SpO2 Sensor 80 67 78 Respiratory Rate 18 17 20 Respiratory Effort / Characteristics Respiratory Depth Blood Pressure Blood Pressure [Left Arm] Blood Pressure Mean Blood Pressure Mean [Left Arm] Pulse Oximetry 96 98 96 Oxygen Delivery Method 04/22/23 04:00 04/22/23 04:00 04/22/23 04:00 Pulse Rate 84 Pulse Rate [Finger] Pulse Rate from SpO2 Sensor 80 Respiratory Rate 17 Respiratory Effort / Characteristics Non-Labored Respiratory Depth Normal Blood Pressure 121/58 L Blood Pressure [Left Arm] Blood Pressure Mean 94 Blood Pressure Mean [Left Arm] Pulse Oximetry 95 Oxygen Delivery Method 04/22/23 04:10 04/22/23 04:20 04/22/23 04:30 Pulse Rate 77 63 Pulse Rate [Finger] Pulse Rate from SpO2 Sensor 78 64 Respiratory Rate 23 24 Respiratory Effort / Characteristics Respiratory Depth Blood Pressure 129/63 Blood Pressure [Left Arm] Blood Pressure Mean 77 Blood Pressure Mean [Left Arm] Pulse Oximetry 96 96 Oxygen Delivery Method 04/22/23 04:30 04/22/23 04:32 04/22/23 04:40 Pulse Rate 71 63 63 Pulse Rate [Finger] Pulse Rate from SpO2 Sensor 69 63 Respiratory Rate 26 H 23 Respiratory Effort / Characteristics Respiratory Depth Blood Pressure Blood Pressure [Left Arm] Blood Pressure Mean Blood Pressure Mean [Left Arm] Pulse Oximetry 96 97 Oxygen Delivery Method 04/22/23 04:50 04/22/23 05:00 04/22/23 05:00 Pulse Rate 76 67 Pulse Rate [Finger] Pulse Rate from SpO2 Sensor 73 67 Respiratory Rate 21 29 H Respiratory Effort / Characteristics Respiratory Depth Blood Pressure 129/63 Blood Pressure [Left Arm] Blood Pressure Mean 70 Blood Pressure Mean [Left Arm] Pulse Oximetry 98 97 Oxygen Delivery Method 04/22/23 05:35 04/22/23 06:00 04/22/23 06:00 Pulse Rate 78 65 Pulse Rate [Finger] Pulse Rate from SpO2 Sensor 79 66 Respiratory Rate 21 27 H Respiratory Effort / Characteristics Non-Labored Respiratory Depth Normal Blood Pressure Blood Pressure [Left Arm] Blood Pressure Mean Blood Pressure Mean [Left Arm] Pulse Oximetry 98 97 Oxygen Delivery Method 04/22/23 06:30 04/22/23 06:30 04/22/23 07:00 Pulse Rate 69 Pulse Rate [Finger] Pulse Rate from SpO2 Sensor 68 Respiratory Rate 21 Respiratory Effort / Characteristics Respiratory Depth Blood Pressure 138/77 177/97 H Blood Pressure [Left Arm] Blood Pressure Mean 117 135 Blood Pressure Mean [Left Arm] Pulse Oximetry 96 Oxygen Delivery Method 04/22/23 07:00 04/22/23 07:30 04/22/23 07:30 Pulse Rate 78 72 Pulse Rate [Finger] 69 Pulse Rate from SpO2 Sensor 77 74 Respiratory Rate 31 H 28 H 23 Respiratory Effort / Characteristics Non-Labored Spontaneous Respiratory Depth Normal Blood Pressure Blood Pressure [Left Arm] 165/91 H Blood Pressure Mean Blood Pressure Mean [Left Arm] 115 Pulse Oximetry 97 97 96 Oxygen Delivery Method Room Air 04/22/23 07:30 04/22/23 08:00 04/22/23 08:02 Pulse Rate 68 64 Pulse Rate [Finger] Pulse Rate from SpO2 Sensor 68 64 Respiratory Rate 25 H 28 H Respiratory Effort / Characteristics Respiratory Depth Blood Pressure 165/91 H Blood Pressure [Left Arm] Blood Pressure Mean 134 Blood Pressure Mean [Left Arm] Pulse Oximetry 98 96 Oxygen Delivery Method 04/22/23 08:03 04/22/23 08:03 Pulse Rate 72 Pulse Rate [Finger] Pulse Rate from SpO2 Sensor 70 Respiratory Rate 23 Respiratory Effort / Characteristics Respiratory Depth Blood Pressure 144/84 H Blood Pressure [Left Arm] Blood Pressure Mean 114 Blood Pressure Mean [Left Arm] Pulse Oximetry 96 Oxygen Delivery Method Laboratory Data 04/22/23 00:42 04/22/23 00:42 Lab Results 04/22/23 04/22/23 Range/Units 00:42 08:06 WBC 7.90 (4.8-10.8) K/ul RBC 4.94 (4.20-5.40) M/uL Hgb 12.8 (12.0-16.0) g/dl Hct 40.3 (37.0-47.0) % MCV 81.6 (80.0-100.0) fL MCH 25.9 (25.0-34.0) pg MCHC 31.8 L (32.0-36.0) g/dL RDW Std Deviation 37.7 (36.4-46.3) fL RDW Coeff of Corrie 12.7 (11.5-14.5) % Plt Count 374 (130-400) K/uL MPV 10.9 (9.4-12.4) fL Immature Gran % (Auto) 0.1 % Neut % (Auto) 69.7 % Lymph % (Auto) 22.7 % [place] % (Auto) 7.0 % Eos % (Auto) 0.0 % Baso % (Auto) 0.5 % Neut # (Auto) 5.51 (1.40-6.50) K/uL Lymph # (Auto) 1.79 (1.20-3.40) K/uL [place] # (Auto) 0.55 (0.11-0.59) K/uL Eos # (Auto) 0.00 (0.00-0.50) K/uL Baso # (Auto) 0.04 (0.00-0.20) K/uL Immature Gran # (Auto) 0.01 (0.01-0.20) K/uL PT 10.9 (9.0-12.0) Seconds INR 1.0 (0.9-1.1) Sodium 140 (136-145) mmol/L Potassium 3.5 (3.5-5.1) mmol/L Chloride 106 (98-107) mmol/L Carbon Dioxide 26 (21-32) mmol/L Anion Gap 8 (3-11) BUN 11 (6-23) mg/dl Creatinine 0.83 (0.6-1.2) mg/dl Est Cr Clr Drug Dosing 103.6 ml/min Est GFR ( Amer) 106.6 ml/min Est GFR (Non-Af Amer) 92.0 ml/min BUN/Creatinine Ratio 13.3 (10-20) Glucose 73 (70-99(Fasting)) mg/dl Lactate 0.9 (0.4-2.0) mmol/L Calcium 10.0 (8.6-10.3) mg/dl Magnesium 2.1 (1.7-2.4) mg/dl Total Bilirubin 0.8 (0.2-1.0) mg/dl AST 17 (13-39) U/L ALT 18 (7-52) U/L Alkaline Phosphatase 62 (34-104) U/L Troponin I High Sens 2.7 (0-14) pg/ml Total Protein 7.6 (6.0-8.3) gm/dl Albumin 5.0 (3.4-5.0) gm/dl Globulin 2.6 (2.5-4.0) gm/dl Albumin/Globulin Ratio 1.9 (0.9-2) Lipase 12 (11-82) U/L Procalcitonin < 0.05 (0-0.5) ng/ml TSH 7.024 H (0.300-4.500) uIu/ml Free T4 0.80 (0.61-1.60) ng/dl HCG, Qual Negative (Negative) Urine Color Dark Yellow Urine Appearance Clear (Clear) Urine pH 6.5 (4.5-7.5) Ur Specific [place] 1.031 H (1.000-1.030) Urine Protein 1+ H (Negative) Urine Glucose (UA) Negative (Negative) Urine Ketones Trace H (Negative) Urine Blood Negative (Negative) Urine Nitrite Negative (Negative) Urine Bilirubin 1+ H (Negative) Urine Urobilinogen Negative (Negative) Ur Leukocyte Esterase Negative (Negative) Urine WBC (Auto) 1-5 (0-5) /hpf Urine RBC (Auto) 5-10 H (0-4) /hpf U Hyaline Cast (Auto) 1-5 (0-5) /lpf U Epithel Cells (Auto) >30 H (0-5) /lpf Urine Bacteria (Auto) Negative (Negative) Urine Opiates Screen Neg (Neg) Ur Methadone, Qual Neg (Neg) Urine Barbiturates Neg (Neg) Ur Phencyclidine (PCP) Neg (Neg) U Amphetamin/Meth Scrn Neg (Neg) MDMA (Ecstasy) Screen Neg (Neg) U Benzodiazepines Scrn Pos H (Neg) Ur Cocaine Metabolite Neg (Neg) U Marijuana (THC) Screen Neg (Neg) Administered Medications Sodium Chloride (Nss) 1,000 mls @ 125 mls/hr IV .Q8H KRISSY Stop: 05/22/23 07:59 Last Admin: 04/22/23 16:11 Dose: 125 mls/hr Documented By: Infusion: 04/22/23 16:04 Dose: Infused Documented By: Admin: 04/22/23 08:04 Dose: 125 mls/hr Documented By: BREN Pantoprazole Sodium 40 mg/ (Syringe) 10 mls @ 5 mls/min IV BID KRISSY Stop: 05/22/23 11:46 Last Admin: 04/22/23 20:15 Dose: 5 mls/min Documented By: Admin: 04/22/23 13:46 Dose: 5 mls/min Documented By: SHABBIR [place] Carbonate ([place] Carbonate 300 Mg Tab) 300 mg PO BID@0900,1500 [facility] Stop: 05/22/23 14:59 Last Admin: 04/22/23 15:59 Dose: 300 mg Documented By: APRIL [place] Carbonate ([place] Carbonate 300 Mg Tab) 600 mg PO HS [facility] Stop: 05/22/23 20:59 Last Admin: 04/22/23 20:17 Dose: Not Given Documented By: VADIM Ondansetron HCl (Ondansetron Inj 2 Mg/Ml 2 Ml Vial) 4 mg IV Q6H PRN PRN Reason: Nausea Stop: 05/22/23 11:46 Last Admin: 04/22/23 23:40 Dose: 4 mg Documented By: Admin: 04/22/23 16:06 Dose: 4 mg Documented By: APRIL Prazosin HCl (Prazosin Hcl 1 Mg Cap) 1 mg PO HS [facility] Stop: 05/22/23 20:59 Last Admin: 04/22/23 20:17 Dose: Not Given Documented By: VADIM Temazepam (Temazepam 15 Mg Capsule) 30 mg PO [facility] Stop: 05/22/23 20:59 Last Admin: 04/22/23 20:17 Dose: Not Given Documented By: VADIM Discontinued Medications Dicyclomine HCl (Dicyclomine Hcl 10 Mg Cap) 10 mg PO NOW ONE Stop: 04/22/23 06:52 Last Admin: 04/22/23 07:39 Dose: 10 mg Documented By: ZEHRA Diphenhydramine HCl (Diphenhydramine 50 Mg/Ml Vial) 25 mg IV NOW STA Stop: 04/22/23 07:53 Last Admin: 04/22/23 08:03 Dose: 25 mg Documented By: BREN Fentanyl Citrate (Fentanyl Citrate Pf 100 Mcg/2 Ml Vial) 50 mcg IV Q15M PRN PRN Reason: Pain Stop: 12/31/23 00:18 Last Admin: 04/22/23 11:41 Dose: 50 mcg Documented By: Admin: 04/22/23 02:54 Dose: 50 mcg Documented By: Admin: 04/22/23 02:11 Dose: 50 mcg Documented By: Admin: 04/22/23 01:02 Dose: 50 mcg Documented By: Admin: 04/22/23 00:38 Dose: 50 mcg Documented By: EMMANUEL Sodium Chloride (Nss) 1,000 mls @ 999 mls/hr IV .Q1H1M ONE Stop: 04/22/23 01:19 Last Infusion: 04/22/23 02:11 Dose: Infused Documented By: Admin: 04/22/23 00:37 Dose: 999 mls/hr Documented By: EMMANUEL Acetaminophen (Ofirmev) 1,000 mg in 100 mls @ 400 mls/hr IV NOW STA Stop: 04/22/23 00:33 Last Infusion: 04/22/23 02:11 Dose: Infused Documented By: Admin: 04/22/23 00:38 Dose: 400 mls/hr Documented By: EMMANUEL Famotidine (Pepcid 20mg Iv Push) 20 mg in 5 mls @ 2.5 mls/min IV NOW STA Stop: 04/22/23 00:20 Last Admin: 04/22/23 00:38 Dose: 2.5 mls/min Documented By: EMMANUEL Sodium Chloride (Nss) 1,000 mls @ 999 mls/hr IV .Q1H1M ONE Stop: 04/22/23 03:24 Last Infusion: 04/22/23 06:24 Dose: Infused Documented By: Admin: 04/22/23 02:55 Dose: 999 mls/hr Documented By: EMMANUEL Prochlorperazine (Compazine) 1 mls @ 1 mls/min IV ONE ONE Stop: 04/22/23 07:53 Last Admin: 04/22/23 08:03 Dose: 1 mls/min Documented By: BREN Famotidine 20 mg/ Syringe 5 mls @ 2.5 mls/min IV BID KRISSY Stop: 05/22/23 08:59 Last Admin: 04/22/23 15:40 Dose: Not Given Documented By: APRIL Acetaminophen (Ofirmev) 1,000 mg in 100 mls @ 400 mls/hr IV NOW STA Stop: 04/22/23 20:18 Last Infusion: 04/22/23 21:03 Dose: Infused Documented By: Admin: 04/22/23 20:16 Dose: 400 mls/hr Documented By: VADIM Lorazepam 0.25 mg/ Syringe 0.25 mls @ 2 mls/min IV NOW STA Stop: 04/22/23 20:07 Last Admin: 04/22/23 20:16 Dose: 2 mls/min Documented By: VADIM Ioversol (Optiray 320 500ml) 89 ml IV ONCE ONE Stop: 04/22/23 02:26 Last Admin: 04/22/23 02:26 Dose: 89 ml Documented By: AARON Ketorolac Tromethamine (Ketorolac Tromethamine 15 Mg/Ml Vial) 10 mg IV NOW ONE Stop: 04/22/23 06:52 Last Admin: 04/22/23 07:37 Dose: 10 mg Documented By: ZEHRA Ketorolac Tromethamine (Ketorolac Tromethamine 15 Mg/Ml Vial) 15 mg IV NOW ONE Stop: 04/23/23 01:54 Last Admin: 04/23/23 01:58 Dose: 15 mg Documented By: VADIM Morphine Sulfate (Morphine Sulfate 10 Mg/Ml Carp/Vial) 6 mg IV NOW STA Stop: 04/22/23 03:39 Last Admin: 04/22/23 03:42 Dose: 6 mg Documented By: EMMANUEL Morphine Sulfate (Morphine Sulfate 4 Mg/Ml 1 Ml Carp\\Vial) 4 mg IV NOW STA Stop: 04/22/23 05:27 Last Admin: 04/22/23 05:33 Dose: 4 mg Documented By: EMMANUEL Morphine Sulfate (Morphine Sulfate 4 Mg/Ml 1 Ml Carp\\Vial) 4 mg IV NOW STA Stop: 04/22/23 07:53 Last Admin: 04/22/23 08:38 Dose: 4 mg Documented By: RICKIE Morphine Sulfate (Morphine Sulfate 2 Mg/Ml Carp) 2 mg IV Q3H PRN PRN Reason: Pain Stop: 05/06/23 11:46 Last Admin: 04/22/23 16:02 Dose: 2 mg Documented By: APRIL Morphine Sulfate (Morphine Sulfate 4 Mg/Ml 1 Ml Carp\\Vial) 3 mg IV PRN PRN PRN Reason: Pain Stop: 05/06/23 18:07 Last Admin: 04/22/23 23:40 Dose: 3 mg Documented By: Admin: 04/22/23 19:49 Dose: 3 mg Documented By: VADIM Ondansetron HCl (Ondansetron Inj 2 Mg/Ml 2 Ml Vial) Confirm Administered Dose 4 mg .ROUTE .STK-MED ONE Stop: 04/22/23 02:08 Last Admin: 04/22/23 02:10 Dose: 4 mg Documented By: EMMANUEL Ondansetron HCl (Ondansetron Inj 2 Mg/Ml 2 Ml Vial) 4 mg IV NOW STA Stop: 04/22/23 02:17 Last Admin: 04/22/23 02:17 Dose: Not Given Documented By: EMMANUEL Imaging Data Radiologist's Impression: Abdomen/Pelvis CT 04/22/23 00:23 CT SCAN OF THE ABDOMEN AND PELVIS WITH IV CONTRAST CLINICAL HISTORY: Generalized abdominal pain. Nausea and vomiting. Diarrhea. COMPARISON STUDY: Abdominal CT dated 11/18/2022. TECHNIQUE: Following the IV administration of 89 cc of Optiray 320, CT scan of the abdomen and pelvis is performed from the lung bases to the proximal femora. Images are reviewed in the axial, sagittal, and coronal planes. IV contrast was administered without complication. A dose lowering technique was utilized adhering to the principles of ALARA. CT DOSE: 1619.97 mGy.cm FINDINGS: Lung bases: The heart is normal in size and without pericardial effusion. There is trace right pleural effusion with elevation of the right hemidiaphragm and right basilar atelectasis. Left lung base is clear. Liver: The contrast-enhanced liver is normal in size, contour, and attenuation. There is no intrahepatic biliary ductal dilatation. The hepatic veins and portal veins are patent. Gallbladder: Surgically absent and clips in the gallbladder fossa. Spleen: Normal in size and attenuation. Pancreas: Unremarkable. Adrenal glands: Unremarkable. Kidneys: The contrast enhanced kidneys are normal in size and without hydronephrosis. The kidneys enhance symmetrically. Abdominal vasculature: The abdominal aorta is normal in course and caliber. Bowel: There is no bowel obstruction. Submucosal fat deposition throughout the colon is nonspecific and has been described in the setting of chronic inflammation. The appendix is not identified and reported surgically absent. Peritoneum: There is no intraperitoneal free air or abdominal ascites. There is a fat-containing umbilical hernia. Lymphadenopathy: None. Pelvic viscera: The bladder, uterus, and adnexa are normal as visualized. There are left ovarian follicles. Skeletal structures: No lytic or blastic lesions are seen. Sclerotic changes noted in the sacroiliac joints. IMPRESSION: No acute infectious or inflammatory findings are identified in the abdomen or pelvis. ACT 112: Negative or not required by law. Electronically signed by: Drake De Jesus M.D. 04/22/2023 6:44 AM Discharge Plan Visit Data Chief Complaint: Abdominal Pain Stated Complaint: ABD PAIN,VOMITING ED Provider: Amy Horowitz Discharge Problem: Abdominal pain, Nausea & vomiting, Diarrhea Patient Disposition: Admitted As Inpatient Discharge Instructions Interventions: ED Discharge Assessment Last Done: 04/22/23 14:00
[2023-04-22 01:30] LABS: Basophils # (auto) 0.04 K/uL (0.00-0.20); Basophils % (auto) 0.5 %; Hematocrit (blood only) 40.3 % (37.0-47.0); Hemoglobin 12.8 g/dl (12.0-16.0); Immature Granulocytes # (auto) 0.01 K/uL (0.01-0.20); Immature Granulocytes % (auto) 0.1 %; Lymphocytes # (auto) 1.79 K/uL (1.20-3.40); Lymphocytes % (auto) 22.7 %; Mean Corpuscular Hemoglobin 25.9 pg (25.0-34.0); Mean Corpuscular Hgb Conc 31.8 g/dL (32.0-36.0); Mean Corpuscular Volume 81.6 fL (80.0-100.0); Mean Platelet Volume 10.9 fL (9.4-12.4); Monocytes # (auto) 0.55 K/uL (0.11-0.59); Neutrophils # (auto) 5.51 K/uL (1.40-6.50); Neutrophils % (auto) 69.7 %; Platelet Count 374 K/uL (130-400); RDW Coefficient of Variation 12.7 % (11.5-14.5); RDW Standard Deviation 37.7 fL (36.4-46.3); Red Blood Count 4.94 M/uL (4.20-5.40)
[2023-04-22 01:38] LABS: Pregnancy Test, Serum Negative (Negative)
[2023-04-22 01:40] LABS: Albumin Globulin Ratio 1.9 (0.9-2); BUN Creatinine Ratio 13.3 (10-20); Bilirubin,Total 0.8 mg/dl (0.2-1.0); Creatinine Clr Calc Pharmacy 103.6 ml/min; Est GFR (African American) 106.6 ml/min; Globulin 2.6 gm/dl (2.5-4.0); Magnesium 2.1 mg/dl (1.7-2.4); Potassium 3.5 mmol/L (3.5-5.1); Total Protein 7.6 gm/dl (6.0-8.3)
[2023-04-22 01:42] LABS: Appearance Urine Clear (Clear); Bacteria Urine Automated Negative (Negative); Blood Urine Negative (Negative); Color Urine Dark Yellow; Epithelial Cell Urine Auto >30 /lpf (0-5); Glucose Urine UA Negative (Negative); Ketones Urine Trace (Negative); Leukocyte Esterase Urine Negative (Negative); Nitrite Urine Negative (Negative); Protein Urine 1+ (Negative); Specific Gravity Urine 1.031 (1.000-1.030); Urobilinogen Urine Negative (Negative); pH Urine 6.5 (4.5-7.5)
[2023-04-22 01:46] LABS: Prothrombin Time 10.9 Seconds (9.0-12.0); Troponin I High Sensitivity 2.7 pg/ml (0-14)
[2023-04-22 01:56] LABS: Bilirubin Urine 1+ (Negative); Thyroid Stimulating Hormone 7.024 uIu/ml (0.300-4.500)
[2023-04-22] MEDS ORDERED: ONDANSETRON INJ 2 MG/ML 2 ML VIAL ONE (02:07)
[2023-04-22] MEDS ORDERED: ONDANSETRON INJ 2 MG/ML 2 ML VIAL IV STA (02:16)
[2023-04-22] MEDS ORDERED: OPTIRAY 320 500ml IV ONE (02:25)
[2023-04-22 02:31] LABS: T4 Free Thyroxine 0.8 ng/dl (0.61-1.60)
[2023-04-22] MEDS ORDERED: MoRPHine SULFATE 10 MG/ML CARP/VIAL IV STA (03:38)
[2023-04-22] MEDS ORDERED: MoRPHine SULFATE 4 MG/ML 1 ML CARP\\VIAL IV STA ×2 (05:26→07:52)
--- NOTE | 2023-04-22 06:46 | CT Scan Report ---
CT SCAN OF THE ABDOMEN AND PELVIS WITH IV CONTRAST CLINICAL HISTORY: Generalized abdominal pain. Nausea and vomiting. Diarrhea. COMPARISON STUDY: Abdominal CT dated 11/18/2022. TECHNIQUE: Following the IV administration of 89 cc of Optiray 320, CT scan of the abdomen and pelvi s is performed from the lung bases to the proximal femora. Images are reviewed in the axial, sagittal , and coronal planes. IV contrast was administered without complication. A dose lowering technique wa s utilized adhering to the principles of ALARA. CT DOSE: 1619.97 mGy.cm FINDINGS: Lung bases: The heart is normal in size and without pericardial effusion. There is trace right pleura l effusion with elevation of the right hemidiaphragm and right basilar atelectasis. Left lung base is clear. Liver: The contrast-enhanced liver is normal in size, contour, and attenuation. There is no intrahepa tic biliary ductal dilatation. The hepatic veins and portal veins are patent. Gallbladder: Surgically absent and clips in the gallbladder fossa. Spleen: Normal in size and attenuation. Pancreas: Unremarkable. Adrenal glands: Unremarkable. Kidneys: The contrast enhanced kidneys are normal in size and without hydronephrosis. The kidneys enh ance symmetrically. Abdominal vasculature: The abdominal aorta is normal in course and caliber. Bowel: There is no bowel obstruction. Submucosal fat deposition throughout the colon is nonspecific a nd has been described in the setting of chronic inflammation. The appendix is not identified and rep orted surgically absent. Peritoneum: There is no intraperitoneal free air or abdominal ascites. There is a fat-containing umbi lical hernia. Lymphadenopathy: None. Pelvic viscera: The bladder, uterus, and adnexa are normal as visualized. There are left ovarian foll icles. Skeletal structures: No lytic or blastic lesions are seen. Sclerotic changes noted in the sacroiliac joints. IMPRESSION: No acute infectious or inflammatory findings are identified in the abdomen or pelvis. ACT 112: Negative or not required by law. Electronically signed by: Drake De Jesus M.D. 04/22/2023 6:44 AM
[2023-04-22] MEDS ORDERED: DICYCLOMINE HCL 10 MG CAP PO ONE (06:51)
[2023-04-22] MEDS ORDERED: KETOROLAC TROMETHAMINE 15 MG/ML VIAL IV ONE (06:51)
[2023-04-22] MEDS ORDERED: diphenhydrAMINE 50 MG/ML VIAL IV STA (07:52)
[2023-04-22] MEDS ORDERED: PROCHLORPERAZINE 1 ML IV ONE (07:52)
[2023-04-22] MEDS: SODIUM CHLORIDE 0.9% 1,000 ML IV SCH ×2 (08:04→16:11)
--- NOTE | 2023-04-22 08:11 | History & Physical Report ---
Date of Service April 22, 2023 Assessment & Plan (1) Abdominal pain: Plan: Abdominal pain, intractable nausea, vomiting Diarrhea Unclear etiology --DD: Gastroenteritis, peptic ulcer disease, irritable bowel syndrome, ? Secondary to lithium --CT ABD:No acute infectious or inflammatory findings are identified in the abdomen or pelvis. --Mesenteric USD:Normal Doppler ultrasound of the hepatic and portal vasculature. These vessels were also shown to be widely patent on today's abdominal CT scan. -- Normal lipase, lactate levels -- BioFire negative --Normal LFTs --Negative test --Toxicology screen pending (received narcotics while in ED) --[place] levels pending -- Will obtain stool studies if has recurrence of diarrhea --Clear liquid diet for now -- Started on IV Protonix --Pain control --GI consulted --N.p.o. after midnight for possible EGD tomorrow --Continue IV fluids Morbid obesity BMI 44 Other chronic conditions: Neurofibromatosis Bipolar disorder, MINE, Depression--continue home medications Mitral valve prolapse--as per record Insomnia Migraine--no acute issues PCOS--as per record DVT Px: SCDs for now Code Status Full Code History of Present Illness Chief Complaint: Abdominal Pain Primary Care Provider: Yun Del Rio MD Patient is a 32-year-old female with history of neurofibromatosis, bipolar disorder, generalized anxiety disorder, depression, mitral valve prolapse, insomnia, migraine, PCOS and other medical problems presents with history of intractable nausea, vomiting, worsening abdominal pain. Patient states noticing flulike symptoms associated with chills since about 10 days duration. Last Sunday patient developed nausea, vomiting and and had generalized abdominal pain which gradually got worse. Patient was evaluated at [facility] and was discharged home as per patient. Abdominal pain has been gradually worsening since 1 week duration associated with decreased appetite, radiates to back intermittently, constant to sharp in quality, worsens with food intake. Also reports having nausea, vomiting and intermittent loose stools. Reports associated chills but denies any fever. Denies any history of chest pain, dyspnea, palpitations, orthopnea, PND, dizziness, pedal edema, cough, hemoptysis, fever, fall, syncope, headache, change in vision, blood in stools, melena, dysuria, hematuria, sick contact, recent change in medications. Allergies Allergy/AdvReac Type Severity Reaction Status Date / Time cortisone Allergy Hives over Verified 04/22/23 01:12 whole body, and swelling at injection site nicotine AdvReac Severe nasal Verified 04/22/23 01:12 congestion, sob, coughing bee venom protein (honey bee) AdvReac Intermediate Headache, Verified 04/22/23 01:12 faint lactose AdvReac Intermediate Gastrointestinal Verified 04/22/23 01:12 Upset Home Medications Medication Instructions Recorded Confirmed Type aripiprazole 10 mg tablet 10 mg PO QAM 06/11/20 04/22/23 History lamotrigine 150 mg tablet 150 mg PO QAM 02/01/21 04/22/23 History lithium carbonate 300 mg capsule 300 - 600 mg PO UD 07/04/21 04/22/23 History prazosin 1 mg capsule 1 mg PO HS 11/30/21 04/22/23 History clonazepam 1 mg tablet 1 mg PO TID PRN Anxiety 05/15/22 04/22/23 History fluoxetine 40 mg capsule 80 mg PO QAM 05/15/22 04/22/23 History temazepam 30 mg capsule 30 mg PO HS 05/15/22 04/22/23 History levothyroxine 50 mcg tablet 50 mcg PO DAILYBB #30 tabs 11/22/22 04/22/23 Rx (Synthroid) tizanidine 2 mg tablet 4 mg PO Q8H PRN Muscle Spasm 11/30/22 04/22/23 History acetaminophen 500 mg tablet 1,000 mg PO Q4 PRN Pain 04/22/23 04/22/23 History (Tylenol Extra Strength) ibuprofen 200 mg tablet (Motrin IB) 800 mg PO TID PRN Pain 04/22/23 04/22/23 History promethazine 25 mg tablet 25 mg PO DIRECTED PRN Nausea 04/22/23 04/22/23 History Past Med/Surg History Medical History Hyponatremia Chronic anemia Fluctuating hgbs with baseline 11-13 range per chart review Bipolar disorder Morbid obesity ADHD History of COVID-19 Fall 2019 > loss of taste and smell, cough fever, muscle pain and fatigue, wheezing, SOB Residual altered taste/smell PCOS (polycystic ovarian syndrome) Concussion ~ 6 concussions total over the last 30 years Last concussion 06/2021 r/t wooden shelf fell from above patient's bed Mitral valve prolapse Dx as child Normal MV with trace MR, no MV stenosis per 06/2020 echo Anxiety with depression Neurofibromatosis, type 1 Diagnosed 2019 found after daughter was having medical issues that led to patient having genetic testing which resulted in the diagnosis, "no issues" per patient Cystic fibrosis carrier Surgical History Hx laparoscopic cholecystectomy Laparoscopic Cholecystectomy (11/22/21): Grade 1 view, Thomas#2, ETT 7.0 at [facility] History of esophagogastroduodenoscopy (EGD) at age 6 (dxd of lactose intolerance) History of bilateral tubal ligation with History of ankle surgery left ankle ligament reconstruction [place] [facility] [place] History of ankle surgery Left 09/[address] Charles S/P reconstruction of ligament of knee right knee 2018 [place] teeth removed 2008 H/O section 2011, 2014, 2018 History of appendectomy Family History Mother Diabetes Other No family history of adverse response to anesthesia No significant family history Social History Smoking Status: Never smoker Second Hand Exposure: No; Do You Dip or Chew Tobacco: No; Hx Alcohol Use: No Hx Substance Use: No Preferred Language: Malawian Communication Ability: Effective Visual Impairment: No Limitations Hearing Ability: Normal Solaris Administrator Required: No Beliefs That Will Affect Care: None marital status: Current Living Situation: Spouse and Family Current Living Situation Comment: Lives with and x4 children current occupational status: unemployed How many Children do You have: 4 Feels Safe at Home: Yes during the past year weight has: remained stable Assistive Devices: None Review of Systems Review of Systems: All systems reviewed & are unremarkable except as noted in Subjective Physical Exam Physical Exam: Physical Exam: Vitals signs as noted above General Appearance:Morbidly Obese, no apparent distress Head: normocephalic, Atraumatic Eyes: normal inspection, EOMI Neck: supple, Trachea midline Respiratory/Chest: Normal breath sounds, CTA, No accessory muscle use Cardiovascular: S1, S2, No murmur Abdomen/GI:Soft, generalized tenderness predominantly epigastric, + voluntary guarding, no rigidity, Bowel sounds present Extremities/Musculoskeletal:normal inspection, no edema Neurologic/Psych:AAOX3, grossly no focal neurological deficits Skin: normal color, warm Results & Data Results & Data Vital Signs (Past 12 Hours) Vital Signs Temp Pulse Pulse Resp BP BP Pulse Ox 04/22/23 07:30 69 28 H 165/91 H 97 04/22/23 04:50 76 21 98 04/22/23 04:40 63 23 97 04/22/23 04:32 63 04/22/23 04:30 71 26 H 96 04/22/23 04:30 129/63 04/22/23 04:20 63 24 96 04/22/23 04:10 77 23 96 04/22/23 04:00 84 17 95 04/22/23 04:00 121/58 L 04/22/23 03:50 78 20 96 04/22/23 03:40 66 17 98 04/22/23 03:30 80 18 96 04/22/23 03:30 114/58 L 04/22/23 03:20 68 23 97 04/22/23 03:10 71 21 96 04/22/23 03:00 127/68 04/22/23 03:00 71 21 96 04/22/23 02:59 72 22 98 04/22/23 02:59 131/77 04/22/23 02:50 96 H 24 98 04/22/23 02:40 83 20 97 04/22/23 02:30 80 22 98 04/22/23 02:13 65 21 98 04/22/23 02:13 131/91 04/22/23 02:13 69 20 131/91 97 04/22/23 02:10 77 21 98 04/22/23 02:00 75 22 100 04/22/23 01:50 74 22 99 04/22/23 01:40 63 22 100 04/22/23 01:30 63 24 99 04/22/23 01:20 68 22 100 04/22/23 01:10 68 20 97 04/22/23 01:00 63 22 99 04/22/23 00:50 68 24 97 04/22/23 00:47 137/82 04/22/23 00:47 71 22 98 04/22/23 00:46 73 04/22/23 00:04 37.1 C 104 H 20 145/88 H 100 O2 Del Method 04/22/23 07:30 Room Air 04/22/23 04:50 04/22/23 04:40 04/22/23 04:32 04/22/23 04:30 04/22/23 04:30 04/22/23 04:20 04/22/23 04:10 04/22/23 04:00 04/22/23 04:00 04/22/23 03:50 04/22/23 03:40 04/22/23 03:30 04/22/23 03:30 04/22/23 03:20 04/22/23 03:10 04/22/23 03:00 04/22/23 03:00 04/22/23 02:59 04/22/23 02:59 04/22/23 02:50 04/22/23 02:40 04/22/23 02:30 04/22/23 02:13 04/22/23 02:13 04/22/23 02:13 04/22/23 02:10 04/22/23 02:00 04/22/23 01:50 04/22/23 01:40 04/22/23 01:30 04/22/23 01:20 04/22/23 01:10 Room Air 04/22/23 01:00 Room Air 04/22/23 00:50 Room Air 04/22/23 00:47 04/22/23 00:47 Room Air 04/22/23 00:46 04/22/23 00:04 Room Air Laboratory Results Short CBC 04/22/23 Range/Units 00:42 WBC 7.90 (4.8-10.8) K/ul Hgb 12.8 (12.0-16.0) g/dl Hct 40.3 (37.0-47.0) % Plt Count 374 (130-400) K/uL BMP 04/22/23 00:42 Sodium 140 Potassium 3.5 Chloride 106 Carbon Dioxide 26 BUN 11 Creatinine 0.83 Glucose 73 Calcium 10.0 Liver Function 04/22/23 Range/Units 00:42 Total Bilirubin 0.8 (0.2-1.0) mg/dl AST 17 (13-39) U/L ALT 18 (7-52) U/L Alkaline Phosphatase 62 (34-104) U/L Albumin 5.0 (3.4-5.0) gm/dl Urine 04/22/23 Range/Units 00:42 Urine Color Dark Yellow Urine Appearance Clear (Clear) Urine pH 6.5 (4.5-7.5) Ur Specific [place] 1.031 H (1.000-1.030) Urine Protein 1+ H (Negative) Urine Glucose (UA) Negative (Negative) Diagnostic Findings --CT ABD:No acute infectious or inflammatory findings are identified in the abdomen or pelvis. --KUB:No acute abnormality is identified. --Mesenteric USD:Normal Doppler ultrasound of the hepatic and portal vasculature. These vessels were also shown to be widely patent on today's abdominal CT scan. ECG Additional Comments: EKG: Normal sinus rhythm, QTc 434, nonspecific T wave abnormality in anterolateral leads.
[2023-04-22] MEDS ORDERED: FAMOTIDINE 20 MG in SYRINGE 3 ML IV SCH (09:00)
--- NOTE | 2023-04-22 09:14 | XRay Report ---
KUB CLINICAL HISTORY: Generalized abdominal pain. FINDINGS: 2 AP, portable, supine abdominal radiographs are correlated with abdominal CT performed the same day 04/22/2023. Cholecystectomy clips are noted in the right upper quadrant. There is no bowel obstruction. Mild fecal retention is seen throughout the colon. Excreted IV contrast is noted in the renal collecting systems and bladder. There are no abnormal abdominal calcifications. The bony struct ures appear intact. Sclerotic change is noted in the sacroiliac joints. IMPRESSION: No acute abnormality is identified. Electronically signed by: Drake De Jesus M.D. 04/22/2023 9:12 AM
--- NOTE | 2023-04-22 11:07 | Ultrasound Report ---
DOPPLER ULTRASOUND OF THE MESENTERIC VASCULATURE CLINICAL HISTORY: Generalized abdominal pain. COMPARISON STUDY: Abdominal CT dated 04/22/2023. FINDINGS: Real-time, grayscale and color Doppler sonography the mesenteric vasculature is performed. The celiac artery is patent with velocities measuring up to 172 cm/s. The superior mesenteric artery is patent with velocities measuring up to 257 cm/s. The inferior mesenteric artery is patent with александр ocities measuring up to 189 cm/s. Elevated velocities in the splenic artery measure up to 253 cm/s. T his is likely due to tortuosity of the vessel. The hepatic arteries patent. IMPRESSION: Normal Doppler ultrasound of the hepatic and portal vasculature. These vessels were also shown to be widely patent on today's abdominal CT scan. Dictated: 04/22/2023 9:32 AM Transcribed: 04/22/2023 11:01 AM Amandeep [id number] [email or web address] Electronically signed by: Drake De Jesus M.D. 04/22/2023 11:05 AM
[2023-04-22] MEDS ORDERED: POLYETHYLENE (MIRALAX) 17 GM PACK PO PRN (11:47)
[2023-04-22] MEDS ORDERED: MoRPHine SULFATE 2 MG/ML CARP IV PRN (11:47)
[2023-04-22 12:15] LABS: Amphetamines+Metham, Urine Neg (Neg); Barbiturates, Urine Neg (Neg); Benzodiazepine, Urine Pos (Neg); Cocaine, Urine Neg (Neg); MDMA (Ecstacy), Urine Neg (Neg); Marijuana, Urine Neg (Neg); Methadone, Urine Neg (Neg); Opiate, Urine Neg (Neg); Phencyclidine, Urine Neg (Neg)
[2023-04-22 12:25] LABS: Adenovirus PCR Not Detected (NotDetected); Bordetella parapertussis PCR Not Detected (NotDetected); Bordetella pertussis PCR Not Detected (NotDetected); Chlamydia pneumoniae PCR Not Detected (NotDetected); Coronavirus 229E PCR Not Detected (NotDetected); Coronavirus CoV-2 (COVID19)PCR Not Detected (NotDetected); Coronavirus HKU1 PCR Not Detected (NotDetected); Coronavirus NL63 PCR Not Detected (NotDetected); Coronavirus OC43PCR Not Detected (NotDetected); Human Metapneumovirus PCR Not Detected (NotDetected); Influenza A PCR Not Detected (NotDetected); Influenza B PCR Not Detected (NotDetected); Mycoplasma pneumoniae PCR Not Detected (NotDetected); Parainfluenza Virus 1 PCR Not Detected (NotDetected); Parainfluenza Virus 2 PCR Not Detected (NotDetected); Parainfluenza Virus 3 PCR Not Detected (NotDetected); Parainfluenza Virus 4 PCR Not Detected (NotDetected); Respiratory Syncytial VirusPCR Not Detected (NotDetected); Rhinovirus/Enterovirus PCR Not Detected (NotDetected)
[2023-04-22] MEDS: PANTOprazole 40 MG in SYRINGE 0 ML IV SCH ×2 (13:46→20:15)
[2023-04-22] MEDS: LITHIUM CARBONATE 300 MG TAB PO SCH ×2 (15:59→20:17)
[2023-04-22] MEDS: ONDANSETRON INJ 2 MG/ML 2 ML VIAL IV PRN ×2 (16:06→23:40)
[2023-04-22] MEDS: tiZANidine HCL 4 MG TABLET PO PRN (19:49)
[2023-04-22] MEDS: ACETAMINOPHEN 325 MG TAB PO PRN (19:49)
[2023-04-22] MEDS: MoRPHine SULFATE 4 MG/ML 1 ML CARP\\VIAL IV PRN ×2 (19:49→23:40)
[2023-04-22] MEDS ORDERED: LORazepam 0.25 MG in SYRINGE 0.125 ML IV STA (20:06)
[2023-04-22] MEDS: TEMAZEPAM 15 MG CAPSULE PO SCH (20:17)
[2023-04-22] MEDS: PRAZOSIN HCL 1 MG CAP PO SCH (20:17)
[2023-04-23] MEDS ORDERED: KETOROLAC TROMETHAMINE 15 MG/ML VIAL IV ONE (01:53)
[2023-04-23] MEDS: SODIUM CHLORIDE 0.9% 1,000 ML IV SCH ×3 (04:55→20:22)
[2023-04-23] MEDS: LEVOTHYROXINE SODIUM 50 MCG TABLET PO SCH (05:48)
[2023-04-23 06:58] LABS: Hematocrit (blood only) 34.9 % (37.0-47.0); Mean Corpuscular Hemoglobin 26.1 pg (25.0-34.0); Mean Corpuscular Hgb Conc 31.5 g/dL (32.0-36.0); Mean Corpuscular Volume 82.7 fL (80.0-100.0); Mean Platelet Volume 10.2 fL (9.4-12.4); Platelet Count 273 K/uL (130-400); RDW Coefficient of Variation 12.6 % (11.5-14.5); RDW Standard Deviation 38.2 fL (36.4-46.3); Red Blood Count 4.22 M/uL (4.20-5.40); White Blood Count 4.87 K/ul (4.8-10.8)
[2023-04-23 07:22] LABS: Albumin Level 3.9 gm/dl (3.4-5.0); BUN Creatinine Ratio 8.5 (10-20); Bilirubin,Total 0.9 mg/dl (0.2-1.0); Calcium 8.4 mg/dl (8.6-10.3); Creatinine Clr Calc Pharmacy 121.2 ml/min; Est GFR (African American) 128.8 ml/min; Est GFR (Non-African American) 111.1 ml/min; Potassium 3.8 mmol/L (3.5-5.1); Total Protein 5.9 gm/dl (6.0-8.3)
[2023-04-23] MEDS: MoRPHine SULFATE 4 MG/ML 1 ML CARP\\VIAL IV PRN ×4 (08:01→21:32)
[2023-04-23] MEDS: ONDANSETRON INJ 2 MG/ML 2 ML VIAL IV PRN ×2 (08:01→21:06)
[2023-04-23] MEDS: ARIPiprazole 10 MG TAB PO SCH (10:18)
[2023-04-23] MEDS: FLUoxetine HCL 20 MG CAP PO SCH (10:18)
[2023-04-23] MEDS: lamoTRIgine 100 MG TAB PO SCH (10:19)
[2023-04-23] MEDS: LITHIUM CARBONATE 300 MG TAB PO SCH ×3 (10:19→20:21)
[2023-04-23] MEDS: ACETAMINOPHEN 325 MG TAB PO PRN ×2 (10:26→19:36)
[2023-04-23] MEDS: PANTOprazole 40 MG in SYRINGE 0 ML IV SCH ×2 (10:27→20:22)
--- NOTE | 2023-04-23 11:46 | Gastrointestinal Consultation ---
Date of Consultation April 23, 2023 Assessment & Plan (1) Nausea & vomiting: (2) Diarrhea: (3) Abdominal pain: Plan N/V/D x 10 days, w/o abnormalities on labs, imaging. Recommend EGD tomorrow. Will consider colonscocpy if EGD does not show cause of symptoms. Clear liquids po. Continue BID PPI and H2 bj. Antiemetics. Avoid narcotic as no clear etiology. Consider dicyclomine 10mg QID. NPO after midnight. Supervising Physician Co-Signing Physician Notes I have seen and examined the patient with DUONG Norris whose note reflects our findings and plan. EGD planned for tomorrow. History of Present Illness Reason for Consultation: Abdominal Pain, Nausea, Vomiting Requesting Physician: Dr. Saenz Attending Physician: Galileo Saenz MD History of Present Illness Ms. Delphine Carcamo is a 32 yr old female pt of Dr. Ousmane Lutz w a hx of neurofibromatosis type I, cystic fibrosis carrier, obesity, anxiety, depression, ADD, hypothyroid, PCOS, endometriosis who presented to [facility] ED yesterday w reports of sudden onset of nausea vomiting diarrhea and abdominal pain on April 13. She describes the abdominal pain is being over her entire abdomen much worse after trying to eat or drink anything, constant with sharp stabbing pains at x 2. Review of outpatient records shows that this summer on arrival during admission for foot surgery, she had mildly elevated LFTs. She does not have elevated LFTs lipase or white count during this admission. She is status postcholecystectomy in 2021. She denies any ongoing abdominal pain nausea or vomiting prior to this episode, and reports that she typically passes 1 bowel movement per day that is formed and brown. She has been unable to tolerate any p.o. liquids or any p.o. medications since arrival here. Though abdomen is soft and nondistended she is exquisitely tender throughout the entire abdomen on physical exam. She denies any hematemesis, melena or hematochezia. She has felt hot and chills but did not take her temperature at home and has been afebrile here and white count has been normal here. She is receiving famotidine and pantoprazole IV twice daily here. She says she has not had any improvement in symptoms since arrival. She has not had a bowel movement since arrival. Allergies Allergy/AdvReac Type Severity Reaction Status Date / Time cortisone Allergy Hives over Verified 04/22/23 01:12 whole body, and swelling at injection site nicotine AdvReac Severe nasal Verified 04/22/23 01:12 congestion, sob, coughing bee venom protein (honey bee) AdvReac Intermediate Headache, Verified 04/22/23 01:12 faint lactose AdvReac Intermediate Gastrointestinal Verified 04/22/23 01:12 Upset Home Medications Medication Instructions Recorded Confirmed Type aripiprazole 10 mg tablet 10 mg PO QAM 06/11/20 04/22/23 History lamotrigine 150 mg tablet 150 mg PO QAM 02/01/21 04/22/23 History lithium carbonate 300 mg capsule 300 - 600 mg PO UD 07/04/21 04/22/23 History prazosin 1 mg capsule 1 mg PO HS 11/30/21 04/22/23 History clonazepam 1 mg tablet 1 mg PO TID PRN Anxiety 05/15/22 04/22/23 History fluoxetine 40 mg capsule 80 mg PO QAM 05/15/22 04/22/23 History temazepam 30 mg capsule 30 mg PO HS 05/15/22 04/22/23 History levothyroxine 50 mcg tablet 50 mcg PO DAILYBB #30 tabs 11/22/22 04/22/23 Rx (Synthroid) tizanidine 2 mg tablet 4 mg PO Q8H PRN Muscle Spasm 11/30/22 04/22/23 History acetaminophen 500 mg tablet 1,000 mg PO Q4 PRN Pain 04/22/23 04/22/23 History (Tylenol Extra Strength) ibuprofen 200 mg tablet (Motrin IB) 800 mg PO TID PRN Pain 04/22/23 04/22/23 History promethazine 25 mg tablet 25 mg PO DIRECTED PRN Nausea 04/22/23 04/22/23 History Patient History Medical History Hyponatremia Chronic anemia Fluctuating hgbs with baseline 11-13 range per chart review Bipolar disorder Morbid obesity ADHD History of COVID-19 Fall 2019 > loss of taste and smell, cough fever, muscle pain and fatigue, wheezing, SOB Residual altered taste/smell PCOS (polycystic ovarian syndrome) Concussion ~ 6 concussions total over the last 30 years Last concussion 06/2021 r/t wooden shelf fell from above patient's bed Mitral valve prolapse Dx as child Normal MV with trace MR, no MV stenosis per 06/2020 echo Anxiety with depression Neurofibromatosis, type 1 Diagnosed 2019 found after daughter was having medical issues that led to patient having genetic testing which resulted in the diagnosis, "no issues" per patient Cystic fibrosis carrier Surgical History Hx laparoscopic cholecystectomy Laparoscopic Cholecystectomy (11/22/21): Grade 1 view, Thomas#2, ETT 7.0 at [facility] History of esophagogastroduodenoscopy (EGD) at age 6 (dxd of lactose intolerance) History of bilateral tubal ligation with History of ankle surgery left ankle ligament reconstruction and left ankle fusion at [facility] [place] (08/[place]) History of ankle surgery Left 09/[address] Charles S/P reconstruction of ligament of knee right knee 2018 [place] teeth removed 2008 H/O section 2011, 2014, 2018 History of appendectomy Family History Mother Diabetes Other No family history of adverse response to anesthesia No significant family history Social History Smoking Status: Never smoker Second Hand Exposure: No; Do You Dip or Chew Tobacco: No; Tobacco Cessation Education Requested by Patient: No Hx Alcohol Use: No Hx Substance Use: No Preferred Language: Brazilian Communication Ability: Effective Visual Impairment: No Limitations Hearing Ability: Normal Corporate Accountant Required: No Beliefs That Will Affect Care: None marital status: Current Living Situation: Spouse and Family Current Living Situation Comment: Lives with and x4 children current occupational status: unemployed How many Children do You have: 4 Other Information That Helps Us Care for You: No Feels Safe at Home: Yes Safety Concerns: Feels Safe At This Time during the past year weight has: remained stable Assistive Devices: Glasses Review of Systems Constitutional: + chills, + sweats, + fatigue and + weak ness Eyes: no problem reported Ear, Nose, Mouth, Throat: no sore throat, no hoarseness, no dysphagia and no pain with swallowing Respiratory: no cough, no chest congestion and no dyspnea on exertion Cardiovascular: no chest pain, no dyspnea, no syncope and no edema Gastrointestinal: + as per HPI, otherwise negative Musculoskeletal: + left foot pain and swelling post surge ry about 6m ago Integumentary: no rash, no lesions, no dry skin and no pruritus Neurologic: no gait abnormality, no tremor(s), no headache(s) and no confusion Psychiatric: Denies thoughts of self harm, says depression well controlled Physical Exam Constitutional: WD/WN, vitals as above Eyes: PERRL, conjunctivae normal, anicteric sclerae ENMT: external ear and nose normal, oropharynx normal Neck: trachea midline, no thyromegaly Respiratory: normal respiratory effort, lungs clear to auscultation Gastrointestinal (Abdomen): soft, non distended, exquisitely tender over the entire abdomen, no masses Musculoskeletal: no cyanosis or clubbing, extremities motor strength 5/5 Skin: no rashes, warm and dry Neurologic: PERRL, EOMI, accommodation nl, no face palsy, no dysarthria Psychiatric: A+Ox3, euthymic affect Lymphatic: no cervical or axillary lymphadenopathy Results & Data Vital Signs (Past 12 Hours) Vital Signs Temp Pulse Pulse Resp BP Pulse Ox O2 Del Method 04/23/23 11:05 37.3 C 64 16 140/84 95 Room Air 04/23/23 07:45 36.9 C 66 16 148/85 H 91 Room Air 04/23/23 05:57 58 L 04/23/23 04:33 36.8 C 63 18 129/73 92 Room Air 04/22/23 23:49 36.7 C 76 20 137/89 94 Room Air Laboratory Results WBC 4.8, Hb 11, HCT 34.9, PLT S273, NA 139, K3.8, CL 111, CO2 23, BUN 6, CR 0.71, glucose 80 T. bili 0.8, AST 13, ALT 12, alk phos 50 Diagnostic Findings CTAp w IV contrast on 04/22/23: No acute infectious or inflammatory findings are identified in the abdomen or pelvis. KUB 04/22/23: No acute abnormality is identified. VDUS 04/22/23: Normal Doppler ultrasound of the hepatic and portal vasculature. These vessels were also shown to be widely patent on today's abdominal CT scan.
[2023-04-23] MEDS: oxyCODONE HCL IR 5 MG TAB (IMMEDIATE RELEASE) PO PRN ×2 (15:09→22:43)
--- NOTE | 2023-04-23 16:12 | Hospitalist Progress Note ---
Date of Service April 23, 2023 Assessment & Plan (1) Abdominal pain: Plan: Abdominal pain, intractable nausea, vomiting Diarrhea Unclear etiology --DD: Gastroenteritis, peptic ulcer disease, irritable bowel syndrome, ? Secondary to lithium --CT ABD:No acute infectious or inflammatory findings are identified in the abdomen or pelvis. --Mesenteric USD:Normal Doppler ultrasound of the hepatic and portal vasculature. These vessels were also shown to be widely patent on today's abdominal CT scan. -- Normal lipase, lactate levels -- BioFire negative --Normal LFTs --Negative test --Toxicology screen pending (received narcotics while in ED) --[place] levels pending -- Will obtain stool studies if has recurrence of diarrhea -- Continue IV Protonix --Liquid diet today --Pain control --Appreciate GI Input --N.p.o. after midnight for EGD tomorrow --Continue IV fluids Morbid obesity BMI 44 Lifestyle changes Other chronic conditions: Neurofibromatosis Bipolar disorder, MINE, Depression--continue home medications Mitral valve prolapse--as per record Insomnia Migraine--no acute issues PCOS--as per record DVT Px: SCDs for now Code Status Full Code Admission and Anticipated Discharge Date Admission Date: April 22, 2023 Subjective Patient is seen and examined at bedside Reports headache associated with nausea and abdominal pain Tolerating liquid diet per RN Discussed with GI today Plan for endoscopy tomorrow Review of Systems Review of Systems: All systems reviewed & are unremarkable except as noted in Subjective Physical Exam Physical Exam: Physical Exam: Vitals signs as noted above General Appearance:Morbidly Obese, no apparent distress Head: normocephalic, Atraumatic Eyes: normal inspection, EOMI Neck: supple, Trachea midline Respiratory/Chest: Normal breath sounds, CTA, No accessory muscle use Cardiovascular: S1, S2, No murmur Abdomen/GI:Soft, generalized tenderness predominantly epigastric, + voluntary guarding, no rigidity, Bowel sounds present Extremities/Musculoskeletal:normal inspection, no edema Neurologic/Psych:AAOX3, grossly no focal neurological deficits Skin: normal color, warm Results & Data Results & Data Vital Signs (Past 12 Hours) Vital Signs Temp Pulse Pulse Resp BP Pulse Ox O2 Del Method 04/23/23 14:02 67 04/23/23 11:05 37.3 C 64 16 140/84 95 Room Air 04/23/23 07:45 36.9 C 66 16 148/85 H 91 Room Air 04/23/23 05:57 58 L 04/23/23 04:33 36.8 C 63 18 129/73 92 Room Air Laboratory Results Short CBC 04/23/23 Range/Units 06:33 WBC 4.87 (4.8-10.8) K/ul Hgb 11.0 L (12.0-16.0) g/dl Hct 34.9 L (37.0-47.0) % Plt Count 273 (130-400) K/uL BMP 04/23/23 06:33 Sodium 139 Potassium 3.8 Chloride 111 H Carbon Dioxide 23 BUN 6 Creatinine 0.71 Glucose 80 Calcium 8.4 L Liver Function 04/23/23 Range/Units 06:33 Total Bilirubin 0.9 (0.2-1.0) mg/dl AST 13 (13-39) U/L ALT 12 (7-52) U/L Alkaline Phosphatase 56 (34-104) U/L Albumin 3.9 (3.4-5.0) gm/dl
[2023-04-23] MEDS: DICYCLOMINE HCL 10 MG CAP PO SCH ×2 (18:35→22:44)
[2023-04-23] MEDS: tiZANidine HCL 4 MG TABLET PO PRN (19:36)
[2023-04-23] MEDS: PRAZOSIN HCL 1 MG CAP PO SCH (20:21)
[2023-04-23] MEDS: TEMAZEPAM 15 MG CAPSULE PO SCH (20:21)
[2023-04-23] MEDS: FAMOTIDINE 20 MG in SYRINGE 3 ML IV SCH (20:22)
--- NOTE | 2023-04-23 22:54 | Electrocardiogram Report ---
Test Reason : Blood Pressure : / mmHG Vent. Rate : 060 BPM Atrial Rate : 060 BPM P-R Int : 154 ms QRS Dur : 076 ms QT Int : 434 ms P-R-T Axes : 012 030 003 degrees QTc Int : 434 ms Normal sinus rhythm Nonspecific T wave abnormality When compared with ECG of 30-NOV-2022 12:56, Nonspecific T wave abnormality, improved in Anterolateral leads Confirmed by Johann Baca ([id number]) on 04/23/2023 10:54:22 PM Referred By: REFERRED SELF Confirmed By:Johann Baca
[2023-04-24] MEDS: MoRPHine SULFATE 4 MG/ML 1 ML CARP\\VIAL IV PRN ×2 (04:10→17:34)
[2023-04-24] MEDS: tiZANidine HCL 4 MG TABLET PO PRN (04:11)
[2023-04-24] MEDS: SODIUM CHLORIDE 0.9% 1,000 ML IV SCH ×2 (04:51→15:17)
[2023-04-24] MEDS: LEVOTHYROXINE SODIUM 50 MCG TABLET PO SCH (04:52)
[2023-04-24 06:32] LABS: Hemoglobin 9.8 g/dl (12.0-16.0); Mean Corpuscular Hemoglobin 26.5 pg (25.0-34.0); Mean Corpuscular Hgb Conc 32.7 g/dL (32.0-36.0); Mean Corpuscular Volume 81.1 fL (80.0-100.0); Mean Platelet Volume 10.9 fL (9.4-12.4); Platelet Count 237 K/uL (130-400); RDW Coefficient of Variation 12.6 % (11.5-14.5); RDW Standard Deviation 37.2 fL (36.4-46.3); White Blood Count 4.39 K/ul (4.8-10.8)
[2023-04-24 06:57] LABS: Albumin Globulin Ratio 2.1 (0.9-2); Albumin Level 3.6 gm/dl (3.4-5.0); BUN Creatinine Ratio 5.9 (10-20); Bilirubin,Total 0.7 mg/dl (0.2-1.0); Calcium 8.3 mg/dl (8.6-10.3); Creatinine Clr Calc Pharmacy 126.8 ml/min; Est GFR (African American) 132.3 ml/min; Est GFR (Non-African American) 114.1 ml/min; Globulin 1.7 gm/dl (2.5-4.0); Magnesium 1.9 mg/dl (1.7-2.4); Potassium 3.5 mmol/L (3.5-5.1); Total Protein 5.3 gm/dl (6.0-8.3)
[2023-04-24] MEDS: oxyCODONE HCL IR 5 MG TAB (IMMEDIATE RELEASE) PO PRN ×2 (07:32→20:46)
[2023-04-24] MEDS ORDERED: PROPOFOL IV EMULSION 10 MG/ML 20 ML VIAL IV ONE (08:32)
[2023-04-24] MEDS ORDERED: fentaNYL citrate PF 100 MCG/2 ML VIAL ONE (08:32)
[2023-04-24] MEDS ORDERED: LIDOCAINE 2% 2 ML VIAL/AMP(20MG/ML) INFIL ONE (08:32)
--- NOTE | 2023-04-24 08:38 | Anesthesiology Consultation ---
Date of Service April 24, 2023 Assessment & Plan Chart Review Chart Review: Acceptable Risk for Surgery, Patient NOT seen in Pre Admission Testing and journal entry audit clerk initiated Consults Requested none ASA ASA3 Proposed Anesthesia Anesthesia Type: MAC Risk / Benefits Reviewed With: PT / POA / Parent / Guardian, Accepts Plan and Informed Consent Obtained History Surgery Operation Date: 04/24/23 16:30 Proposed Procedures p Esophagogastroduodenoscopy Dr West - Maria G West, DO Height/Weight Height: 5 ft Weight: 104 kg Allergies Allergy/AdvReac Type Severity Reaction Status Date / Time cortisone Allergy Hives over Verified 04/24/23 08:05 whole body, and swelling at injection site nicotine AdvReac Severe nasal Verified 04/24/23 08:05 congestion, sob, coughing bee venom protein (honey bee) AdvReac Intermediate Headache, Verified 04/24/23 08:05 faint lactose AdvReac Intermediate Gastrointestinal Verified 04/24/23 08:05 Upset Medications Home Medications Medication Instructions Recorded Confirmed Last Taken aripiprazole 10 mg tablet 10 mg PO QAM 06/11/20 04/22/23 11/29/22 lamotrigine 150 mg tablet 150 mg PO QAM 02/01/21 04/22/23 11/29/22 lithium carbonate 300 mg capsule 300 - 600 mg PO UD 07/04/21 04/22/23 11/29/22 prazosin 1 mg capsule 1 mg PO HS 11/30/21 04/22/23 11/29/22 clonazepam 1 mg tablet 1 mg PO TID PRN Anxiety 05/15/22 04/22/23 11/29/22 fluoxetine 40 mg capsule 80 mg PO QAM 05/15/22 04/22/23 11/29/22 temazepam 30 mg capsule 30 mg PO HS 05/15/22 04/22/23 11/29/22 levothyroxine 50 mcg tablet 50 mcg PO DAILYBB #30 tabs 11/22/22 04/22/23 11/29/22 (Synthroid) tizanidine 2 mg tablet 4 mg PO Q8H PRN Muscle Spasm 11/30/22 04/22/23 11/29/22 acetaminophen 500 mg tablet 1,000 mg PO Q4 PRN Pain 04/22/23 04/22/23 Unknown (Tylenol Extra Strength) ibuprofen 200 mg tablet (Motrin IB) 800 mg PO TID PRN Pain 04/22/23 04/22/23 Unknown promethazine 25 mg tablet 25 mg PO DIRECTED PRN Nausea 04/22/23 04/22/23 Unknown Active Medications Generic Name Dose Route Start Last Admin Trade Name Freq PRN Reason Stop Dose Admin Acetaminophen 650 mg 04/22/23 11:47 04/23/23 19:36 Acetaminophen 325 Mg Tab PO 05/22/23 11:46 650 mg Q4H PRN Administration Pain or Fever Aripiprazole 10 mg 04/23/23 09:00 04/23/23 10:18 Aripiprazole 10 Mg Tab PO 05/23/23 08:59 Not Given QAM KRISSY Dicyclomine HCl 10 mg 04/23/23 17:32 04/23/23 22:44 Dicyclomine Hcl 10 Mg Cap PO 05/23/23 17:31 10 mg QID KRISSY Administration Fluoxetine HCl 80 mg 04/23/23 09:00 04/23/23 10:18 Fluoxetine Hcl 20 Mg Cap PO 05/23/23 08:59 Not Given QAM KRISSY Sodium Chloride 1,000 mls @ 125 mls/hr 04/22/23 08:00 04/24/23 04:51 Nss IV 05/22/23 07:59 125 mls/hr .Q8H KRISSY Administration Pantoprazole Sodium 40 mg/ 10 mls @ 5 mls/min 04/22/23 11:47 04/23/23 20:22 Syringe IV 05/22/23 11:46 5 mls/min BID KRISSY Administration Famotidine 20 mg/ Syringe 5 mls @ 2.5 mls/min 04/23/23 21:00 04/23/23 20:22 IV 05/23/23 20:59 2.5 mls/min BID KRISSY Administration Lamotrigine 150 mg 04/23/23 09:00 04/23/23 10:19 Lamotrigine 100 Mg Tab PO 05/23/23 08:59 Not Given QAM KRISSY Levothyroxine Sodium 50 mcg 04/23/23 06:30 04/24/23 04:52 Levothyroxine Sodium 50 Mcg Tablet PO 05/23/23 06:29 50 mcg DAILYBB KRISSY Administration [place] Carbonate 300 mg 04/22/23 15:00 04/23/23 15:10 [place] Carbonate 300 Mg Tab PO 05/22/23 14:59 300 mg BID@0900,1500 KRISSY Administration [place] Carbonate 600 mg 04/22/23 21:00 04/23/23 20:21 [place] Carbonate 300 Mg Tab PO 05/22/23 20:59 600 mg HS KRISSY Administration Morphine Sulfate 3 mg 04/23/23 01:52 04/24/23 04:10 Morphine Sulfate 4 Mg/Ml 1 Ml Carp\\Vial IV 05/06/23 18:07 3 mg Q4H PRN Administration Pain Ondansetron HCl 4 mg 04/22/23 11:47 04/23/23 21:06 Ondansetron Inj 2 Mg/Ml 2 Ml Vial IV 05/22/23 11:46 4 mg Q6H PRN Administration Nausea Oxycodone HCl 5 mg 04/23/23 15:01 04/24/23 07:32 Oxycodone Hcl Ir 5 Mg Tab (Immediate Release) PO 05/07/23 15:00 5 mg Q6H PRN Administration Pain Prazosin HCl 1 mg 04/22/23 21:00 04/23/23 20:21 Prazosin Hcl 1 Mg Cap PO 05/22/23 20:59 1 mg HS KRISSY Administration Temazepam 30 mg 04/22/23 21:00 04/23/23 20:21 Temazepam 15 Mg Capsule PO 05/22/23 20:59 30 mg HS KRISSY Administration Tizanidine HCl 2 mg 04/22/23 11:47 04/24/23 04:11 Tizanidine Hcl 4 Mg Tablet PO 05/22/23 11:46 2 mg Q8H PRN Administration Muscle Spasm NPO Date Last Intake of Fluids: 04/24/23 Time Last Intake of Fluids: 07:30 Date Last Intake of Solids: 04/13/23 Time Last Intake of Solids: 18:00 Last Intake of Solids Comment: as per patient Past Medical History Medical History Hyponatremia Chronic anemia Fluctuating hgbs with baseline 11-13 range per chart review Bipolar disorder Morbid obesity ADHD History of COVID-19 Fall 2019 > loss of taste and smell, cough fever, muscle pain and fatigue, wheezing, SOB Residual altered taste/smell PCOS (polycystic ovarian syndrome) Concussion ~ 6 concussions total over the last 30 years Last concussion 06/2021 r/t wooden shelf fell from above patient's bed Mitral valve prolapse Dx as child Normal MV with trace MR, no MV stenosis per 06/2020 echo Anxiety with depression Neurofibromatosis, type 1 Diagnosed 2019 found after daughter was having medical issues that led to patient having genetic testing which resulted in the diagnosis, "no issues" per patient Cystic fibrosis carrier Exercise / Class Metabolic Activity II 4-5 Yardwork/Stairs/Walk up hill Past Family History Family History Mother Diabetes Other No family history of adverse response to anesthesia No significant family history Past Surgical History Surgical History Hx laparoscopic cholecystectomy Laparoscopic Cholecystectomy (11/22/21): Grade 1 view, Thomas#2, ETT 7.0 at [facility] History of esophagogastroduodenoscopy (EGD) at age 6 (dxd of lactose intolerance) History of bilateral tubal ligation with History of ankle surgery left ankle ligament reconstruction and left ankle fusion at [facility] [place] History of ankle surgery Left 09/[address] Charles S/P reconstruction of ligament of knee right knee 2018 [place] teeth removed 2008 H/O section 2011, 2014, 2018 History of appendectomy Past Anesthesia History No Hx of Anesthesia Complications and No Family Hx of Anesthesia Complications History of PONV No Hx of PONV and No Hx of Motion Sickness Social History Smoking Status: Never smoker Do You Dip or Chew Tobacco: No Hx Alcohol Use: No Hx Substance Use: No substance use type: does not use Physical Exam Vital Signs Last Vital Signs Temp 37 C 04/24/23 08:02 Pulse 59 L 04/24/23 08:02 Resp 16 04/24/23 08:02 BP 120/72 04/24/23 08:02 Pulse Ox 94 04/24/23 08:02 O2 Del Method Room Air 04/24/23 08:02 Constitutional + morbidly obese; no acute distress ENMT Mouth: no chipped teeth and no loose teeth Thyromental Distance: > or= 3.5 Finger Breadths Mallampati Class: III Neck normal visual inspection and trachea midline; neck extension not limited Respiratory normal respiratory effort; no respiratory distress Auscultation: lungs clear to auscultation bilaterally; no crackles, no rhonchi and no wheezes Cardiovascular Rate/Rhythm: regular rate and regular rhythm Heart Sounds: no gallop, no murmur and no cardiac rub Musculoskeletal Head/Neck/Chest: full ROM of neck Neurologic moves all extremities and awake Psychiatric Orientation: alert and oriented x 3 Testing Laboratory Results 04/24/23 05:31 04/24/23 05:31 PT 10.9 Seconds (9.0-12.0) 04/22/23 00:42 INR 1.0 (0.9-1.1) 04/22/23 00:42 Urine Color Dark Yellow 04/22/23 00:42 Urine Appearance Clear (Clear) 04/22/23 00:42 Urine pH 6.5 (4.5-7.5) 04/22/23 00:42 Ur Specific [place] 1.031 (1.000-1.030) H 04/22/23 00:42 Urine Protein 1+ (Negative) H 04/22/23 00:42 Urine Glucose (UA) Negative (Negative) 04/22/23 00:42 Urine Ketones Trace (Negative) H 04/22/23 00:42 Urine Nitrite Negative (Negative) 04/22/23 00:42 Ur Leukocyte Esterase Negative (Negative) 04/22/23 00:42 Urine WBC (Auto) 1-5 /hpf (0-5) 04/22/23 00:42 Urine RBC (Auto) 5-10 /hpf (0-4) H 04/22/23 00:42 U Hyaline Cast (Auto) 1-5 /lpf (0-5) 04/22/23 00:42 U Epithel Cells (Auto) >30 /lpf (0-5) H 04/22/23 00:42 Urine Bacteria (Auto) Negative (Negative) 04/22/23 00:42 Echocardiogram EF: 60-65% LV Function: normal
--- NOTE | 2023-04-24 09:22 | History & Physical Report ---
Date of Service April 24, 2023 Assessment & Plan (1) Nausea & vomiting: Plan: EGD today Admission and Anticipated Discharge Date Admission Date: April 22, 2023 History of Present Illness Chief Complaint: nausea, abd pain and vomiting x10 days Primary Care Provider: Yun Del Rio MD Allergies Allergy/AdvReac Type Severity Reaction Status Date / Time cortisone Allergy Hives over Verified 04/24/23 08:05 whole body, and swelling at injection site nicotine AdvReac Severe nasal Verified 04/24/23 08:05 congestion, sob, coughing bee venom protein (honey bee) AdvReac Intermediate Headache, Verified 04/24/23 08:05 faint lactose AdvReac Intermediate Gastrointestinal Verified 04/24/23 08:05 Upset Home Medications Medication Instructions Recorded Confirmed Type aripiprazole 10 mg tablet 10 mg PO QAM 06/11/20 04/22/23 History lamotrigine 150 mg tablet 150 mg PO QAM 02/01/21 04/22/23 History lithium carbonate 300 mg capsule 300 - 600 mg PO UD 07/04/21 04/22/23 History prazosin 1 mg capsule 1 mg PO HS 11/30/21 04/22/23 History clonazepam 1 mg tablet 1 mg PO TID PRN Anxiety 05/15/22 04/22/23 History fluoxetine 40 mg capsule 80 mg PO QAM 05/15/22 04/22/23 History temazepam 30 mg capsule 30 mg PO HS 05/15/22 04/22/23 History levothyroxine 50 mcg tablet 50 mcg PO DAILYBB #30 tabs 11/22/22 04/22/23 Rx (Synthroid) tizanidine 2 mg tablet 4 mg PO Q8H PRN Muscle Spasm 11/30/22 04/22/23 History acetaminophen 500 mg tablet 1,000 mg PO Q4 PRN Pain 04/22/23 04/22/23 History (Tylenol Extra Strength) ibuprofen 200 mg tablet (Motrin IB) 800 mg PO TID PRN Pain 04/22/23 04/22/23 History promethazine 25 mg tablet 25 mg PO DIRECTED PRN Nausea 04/22/23 04/22/23 History Past Med/Surg History Medical History Hyponatremia Chronic anemia Fluctuating hgbs with baseline 11-13 range per chart review Bipolar disorder Morbid obesity ADHD History of COVID-19 Fall 2019 > loss of taste and smell, cough fever, muscle pain and fatigue, wheezing, SOB Residual altered taste/smell PCOS (polycystic ovarian syndrome) Concussion ~ 6 concussions total over the last 30 years Last concussion 06/2021 r/t wooden shelf fell from above patient's bed Mitral valve prolapse Dx as child Normal MV with trace MR, no MV stenosis per 06/2020 echo Anxiety with depression Neurofibromatosis, type 1 Diagnosed 2018 found after daughter was having medical issues that led to patient having genetic testing which resulted in the diagnosis, "no issues" per patient Cystic fibrosis carrier Surgical History Hx laparoscopic cholecystectomy Laparoscopic Cholecystectomy (11/22/21): Grade 1 view, Thomas#2, ETT 7.0 at [facility] History of esophagogastroduodenoscopy (EGD) at age 6 (dxd of lactose intolerance) History of bilateral tubal ligation with History of ankle surgery left ankle ligament reconstruction and left ankle fusion at [facility] [place] ([place]) History of ankle surgery Left 09/[address] Charles S/P reconstruction of ligament of knee right knee 2018 [place] teeth removed 2008 H/O section 2011, 2014, 2018 History of appendectomy Family History Mother Diabetes Other No family history of adverse response to anesthesia No significant family history Social History Smoking Status: Never smoker Second Hand Exposure: No; Do You Dip or Chew Tobacco: No; Tobacco Cessation Education Requested by Patient: No Hx Alcohol Use: No Hx Substance Use: No Preferred Language: Slovak Communication Ability: Effective Visual Impairment: No Limitations Hearing Ability: Normal Grain Scooper Required: No Beliefs That Will Affect Care: None marital status: Current Living Situation: Spouse and Family Current Living Situation Comment: Lives with and x4 children current occupational status: unemployed How many Children do You have: 4 Other Information That Helps Us Care for You: No Feels Safe at Home: Yes Safety Concerns: Feels Safe At This Time during the past year weight has: remained stable Assistive Devices: Glasses Results & Data Vital Signs (Past 12 Hours) Vital Signs Temp Pulse Pulse Resp BP Pulse Ox O2 Del Method 04/24/23 08:02 37 C 59 L 16 120/72 94 Room Air 04/24/23 07:53 36.7 C 54 L 16 110/66 94 Room Air 04/24/23 04:00 36.6 C 72 18 122/74 94 Room Air 04/23/23 23:30 36.5 C 68 18 105/70 95 Room Air 04/23/23 21:53 71 Code Status & VTE Plan VTE Prophylaxis Plan VTE Prophylaxis will be ordered: Yes
--- NOTE | 2023-04-24 09:40 | GI REPORT ---
Patient Name: Delphine Corona Procedure Date: 04/24/2023 8:26 AM Date of : 1990 Admit Type: Inpatient Age: 32 Gender: Female Attending MD: Maria G West DO, Procedure: Upper GI endoscopy Providers: Maria G West DO Referring MD: Galileo Saenz Md Indications: Generalized abdominal pain, Nausea with vomiting Medicines: Propofol per Anesthesia Complications: No immediate complications. Estimated blood loss: Minimal. Estimated Blood Loss: Estimated blood loss was minimal. Procedure: Pre-Anesthesia Assessment: - Prior to the procedure, a History and Physical was performed, and patient medications, allergies and sensitivities were reviewed. The patient's tolerance of previous anesthesia was reviewed. - The risks and benefits of the procedure and the sedation options and risks were discussed with the patient. All questions were answered and informed consent was obtained. - Patient identification and proposed procedure were verified prior to the procedure by the physician and the nurse. The procedure was verified in the pre-procedure area in the procedure room. - Mental Status Examination: alert and oriented. Airway Examination: normal oropharyngeal airway and neck mobility. Respiratory Examination: clear to auscultation. CV Examination: normal. Abdominal Examination: bowel sounds present, abdomen soft and non-tender, no masses or organomegaly noted. - ASA Grade Assessment: III - A patient with severe systemic disease. After obtaining informed consent, the endoscope was passed under direct vision. Throughout the procedure, the patient's blood pressure, pulse, and oxygen saturations were monitored continuously. The Scope was introduced through the mouth, and advanced to the second part of duodenum. The upper GI endoscopy was accomplished without difficulty. The patient tolerated the procedure well. Findings: The esophagus was normal. The entire examined stomach was normal. Biopsies were taken with a cold forceps for Helicobacter pylori testing. Verification of patient identification for the specimen was done by the physician and nurse using the patient's name and date. Estimated blood loss was minimal. The examined duodenum was normal. Impression: - Normal esophagus. - Normal stomach. Biopsied. - Normal examined duodenum. Recommendation: - Await pathology results. - Follow an antireflux regimen. - [facility] patient to [facility]. Edith Lopez DO 04/24/2023 9:40:11 AM This report has been signed electronically. Note Initiated On: 04/24/2023 8:26 AM Number of Addenda: 0 I attest to the content of the Intraoperative Record and orders documented therein, exceptions below {[id number]}
[2023-04-24] MEDS: PANTOprazole 40 MG in SYRINGE 0 ML IV SCH (11:00)
[2023-04-24] MEDS: lamoTRIgine 100 MG TAB PO SCH (11:01)
[2023-04-24] MEDS: LITHIUM CARBONATE 300 MG TAB PO SCH ×3 (11:02→20:43)
[2023-04-24] MEDS: FLUoxetine HCL 20 MG CAP PO SCH (11:03)
[2023-04-24] MEDS: ARIPiprazole 10 MG TAB PO SCH (11:03)
[2023-04-24] MEDS: DICYCLOMINE HCL 10 MG CAP PO SCH ×4 (11:04→20:45)
[2023-04-24] MEDS: FAMOTIDINE 20 MG in SYRINGE 3 ML IV SCH ×2 (11:05→20:43)
--- NOTE | 2023-04-24 12:37 | Anesthesiology Progress Note ---
Date of Service April 24, 2023 Anesthesia Post Procedure Vital Signs Vital Signs: Temp Pulse Pulse Resp BP BP Pulse Ox 04/24/23 11:23 36.5 C 54 L 16 135/82 95 04/24/23 10:09 64 16 118/76 94 04/24/23 09:53 53 L 16 113/63 93 04/24/23 09:38 57 L 14 109/67 92 04/24/23 08:02 37 C 59 L 16 120/72 94 04/24/23 07:53 36.7 C 54 L 16 110/66 94 04/24/23 06:00 56 L 04/24/23 04:00 36.6 C 72 18 122/74 94 04/23/23 23:30 36.5 C 68 18 105/70 95 04/23/23 21:53 71 04/23/23 19:00 36.6 C 61 18 128/76 94 04/23/23 16:08 36.8 C 90 18 153/91 H 95 04/23/23 14:02 67 O2 Del Method 04/24/23 11:23 Room Air 04/24/23 10:09 Room Air 04/24/23 09:53 Room Air 04/24/23 09:38 Room Air 04/24/23 08:02 Room Air 04/24/23 07:53 Room Air 04/24/23 06:00 04/24/23 04:00 Room Air 04/23/23 23:30 Room Air 04/23/23 21:53 04/23/23 19:00 Room Air 04/23/23 16:08 Room Air 04/23/23 14:02 Pain Intensity Medial Abdomen: Pain Intensity: 9 Transfer of Care Handoff Completed per policy Notes Mental Status: alert / awake / arousable and participated in evaluation Patient Amnestic to Procedure: Yes Nausea / Vomiting: adequately controlled Pain: adequately controlled Airway Patency, RR, SpO2: stable & adequate BP & HR: stable & adequate Hydration State: stable & adequate Anesthetic Complications: no major complications apparent
--- NOTE | 2023-04-24 16:39 | Hospitalist Progress Note ---
Date of Service April 24, 2023 Assessment & Plan (1) Abdominal pain: Plan: Abdominal pain, intractable nausea, vomiting Diarrhea Unclear etiology --DD: Gastroenteritis, peptic ulcer disease, irritable bowel syndrome, ? Secondary to lithium --CT ABD:No acute infectious or inflammatory findings are identified in the abdomen or pelvis. --Mesenteric USD:Normal Doppler ultrasound of the hepatic and portal vasculature. These vessels were also shown to be widely patent on today's abdominal CT scan. --S/P EGD:Normal esophagus.Normal stomach. Biopsied. Normal examined duodenum. --Pathology Pending -- Normal lipase, lactate levels -- BioFire negative --Normal LFTs --Negative test --Toxicology screen pending (received narcotics while in ED) --[place] levels low -- Will obtain stool studies if has recurrence of diarrhea -- Continue Protonix --Liquid diet today --Pain control --Appreciate GI Input -- If symptoms persistent, will likely need colonoscopy as outpatient Advance diet as tolerated Morbid obesity BMI 44 Lifestyle changes Other chronic conditions: Neurofibromatosis Bipolar disorder, MINE, Depression--continue home medications Mitral valve prolapse--as per record Insomnia Migraine--no acute issues PCOS--as per record DVT Px: SCDs for now Code Status Full Code Admission and Anticipated Discharge Date Admission Date: April 22, 2023 Subjective Patient is seen and examined at bedside Had EGD earlier today Continues to complain of nausea, abdominal pain Discussed with GI today Getting liquid diet Denies any chest pain, dyspnea Review of Systems Review of Systems: All systems reviewed & are unremarkable except as noted in Subjective Physical Exam Physical Exam: Physical Exam: Vitals signs as noted above General Appearance:Morbidly Obese, no apparent distress Head: normocephalic, Atraumatic Eyes: normal inspection, EOMI Neck: supple, Trachea midline Respiratory/Chest: Normal breath sounds, CTA, No accessory muscle use Cardiovascular: S1, S2, No murmur Abdomen/GI:Soft, generalized tenderness predominantly epigastric, + voluntary guarding, no rigidity, Bowel sounds present Extremities/Musculoskeletal:normal inspection, no edema Neurologic/Psych:AAOX3, grossly no focal neurological deficits Skin: normal color, warm Results & Data Results & Data Vital Signs (Past 12 Hours) Vital Signs Temp Pulse Pulse Resp BP BP Pulse Ox 04/24/23 14:47 36.6 C 51 L 16 158/91 H 94 04/24/23 14:00 66 04/24/23 11:23 36.5 C 54 L 16 135/82 95 04/24/23 10:09 64 16 118/76 94 04/24/23 09:53 53 L 16 113/63 93 04/24/23 09:38 57 L 14 109/67 92 04/24/23 08:02 37 C 59 L 16 120/72 94 04/24/23 07:53 36.7 C 54 L 16 110/66 94 04/24/23 06:00 56 L O2 Del Method 04/24/23 14:47 Room Air 04/24/23 14:00 04/24/23 11:23 Room Air 04/24/23 10:09 Room Air 04/24/23 09:53 Room Air 04/24/23 09:38 Room Air 04/24/23 08:02 Room Air 04/24/23 07:53 Room Air 04/24/23 06:00 Laboratory Results Short CBC 04/24/23 Range/Units 05:31 WBC 4.39 L (4.8-10.8) K/ul Hgb 9.8 L (12.0-16.0) g/dl Hct 30.0 L (37.0-47.0) % Plt Count 237 (130-400) K/uL BMP 04/24/23 05:31 Sodium 139 Potassium 3.5 Chloride 111 H Carbon Dioxide 22 BUN 4 L Creatinine 0.68 Glucose 90 Calcium 8.3 L Liver Function 04/24/23 Range/Units 05:31 Total Bilirubin 0.7 (0.2-1.0) mg/dl AST 12 L (13-39) U/L ALT 10 (7-52) U/L Alkaline Phosphatase 45 (34-104) U/L Albumin 3.6 (3.4-5.0) gm/dl
[2023-04-24] MEDS: ONDANSETRON INJ 2 MG/ML 2 ML VIAL IV PRN ×2 (17:34→21:47)
[2023-04-24 17:43] LABS: 7-Aminoclonaz, Confirm 1550 ng/mL (<25); Hydro-Alp Ur, GC/MS NEGATIVE ng/mL (<25); Hydroxyethylflurazepam, Conf NEGATIVE ng/mL (<50); Hydroxymidazolam Ur, GC/MS NEGATIVE ng/mL (<50); Hydroxytriazolam NEGATIVE ng/mL (<50); Lorazepam, Ur GC/MS NEGATIVE ng/mL (<50); Nordiazepam, Confirm NEGATIVE ng/mL (<50); Oxazepam Ur, GC/MS >2000 ng/mL (<50); Temazepam, Confirm >2000 ng/mL (<50)
[2023-04-24] MEDS: PRAZOSIN HCL 1 MG CAP PO SCH (20:44)
[2023-04-24] MEDS: clonazePAM 1 MG TAB PO PRN (20:47)
[2023-04-24] MEDS: PANTOprazole 40 MG TAB PO SCH (20:57)
[2023-04-24] MEDS: TEMAZEPAM 15 MG CAPSULE PO SCH (20:57)
[2023-04-25] MEDS: MoRPHine SULFATE 4 MG/ML 1 ML CARP\\VIAL IV PRN ×3 (03:17→17:45)
[2023-04-25] MEDS: ONDANSETRON INJ 2 MG/ML 2 ML VIAL IV PRN ×3 (03:23→16:02)
[2023-04-25] MEDS: LEVOTHYROXINE SODIUM 50 MCG TABLET PO SCH (05:56)
[2023-04-25 06:54] LABS: Hematocrit (blood only) 31.1 % (37.0-47.0); Hemoglobin 10.2 g/dl (12.0-16.0); Mean Corpuscular Hemoglobin 26.2 pg (25.0-34.0); Mean Corpuscular Hgb Conc 32.8 g/dL (32.0-36.0); Mean Corpuscular Volume 79.9 fL (80.0-100.0); Mean Platelet Volume 11.1 fL (9.4-12.4); Platelet Count 255 K/uL (130-400); RDW Coefficient of Variation 12.5 % (11.5-14.5); Red Blood Count 3.89 M/uL (4.20-5.40); White Blood Count 5.53 K/ul (4.8-10.8)
[2023-04-25 07:41] LABS: BUN Creatinine Ratio 4.3 (10-20); Calcium 8.7 mg/dl (8.6-10.3); Creatinine Clr Calc Pharmacy 122.8 ml/min; Potassium 3.3 mmol/L (3.5-5.1)
[2023-04-25] MEDS: FAMOTIDINE 20 MG in SYRINGE 3 ML IV SCH ×2 (08:41→20:26)
[2023-04-25] MEDS: ARIPiprazole 10 MG TAB PO SCH (08:42)
[2023-04-25] MEDS: LITHIUM CARBONATE 300 MG TAB PO SCH ×3 (08:42→20:21)
[2023-04-25] MEDS: PANTOprazole 40 MG TAB PO SCH ×2 (08:42→20:19)
[2023-04-25] MEDS: lamoTRIgine 100 MG TAB PO SCH (08:43)
[2023-04-25] MEDS: FLUoxetine HCL 20 MG CAP PO SCH (08:44)
[2023-04-25] MEDS: DICYCLOMINE HCL 10 MG CAP PO SCH ×4 (08:44→20:19)
[2023-04-25] MEDS ORDERED: POTASSIUM CHLORIDE CRTAB 20 MEQ TABCR PO ONE (09:41)
[2023-04-25] MEDS ORDERED: bisacodyL 5 MG TABEC PO ONE (10:27)
[2023-04-25] MEDS ORDERED: POLYETHYLENE (MIRALAX) 17 GM PACK PO STA (10:28)
--- NOTE | 2023-04-25 11:02 | Gastroenterology Progress Note ---
Date of Service April 25, 2023 Assessment & Plan (1) Nausea & vomiting: Plan: This seems to be resolved - or antiemetics are effective (2) Abdominal pain: Plan 1. Prep today for colonoscopy. 2. Clear liq diet, NPO after midnight except meds and prep. 2. Stop Narcotics (no clear reason for their use and colon prep will not be effective as narcotics slow GI motility). If unable to complete the prep today then would recommend changing the colonoscopy to OP in a week or two and we could arrange that. Admission and Anticipated Discharge Date Admission Date: April 22, 2023 Supervising Physician Co-Signing Physician Notes Patient was seen and examined with DUONG Ceballos on 04/25. Her note reflects our findings and plan. Subjective When seen earlier this morning, was sitting up and appeared well but told me that she still had significant abdominal pain but that she was trying to drink liquids and sit up. She reports continued diffuse bilateral abdominal pain from just above the a rao-umbilical level through both lower quadrants. She had 1 liquid brown bowel movement yesterday, small. Continues w nausea, no recent vomiting. She continues with frequent narcotic pain med use. Review of Systems Constitutional: + chills, + sweats, + fatigue and + weak ness Eyes: no problem reported Ear, Nose, Mouth, Throat: no sore throat, no hoarseness, no dysphagia and no pain with swallowing Respiratory: no cough, no chest congestion and no dyspnea on exertion Cardiovascular: no chest pain, no dyspnea, no syncope and no edema Gastrointestinal: + as per HPI, otherwise negative Musculoskeletal: + left foot pain and swelling post surge ry about 6m ago Integumentary: no rash, no lesions, no dry skin and no pruritus Neurologic: no gait abnormality, no tremor(s), no headache(s) and no confusion Psychiatric: Denies thoughts of self harm, says depression well controlled Physical Exam Constitutional: WD/WN, vitals as above Eyes: PERRL, conjunctivae normal, anicteric sclerae ENMT: external ear and nose normal, oropharynx normal Neck: trachea midline, no thyromegaly Respiratory: normal respiratory effort, lungs clear to auscultation Cardiovascular: RRR, no murmur, no edema Gastrointestinal (Abdomen): Hypoactive BS, but present in all 4 quadrants, soft, obese, very tender over bilat mid and lower abd. Musculoskeletal: no cyanosis or clubbing, extremities motor strength 5/5 Skin: no rashes, warm and dry Neurologic: PERRL, EOMI, accommodation nl, no face palsy, no dysarthria Psychiatric: A+Ox3, euthymic affect Lymphatic: no cervical or axillary lymphadenopathy Results & Data Vital Signs (Past 12 Hours) Vital Signs Temp Pulse Pulse Resp BP BP Pulse Ox 04/25/23 07:42 70 04/25/23 07:33 36.9 C 60 18 149/75 H 95 04/25/23 03:30 36.8 C 76 18 137/76 95 04/24/23 23:23 36.6 C 68 18 135/76 94 O2 Del Method 04/25/23 07:42 04/25/23 07:33 Room Air 04/25/23 03:30 Room Air 04/24/23 23:23 Room Air Laboratory Results WBC 5.5, Hb 10.2, HCT 31, PLT 255, NA 140, K3.3, CL 109, CO2 26, BUN 3, CR 0.7, glucose 86 Diagnostic Findings CTAP w IV contrast 04/22/23: Liver: The contrast-enhanced liver is normal in size, contour, and attenuation. There is no intrahepatic biliary ductal dilatation. The hepatic veins and portal veins are patent. Gallbladder: Surgically absent and clips in the gallbladder fossa. Spleen: Normal in size and attenuation. Pancreas: Unremarkable. Adrenal glands: Unremarkable. Kidneys: The contrast enhanced kidneys are normal in size and without hydronephrosis. The kidneys enhance symmetrically. Abdominal vasculature: The abdominal aorta is normal in course and caliber. Bowel: There is no bowel obstruction. Submucosal fat deposition throughout the colon is nonspecific and has been described in the setting of chronic inflammation. The appendix is not identified and reported surgically absent. Peritoneum: There is no intraperitoneal free air or abdominal ascites. There is a fat-containing umbilical hernia.
[2023-04-25] MEDS ORDERED: PROMETHAZINE HCL 6.25 MG in SODIUM CHLORIDE 0.9% 50 ML IV ONE (13:47)
[2023-04-25 16:10] LABS: Adenovirus F 40/41 PCR Not Detected (NotDetected); Astrovirus PCR Not Detected (NotDetected); Campylobacter PCR Not Detected (NotDetected); Cryptosporidium PCR Not Detected (NotDetected); Cyclospora cayetanensis PCR Not Detected (NotDetected); Entamoeba histolytica PCR Not Detected (NotDetected); Enteroaggregative E.coli(EAEC) Not Detected (NotDetected); Enterotoxigenic E.coli (ETEC) Not Detected (NotDetected); Giardia lamblia PCR Not Detected (NotDetected); Norovirus GI/GII PCR Not Detected (NotDetected); Plesiomonas shigelloides PCR Not Detected (NotDetected); Rotavirus A PCR Not Detected (NotDetected); Salmonella PCR Not Detected (NotDetected); Sapovirus PCR Not Detected (NotDetected); Shiga-like Toxin E.coli (STEC) Not Detected (NotDetected); Shigella/Enteroinvasive E.coli Not Detected (NotDetected); Vibrio cholerae PCR Not Detected (NotDetected); Vibrio species PCR Not Detected (NotDetected); Yersinia enterocolitica PCR Not Detected (NotDetected)
[2023-04-25 16:12] LABS: Enteropathogenic E.coli (EPEC) DETECTED (NotDetected)
[2023-04-25] MEDS ORDERED: PROMETHAZINE HCL 6.25 MG in SODIUM CHLORIDE 0.9% 50 ML IV PRN (16:21)
[2023-04-25] MEDS: CIPROFLOXACIN / D5W 400 MG/200 ML BAG IV SCH (17:02)
[2023-04-25] MEDS: ACETAMINOPHEN 325 MG TAB PO PRN (17:03)
--- NOTE | 2023-04-25 17:32 | Hospitalist Progress Note ---
Date of Service April 25, 2023 Assessment & Plan (1) Abdominal pain: Plan: Abdominal pain, intractable nausea, vomiting Diarrhea Unclear etiology --DD: Gastroenteritis, peptic ulcer disease, irritable bowel syndrome, ? Secondary to lithium --CT ABD:No acute infectious or inflammatory findings are identified in the abdomen or pelvis. --Mesenteric USD:Normal Doppler ultrasound of the hepatic and portal vasculature. These vessels were also shown to be widely patent on today's abdominal CT scan. --S/P EGD:Normal esophagus.Normal stomach. Biopsied. Normal examined duodenum. --Pathology Pending -- Normal lipase, lactate levels -- BioFire negative --Normal LFTs --Negative test --Toxicology screen pending (received narcotics while in ED) --[place] levels low --Stool studies positive for EPEC. Empirically started on ciprofloxacin -- Continue Protonix --Liquid diet today --Pain control --Appreciate GI Input -- Bowel prep today for possible colonoscopy tomorrow per GI Morbid obesity BMI 44 Lifestyle changes Other chronic conditions: Neurofibromatosis Bipolar disorder, MINE, Depression--continue home medications Mitral valve prolapse--as per record Insomnia Migraine--no acute issues PCOS--as per record DVT Px: SCDs for now Code Status Full Code Admission and Anticipated Discharge Date Admission Date: April 22, 2023 Subjective Patient is seen and examined at bedside Persistent abdominal pain associated with nausea Discussed with GI today Plan for colonoscopy tomorrow Denies any chest pain, dyspnea Review of Systems Review of Systems: All systems reviewed & are unremarkable except as noted in Subjective Physical Exam Physical Exam: Physical Exam: Vitals signs as noted above General Appearance:Morbidly Obese, no apparent distress Head: normocephalic, Atraumatic Eyes: normal inspection, EOMI Neck: supple, Trachea midline Respiratory/Chest: Normal breath sounds, CTA, No accessory muscle use Cardiovascular: S1, S2, No murmur Abdomen/GI:Soft, generalized tenderness, + voluntary guarding, no rigidity, Bowel sounds present Extremities/Musculoskeletal:normal inspection, no edema Neurologic/Psych:AAOX3, grossly no focal neurological deficits Skin: normal color, warm Results & Data Results & Data Vital Signs (Past 12 Hours) Vital Signs Temp Pulse Pulse Resp BP BP Pulse Ox 04/25/23 15:43 76 04/25/23 14:49 36.7 C 70 18 106/64 93 04/25/23 11:31 37.2 C 87 18 128/88 94 04/25/23 07:42 70 04/25/23 07:33 36.9 C 60 18 149/75 H 95 O2 Del Method 04/25/23 15:43 04/25/23 14:49 Room Air 04/25/23 11:31 Room Air 04/25/23 07:42 04/25/23 07:33 Room Air Laboratory Results Short CBC 04/25/23 Range/Units 05:46 WBC 5.53 (4.8-10.8) K/ul Hgb 10.2 L (12.0-16.0) g/dl Hct 31.1 L (37.0-47.0) % Plt Count 255 (130-400) K/uL BMP 04/25/23 05:46 Sodium 140 Potassium 3.3 L Chloride 109 H Carbon Dioxide 26 BUN 3 L Creatinine 0.70 Glucose 86 Calcium 8.7
[2023-04-25] MEDS: tiZANidine HCL 4 MG TABLET PO PRN (19:01)
[2023-04-25] MEDS: PRAZOSIN HCL 1 MG CAP PO SCH (20:20)
[2023-04-25] MEDS: clonazePAM 1 MG TAB PO PRN (20:23)
[2023-04-25] MEDS: TEMAZEPAM 15 MG CAPSULE PO SCH (20:28)
[2023-04-26] MEDS: LEVOTHYROXINE SODIUM 50 MCG TABLET PO SCH (05:45)
[2023-04-26] MEDS: CIPROFLOXACIN / D5W 400 MG/200 ML BAG IV SCH (05:45)
[2023-04-26] MEDS: ACETAMINOPHEN 325 MG TAB PO PRN (05:45)
[2023-04-26 06:18] LABS: BUN Creatinine Ratio 5.3 (10-20); Calcium 8.8 mg/dl (8.6-10.3); Creatinine Clr Calc Pharmacy 115.4 ml/min; Est GFR (African American) 120.5 ml/min; Potassium 3.5 mmol/L (3.5-5.1)
--- NOTE | 2023-04-26 09:25 | Gastroenterology Progress Note ---
Date of Service April 26, 2023 Assessment & Plan (1) Nausea & vomiting: Plan: This seems to be resolved - or antiemetics are effective (2) Abdominal pain: Plan 1. Regular consistency diet. 2. If tolerates, it's reasonable to discharge to home later today. 3. Recommend treating EPEC w a total 5 days of Cipro. 4. Will arrange OP colonoscopy in a few months (due to mild rowan colon inflammation on CT). 5. Recommend against narcotics. Will add dicyclomine achs, on discharge, take on an as needed basis for cramping. 6. GI will sign off. Admission and Anticipated Discharge Date Admission Date: April 22, 2023 Supervising Physician Co-Signing Physician Notes I have seen and examined the patient with DUONG Gao whose note reflects our findings and plan. Subjective EPEC + on yesterday's stool sample. Patient is seen and examined at bedside. She is laying in bed but able to sit up to chat. Unable to tolerate the prep. Drank about 12oz, vomited. Has decreased her narcotic pain med use. Feels better and is asking to eat and go home though still w abd pain, it is improved. Review of Systems Constitutional: + chills, + sweats, + fatigue and + weak ness Eyes: no problem reported Ear, Nose, Mouth, Throat: no sore throat, no hoarseness, no dysphagia and no pain with swallowing Respiratory: no cough, no chest congestion and no dyspnea on exertion Cardiovascular: no chest pain, no dyspnea, no syncope and no edema Gastrointestinal: + as per HPI, otherwise negative Musculoskeletal: + left foot pain and swelling post surge ry about 6m ago Integumentary: no rash, no lesions, no dry skin and no pruritus Neurologic: no gait abnormality, no tremor(s), no headache(s) and no confusion Psychiatric: Denies thoughts of self harm, says depression well controlled Physical Exam Constitutional: WD/WN, vitals as above Eyes: PERRL, conjunctivae normal, anicteric sclerae ENMT: external ear and nose normal, oropharynx normal Neck: trachea midline, no thyromegaly Respiratory: normal respiratory effort, lungs clear to auscultation Cardiovascular: RRR, no murmur, no edema Gastrointestinal (Abdomen): BS hypoactive but present all 4 quadrants. Abd is soft w mild diffuse tenderness (much improved compared to prior 2 days). Musculoskeletal: no cyanosis or clubbing, extremities motor strength 5/5 Skin: no rashes, warm and dry Neurologic: PERRL, EOMI, accommodation nl, no face palsy, no dysarthria Psychiatric: A+Ox3, euthymic affect Lymphatic: no cervical or axillary lymphadenopathy Results & Data Vital Signs (Past 12 Hours) Vital Signs Temp Pulse Pulse Resp BP BP Pulse Ox 04/26/23 08:02 36.6 C 54 L 16 123/81 95 04/26/23 07:55 61 04/26/23 04:14 37 C 69 18 142/90 H 96 04/25/23 23:39 36.7 C 51 L 16 114/72 96 04/25/23 22:00 51 L O2 Del Method 04/26/23 08:02 Room Air 04/26/23 07:55 04/26/23 04:14 Room Air 04/25/23 23:39 Room Air 04/25/23 22:00 Laboratory Results Stool for EPEC + Na 139, K 3.5, Cl 109, CO2 26, BUN 4, Cr 0.75 Diagnostic Findings CTA 04/22/23: abdominal vasculature: The abdominal aorta is normal in course and caliber. Bowel: There is no bowel obstruction. Submucosal fat deposition throughout the colon is nonspecific and has been described in the setting of chronic inflammation. The appendix is not identified and reported surgically absent. IMPRESSION: No acute infectious or inflammatory findings are identified in the abdomen or pelvis.
[2023-04-26] MEDS: FLUoxetine HCL 20 MG CAP PO SCH (09:45)
[2023-04-26] MEDS: ARIPiprazole 10 MG TAB PO SCH (09:45)
[2023-04-26] MEDS: lamoTRIgine 100 MG TAB PO SCH (09:46)
[2023-04-26] MEDS: LITHIUM CARBONATE 300 MG TAB PO SCH (09:48)
[2023-04-26] MEDS: DICYCLOMINE HCL 10 MG CAP PO SCH ×2 (09:49→14:04)
[2023-04-26] MEDS: PANTOprazole 40 MG TAB PO SCH (09:50)
[2023-04-26] MEDS: FAMOTIDINE 20 MG in SYRINGE 3 ML IV SCH (09:51)
[2023-04-26] MEDS ORDERED: ADVANCED PROBIOTIC 1250 MG CAPSULE PO SCH (11:00)
--- NOTE | 2023-04-26 12:51 | Hospitalist Progress Note ---
Date of Service April 26, 2023 Assessment & Plan (1) Abdominal pain: Plan: Abdominal pain, intractable nausea, vomiting Diarrhea Likely due to colitis secondary to enteropathogenic E. coli--POA --DD: Irritable bowel syndrome --CT ABD:No acute infectious or inflammatory findings are identified in the abdomen or pelvis. --Mesenteric USD:Normal Doppler ultrasound of the hepatic and portal vasculature. These vessels were also shown to be widely patent on today's abdominal CT scan. --S/P EGD:Normal esophagus.Normal stomach. Biopsied. Normal examined duodenum. --Pathology: Moderate, diffuse chronic active gastritis. Atrophy and intestinal metaplasia not seen. No H. pylori detected. -- Normal lipase, lactate levels -- BioFire negative --Normal LFTs --Negative test --Toxicology screen pending (received narcotics while in ED) --[place] levels low --Stool studies positive for EPEC. Empirically started on ciprofloxacin -- Continue Protonix --Pain control --Appreciate GI Input -- Tolerating regular diet --GI plans to do colonoscopy as outpatient --Plan to discharge home today Morbid obesity BMI 44 Lifestyle changes Other chronic conditions: Neurofibromatosis Bipolar disorder, MINE, Depression--continue home medications Mitral valve prolapse--as per record Insomnia Migraine--no acute issues PCOS--as per record DVT Px: SCDs for now Encourage to ambulate Code Status Full Code Disposition Home Admission and Anticipated Discharge Date Admission Date: April 22, 2023 Subjective Patient is seen and examined at bedside States feeling much better today Abdominal pain resolved Tolerating regular diet Had loose BM today Reports intermittent nausea but no vomiting Discussed with gastroenterology today Denies any chest pain, dyspnea, dizziness. Review of Systems Review of Systems: All systems reviewed & are unremarkable except as noted in Subjective Physical Exam Physical Exam: Physical Exam: Vitals signs as noted above General Appearance:Morbidly Obese, no apparent distress Head: normocephalic, Atraumatic Eyes: normal inspection, EOMI Neck: supple, Trachea midline Respiratory/Chest: Normal breath sounds, CTA, No accessory muscle use Cardiovascular: S1, S2, No murmur Abdomen/GI:Soft, minimal tenderness, + Bowel sounds present Extremities/Musculoskeletal:normal inspection, no edema Neurologic/Psych:AAOX3, grossly no focal neurological deficits Skin: normal color, warm Results & Data Results & Data Vital Signs (Past 12 Hours) Vital Signs Temp Pulse Pulse Resp BP BP Pulse Ox 04/26/23 12:17 36.9 C 46 L 16 119/83 95 04/26/23 08:02 36.6 C 54 L 16 123/81 95 04/26/23 07:55 61 04/26/23 04:14 37 C 69 18 142/90 H 96 O2 Del Method 04/26/23 12:17 Room Air 04/26/23 08:02 Room Air 04/26/23 07:55 04/26/23 04:14 Room Air Laboratory Results [facility] 04/26/23 05:41 Sodium 139 Potassium 3.5 Chloride 109 H Carbon Dioxide 26 BUN 4 L Creatinine 0.75 Glucose 94 Calcium 8.8
--- NOTE | 2023-04-26 12:59 | Discharge Summary ---
Date of Service April 26, 2023 Admission HPI Per Admitting Provider Patient is a 32-year-old female with history of neurofibromatosis, bipolar disorder, generalized anxiety disorder, depression, mitral valve prolapse, insomnia, migraine, PCOS and other medical problems presents with history of intractable nausea, vomiting, worsening abdominal pain. Patient states noticing flulike symptoms associated with chills since about 10 days duration. Last Sunday patient developed nausea, vomiting and and had generalized abdominal pain which gradually got worse. Patient was evaluated at [facility] and was discharged home as per patient. Abdominal pain has been gradually worsening since 1 week duration associated with decreased appetite, radiates to back intermittently, constant to sharp in quality, worsens with food intake. Also reports having nausea, vomiting and intermittent loose stools. Reports associated chills but denies any fever. Denies any history of chest pain, dyspnea, palpitations, orthopnea, PND, dizziness, pedal edema, cough, hemoptysis, fever, fall, syncope, headache, change in vision, blood in stools, melena, dysuria, hematuria, sick contact, recent change in medications. Admission Exam Per Admitting Provider Physical Exam: Vitals signs as noted above General Appearance:Morbidly Obese, no apparent distress Head: normocephalic, Atraumatic Eyes: normal inspection, EOMI Neck: supple, Trachea midline Respiratory/Chest: Normal breath sounds, CTA, No accessory muscle use Cardiovascular: S1, S2, No murmur Abdomen/GI:Soft, generalized tenderness predominantly epigastric, + voluntary guarding, no rigidity, Bowel sounds present Extremities/Musculoskeletal:normal inspection, no edema Neurologic/Psych:AAOX3, grossly no focal neurological deficits Skin: normal color, warm Principal Diagnosis Gastroenteritis/colitis Gastritis Discharge Data Allergies Allergy/AdvReac Type Severity Reaction Status Date / Time cortisone Allergy Hives over Verified 04/24/23 08:05 whole body, and swelling at injection site nicotine AdvReac Severe nasal Verified 04/24/23 08:05 congestion, sob, coughing bee venom protein (honey bee) AdvReac Intermediate Headache, Verified 04/24/23 08:05 faint lactose AdvReac Intermediate Gastrointestinal Verified 04/24/23 08:05 Upset Consultations 04/22/23 08:11 ED Decision to Admit Stat 04/22/23 08:13 Consult Gastroenterology Routine Procedures Performed Operation Date: 04/26/23 16:30 <No data on this case meets the specified criteria> Ordered Studies 04/22/23 00:23 CT abd pelvis IV con only Stat 04/22/23 08:26 US duplex mesenteric Routine Hospital Course (1) Abdominal pain: Abdominal pain, intractable nausea, vomiting Diarrhea Likely due to gastroenteritis /colitis secondary to enteropathogenic E. coli--POA Gastritis on Pathology likely due to nausea, vomiting --DD: Irritable bowel syndrome --CT ABD:No acute infectious or inflammatory findings are identified in the abdomen or pelvis. --Mesenteric USD:Normal Doppler ultrasound of the hepatic and portal vasculature. These vessels were also shown to be widely patent on today's abdominal CT scan. --S/P EGD:Normal esophagus.Normal stomach. Biopsied. Normal examined duodenum. --Pathology: Moderate, diffuse chronic active gastritis. Atrophy and intestinal metaplasia not seen. No H. pylori detected. -- Normal lipase, lactate levels -- BioFire negative --Normal LFTs --Negative test --Toxicology screen pending (received narcotics while in ED) --[place] levels low --Stool studies positive for EPEC. Empirically started on ciprofloxacin -- Continue Protonix --Pain control --Appreciate GI Input -- Tolerating regular diet --GI plans to do colonoscopy as outpatient --Plan to discharge home today Morbid obesity BMI 44 Lifestyle changes Other chronic conditions: Neurofibromatosis Bipolar disorder, MINE, Depression--continue home medications Mitral valve prolapse--as per record Insomnia Migraine--no acute issues PCOS--as per record DVT Px: SCDs for now Encourage to ambulate Code Status Full Code Disposition Home Total Time Total Time Spent Total Time Spent (In Minutes): 54 minutes Discharge Plan Discharge Items Patient Disposition: Home - Self-Care Reason For Visit: ABDOMINAL PAIN Discharge Diagnosis: Gastroenteritis/colitis Gastritis Activity: Per Instructions section Exercise/Sports: Gradually increase as tolerated Non-emergency contact: Primary Care Provider and Hot Frame Tender Call non-emergency contact if: you have any medication questions, your symptoms worsen, your pain is concerning for you and you have a fever Follow-up/Referrals: Yun Del Rio MD [Primary Care Provider] - (Date & Time 05/03/2023 11:20 AM Provider Markus Salvador MD Department Family Medicine [facility] ) Diet: Heart Healthy Addtl Attending Provider Instructions: Follow-up with your primary care physician on 05/03/2023 11:20 AM Follow-up with your hot mill tin roller Dr. [place] for outpatient colonoscopy as advised --Complete antibiotic course ciprofloxacin as prescribed Do not take group of medications belonging to NSAIDs group -can cause worsen your abdominal Pain/Gastritis/Kidney Function List Of these medications includes but not limited to: Aspirin Diclofenac Ibuprofen, Motrin, Advil Toradol,ketorolac Naproxen, Aleve, Naprosyn You can take Tylenol as needed for pain or fever When buying [id number] pain medications please consult with pharmacy if you are not sure regarding ingredients, as a lot of the pain medications have combination of NSAIDs and Tylenol. Seek immediate medical attention if your symptoms reoccur or worsen Please take all medications as instructed on discharge list below. Please call if you have any questions or problems. You can reach a [facility] hospitalist on duty at [facility] 24 hours a day by calling [phone] Pending Studies at Discharge: No Stand-Alone Forms: My [facility], Smoking Cessation Medications and DC Order Prescriptions: New Advanced Probiotic 625 mg (10 billion cell) Capsule 2 cap PO DAILY Qty: 30 0RF pantoprazole 40 mg Tablet,Delayed Release (Dr/Ec) 40 mg PO DAILY Qty: 30 0RF ciprofloxacin HCl 500 mg tablet 500 mg PO BID Qty: 8 0RF Continued lithium carbonate 300 mg capsule 300 - 600 mg PO UD Rx Instructions: take 1 cap in the morning, 1 capsule in the afternoon and 2 capules at bedtime aripiprazole 10 mg tablet 10 mg PO QAM lamotrigine 150 mg tablet 150 mg PO QAM prazosin 1 mg capsule 1 mg PO HS tizanidine 2 mg tablet 4 mg PO Q8H PRN (Reason: Muscle Spasm) acetaminophen [Tylenol Extra Strength] 500 mg Tablet 1,000 mg PO Q4 PRN (Reason: Pain) promethazine 25 mg tablet 25 mg PO DIRECTED PRN (Reason: Nausea) clonazepam 1 mg tablet 1 mg PO TID PRN (Reason: Anxiety) temazepam 30 mg capsule 30 mg PO HS fluoxetine 40 mg capsule 80 mg PO QAM levothyroxine [Synthroid] 50 mcg Tablet 50 mcg PO DAILYBB Qty: 30 0RF Discontinued ibuprofen [Motrin IB] 200 mg Tablet 800 mg PO TID PRN (Reason: Pain) Discharge Orders: Discharge Order (Routine); Ordered 04/26/23 Ordered By: Galileo Saenz Admission Data Admit Date/Time: 04/22/23 08:30 Attending Provider: Galileo Saenz Admit Provider: Galileo Saenz Primary Care Provider: Yun Del Rio Other Providers: Galileo Saenz; Carla Bhatt; Ananda Posada; Mirna Edgar; Bernice Guevara; Ramandeep Balderrama; Antonia Childress; Sixto Johnson; Kenny Negrete; Niki Henry; Darron Pop; Mg Aparicio; Polo Mcintosh; Nu Aparicio; Maria G West; Trice Renee; Idalmis Bryant; Kishor Alfaro; Hong Schuler; Celso Morgan; Ernestina Anderson; Mellissa Mccormick Jr
== END 2023-04-26 15:00 | disposition home or self-care (01) | DRG 372 ==
LOC: ED 00:02 → EDINP 08:30 → 2N 14:00

== ENCOUNTER 2025-04-24 15:19 | Observation (INO) ==
--- NOTE | 2025-04-24 15:25 | Emergency Department Note ---
Impression & Plan Acute pain of left foot ED Provider Note ED Provider Note NAME: ANANYA TINEO AGE:34 SEX: Female : 1990 ARRIVES VIA: EMS INFORMANT: Patient ED PROVIDER(s): Saleem Prince CHIEF COMPLAINT: L ankle pain HPI: 34-year-old female presents emergency room with complaints of left ankle pain. Patient states that her ankle inverted inward and she started having severe pain. She has significant history of multiple surgeries on the ankle including tendon release and nails and screws. She states that it is a chronic pain issue for her, but is exquisitely more painful now given the trauma. Patient was in significant pain. EMS had given 200 mics of fentanyl, as well as Versed prior to arrival in the emergency room. Patient continued to be in pretty severe pain. Distal PMS was intact. Good color to the foot. PAST MEDICAL HISTORY:See Below PAST SURGICAL HISTORY:See Below FAMILY HISTORY:See Below SOCIAL HISTORY:See Below HOME MEDICATIONS:See Below ALLERGIES:See Below VITALS:See Below PHYSICAL EXAMINATION: GENERAL: alert, well appearing, well nourished, no distress, non-toxic EYE EXAM: normal conjunctiva, PERRL and EOM's grossly intact OROPHARYNX: no exudate, no erythema, lips, buccal mucosa, and tongue normal and mucous membranes are moist NECK: supple, no nuchal rigidity, no adenopathy, non-tender LUNGS: Clear to auscultation. Normal chest wall mechanics, no w/r/r HEART: no murmurs, S1 normal and S2 normal ABDOMEN: abdomen soft, non-tender, normo-active bowel sounds, no masses, no rebound or guarding. BACK: Back is symmetrical on inspection and there is no deformity, no midline tenderness, no CVA tenderness. SKIN: no rashes, petechiae, orbruising UPPER EXTREMITIES: upper extremities are grossly normal. FROM, nml pulses b/l. LOWER EXTREMITIES: No pitting edema. FROM, nml pulses b/l. NEURO EXAM: Normal sensorium, cranial nerves II-XII grossly intact, normal speech, no facial droop,nogross weakness of arms, no gross weakness of legs. Gross sensation intact. No ataxia. Vital Signs: reviewed and remarkable Differential Diagnosis: Fracture, dislocation, contusion, intra-abdominal, pneumothorax, intrathoracic, intracranial, neurologic, compartment syndrome, rhabdomyolysis, as well as other pathologies. MEDICAL DECISION MAKIN-year-old female presents emergency room complaints of left ankle and foot pain. Patient having irretractable pain despite meds in the emergency room. Spoke with Ortho who will admit. Spoke with patient about results and plan, she is agreeable. Consultation(s): orthopedics ER Treatment Provided: See below Diagnostics Interpreted By Me: -Laboratory studies: As stated above and show below. -Imaging studies: x-ray ankle and foot shows no acute changes. Triage Nursing Note Reviewed Prior/Outside Records Reviewed Past Med/Surg History Problem List (Updated 04/24/25 @ 17:39 by Odessa Prince DO) Acute pain of left foot (Acute) Torsion dystonia Left foot and ankle Chronic pain of left ankle Diarrhea (Acute) Nausea & vomiting (Acute) Abdominal pain (Acute) Diaphragm paralysis Multifocal pneumonia (Acute) Hypoxia (Acute) Acute respiratory failure with hypoxia Dyspnea (Acute) Low back pain due to displacement of intervertebral disc S/P laparoscopic cholecystectomy Encounter for pre-operative examination Symptomatic cholelithiasis Abdominal pain (Acute) Cholelithiasis Adnexal tenderness, right Tenderness of female pelvic organs Adnexal tenderness, left Cervical motion tenderness Muscle spasm of left lower extremity Cerebral concussion Insomnia Anxiety disorder Depression with suicidal ideation (Acute) delivery delivered Encounter for pre-operative examination Vaginal bleeding (Acute) UTI (urinary tract infection) (Acute) Traumatic rectus hematoma (Acute) uterine contractions in third trimester, antepartum premature rupture of membranes (PPROM) with unknown onset of labor Pelvic pain (Acute) Hyperemesis (Acute) Hx of section Chest pain (Acute) Abnormal vaginal bleeding (Acute) Abdominal pain (Acute) Morbid obesity (Acute) Bipolar disorder Anxiety with depression PCOS (polycystic ovarian syndrome) Medical History Nausea and vomiting after administration of anesthetic agent Chronic anemia Fluctuating hgbs with baseline 11-13 range per chart review ADHD History of COVID-19 Fall 2019 > loss of taste and smell, cough fever, muscle pain and fatigue, wheezing, SOB Residual altered taste/smell Concussion ~ 6 concussions total over the last 30 years Last concussion 06/2021 r/t wooden shelf fell from above patient's bed Mitral valve prolapse Dx as child Normal MV with trace MR, no MV stenosis per 06/2020 echo Neurofibromatosis, type 1 Diagnosed 2018 found after daughter was having medical issues that led to patient having genetic testing which resulted in the diagnosis, "no issues" per patient Cystic fibrosis carrier Surgical History Hx laparoscopic cholecystectomy Laparoscopic Cholecystectomy (11/22/21): Grade 1 view, Thomas#2, ETT 7.0 at [facility] History of esophagogastroduodenoscopy (EGD) at age 6 (dxd of lactose intolerance) History of bilateral tubal ligation with History of ankle surgery 2020, left left ankle ligament reconstruction and left ankle fusion at [facility] (08/2021) S/P reconstruction of ligament of knee right knee 2018 [place] teeth removed 2008 Family History Mother Diabetes Other No family history of adverse response to anesthesia No significant family history Social History Smoking Status: Never smoker Second Hand Exposure: No; Do You Dip or Chew Tobacco: No; Hx Alcohol Use: No Hx Substance Use: No Preferred Language: Danish Communication Ability: Effective Visual Impairment: No Limitations Hearing Ability: Normal Sand Filler Required: No Beliefs That Will Affect Care: None marital status: Current Living Situation: Spouse and Family Current Living Situation Comment: Lives with and x4 children current occupational status: unemployed How many Children do You have: 4 Feels Safe at Home: Yes during the past year weight has: remained stable Assistive Devices: Glasses and Other Allergies Allergies Allergy/AdvReac Type Severity Reaction Status Date / Time cortisone Allergy Severe Hives over Verified 04/24/25 17:20 whole body, and swelling at injection site nicotine Allergy Severe nasal Verified 04/24/25 17:20 congestion, sob, coughing bee venom protein (honey bee) AdvReac Intermediate Headache, Verified 04/24/25 17:20 faint lactose AdvReac Intermediate Gastrointestinal Verified 04/24/25 17:20 Upset ketorolac [From Toradol] AdvReac nausea/head Verified 04/24/25 17:20 ache Home Meds Home Medications Medication Instructions Recorded Confirmed aripiprazole 10 mg tablet 10 mg PO QAM 06/11/20 04/24/25 lamotrigine 150 mg tablet 150 mg PO QAM 02/01/21 04/24/25 lithium carbonate 300 mg capsule 300 mg PO BID 07/04/21 04/24/25 prazosin 1 mg capsule 1 mg PO HS 11/30/21 04/24/25 clonazepam 1 mg tablet 1 mg PO TID PRN Anxiety 05/15/22 04/24/25 temazepam 30 mg capsule 30 mg PO HS 05/15/22 04/24/25 dextroamphetamine-amphetamine 10 10 mg PO .AFTERNOON 06/18/23 04/24/25 mg tablet dextroamphetamine-amphetamine ER 20 mg PO QAM 06/18/23 04/24/25 20 mg 24hr capsule,extend release doxepin 75 mg capsule 75 mg PO HS 10/30/23 04/24/25 lithium carbonate 300 mg 600 mg PO HS 12/13/24 04/24/25 tablet,extended release fluoxetine 40 mg capsule 80 mg PO QAM 12/23/24 04/24/25 naproxen 500 mg tablet (Naprosyn) 500 mg PO UD PRN Pain 12/23/24 04/24/25 Previous Rx's Medication Instructions Recorded tizanidine 4 mg tablet 4 mg PO Q8H PRN muscle spasticity 12/23/24 #60 tabs Results & Data (ED) Vital Signs Vital Signs - 24 hr 04/24/25 15:29 04/24/25 16:03 04/24/25 16:09 Temperature 36.6 C Temperature Source Oral Pulse Rate 117 H 112 H 112 H Pulse Rate [Apical] Respiratory Rate 25 H 11 L Respiratory Effort / Characteristics Respiratory Depth Normal Respiratory Pattern Regular Blood Pressure 148/100 H Blood Pressure [Left Arm] Blood Pressure Mean 116 Blood Pressure Mean [Left Arm] Pulse Oximetry 95 95 Oxygen Delivery Method Room Air Room Air Sepsis Recent Fever Within 48 Hours No Sepsis New/Unexplained Change in Mental Status N/A Sepsis Action Taken by Nursing Physician Notified End Tidal CO2 (18-54mmHg) 04/24/25 16:15 04/24/25 17:34 Temperature Temperature Source Pulse Rate Pulse Rate [Apical] 108 H 104 H Respiratory Rate 15 25 H Respiratory Effort / Characteristics Non-Labored Spontaneous Respiratory Depth Normal Respiratory Pattern Regular Blood Pressure Blood Pressure [Left Arm] 177/100 H 152/103 H Blood Pressure Mean Blood Pressure Mean [Left Arm] 125 119 Pulse Oximetry 96 98 Oxygen Delivery Method Room Air Room Air Sepsis Recent Fever Within 48 Hours Sepsis New/Unexplained Change in Mental Status Sepsis Action Taken by Nursing End Tidal CO2 (18-54mmHg) 53 49 Administered Medications Hydromorphone HCl (Hydromorphone Inj 0.5 Mg/0.5 Ml Syr) 0.5 mg IV Q15M PRN PRN Reason: Pain Stop: 05/08/25 15:48 Last Admin: 04/24/25 17:35 Dose: 0.5 mg Documented By: oliver Admin: 04/24/25 16:13 Dose: 0.5 mg Documented By: oliver Discontinued Medications Sodium Chloride (Nss) 1,000 mls @ 999 mls/hr IV .Q1H1M KRISSY Stop: 04/24/25 16:50 Last Admin: 04/24/25 16:12 Dose: 999 mls/hr Documented By: loiver Imaging Data Radiologist's Impression: Ankle X-Ray 04/24/25 15:30 XR ankle LT 2V CLINICAL HISTORY: Fall. COMPARISON: Left ankle radiographs February 19, 2025. FINDINGS: There are stable postoperative findings following tibiotalar and subtalar joint fusion. Lucency adjacent to the talocalcaneal screw is unchanged. Hardware is intact. No acute fracture is present. There is near complete bony fusion of the tibiotalar joint. Mild bony bridging of the subtalar joint is unchanged. IMPRESSION: 1. No acute fractures within the left ankle. 2. Stable findings following tibiotalar and subtalar fusion, as described above. ACT 112: Negative or not required by law. Electronically signed by: Jose Miguel Wills M.D. 04/24/2025 3:52 PM Foot X-Ray 04/24/25 15:30 XR foot LT 2V HISTORY: 34 years-old Female trauma COMPARISON: Left ankle radiographs of same day, left foot radiographs 06/18/2023 TECHNIQUE: 2 views of the left foot FINDINGS: There are stable postoperative findings following tibiotalar and subtalar joint fusion. Lucency adjacent to the talocalcaneal screw is unchanged. Hardware is intact. No acute fracture or dislocation identified. There is near complete bony fusion of the tibiotalar joint. Mild bony bridging of the subtalar joint is unchanged. Mild diffuse soft tissue swelling. IMPRESSION: 1. No acute fracture or dislocation identified. 2. Chronic postoperative changes of the ankle and hindfoot. 3. Mild diffuse soft tissue swelling. ACT 112: Negative or not required by law. The above report was generated using voice recognition software. It may contain grammatical, syntax or spelling errors. Electronically signed by: Agapito Bennett M.D. 04/24/2025 4:09 PM Discharge Plan Visit Data Chief Complaint: Ankle Pain Stated Complaint: L ANKLE PAIN ED Provider: Odessa Prince Discharge Problem: Acute pain of left foot Patient Disposition: Admitted As Inpatient Condition: Good Forms Stand Alone Forms: [facility] [email or web address] Prescriptions Prescriptions: No Action doxepin 75 mg capsule 75 mg PO HS lithium carbonate 300 mg capsule 300 mg PO BID Rx Instructions: Morning and Afternoon fluoxetine 40 mg capsule 80 mg PO QAM naproxen [Naprosyn] 500 mg tablet 500 mg PO UD PRN (Reason: Pain) tizanidine 4 mg tablet 4 mg PO Q8H PRN (Reason: muscle spasticity) Qty: 60 3RF aripiprazole 10 mg tablet 10 mg PO QAM lamotrigine 150 mg tablet 150 mg PO QAM prazosin 1 mg capsule 1 mg PO HS clonazepam 1 mg tablet 1 mg PO TID PRN (Reason: Anxiety) temazepam 30 mg capsule 30 mg PO HS lithium carbonate 300 mg tablet extended release 600 mg PO HS dextroamphetamine-amphetamine 10 mg tablet 10 mg PO .AFTERNOON Rx Instructions: TAKES IN AFTERNOON LAST FILLED 10/22 FOR 30D dextroamphetamine-amphetamine 20 mg capsule,extended release 24hr 20 mg PO QAM Referrals Referrals: Yun Del Rio MD [Primary Care Provider] -
--- NOTE | 2025-04-24 15:54 | XRay Report ---
XR ankle LT 2V CLINICAL HISTORY: Fall. COMPARISON: Left ankle radiographs February 19, 2025. FINDINGS: There are stable postoperative findings following tibiotalar and subtalar joint fusion. Aida cency adjacent to the talocalcaneal screw is unchanged. Hardware is intact. No acute fracture is pres ent. There is near complete bony fusion of the tibiotalar joint. Mild bony bridging of the subtalar j oint is unchanged. IMPRESSION: 1. No acute fractures within the left ankle. 2. Stable findings following tibiotalar and subtalar fusion, as described above. ACT 112: Negative or not required by law. Electronically signed by: Jose Miguel Wills M.D. 04/24/2025 3:52 PM
--- NOTE | 2025-04-24 16:10 | XRay Report ---
XR foot LT 2V HISTORY: 34 years-old Female trauma COMPARISON: Left ankle radiographs of same day, left foot radiographs 06/18/2023 TECHNIQUE: 2 views of the left foot FINDINGS: There are stable postoperative findings following tibiotalar and subtalar joint fusion. Lucency adjac ent to the talocalcaneal screw is unchanged. Hardware is intact. No acute fracture or dislocation alannah ntified. There is near complete bony fusion of the tibiotalar joint. Mild bony bridging of the subtal ar joint is unchanged. Mild diffuse soft tissue swelling. IMPRESSION: 1. No acute fracture or dislocation identified. 2. Chronic postoperative changes of the ankle and hindfoot. 3. Mild diffuse soft tissue swelling. ACT 112: Negative or not required by law. The above report was generated using voice recognition software. It may contain grammatical, syntax o r spelling errors. Electronically signed by: Agapito Bennett M.D. 04/24/2025 4:09 PM
[2025-04-24] MEDS: SODIUM CHLORIDE 0.9% 1,000 ML IV SCH (16:12)
[2025-04-24] MEDS: HYDROmorphone INJ 0.5 MG/0.5 ML SYR IV PRN (16:13)
--- NOTE | 2025-04-24 20:25 | History & Physical Report ---
Date of Service April 24, 2025 Assessment & Plan (1) Left ankle pain: Plan: Left ankle pain Ambulatory dysfunction H/O multiple ankle surgeries in the past --Left ankle x-ray: No acute fractures within the left ankle. Stable findings following tibiotalar and subtalar fusion, as described above. --Left foot x-ray:No acute fracture or dislocation identified. Chronic postoperative changes of the ankle and hindfoot. Mild diffuse soft tissue swelling. Will obtain left ankle CT Pain control as needed PT OT, fall precautions Orthopedics consulted Check vitamin D levels Elevated blood pressure Likely situational secondary to pain Clonidine as needed Monitor and adjust medications as needed Neurofibromatosis Bipolar disorder Generalized anxiety disorder depression Insomnia Check lithium levels Continue home medications Morbid obesity BMI 43 Needs lifestyle changes Hypothyroidism Did not tolerate levothyroxine in the past Currently not on any medications Other chronic conditions mitral valve prolapse migraine PCOS, endometriosis s/p hysterectomy As per record CODE STATUS Full code DVT prophylaxis Lovenox SQ Disposition Admit to med/tele PT OT prior to discharge I personally interviewed and examined the patient at bedside. Discussed with the ED physician. Reviewed old record. Personally reviewed imaging studies. I spent a total [id number] coordinating, documenting, and providing care for this patient. History of Present Illness Chief Complaint: Left ankle pain Primary Care Provider: Yun Del Rio MD Patient is a 31-year-old female with history of neurofibromatosis, bipolar disorder, generalized anxiety disorder, depression, mitral valve prolapse, insomnia, migraine, PCOS, endometriosis s/p hysterectomy, morbid obesity, hypothyroidism and other medical problems presents with history of left ankle pain and ambulatory dysfunction. Patient states that she was attending a concert today and was standing for prolonged period of time when she started to notice left ankle pain and had a" popping sound associated with warmth" resulting in significant pain radiating to the knee and also foot. She states that she is unable to ambulate secondary to the ankle pain associated with nausea, spasms and numbness of the foot. She denies any fall, trauma. She reports having multiple ankle surgeries in the past, last surgery done in January 2025. Denies any history of chest pain, dyspnea, palpitations, dizziness, fever, ch ills, headache, vomiting, abdominal pain, diarrhea, dysuria, recent change in medications. Allergies Allergy/AdvReac Type Severity Reaction Status Date / Time cortisone Allergy Severe Hives over Verified 04/24/25 17:20 whole body, and swelling at injection site nicotine Allergy Severe nasal Verified 04/24/25 17:20 congestion, sob, coughing bee venom protein (honey bee) AdvReac Intermediate Headache, Verified 04/24/25 17:20 faint lactose AdvReac Intermediate Gastrointestinal Verified 04/24/25 17:20 Upset ketorolac [From Toradol] AdvReac nausea/head Verified 04/24/25 17:20 ache Home Medications Medication Instructions Recorded Confirmed Type aripiprazole 10 mg tablet 10 mg PO QAM 06/11/20 04/24/25 History lamotrigine 150 mg tablet 150 mg PO QAM 02/01/21 04/24/25 History lithium carbonate 300 mg capsule 300 mg PO BID 07/04/21 04/24/25 History prazosin 1 mg capsule 1 mg PO HS 11/30/21 04/24/25 History clonazepam 1 mg tablet 1 mg PO TID PRN Anxiety 05/15/22 04/24/25 History temazepam 30 mg capsule 30 mg PO HS 05/15/22 04/24/25 History dextroamphetamine-amphetamine 10 10 mg PO .AFTERNOON 06/18/23 04/24/25 History mg tablet dextroamphetamine-amphetamine ER 20 mg PO QAM 06/18/23 04/24/25 History 20 mg 24hr capsule,extend release doxepin 75 mg capsule 75 mg PO HS 10/30/23 04/24/25 History lithium carbonate 300 mg 600 mg PO HS 12/13/24 04/24/25 History tablet,extended release fluoxetine 40 mg capsule 80 mg PO QAM 12/23/24 04/24/25 History naproxen 500 mg tablet (Naprosyn) 500 mg PO UD PRN Pain 12/23/24 04/24/25 History tizanidine 4 mg tablet 2 mg PO Q8H PRN muscle spasticity 04/24/25 04/24/25 History Past Med/Surg History Problem List (Updated 04/24/25 @ 21:32 by Galileo Saenz MD) Left ankle pain Acute pain of left foot (Acute) Torsion dystonia Left foot and ankle Chronic pain of left ankle Diarrhea (Acute) Nausea & vomiting (Acute) Abdominal pain (Acute) Diaphragm paralysis Multifocal pneumonia (Acute) Hypoxia (Acute) Acute respiratory failure with hypoxia Dyspnea (Acute) Low back pain due to displacement of intervertebral disc S/P laparoscopic cholecystectomy Encounter for pre-operative examination Symptomatic cholelithiasis Abdominal pain (Acute) Cholelithiasis Adnexal tenderness, right Tenderness of female pelvic organs Adnexal tenderness, left Cervical motion tenderness Muscle spasm of left lower extremity Cerebral concussion Insomnia Anxiety disorder Depression with suicidal ideation (Acute) delivery delivered Encounter for pre-operative examination Vaginal bleeding (Acute) UTI (urinary tract infection) (Acute) Traumatic rectus hematoma (Acute) uterine contractions in third trimester, antepartum premature rupture of membranes (PPROM) with unknown onset of labor Pelvic pain (Acute) Hyperemesis (Acute) Hx of section Chest pain (Acute) Abnormal vaginal bleeding (Acute) Abdominal pain (Acute) Morbid obesity (Acute) Bipolar disorder Anxiety with depression PCOS (polycystic ovarian syndrome) Medical History Nausea and vomiting after administration of anesthetic agent Chronic anemia Fluctuating hgbs with baseline 11-13 range per chart review ADHD History of COVID-19 Fall 2019 > loss of taste and smell, cough fever, muscle pain and fatigue, wheezing, SOB Residual altered taste/smell Concussion ~ 6 concussions total over the last 30 years Last concussion 06/2021 r/t wooden shelf fell from above patient's bed Mitral valve prolapse Dx as child Normal MV with trace MR, no MV stenosis per 06/2020 echo Neurofibromatosis, type 1 Diagnosed 2019 found after daughter was having medical issues that led to patient having genetic testing which resulted in the diagnosis, "no issues" per patient Cystic fibrosis carrier Surgical History Hx laparoscopic cholecystectomy Laparoscopic Cholecystectomy (11/22/21): Grade 1 view, Thomas#2, ETT 7.0 at [facility] History of esophagogastroduodenoscopy (EGD) at age 6 (dxd of lactose intolerance) History of bilateral tubal ligation with History of ankle surgery 2020, left left ankle ligament reconstruction and left ankle fusion at [facility] [place] (08/2021) S/P reconstruction of ligament of knee right knee 2018 [place] teeth removed 2008 Family History Mother Diabetes Other No family history of adverse response to anesthesia No significant family history Social History Smoking Status: Never smoker Second Hand Exposure: No; Do You Dip or Chew Tobacco: No; Hx Alcohol Use: No Hx Substance Use: No Preferred Language: Citizen Of [place] Communication Ability: Effective Visual Impairment: No Limitations Hearing Ability: Normal Senior Painter Required: No Beliefs That Will Affect Care: None marital status: Current Living Situation: Spouse and Family Current Living Situation Comment: Lives with and x4 children current occupational status: unemployed How many Children do You have: 4 Feels Safe at Home: Yes during the past year weight has: remained stable Assistive Devices: Glasses and Other Review of Systems Review of Systems: All systems reviewed & are unremarkable except as noted in Subjective Physical Exam Physical Exam: Physical Exam: Vitals signs as noted above General Appearance: Morbid obesity, no apparent distress Head: normocephalic, Atraumatic Eyes: normal inspection, EOMI Neck: supple, Trachea midline Respiratory/Chest: Normal breath sounds, CTA, No accessory muscle use Cardiovascular: S1, S2, No murmur Abdomen/GI:Soft, Non tender, Bowel sounds present Extremities/Musculoskeletal:normal inspection, left ankle tender, decreased ROM, postsurgical scar Neurologic/Psych:AAOX3, grossly no focal neurological deficits Skin: normal color, warm Results & Data Results & Data Vital Signs (Past 12 Hours) Vital Signs Temp Pulse Pulse Resp BP BP Pulse Ox 04/24/25 19:55 94 H 04/24/25 19:19 94 H 27 H 172/95 H 97 04/24/25 18:12 99 H 25 H 94 04/24/25 18:01 151/84 H 04/24/25 18:00 93 H 30 H 94 04/24/25 17:34 104 H 25 H 152/103 H 98 04/24/25 16:15 108 H 15 177/100 H 96 04/24/25 16:09 112 H 04/24/25 16:03 112 H 11 L 95 04/24/25 15:29 36.6 C 117 H 25 H 148/100 H 95 O2 Del Method 04/24/25 19:55 04/24/25 19:19 Room Air 04/24/25 18:12 04/24/25 18:01 04/24/25 18:00 04/24/25 17:34 Room Air 04/24/25 16:15 Room Air 04/24/25 16:09 04/24/25 16:03 Room Air 04/24/25 15:29 Room Air Diagnostic Findings Left ankle x-ray: No acute fractures within the left ankle. Stable findings following tibiotalar and subtalar fusion, as described above. Left foot x-ray:No acute fracture or dislocation identified. Chronic postoperative changes of the ankle and hindfoot. Mild diffuse soft tissue swelling. Medications Administered Home Medications Medication Instructions Recorded Confirmed aripiprazole 10 mg tablet 10 mg PO QAM 06/11/20 04/24/25 lamotrigine 150 mg tablet 150 mg PO QAM 02/01/21 04/24/25 lithium carbonate 300 mg capsule 300 mg PO BID 07/04/21 04/24/25 prazosin 1 mg capsule 1 mg PO HS 11/30/21 04/24/25 clonazepam 1 mg tablet 1 mg PO TID PRN Anxiety 05/15/22 04/24/25 temazepam 30 mg capsule 30 mg PO HS 05/15/22 04/24/25 dextroamphetamine-amphetamine 10 10 mg PO .AFTERNOON 06/18/23 04/24/25 mg tablet dextroamphetamine-amphetamine ER 20 mg PO QAM 06/18/23 04/24/25 20 mg 24hr capsule,extend release doxepin 75 mg capsule 75 mg PO HS 10/30/23 04/24/25 lithium carbonate 300 mg 600 mg PO HS 12/13/24 04/24/25 tablet,extended release fluoxetine 40 mg capsule 80 mg PO QAM 12/23/24 04/24/25 naproxen 500 mg tablet (Naprosyn) 500 mg PO UD PRN Pain 12/23/24 04/24/25 tizanidine 4 mg tablet 2 mg PO Q8H PRN muscle spasticity 04/24/25 04/24/25
[2025-04-24] MEDS ORDERED: clonazePAM 1 MG TAB PO PRN (21:21)
[2025-04-24] MEDS ORDERED: ACETAMINOPHEN 325 MG TAB PO PRN (21:44)
[2025-04-24] MEDS ORDERED: POLYETHYLENE (MIRALAX) 17 GM PACK PO PRN (21:44)
[2025-04-24] MEDS: MoRPHine SULFATE 2 MG/ML CARP IV PRN (22:07)
[2025-04-25] MEDS: MoRPHine SULFATE 4 MG/ML 1 ML CARP\\VIAL IV STA (00:26)
--- NOTE | 2025-04-25 01:46 | CT Scan Report ---
Exam(s): CT LEFT ANKLE Without Contrast EXAM: CT Left Lower Extremity Without Intravenous Contrast, Ankle CLINICAL HISTORY: Reason for exam: Left Ankle Pain R/O fracture. TECHNIQUE: Axial computed tomography images of the left ankle without intravenous contrast. CTDI is 24.91 mGy and DLP is 434.47 mGy-cm. Automated exposure control was utilized for the study. A dose lowering technique was utilized adhering to the principles of ALARA. COMPARISON: Plain films from 04/24/2025 FINDINGS: Bones/joints: There is a plate of the anterior aspect of the distal tibia secured with multiple screws. Mild narrowing and osteophytosis of the talonavicular joint. The distal fibula is intact and normally positioned. No acute fracture or dislocation is seen. Soft tissues: Unremarkable. Tubes, lines and devices: There are 3 orthogonal cannulated screws traversing the distal tibia, talus, and calcaneus. The tibiotalar joint appears to be fused. The talocalcaneal joint does not appear to be fused. There is slight lucency surrounding the screws traversing the talocalcaneal joint suggesting loosening. IMPRESSION: There are 3 orthogonal cannulated screws traversing the distal tibia, talus, and calcaneus. The tibiotalar joint appears to be fused. The talocalcaneal joint does not appear to be fused. There is slight lucency surrounding the screws traversing the talocalcaneal joint suggesting loosening. Electronically signed by: Foreign Braxton MD 04/25/25 01:45 AM
[2025-04-25] MEDS: HYDROmorphone INJ 0.5 MG/0.5 ML SYR IV PRN (03:25)
[2025-04-25] MEDS: ACETAMINOPHEN 1,000 MG/100 ML VIAL IV STA (03:26)
[2025-04-25 06:21] LABS: Hematocrit (blood only) 35.4 % (37.0-47.0); Hemoglobin 11.5 g/dL (12.0-16.0); Mean Corpuscular Hemoglobin 26.4 pg (25.0-34.0); Mean Corpuscular Volume 81.4 fL (80.0-100.0); Platelet Count 257 K/uL (130-400); RDW Standard Deviation 37.2 fL (36.4-46.3); Red Blood Count 4.35 M/uL (4.20-5.40); White Blood Count 6.24 K/ul (4.8-10.8)
[2025-04-25 06:59] LABS: Anion Gap 6.0 (3-11); Blood Urea Nitrogen 10.0 mg/dl (6-23); Calcium 8.4 mg/dl (8.6-10.3); Carbon Dioxide 27.0 mmol/L (21-32); Chloride 105.0 mmol/L (98-107); Creatinine Clr Calc Pharmacy 181.6 ml/min; Glucose 88.0 mg/dl (70-99(Fasting)); Magnesium 2.1 mg/dl (1.7-2.4); Potassium 4.0 mmol/L (3.5-5.1); Sodium 138.0 mmol/L (136-145)
[2025-04-25] MEDS: LITHIUM CARBONATE 300 MG TAB PO SCH (09:27)
[2025-04-25] MEDS: lamoTRIgine 100 MG TAB PO SCH (09:28)
[2025-04-25] MEDS: ENOXAPARIN INJ 40 MG/0.4 ML SYR SQ SCH (09:30)
[2025-04-25] MEDS: DEXTROAMPHETAMINE/AMPHETAMINE ER 10 MG CAP PO SCH (09:32)
--- NOTE | 2025-04-25 10:04 | Orthopedic Consultation ---
Date of Service April 25, 2025 Assessment & Plan (1) Left ankle pain: Plan Recommend short course of Decadron to help decrease inflammation. Continue pain control as needed. Weight bearing status: As tolerated DVT prophylaxis per protocol Follow-up: Recommend she schedule to see Dr. Zaldivar in [facility] care per primary team Stable for discharge from ortho standpoint. History of Present Illness Reason for Consultation: Intractable ankle pain Requesting Physician: . Attending Physician: Laron Carey MD 34-year-old female with complex medical history was admitted from the ER last night due to intractable ankle pain and ambulatory dysfunction. Patient has numerous surgeries on her left ankle. She underwent arthrodesis with Yasmani Wade in 2022. Most recently she has had numerous surgeries on her tendons in the left ankle by Dr. Zaldivar at [facility]. Most recent being in January. She states that she was kneeling down yesterday when she felt a pop in her ankle. She immediately had a warm feeling and severe pain in the left ankle that radiated up her leg into her calf. She came to the emergency department because the pain was so bad. She cannot stand or walk. Her pain level is 10 out of 10. Allergies Allergy/AdvReac Type Severity Reaction Status Date / Time cortisone Allergy Severe Hives over Verified 04/24/25 17:20 whole body, and swelling at injection site nicotine Allergy Severe nasal Verified 04/24/25 17:20 congestion, sob, coughing bee venom protein (honey bee) AdvReac Intermediate Headache, Verified 04/24/25 17:20 faint lactose AdvReac Intermediate Gastrointestinal Verified 04/24/25 17:20 Upset ketorolac [From Toradol] AdvReac nausea/head Verified 04/24/25 17:20 ache Home Medications Medication Instructions Recorded Confirmed Type aripiprazole 10 mg tablet 10 mg PO QAM 06/11/20 04/24/25 History lamotrigine 150 mg tablet 150 mg PO QAM 02/01/21 04/24/25 History lithium carbonate 300 mg capsule 300 mg PO BID 07/04/21 04/24/25 History prazosin 1 mg capsule 1 mg PO HS 11/30/21 04/24/25 History clonazepam 1 mg tablet 1 mg PO TID PRN Anxiety 05/15/22 04/24/25 History temazepam 30 mg capsule 30 mg PO HS 05/15/22 04/24/25 History dextroamphetamine-amphetamine 10 10 mg PO .AFTERNOON 06/18/23 04/24/25 History mg tablet dextroamphetamine-amphetamine ER 20 mg PO QAM 06/18/23 04/24/25 History 20 mg 24hr capsule,extend release doxepin 75 mg capsule 75 mg PO HS 10/30/23 04/24/25 History lithium carbonate 300 mg 600 mg PO HS 12/13/24 04/24/25 History tablet,extended release fluoxetine 40 mg capsule 80 mg PO QAM 12/23/24 04/24/25 History naproxen 500 mg tablet (Naprosyn) 500 mg PO UD PRN Pain 12/23/24 04/24/25 History tizanidine 4 mg tablet 2 mg PO Q8H PRN muscle spasticity 04/24/25 04/24/25 History Past Med/Surg History Problem List (Updated 04/25/25 @ 10:27 by Agapito Gomez PA-C) Left ankle pain Acute pain of left foot (Acute) Torsion dystonia Left foot and ankle Chronic pain of left ankle Diarrhea (Acute) Nausea & vomiting (Acute) Abdominal pain (Acute) Diaphragm paralysis Multifocal pneumonia (Acute) Hypoxia (Acute) Acute respiratory failure with hypoxia Dyspnea (Acute) Low back pain due to displacement of intervertebral disc S/P laparoscopic cholecystectomy Encounter for pre-operative examination Symptomatic cholelithiasis Abdominal pain (Acute) Cholelithiasis Adnexal tenderness, right Tenderness of female pelvic organs Adnexal tenderness, left Cervical motion tenderness Muscle spasm of left lower extremity Cerebral concussion Insomnia Anxiety disorder Depression with suicidal ideation (Acute) delivery delivered Encounter for pre-operative examination Vaginal bleeding (Acute) UTI (urinary tract infection) (Acute) Traumatic rectus hematoma (Acute) uterine contractions in third trimester, antepartum premature rupture of membranes (PPROM) with unknown onset of labor Pelvic pain (Acute) Hyperemesis (Acute) Hx of section Chest pain (Acute) Abnormal vaginal bleeding (Acute) Abdominal pain (Acute) Morbid obesity (Acute) Bipolar disorder Anxiety with depression PCOS (polycystic ovarian syndrome) Medical History Nausea and vomiting after administration of anesthetic agent Chronic anemia Fluctuating hgbs with baseline 11-13 range per chart review ADHD History of COVID-19 Fall 2020 > loss of taste and smell, cough fever, muscle pain and fatigue, wheezing, SOB Residual altered taste/smell Concussion ~ 6 concussions total over the last 30 years Last concussion 06/2021 r/t wooden shelf fell from above patient's bed Mitral valve prolapse Dx as child Normal MV with trace MR, no MV stenosis per 06/2020 echo Neurofibromatosis, type 1 Diagnosed 2019 found after daughter was having medical issues that led to patient having genetic testing which resulted in the diagnosis, "no issues" per patient Cystic fibrosis carrier Surgical History Hx laparoscopic cholecystectomy Laparoscopic Cholecystectomy (11/22/21): Grade 1 view, Thomas#2, ETT 7.0 at [facility] History of esophagogastroduodenoscopy (EGD) at age 6 (dxd of lactose intolerance) History of bilateral tubal ligation with History of ankle surgery 2020, left left ankle ligament reconstruction and left ankle fusion at [facility] (08/2021) S/P reconstruction of ligament of knee right knee 2017 [place] teeth removed 2008 Family History Mother Diabetes Other No family history of adverse response to anesthesia No significant family history Social History Smoking Status: Never smoker Second Hand Exposure: No; Do You Dip or Chew Tobacco: No; Hx Alcohol Use: No Hx Substance Use: No Preferred Language: [place]an Communication Ability: Effective Visual Impairment: No Limitations Hearing Ability: Normal 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 Physical Exam Patient was examined at bedside this morning and is in noticeable distress due to pain. There is no overlying skin changes, ecchymosis, or erythema. Patient has pain out of proportion on palpation. Extreme pain on pain palpation over the whole ankle. Mild tenderness to palpation of the calf. Achilles tendon is intact. Patient cannot move the ankle secondary to pain. Results & Data Results & Data Laboratory Results . Diagnostic Findings . Ankle X-Ray 04/24/25 15:30 XR ankle LT 2V CLINICAL HISTORY: Fall. COMPARISON: Left ankle radiographs February 19, 2025. FINDINGS: There are stable postoperative findings following tibiotalar and subtalar joint fusion. Lucency adjacent to the talocalcaneal screw is unchanged. Hardware is intact. No acute fracture is present. There is near complete bony fusion of the tibiotalar joint. Mild bony bridging of the subtalar joint is unchanged. IMPRESSION: 1. No acute fractures within the left ankle. 2. Stable findings following tibiotalar and subtalar fusion, as described above. ACT 112: Negative or not required by law. Electronically signed by: Jose Miguel Wills M.D. 04/24/2025 3:52 PM Foot X-Ray 04/24/25 15:30 XR foot LT 2V HISTORY: 34 years-old Female trauma COMPARISON: Left ankle radiographs of same day, left foot radiographs 06/18/2023 TECHNIQUE: 2 views of the left foot FINDINGS: There are stable postoperative findings following tibiotalar and subtalar joint fusion. Lucency adjacent to the talocalcaneal screw is unchanged. Hardware is intact. No acute fracture or dislocation identified. There is near complete bony fusion of the tibiotalar joint. Mild bony bridging of the subtalar joint is unchanged. Mild diffuse soft tissue swelling. IMPRESSION: 1. No acute fracture or dislocation identified. 2. Chronic postoperative changes of the ankle and hindfoot. 3. Mild diffuse soft tissue swelling. ACT 112: Negative or not required by law. The above report was generated using voice recognition software. It may contain grammatical, syntax or spelling errors. Electronically signed by: Agapito Bennett M.D. 04/24/2025 4:[address] 04/24/25 21:44 Exam(s): CT LEFT ANKLE Without Contrast EXAM: CT Left Lower Extremity Without Intravenous Contrast, Ankle CLINICAL HISTORY: Reason for exam: Left Ankle Pain R/O fracture. TECHNIQUE: Axial computed tomography images of the left ankle without intravenous contrast. CTDI is 24.91 mGy and DLP is 434.47 mGy-cm. Automated exposure control was utilized for the study. A dose lowering technique was utilized adhering to the principles of ALARA. COMPARISON: Plain films from 04/24/2025 FINDINGS: Bones/joints: There is a plate of the anterior aspect of the distal tibia secured with multiple screws. Mild narrowing and osteophytosis of the talonavicular joint. The distal fibula is intact and normally positioned. No acute fracture or dislocation is seen. Soft tissues: Unremarkable. Tubes, lines and devices: There are 3 orthogonal cannulated screws traversing the distal tibia, talus, and calcaneus. The tibiotalar joint appears to be fused. The talocalcaneal joint does not appear to be fused. There is slight lucency surrounding the screws traversing the talocalcaneal joint suggesting loosening. IMPRESSION: There are 3 orthogonal cannulated screws traversing the distal tibia, talus, and calcaneus. The tibiotalar joint appears to be fused. The talocalcaneal joint does not appear to be fused. There is slight lucency surrounding the screws traversing the talocalcaneal joint suggesting loosening. Electronically signed by: Foreign Braxton MD 04/25/25 01:45 AM PG Care Time/CCT Total # of Minutes Spent Total Time Spent with Patient: Total time spent is greater than 50% in coordination of care (as documented) at patient's floor/unit and/or counseling patient: [place] [address] IN/OBS CONSULT LVL 4,60M Patient Type New Diagnoses Chronic pain of left ankle M25.572; G89.29 Chronicity: chronic (1) Left ankle pain Chronicity: chronic Qualified Code(s): M25.572 - Pain in left ankle and joints of left foot; G89.29 - Other chronic pain
--- NOTE | 2025-04-25 12:05 | Hospitalist Progress Note ---
Date of Service April 25, 2025 Assessment & Plan (1) Left ankle pain: Plan: Left ankle pain-due to a sprain with history of multiple left ankle surgeries CT scan of the ankle is showing loosening of screw Appreciate orthopedic input and recommendationtrial of steroid but no surgery Has been getting pain medications Will get PT OT evaluation prior to discharge Elevated blood pressure Likely situational secondary to pain Clonidine as needed Monitor and adjust medications as needed Blood pressure seems to be improving and it is 119/69 this morning Neurofibromatosis Bipolar disorder Generalized anxiety disorder depression Insomnia Check lithium levels Continue home medications Morbid obesity BMI 43 Needs lifestyle changes Hypothyroidism Did not tolerate levothyroxine in the past Currently not on any medications Other chronic conditions mitral valve prolapse migraine PCOS, endometriosis s/p hysterectomy As per record CODE STATUS Full code DVT prophylaxis Lovenox SQ Disposition Admit to med/tele PT OT prior to discharge I spent a total of 53 minutes in examining the patient, discussion about the management plan, reviewed the investigations and medications with the patient. Admission and Anticipated Discharge Date Admission Date: April 24, 2025 Subjective 04/25/2025 The patient was seen and examined in medical telemetry unit She was admitted with a sprain left ankle status post multiple surgeries and left ankle Still has considerable amount of pain with and without movement Review of Systems Review of Systems: All systems reviewed and are unremarkable except as noted below Physical Exam Physical Exam: Morbidly obese lying in bed with some discomfort due to left ankle pain Constitutional: well developed, well nourished, + ill appearing and + morbidly obese Eyes: PERRL, conjunctivae normal, anicteric sclerae ENMT: external ear and nose normal, oropharynx normal Neck: trachea midline, no thyromegaly Respiratory: no respiratory distress Auscultation: lungs clear to auscultation bilaterally and + diminished lung sounds Cardiovascular: Rate/Rhythm: regular rate, regular rhythm and + bradycardic Heart Sounds: normal S1 and normal S2; no murmur Extremities: + edema (Trace edema bilaterally) Musculoskeletal: Ankle: + ankle abnormal to inspection (Left ankle is swollen, increased local temperature and tenderness) Neurologic: normal touch/pain/proprioception; + does not move all extremities (Cannot move left ankle left foot or toes due to swelling and pain) Lymphatic: no cervical or axillary lymphadenopathy Results & Data Results & Data Vital Signs (Past 12 Hours) Vital Signs Temp Pulse Pulse Resp BP Pulse Ox O2 Del Method 04/25/25 08:37 37.0 C 59 L 19 127/84 96 Room Air 04/25/25 07:00 86 04/25/25 02:56 36.7 C 104 H 20 157/103 H 97 Room Air Laboratory Results Short CBC 04/25/25 Range/Units 05:58 WBC 6.24 (4.8-10.8) K/ul Hgb 11.5 L (12.0-16.0) g/dL Hct 35.4 L (37.0-47.0) % Plt Count 257 (130-400) K/uL BMP 04/25/25 05:58 Sodium 138 Potassium 4.0 Chloride 105 Carbon Dioxide 27 BUN 10 Creatinine 0.56 L Glucose 88 Calcium 8.4 L Medications Administered Current Inpatient Medications Acetaminophen (Acetaminophen 325 Mg Tab) 650 mg PO Q4H PRN PRN Reason: pain/fever Stop: 05/24/25 21:43 Amphetamine/Dextroamphetamine (Dextroamphetamine/Amphetamine Ir 10 Mg Tab) 10 mg PO DAILY@1400 PENDING SALE TO [facility] Stop: 05/09/25 13:59 Amphetamine/Dextroamphetamine (Dextroamphetamine/Amphetamine Er 10 Mg Cap) [address] [facility] Stop: 05/09/25 08:59 Last Admin: 04/25/25 09:32 Dose: 20 mg Aripiprazole (Aripiprazole 10 Mg Tab) [address] [facility] Stop: 05/25/25 08:59 Last Admin: 04/25/25 09:29 Dose: 10 mg Clonazepam (Clonazepam 1 Mg Tab) 1 mg PO TID PRN PRN Reason: Anxiety Stop: 05/24/25 21:20 Clonidine HCl (Clonidine Hcl 0.1 Mg Tab) 0.1 mg PO Q8H PRN PRN Reason: Hypertension SBP>180orDBP>100 Stop: 05/24/25 21:43 Diclofenac Sodium (Diclofenac Sod 1% Gel 100 Gm Tube) 2 gm EXT TID PENDING SALE TO [facility]; Protocol Stop: 05/25/25 13:59 Doxepin HCl (Doxepin Hcl 75 Mg Capsule) 75 mg PO [facility] Stop: 05/25/25 20:59 Enoxaparin Sodium (Enoxaparin Inj 40 Mg/0.4 Ml Syr) [address] [facility] Stop: 05/25/25 08:59 Last Admin: 04/25/25 09:30 Dose: 40 mg Fluoxetine HCl (Fluoxetine Hcl 20 Mg Cap) [address] [facility] Stop: 05/25/25 08:59 Last Admin: 04/25/25 09:28 Dose: 80 mg Hydromorphone HCl (Hydromorphone Inj 0.5 Mg/0.5 Ml Syr) 0.5 mg IV Q3H PRN PRN Reason: Mod-Sev Pain (Scale 4-10) Stop: 05/09/25 03:16 Last Admin: 04/25/25 09:33 Dose: 0.5 mg Lamotrigine (Lamotrigine 100 Mg Tab) [address] [facility] Stop: 05/25/25 08:59 Last Admin: 04/25/25 09:28 Dose: 150 mg [place] Carbonate ([place] Carbonate 300 Mg Tab) 300 mg PO BID@0900,1400 PENDING SALE TO [facility] Stop: 05/25/25 08:59 Last Admin: 04/25/25 09:27 Dose: 300 mg [place] Carbonate ([place] Carbonate Slow Rel 300 Mg Tab) 600 mg PO [facility] Stop: 05/25/25 20:59 Lorazepam (Lorazepam 1 Mg Tab) 2 mg PO [facility] Stop: 05/25/25 20:59 Ondansetron HCl (Ondansetron Inj 2 Mg/Ml 2 Ml Vial) 4 mg IV Q6H PRN PRN Reason: Nausea Stop: 05/24/25 21:43 Oxycodone/Acetaminophen (Oxycodone/Acetaminophen 5mg/325mg Tab) 1 tab PO Q4H PRN PRN Reason: Mild-Mod Pain (Scale 1-6) Stop: 05/08/25 21:43 Last Admin: 04/25/25 07:42 Dose: 1 tab Polyethylene Glycol (Polyethylene (Miralax) 17 Gm Pack) 17 gm PO DAILY PRN PRN Reason: Constipation Stop: 05/24/25 21:43 Prazosin HCl (Prazosin Hcl 1 Mg Cap) 1 mg PO [facility] Stop: 05/25/25 20:59 Tizanidine HCl (Tizanidine Hcl 4 Mg Tablet) 2 mg PO Q8H PRN PRN Reason: muscle spasticity Stop: 05/24/25 21:20 Last Admin: 04/25/25 09:28 Dose: 2 mg (1) Left ankle pain Chronicity: chronic Qualified Code(s): M25.572 - Pain in left ankle and joints of left foot; G89.29 - Other chronic pain
[2025-04-25] MEDS ORDERED: dexAMETHasone 8 MG in SYRINGE 0 ML IV ONE (12:45)
[2025-04-25] MEDS: DICLOFENAC SOD 1% GEL 100 GM TUBE EXT SCH (13:19)
[2025-04-25] MEDS: DEXTROAMPHETAMINE/AMPHETAMINE IR 10 MG TAB PO SCH (13:19)
[2025-04-25] MEDS: ONDANSETRON INJ 2 MG/ML 2 ML VIAL IV PRN (13:20)
[2025-04-25] MEDS: LORazepam 1 MG TAB PO SCH (21:14)
[2025-04-25] MEDS: PRAZOSIN HCL 1 MG CAP PO SCH (21:14)
[2025-04-25] MEDS: LITHIUM CARBONATE SLOW REL 300 MG TAB PO SCH (21:14)
[2025-04-25] MEDS: DOXEPIN HCL 75 MG CAPSULE PO SCH (21:14)
[2025-04-25 23:00] VITALS: RESP 18
[2025-04-26] MEDS: ACETAMINOPHEN 1,000 MG/100 ML VIAL IV STA (04:03)
[2025-04-26] MEDS: HYDROmorphone INJ 0.5 MG/0.5 ML SYR IV STA (04:04)
[2025-04-26 11:08] VITALS: BP 112/76; TEMP 98.6; O2SAT 91
--- NOTE | 2025-04-26 12:07 | Orthopedic Progress Note ---
Date of Service April 26, 2025 Assessment & Plan (1) Left ankle pain: Orthopedically she is stable for discharge. She can be fitted with a walking boot for protection/comfort and follow-up with [facility]. Subjective Patient was seen at bedside this morning. She states that her pain has improved since yesterday but is still around an 8 out of 10. She is getting some relief from the Percocet. She has an allergy to cortisone so she was not able to receive the Decadron. Patient asks if she could be discharged this afternoon. She does not have a car and her father could pick her up around 230. She also requests a splint or boot to protect her ankle until she can follow-up with [facility]. Review of Systems All systems reviewed & are unremarkable except as noted in HPI & below. Physical Exam Reexamination of the left ankle shows some decreased swelling. The ankle and foot are still extremely tender to palpation. Tenderness to palpation of the calf muscles has improved. Results & Data Results & Data Laboratory Results . Diagnostic Findings . PG Care Time/CCT Total # of Minutes Spent Total Time Spent with Patient: Total time spent is greater than 50% in coordination of care (as documented) at patient's floor/unit and/or counseling patient: Coding [place] [address] SUB INP/OBS CARE 05/31MIN Patient Type Established History Problem Focused Exam Problem Focused Medical Decision Making Low Complexity Diagnoses Chronic pain of left ankle M25.572; G89.29 Chronicity: chronic (1) Left ankle pain Chronicity: chronic Qualified Code(s): M25.572 - Pain in left ankle and joints of left foot; G89.29 - Other chronic pain
[2025-04-26] MEDS: DICLOFENAC SOD 1% GEL 100 GM TUBE EXT SCH (13:13)
--- NOTE | 2025-04-26 13:44 | Hospitalist Progress Note ---
Date of Service April 26, 2025 Assessment & Plan (1) Left ankle pain: Plan: Left ankle pain-due to a sprain with history of multiple left ankle surgeries CT scan of the ankle is showing loosening of screw Appreciate orthopedic input and recommendationtrial of steroid but no surgery Has been getting pain medications Will get PT OT evaluation prior to discharge Evaluated by Ortho this morning and recommended that she could be discharged from their perspective Her pain is reasonably controlled with current medications She is physically and mentally ready to be discharged Elevated blood pressure Likely situational secondary to pain Clonidine as needed Monitor and adjust medications as needed Blood pressure seems to be improving and it is 119/69 this morning Blood pressure remains stable Neurofibromatosis Bipolar disorder Generalized anxiety disorder depression Insomnia Check lithium levels Continue home medications Morbid obesity BMI 43 Needs lifestyle changes Hypothyroidism Did not tolerate levothyroxine in the past Currently not on any medications Other chronic conditions mitral valve prolapse migraine PCOS, endometriosis s/p hysterectomy As per record CODE STATUS Full code DVT prophylaxis Lovenox SQ Disposition Admit to med/tele PT OT prior to discharge I spent a total of 37 minutes in examining the patient, discussion about the management plan, reviewed the investigations and medications with the patient. (2) Acute pain of left foot: Admission and Anticipated Discharge Date Admission Date: April 24, 2025 Subjective 04/25/2025 The patient was seen and examined in medical telemetry unit She was admitted with a sprain left ankle status post multiple surgeries and left ankle Still has considerable amount of pain with and without movement 04/26/2025 The patient was seen and examined in medical telemetry unit Her pain seems to be reasonably controlled with current medications She was Ortho and recommended that she can go home Discussed with the patient and she is stable to be discharged Review of Systems Review of Systems: All systems reviewed and are unremarkable except as noted below Physical Exam Physical Exam: Morbidly obese lying in bed with some discomfort due to left ankle pain Constitutional: well developed, well nourished, + ill appearing and + morbidly obese Eyes: PERRL, conjunctivae normal, anicteric sclerae ENMT: external ear and nose normal, oropharynx normal Neck: trachea midline, no thyromegaly Respiratory: no respiratory distress Auscultation: lungs clear to auscultation bilaterally and + diminished lung sounds Cardiovascular: Rate/Rhythm: regular rate, regular rhythm and + bradycardic Heart Sounds: normal S1 and normal S2; no murmur Extremities: + edema (Trace edema bilaterally) Musculoskeletal: Ankle: + ankle abnormal to inspection (Left ankle is swollen, increased local temperature and tenderness) Neurologic: normal touch/pain/proprioception; + does not move all extremities (Cannot move left ankle left foot or toes due to swelling and pain) Lymphatic: no cervical or axillary lymphadenopathy Results & Data Results & Data Vital Signs (Past 12 Hours) Vital Signs Temp Pulse Pulse Resp BP BP Pulse Ox 04/26/25 11:08 37.0 C 133 H 18 112/76 91 04/26/25 07:50 153 H 04/26/25 07:32 36.9 C 101 H 18 105/71 94 04/26/25 05:20 94 H 04/26/25 02:45 37.0 C 114 H 18 107/62 91 O2 Del Method 04/26/25 11:08 Room Air 04/26/25 07:50 04/26/25 07:32 Room Air 04/26/25 05:20 04/26/25 02:45 Room Air Medications Administered Current Inpatient Medications Acetaminophen (Acetaminophen 325 Mg Tab) 650 mg PO Q4H PRN PRN Reason: pain/fever Stop: 05/24/25 21:43 Amphetamine/Dextroamphetamine (Dextroamphetamine/Amphetamine Ir 10 Mg Tab) 10 mg PO DAILY@1400 [facility] Stop: 05/09/25 13:59 Last Admin: 04/25/25 13:19 Dose: 10 mg Amphetamine/Dextroamphetamine (Dextroamphetamine/Amphetamine Er 10 Mg Cap) 20 mg PO [facility] Stop: 05/09/25 08:59 Last Admin: 04/26/25 08:40 Dose: 20 mg Aripiprazole (Aripiprazole 10 Mg Tab) 10 mg PO [facility] Stop: 05/25/25 08:59 Last Admin: 04/26/25 08:44 Dose: 10 mg Clonazepam (Clonazepam 1 Mg Tab) 1 mg PO TID PRN PRN Reason: Anxiety Stop: 05/24/25 21:20 Clonidine HCl (Clonidine Hcl 0.1 Mg Tab) 0.1 mg PO Q8H PRN PRN Reason: Hypertension SBP>180orDBP>100 Stop: 05/24/25 21:43 Diclofenac Sodium (Diclofenac Sod 1% Gel 100 Gm Tube) 2 gm EXT QID [facility]; Protocol Stop: 05/26/25 12:59 Last Admin: 04/26/25 13:13 Dose: Not Given Doxepin HCl (Doxepin Hcl 75 Mg Capsule) 75 mg PO [facility] Stop: 05/25/25 20:59 Last Admin: 04/25/25 21:14 Dose: 75 mg Enoxaparin Sodium (Enoxaparin Inj 40 Mg/0.4 Ml Syr) 40 mg SQ [facility] Stop: 05/25/25 08:59 Last Admin: 04/26/25 08:41 Dose: 40 mg Fluoxetine HCl (Fluoxetine Hcl 20 Mg Cap) 80 mg PO [facility] Stop: 05/25/25 08:59 Last Admin: 04/26/25 08:43 Dose: 80 mg Hydromorphone HCl (Hydromorphone Inj 0.5 Mg/0.5 Ml Syr) 0.5 mg IV Q3H PRN PRN Reason: Mod-Sev Pain (Scale 4-10) Stop: 05/09/25 03:16 Last Admin: 04/26/25 08:40 Dose: 0.5 mg Lamotrigine (Lamotrigine 100 Mg Tab) 150 mg PO [facility] Stop: 05/25/25 08:59 Last Admin: 04/26/25 08:41 Dose: 150 mg Calcium Carbonate (Calcium Carbonate 300 Mg Tab) 300 mg PO BID@0900,1400 [facility] Stop: 05/25/25 08:59 Last Admin: 04/26/25 08:43 Dose: 300 mg Calcium Carbonate (Calcium Carbonate Slow Rel 300 Mg Tab) 600 mg PO [facility] Stop: 05/25/25 20:59 Last Admin: 04/25/25 21:14 Dose: 600 mg Lorazepam (Lorazepam 1 Mg Tab) 2 mg PO [facility] Stop: 05/25/25 20:59 Last Admin: 04/25/25 21:14 Dose: 2 mg Ondansetron HCl (Ondansetron Inj 2 Mg/Ml 2 Ml Vial) 4 mg IV Q6H PRN PRN Reason: Nausea Stop: 05/24/25 21:43 Last Admin: 04/25/25 13:20 Dose: 4 mg Oxycodone/Acetaminophen (Oxycodone/Acetaminophen 5mg/325mg Tab) 1 tab PO Q4H PRN PRN Reason: Mild-Mod Pain (Scale 1-6) Stop: 05/08/25 21:43 Last Admin: 04/26/25 09:58 Dose: 1 tab Polyethylene Glycol (Polyethylene (Miralax) 17 Gm Pack) 17 gm PO DAILY PRN PRN Reason: Constipation Stop: 05/24/25 21:43 Prazosin HCl (Prazosin Hcl 1 Mg Cap) 1 mg PO HS [facility] Stop: 05/25/25 20:59 Last Admin: 04/25/25 21:14 Dose: 1 mg Tizanidine HCl (Tizanidine Hcl 4 Mg Tablet) 2 mg PO Q8H PRN PRN Reason: muscle spasticity Stop: 05/24/25 21:20 Last Admin: 04/26/25 08:44 Dose: 2 mg (1) Left ankle pain Chronicity: chronic Qualified Code(s): M25.572 - Pain in left ankle and joints of left foot; G89.29 - Other chronic pain
[2025-04-26 14:42] VITALS: PULSE 103
--- NOTE | 2025-04-27 07:59 | Discharge Summary ---
Date of Service April 27, 2025 Admission HPI Per Admitting Provider Patient is a 31-year-old female with history of neurofibromatosis, bipolar disorder, generalized anxiety disorder, depression, mitral valve prolapse, insomnia, migraine, PCOS, endometriosis s/p hysterectomy, morbid obesity, hypothyroidism and other medical problems presents with history of left ankle pain and ambulatory dysfunction. Patient states that she was attending a concert today and was standing for prolonged period of time when she started to notice left ankle pain and had a" popping sound associated with warmth" resulting in significant pain radiating to the knee and also foot. She states that she is unable to ambulate secondary to the ankle pain associated with nausea, spasms and numbness of the foot. She denies any fall, trauma. She reports having multiple ankle surgeries in the past, last surgery done in January 2025. Denies any history of chest pain, dyspnea, palpitations, dizziness, fever, chills, headache, vomiting, abdominal pain, diarrhea, dysuria, recent change in medications. Admission Exam Per Admitting Provider Physical Exam: Physical Exam: Vitals signs as noted above General Appearance: Morbid obesity, no apparent distress Head: normocephalic, Atraumatic Eyes: normal inspection, EOMI Neck: supple, Trachea midline Respiratory/Chest: Normal breath sounds, CTA, No accessory muscle use Cardiovascular: S1, S2, No murmur Abdomen/GI:Soft, Non tender, Bowel sounds present Extremities/Musculoskeletal:normal inspection, left ankle tender, decreased ROM, postsurgical scar Neurologic/Psych:AAOX3, grossly no focal neurological deficits Skin: normal color, warm Principal Diagnosis Left ankle sprain status post multiple surgeries in the past Discharge Exam Morbidly obese lying in bed with some discomfort due to left ankle pain Constitutional well developed, well nourished, + ill appearing and + morbidly obese Eyes PERRL, conjunctivae normal, anicteric sclerae ENMT external ear and nose normal, oropharynx normal Neck trachea midline, no thyromegaly Respiratory no respiratory distress Auscultation: lungs clear to auscultation bilaterally and + diminished lung sounds Cardiovascular Rate/Rhythm: regular rate, regular rhythm and + bradycardic Heart Sounds: normal S1 and normal S2; no murmur Extremities: + edema (Trace edema bilaterally) Musculoskeletal Ankle: + ankle abnormal to inspection (Left ankle is swollen, increased local temperature and tenderness) Neurologic normal touch/pain/proprioception; + does not move all extremities (Cannot move left ankle left foot or toes due to swelling and pain) Lymphatic no cervical or axillary lymphadenopathy Discharge Data Allergies Allergy/AdvReac Type Severity Reaction Status Date / Time cortisone Allergy Severe Hives over Verified 04/24/25 17:20 whole body, and swelling at injection site nicotine Allergy Severe nasal Verified 04/24/25 17:20 congestion, sob, coughing bee venom protein (honey bee) AdvReac Intermediate Headache, Verified 04/24/25 17:20 faint lactose AdvReac Intermediate Gastrointestinal Verified 04/24/25 17:20 Upset ketorolac [From Toradol] AdvReac nausea/head Verified 04/24/25 17:20 ache Consultations 04/24/25 20:35 ED Decision to Admit Stat 04/24/25 21:44 Consult Orthopedic Surgery Routine Ordered Studies 04/24/25 21:44 CT ankle LT wo con Urgent Hospital Course (1) Left ankle pain: Left ankle pain-due to a sprain with history of multiple left ankle surgeries CT scan of the ankle is showing loosening of screw Appreciate orthopedic input and recommendationtrial of steroid but no surgery Has been getting pain medications Will get PT OT evaluation prior to discharge Evaluated by Ortho this morning and recommended that she could be discharged from their perspective Her pain is reasonably controlled with current medications She is physically and mentally ready to be discharged Elevated blood pressure Likely situational secondary to pain Clonidine as needed Monitor and adjust medications as needed Blood pressure seems to be improving and it is 119/69 this morning Blood pressure remains stable Neurofibromatosis Bipolar disorder Generalized anxiety disorder depression Insomnia Check lithium levels Continue home medications Morbid obesity BMI 43 Needs lifestyle changes Hypothyroidism Did not tolerate levothyroxine in the past Currently not on any medications Other chronic conditions mitral valve prolapse migraine PCOS, endometriosis s/p hysterectomy As per record CODE STATUS Full code DVT prophylaxis Lovenox SQ Disposition Admit to med/tele PT OT prior to discharge I spent a total of 37 minutes in examining the patient, discussion about the management plan, reviewed the investigations and medications with the patient. (2) Acute pain of left foot: Total Time Total Time Spent Total Time Spent (In Minutes): 35 minutes Discharge Plan Discharge Items Patient Disposition: Home - Self-Care Reason For Visit: LEFT ANKLE PAIN Discharge Diagnosis: Left ankle sprain status post multiple surgeries in the past Condition on Discharge: Good Activity: As commented below Activity Comment: Use the walking device in the cast/boot to move around Non-emergency contact: Primary Care Provider Call non-emergency contact if: you have any medication questions and your symptoms worsen Follow-up/Referrals: Yun Del Rio MD [Primary Care Provider] - (Your doctor's office will give you a call on Sunday with an appointment within 7 days) Diet: Heart Healthy Addtl Attending Provider Instructions: With either home please take extreme precaution to avoid falls Use the device when walking around/moving around Take your medications as advised and try to use less of narcotics pain medication Please keep your appointment with your healthcare providers Pending Studies at Discharge: No Stand-Alone Forms: My [employer], Smoking Cessation Medications and DC Order Prescriptions: New oxycodone-acetaminophen [Percocet] 5-325 mg Tablet 1 tab PO Q4H PRN (Reason: pain) Qty: 20 0RF diclofenac sodium [Voltaren Arthritis Pain] 1 % Gel 2 g EXT BID Qty: 50 0RF Continued doxepin 75 mg capsule 75 mg PO HS lithium carbonate 300 mg capsule 300 mg PO BID Rx Instructions: Morning and Afternoon fluoxetine 40 mg capsule 80 mg PO QAM naproxen [Naprosyn] 500 mg tablet 500 mg PO UD PRN (Reason: Pain) aripiprazole 10 mg tablet 10 mg PO QAM lamotrigine 150 mg tablet 150 mg PO QAM prazosin 1 mg capsule 1 mg PO HS clonazepam 1 mg tablet 1 mg PO TID PRN (Reason: Anxiety) temazepam 30 mg capsule 30 mg PO HS lithium carbonate 300 mg tablet extended release 600 mg PO HS dextroamphetamine-amphetamine 10 mg tablet 10 mg PO .AFTERNOON Rx Instructions: TAKES IN AFTERNOON LAST FILLED 10/22 FOR 30D dextroamphetamine-amphetamine 20 mg capsule,extended release 24hr 20 mg PO QAM tizanidine 4 mg tablet 2 mg PO Q8H PRN (Reason: muscle spasticity) Discharge Orders: Discharge Order (Routine); Ordered 04/26/25 Ordered By: Laron Beltre/Other Patient Handouts: Medicine for Pain Admission Data Admit Date/Time: 04/24/25 20:48 Attending Provider: Laron Carey Admit Provider: Galileo Saenz Primary Care Provider: Yun Del Rio Other Providers: Corey Bhat; Tristan Aguirre; Mando Marks; Kingsley Oliver; Dorene Teixeira; Keron Aparicio; Marvin Holguin; Brian Benton; Brian Vasques; Jailyn Turcios; Carissa Ramires; Helga Becerra; Andre Chan; Ernestina King; Blaine Anderson; Vineet Sam Other Interventions: Discharge Summary Assessment (RN) Last Done: 04/26/25 14:11
== END 2025-04-26 15:06 | disposition home or self-care (01) ==
LOC: EDINP 15:19 → ED 15:19 → EDINP 21:45 → 2N 23:07